=== PATIENT | male | born 1965 | race Caucasian/White ===

== ENCOUNTER 2023-10-18 03:21 | Emergency (ER) | payer MEDICARE, SELFPAY ==
[2023-10-18 03:29] VITALS: BP 117/80; PULSE 77; RESP 18; TEMP 36.8; O2SAT 99; BMI 30.2
[2023-10-18 03:36] VITALS: PULSE 79
[2023-10-18 03:41] LABS: Glucometer 513 mg/dL (74-106)
--- NOTE | 2023-10-18 03:42 | ECG_ITS ---
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
--- NOTE | 2023-10-18 03:50 | ED.GENADUL1 ---
HPI - General Adult General Chief complaint: Dizziness Stated complaint: hyperglycemia Time Seen by Provider: 10/18/23 03:25 Source: patient Mode of arrival: walk-in Limitations: no limitations History of Present Illness HPI narrative: 58 -year-old male presents for elevated blood sugar. It's been this way for the past day or two since he ate some cake and ice cream at a birthday constitution party. He doesn't have chest pain or dizziness. No fever cough or shortness of breath. No back pain or vomiting. He's been taking all his medications. Related Data Allergies Allergy/AdvReac Type Severity Reaction Status Date / Time povidone-iodine AdvReac Unknown Verified 10/18/23 03:37 [From Betadine] Review of Systems ROS Narrative A ten point review of systems is negative except as noted above. he has had polyuria PFSH PFSH Social History Smoking status: Never smoker Exam Narrative Exam Narrative: Nurses note and vital signs reviewed and patient is not hypoxic. General: The patient appears well and in no apparent distress. Patient is resting comfortably on cart. Skin: Warm, dry, no pallor noted. There is no rash noted. Head: Normocephalic, atraumatic Eye: Normal conjunctiva, no drainage Ears, Nose, Mouth, and Throat: oral mucosa is moist. Nares patent. Cardiovascular: Regular Rate and Rhythm Respiratory: Patient is in no distress, no accessory muscle use, lungs are clear to auscultation, no wheezing, rales or rhonchi Back: non-tender GI: no tenderness to palpation, no masses appreciated. No rebound, guarding, or rigidity noted. Musculoskeletal: The patient has no evidence of calf tenderness, no pitting edema, symmetrical pulses noted bilaterally Neurological: A&O, normal speech Psychiatric: Cooperative Constitutional Vital Signs, click to edit/add: Last Vital Signs Temp 98.2 F 10/18/23 03:29 Pulse 77 10/18/23 03:29 Resp 18 10/18/23 03:29 BP 117/80 10/18/23 03:29 Pulse Ox 99 10/18/23 03:29 O2 Del Method Room Air 10/18/23 03:29 Course Vital Signs Vital signs: Vital Signs Temperature 98.2 F 10/18/23 03:29 Pulse Rate 77 10/18/23 03:29 Respiratory Rate 18 10/18/23 03:29 Blood Pressure 117/80 10/18/23 03:29 Pulse Oximetry 99 10/18/23 03:29 Oxygen Delivery Method Room Air 10/18/23 03:29 Temperature 98.2 F 10/18/23 03:29 Pulse Rate 77 10/18/23 03:29 Respiratory Rate 18 10/18/23 03:29 Blood Pressure 117/80 10/18/23 03:29 Pulse Oximetry 99 10/18/23 03:29 Oxygen Delivery Method Room Air 10/18/23 03:29 Medical Decision Making MDM Narrative Medical decision making narrative: the patient presented with hypoglycemia. No evidence of DKA. He was given IV fluids and IV insulin and his blood sugar has come down appropriately and he'll be discharged home. My impression is that his hyperglycemia was caused by his diet and I discussed this matter with the patient. Differential Diagnosis Differential Diagnosis: hyperglycemia, DKA Lab Data Lab results reviewed: Yes I reviewed the patient's lab results Labs: Lab Results 10/18/23 10/18/23 10/18/23 Range/Units 03:31 03:55 05:13 WBC 8.7 (4.0-11.0) 10^3/uL RBC 3.99 L (4.70-6.10) 10^6/uL Hgb 12.6 L (14.0-18.0) g/dL Hct 36.1 L (42.0-54.0) % MCV 90.5 (80.0-94.0) fL MCH 31.6 (25.9-34.0) pg MCHC 34.9 (29.9-35.2) g/dL RDW 12.6 (11.0-15.0) % Plt Count 199 (150-450) 10^3/uL MPV 11.1 (9.5-13.5) fL Neut % (Auto) 48.5 (43.0-75.0) % Lymph % (Auto) 39.1 (20.5-60.0) % [place] % (Auto) 7.9 (1.7-12.0) % Eos % (Auto) 3.7 (0.9-7.0) % Baso % (Auto) 0.6 (0.2-2.0) % Neut # (Auto) 4.2 (1.4-6.5) 10^3/uL Lymph # (Auto) 3.4 (1.2-3.8) 10^3/uL [place] # (Auto) 0.7 (0.3-0.8) 10^3/uL Eos # (Auto) 0.3 (0.0-0.7) 10^3/uL Baso # (Auto) 0.1 (0.0-0.1) 10^3/uL Abs Immat Gran (auto) 0.02 (0.00-0.03) 10^3/uL Imm/Tot Granulo (auto) 0.2 (0.0-0.5) % Sodium 127 L (136-145) mmol/L Potassium 4.5 (3.5-5.1) mmol/L Chloride 91 L (98-107) mmol/L Carbon Dioxide 26.9 (21.0-32.0) mmol/L Anion Gap 13.6 BUN 44.0 H (7.0-18.0) mg/dL Creatinine 1.69 H (0.70-1.30) mg/dL Est GFR ( Amer) 51 L (>=60) Est GFR (Non-Af Amer) 42 L (>=60) BUN/Creatinine Ratio 26.0 Glucose 481 H (74-106) mg/dL Calcium 9.4 (8.5-10.1) mg/dL Acetone, Qual Negative (NEGATIVE) POC Glucose 513 H* 353 H (74-106) mg/dL ECG Data Attestation: I personally reviewed and interpreted this ECG as follows: (EKG on my interpretation shows sinus rhythm without acute change and a rate of 79.) Discharge Plan Discharge Chief Complaint: Dizziness Clinical Impression: Hyperglycemia Patient Disposition: Home, Self-Care Time of Disposition Decision: 05:18 Condition: Good Mode of Transportation: Private Vehicle Instructions: Diabetic Hyperglycemia (ED) Stand Alone Forms: Portal Instructions Referrals: Cheri Em [facility] [employer] [Primary Care Provider] - 1 week
[2023-10-18 03:58] LABS: Basophils Absolute Auto 0.1 10^3/uL (0.0-0.1); Basophils Percent Auto 0.6 % (0.2-2.0); Eosinophils Absolute Auto 0.3 10^3/uL (0.0-0.7); Eosinophils Percent Auto 3.7 % (0.9-7.0); Hematocrit 36.1 % (42.0-54.0); Hemoglobin 12.6 g/dL (14.0-18.0); Immature Granulocytes Abs Auto 0.02 10^3/uL (0.00-0.03); Immature Granulocytes Pct Auto 0.2 % (0.0-0.5); Lymphocytes Absolute Auto 3.4 10^3/uL (1.2-3.8); Lymphocytes Percent Auto 39.1 % (20.5-60.0); Mean Corpuscular HGB Conc 34.9 g/dL (29.9-35.2); Mean Corpuscular Hemoglobin 31.6 pg (25.9-34.0); Mean Corpuscular Volume 90.5 fL (80.0-94.0); Mean Platelet Volume 11.1 fL (9.5-13.5); Monocytes Absolute Auto 0.7 10^3/uL (0.3-0.8); Monocytes Percent Auto 7.9 % (1.7-12.0); Neutrophils Absolute Auto 4.2 10^3/uL (1.4-6.5); Neutrophils Percent Auto 48.5 % (43.0-75.0); Platelet Count 199 10^3/uL (150-450); Red Blood Count 3.99 10^6/uL (4.70-6.10); Red Cell Distribution Width 12.6 % (11.0-15.0); White Blood Count 8.7 10^3/uL (4.0-11.0)
--- NOTE | 2023-10-18 04:01 | PC.NURSE ---
Does have aa fracture shoe on left foot. that makes him a little off balance
[2023-10-18] MEDS: 0.9 % SODIUM CHLORIDE 1,000 ML 1000 ML IV (04:07)
[2023-10-18 04:08] LABS: Anion Gap 13.6; Calcium 9.4 mg/dL (8.5-10.1); Carbon Dioxide 26.9 mmol/L (21.0-32.0); Chloride 91 mmol/L (98-107); Estimated GFR (African America 51 (>=60); Estimated GFR (Non-African Ame 42 (>=60); Glucose 481 mg/dL (74-106); Potassium 4.5 mmol/L (3.5-5.1); Sodium 127 mmol/L (136-145)
[2023-10-18 04:09] LABS: Acetone NEGATIVE (NEGATIVE)
[2023-10-18] MEDS: INSULIN REGULAR 300 UNITS/3 ML 10 UNIT IV (04:36)
[2023-10-18 05:14] LABS: Glucometer 353 mg/dL (74-106)
== END 2023-10-18 05:39 | disposition home or self-care (01) ==
PROVIDERS: Emergency Provider Emergency Medicine; PCP Nurse Practitioner
DX: E11.65 Type 2 diabetes mellitus with hyperglycemia (principal)
CPT/HCPCS: 36415; 80048; 81001; 82009; 85025; 93005; 99284

== ENCOUNTER 2025-09-01 02:25 | Inpatient (IN) | payer MEDICARE, SELFPAY ==
[2025-09-01] VITALS (12 sets, daily range): BP systolic 120–165; BP diastolic 64–100; PULSE 83–102; TEMP 36.7–37.7; O2SAT 92–97; BMI 25.7; BMI 30.7
--- OUTSIDE RECORDS SUMMARY | 2025-09-01 02:33 | XMS_ITS | Patient Health Record ---
Author Organization [facility]) Address [address] [place] [address] Support Name Relationship Address Phone DARSHAN BREWSTER Guarantor Unknown [phone] Allergies Allergen (clinical drug ingredient) Drug/Non Drug Allergy documented on EMR Reaction Allergy Type Onset Date Status Iodine rash Drug Allergy Active Reason For Referral No Information Medications Medication SIG (Take, Route, Frequency, Duration) Notes Start Date End Date Status Jardiance 25 MG 1 tablet Orally Once a day Active Ozempic (1 MG/DOSE) 4 MG/3ML as directed Subcutaneous once weekly Active Sulfamethoxazole-Trimethopri m 800-160 MG 1 tablet Orally Once a day Active Omeprazole 40 MG 1 tablet 30 minutes before morning meal Orally Once a day Active UltiGuard SafePack Pen Needl e 32G X 4 MM as directed Active Tresiba FlexTouch 200 UNIT/ML as directe d Subcutaneous once a day Active Gabapentin 600 MG 1 tablet Orally twic e a day Active Doxepin HCl 50 MG 1 tab Orally twice a day Active Lisinopril 40 MG 1 tablet Orally Once a day Active hydroCHLOROthiazide 12.5 MG 1 tablet in the morning Orally Once a day Active Aspirin Low Dose 81 MG 1 tablet Orally O nce a day Active HYDROcodone-Acetaminophen 7.5-325 MG 1 tablet as needed Orally every 6 hrs Active busPIRone HCl 10 MG 1 tablet Orally once a day Active Atorvastatin Calcium 20 MG 1 tablet Oral ly Once a day Active Social History Tobacco Use: Social History Observation Description Date Details (start date - stop date) Never Smoker NA - NA Sex Assigned At : Social History Observation Description Sex Assigned At Male Tobacco Use/Smoking Question Answer Notes Are you a nonsmoker SBIRT 2018 Question Answer Notes Patient refused/declined SBIRT screening at this time? No 1. How often do you have a drink containing alco hol? Never SCORE 0 Interpretation Negative How many times in the past y ear have you used an illegal drug or used a prescription medication for non-medical reasons? 0 Total Count 0 Interpretation Negative Problems Problem Type SNOMED Code ICD Code Onset Dates Problem Status W/U Status Risk Notes Problem Type II diabetes mellitus without complication (045596672) Type 2 diabetes mellitus without complication, unspecified whether terminal carman insulin use (E11.9) Active confirmed Plan Of Treatment No Information Insurance Providers Payer Name Payer Address Payer Phone Subscriber Number Group Number Insured Name Patient Relationship to Insured Coverage Start Date Coverage End Date Medicare Part A [address] [place] [address] [id number] DARSHAN BREWSTER Self - patient is the insured [place] [employer] WRAP [address] [facility] [address] [place] [id number] DARSHAN BREWSTER Self - patient is the insured Medical (General) History Medical History History ICD Code Type 2 diabetes mellitus without complic ations E11.9 Hypertension I10 Hypercholesteremia E78.00 GERD without esophagitis K21.9 Depression with anxiety F41.8 Neuropathy G62.9 Surgical History Surgery Date(Month/Year) AMPUTATION OF LEFT FOOT PARTIAL 2020
--- OUTSIDE RECORDS SUMMARY | 2025-09-01 02:33 | XMS_ITS | Encounter Summary ---
Author Organization [employer] work Address [address] [place] [address] Care Team Providers Care Mortgage Lender Name Role Phone Gilmar Rodriguez Primary Care Provider + Encounter Details Date Type Department Care Team (Late st Contact Info) Description 11/14/2020 HME - Medical Equipment [employer] [phone] Amarjit Ibarra, DPM [address] [place] [address] Social History Tobacco Use Types Packs/Day Years Used Date Smoking Tobacco: Never Cigarettes Cigars Smokeless Tobacco: Never Alcohol Use Standard Drinks/Week Comments No 0 (1 standard drink = 0.6 oz pur e alcohol) Sex and Gender Information Value Date Recorded Sex Assigned at Not on file Legal Sex Male 6:23 PM EDT Gender Identity Male 11/07/2020 3:37 PM EST Sexual Orientation Not on file COVID-19 Exposure Response Date Recorded In the last month, have you been in contact with someone who was confirmed or suspected to have Coronavirus / COVID-19? No / Unsure 11/14/2020 10:15 AM EST documented as of this encounter Plan of Treatment Not on file documented as of this encounter Goals Goal Patient Goal Type Associated Problems Recent Progress Patient-Stated? Author Cut out extra servings Diet No Bernie Doran LPN Note: Avoid carbohydrates in the diet. More protein, meat, eggs, fish, chicken, cheese, salads, broccoli, cauliflower. No fruit, juices, milk, sweets or starchy vegetables. Increase physical activity Lifestyle No Bernie Doran LPN Plan meals Lifestyle No Bernie Doran LPN Note: Planning your meals in advance helps give you control of what you eat. Helps you avoid junk food. Weight (lb) < 200 lb (90.7 kg) Weight 112.9 kg (249 lb)(03/27/20 21 1:18 PM EDT) No Bernie Doran LPN Note: Weight loss will help with glucose control. Recommend 30 minutes or more of brisk walking daily other than what is required with your job. documented as of this encounter Visit Diagnoses Not on filedocumented in this encounter Additional Health Concerns Infection Onset Date Last Indicated Resolved Time Coronavirus Disease (COVID-1 9) - Rule out 12/23/2020 12/23/2020 01/03/2021 2:42 AM E documented as of this encounter Care Teams Mortgage Lender Relationship Specialty Start Date End Date Gilmar Rodriguez DO [address] [place] [address] PCP - General Family Medicine 03/07/18 documented as of this encounter
--- OUTSIDE RECORDS SUMMARY | 2025-09-01 02:33 | XMS_ITS | CCD ---
Author Organization [facility] CliniSywy Care Team Providers Care Pipeman Name Role Phone ERIN CRUZ Admitting Unavailable ERIN CRUZ Attending Unavailable MISC, DR MORRELL Primary Care Unavailable GARCIA, DR KAMRYN Hogue Consulting Unavailable ERIN CRUZ Consulting Unavailable Kate Mayers Primary Care Provider UnavailKATE Ramirez Primary Care Unavailable KRISTEN HERNANDEZ Attending Unavailable QING HASTINGS Referring Unavailable CONSULT, PODIATRY Consulting Unavailable KATE MAYERS Primary Care Unavailable RONALD CONNELL Attending Unavailable RONALD OCNNELL Admitting Unavailable Kathleen Diaz Unavailable SOUZA MECHANICAL ENGINEERING SPECIALIST~[id number], SOUZA VY N Admitting Unavailable SOUZA MECHANICAL ENGINEERING SPECIALIST~[id number], SOUZA VY N Attending Unavailable SOUZA MECHANICAL ENGINEERING SPECIALIST, VY N Consulting Unavailable SOUZA MECHANICAL ENGINEERING SPECIALIST~[id number], SOUZA VY N Primary Ca re Unavailable SOUZA MECHANICAL ENGINEERING SPECIALIST, VY N Consulting Unavailable SOUZA MECHANICAL ENGINEERING SPECIALIST~[id number], SOUZA VY N Attending Unavailable SOUZA MECHANICAL ENGINEERING SPECIALIST, VY N Consulting Unavailable SOUZA MECHANICAL ENGINEERING SPECIALIST~[id number], SOUZA VY N Primary Ca re Unavailable SOUZA MECHANICAL ENGINEERING SPECIALIST~[id number], SOUZA VY N Admitting Unavailable SOUZA MECHANICAL ENGINEERING SPECIALIST, VY N Consulting Unavailable SOUZA MECHANICAL ENGINEERING SPECIALIST~[id number], SOUZA VY N Attending Unavailable SOUZA MECHANICAL ENGINEERING SPECIALIST, VY N Consulting Unavailable SOUZA MECHANICAL ENGINEERING SPECIALIST~[id number], SOUZA VY N Admitting Unavailable SOUZA MECHANICAL ENGINEERING SPECIALIST~[id number], SOUZA VY N Primary Ca re Unavailable SOUZA MECHANICAL ENGINEERING SPECIALIST, VY N Consulting Unavailable SOUZA MECHANICAL ENGINEERING SPECIALIST~[id number], SOUZA VY N Attending Unavailable SOUZA MECHANICAL ENGINEERING SPECIALIST, VY N Consulting Unavailable SOUZA MECHANICAL ENGINEERING SPECIALIST~[id number], SOUZA VY N Primary Ca re Unavailable SOUZA MECHANICAL ENGINEERING SPECIALIST~[id number], SOUZA VY N Admitting Unavailable SOUZA MECHANICAL ENGINEERING SPECIALIST, VY N Consulting Unavailable MOOMAW MECHANICAL ENGINEERING SPECIALIST, JULIO CÉSAR I Consulting Unavailable DAYNA ORTEGA~[id number], DAYNA Ken Attending Unavailable DAYNA ORTEGA~[id number], DAYNA Ken Admitting Unavailable SOUZA MECHANICAL ENGINEERING SPECIALIST~[id number], SOUZA VY N Primary Ca re Unavailable MOOMAW MECHANICAL ENGINEERING SPECIALIST, JULIO CÉSAR I Consulting Unavailable TIFFANIE MCINTOSH MD Consulting Unavailable TIFFANIE MCINTOSH MD Consulting Unavailable SOUZA MECHANICAL ENGINEERING SPECIALIST, VY N Consulting Unavailable SOUZA MECHANICAL ENGINEERING SPECIALIST, VY N Consulting Unavailable SOUZA MECHANICAL ENGINEERING SPECIALIST, VY N Consulting Unavailable DAYNA ORTEGA~[id number], DAYNA Ken Attending Unavailable DAYNA ORTEGA~[id number], DAYNA Ken Admitting Unavailable SOUZA MECHANICAL ENGINEERING SPECIALIST~[id number], SOUZA VY N Primary Ca re Unavailable SOUZA MECHANICAL ENGINEERING SPECIALIST, VY N Consulting Unavailable KIRKHOPE MECHANICAL ENGINEERING SPECIALIST~[id number], KIRKHOPE IGGY L Admitt ing Unavailable KIRKHOPE MECHANICAL ENGINEERING SPECIALIST, IGGY L Consulting Unavailabl e KIRKHOPE MECHANICAL ENGINEERING SPECIALIST~[id number], KIRKHOPE IGGY L Attend ing Unavailable SOUZA MECHANICAL ENGINEERING SPECIALIST~[id number], SOUZA VY N Primary Ca re Unavailable KIRKHOPE MECHANICAL ENGINEERING SPECIALIST, IGGY L Consulting Unavailabl e SOUZA MECHANICAL ENGINEERING SPECIALIST, VY N Consulting Unavailable SOUZA MECHANICAL ENGINEERING SPECIALIST, VY N Consulting Unavailable SOUZA MECHANICAL ENGINEERING SPECIALIST~[id number], SOUZA VY N Attending Unavailable SOUZA MECHANICAL ENGINEERING SPECIALIST, VY N Consulting Unavailable SOUZA MECHANICAL ENGINEERING SPECIALIST~[id number], SOUZA VY N Primary Ca re Unavailable SOUZA MECHANICAL ENGINEERING SPECIALIST~[id number], SOUZA VY N Admitting Unavailable SOUZA MECHANICAL ENGINEERING SPECIALIST, VY N Consulting Unavailable CAROLINA ORTEGA DR~[id number] ARIANE Ken Attending Unavailable CAROLINA ORTEGA DR~[id number] ARIANE Ken Admitting Unavailable SOUZA MECHANICAL ENGINEERING SPECIALIST, VY N Consulting Unavailable SOUZA MECHANICAL ENGINEERING SPECIALIST~[id number], SOUZA VY N Primary Ca re Unavailable SOUZA MECHANICAL ENGINEERING SPECIALIST, VY N Consulting Unavailable WILSON DO~[id number], WILSON AKIKO K Attending Unavailable WILSON DO~[id number], WILSON AKIKO K Admitting Unavailable JERNIGAN PAC, ROZINA Consulting Unavailable SOUZA MECHANICAL ENGINEERING SPECIALIST~[id number], SOUZA VY N Primary Ca re Unavailable JERNIGAN PAC, ROZINA Consulting Unavailable SOUZA MECHANICAL ENGINEERING SPECIALIST, VY N Consulting Unavailable SOUZA MECHANICAL ENGINEERING SPECIALIST, VY N Consulting Unavailable WOOD DO~[id number], WOOD CHARLEE A Attending Unavailable WOOD DO~[id number], WOOD CHARLEE A Admitting Unavailable SOUZA MECHANICAL ENGINEERING SPECIALIST, VY N Consulting Unavailable SOUZA MECHANICAL ENGINEERING SPECIALIST~[id number], SOUZA VY N Primary Ca re Unavailable SOUZA MECHANICAL ENGINEERING SPECIALIST, VY N Consulting Unavailable WOOD DO, CHARLEE A Consulting Unavailable WOOD DO, CHARLEE A Consulting Unavailable GARCIA ORTEGA, KAMRYN Hogue Consulting Unavailable GARCIA ORTEGA, KAMRYN Hogue Consulting Unavailable SOUZA MECHANICAL ENGINEERING SPECIALIST~[id number], SOUZA VY N Attending Unavailable SOUZA MECHANICAL ENGINEERING SPECIALIST, VY N Consulting Unavailable SOUZA MECHANICAL ENGINEERING SPECIALIST~[id number], SOUZA VY N Admitting Unavailable SOUZA MECHANICAL ENGINEERING SPECIALIST~[id number], SOUZA VY N Primary Ca re Unavailable SOUZA MECHANICAL ENGINEERING SPECIALIST, VY N Consulting Unavailable SOUZA MECHANICAL ENGINEERING SPECIALIST~[id number], SOUZA VY N Admitting Unavailable SOUZA MECHANICAL ENGINEERING SPECIALIST~[id number], SOUZA VY N Attending Unavailable SOUZA MECHANICAL ENGINEERING SPECIALIST, VY N Consulting Unavailable SOUZA MECHANICAL ENGINEERING SPECIALIST~[id number], SOUZA VY N Primary Ca re Unavailable SOUZA MECHANICAL ENGINEERING SPECIALIST, VY N Consulting Unavailable Scally, MECHANICAL ENGINEERING SPECIALIST Kathleen Christina Attending Provider MD Timo Moser Primary Care Provider Timo Moser Primary Care Unavailable Kathleen Diaz Attending Unavailable Kathleen Diaz Admitting Unavailable Scally, MECHANICAL ENGINEERING SPECIALIST Kathleen Christina Attending Provider MD Timo Moser Primary Care Provider MIKE BARTON Attending Unavailable BANG, RUBÉN Referring Unavailable BANG, RUBÉN Primary Care Unavailable AUDREY, DEBRA P Attending Unavailable BANG, RUBÉN Referring Unavailable BANG, RUBÉN Primary Care Unavailable GERMAINE, MOHAMMED Attending Unavailable BANG, RUBÉN Primary Care Unavailable AUDREY, DEBRA P Attending Unavailable AUDREY, DEBRA P Referring Unavailable AUDREY, DEBRA P Attending Unavailable BANG, RUBÉN Referring Unavailable BANG, RUBÉN Primary Care Unavailable AUDREY, DEBRA P Attending Unavailable BANG, RUBÉN Referring Unavailable BANG, RUBÉN Primary Care Unavailable AUDREY, DEBRA P Attending Unavailable AUDREY, DEBRA P Referring Unavailable BANG, RUBÉN Primary Care Unavailable BANG, RUBÉN Referring Unavailable BANG, RUBÉN Primary Care Unavailable GERMAINE, MOHAMMED Referring Unavailable BANG, RUBÉN Primary Care Unavailable GERMAINE, MOHAMMED Referring Unavailable BANG, RUBÉN Primary Care Unavailable AUDREY, DEBRA P Attending Unavailable BANG, RUBÉN Referring Unavailable BANG, RUBÉN Primary Care Unavailable GERMAINE, MOHAMMED Referring Unavailable BANG, RUBÉN Primary Care Unavailable GERMAINE, MOHAMMED Referring Unavailable BANG, RUBÉN Primary Care Unavailable GERMAINE, MOHAMMED Referring Unavailable BANG, RUBÉN Primary Care Unavailable AUDREY, DEBRA P Attending Unavailable BANG, RUBÉN Referring Unavailable BANG, RUBÉN Primary Care Unavailable AUDREY, DEBRA P Attending Unavailable BANG, RUBÉN Referring Unavailable BANG, RUBÉN Primary Care Unavailable AUDREY, DEBAR P Attending Unavailable BANG, RUBÉN Referring Unavailable BANG, RUBÉN Primary Care Unavailable BANG, RUBÉN Primary Care Unavailable LEARY, IVA Attending Unavailable LEARY, IVA Referring Unavailable BANG, RUBÉN Primary Care Unavailable Unavailable Primary Care Provider Unavailabl e Bang MECHANICAL ENGINEERING SPECIALIST-ONCOLOGY SOCIAL WORKER, [place] Primary Care Provider Bang MECHANICAL ENGINEERING SPECIALIST-ONCOLOGY SOCIAL WORKER, [place] Primary Care Provider Allergies Allergy Classification Reported Allergen(s) Allergy Type Date of Onset Reaction(s) Facility (2 sources) Iodine (And Iodine Containting Drugs) Drug allergy (disorder) 2 [facility] (4 sources) Gadolinium-Cont aining Contrast Medi Allergy to substance 4 Unknown Reaction, Swollen and red hands/feet [facility] (14 sources) Iodinated Contrast Media; Translations: [IODINATED CONTRAST MEDIA] Allergy to substance 3 Unknown Reaction, Swollen and red hands/feet [facility] Medications Current Medications Medication Drug Class(es) Dates Sig (Normalized) Sig (Original) acetaminophen 325 mg / HYDROcodone bitartrate 5 mg oral tablet (4 sources) Opioid Agonist Start: 09-20-2023 End: 09-25-2023 take 1 tablet by mouth every eight hours as needed for pain hydroCODone-aceta minophen 5-325 MG tablet Indications: Diabetic foot infection Take 1 tablet by mouth every 8 hours as needed for Severe Pain or Moderate Pain for up to 5 days. 15 tablet 0 09/20/2023 Active Start: 09-19-2023 End: 09-20-2023 take 1 tablet by mouth every four hours as needed hydroCODone-acetaminophen (NORCO) 5-325 MG per tablet 1 tablet aspirin 81 mg delayed release oral tablet (20 sources) Platelet Aggregation Inhibitor, Nonsteroidal Anti-inflammatory Drug Start: 02-17-2024 take 1 tablet by mouth once daily Aspirin (Adult Aspirin Regimen) 81 mg tablet,delayed release (DR/EC) Active 81 MG PO Daily February 17, 2024 12:00am Start: 09-19-2023 End: 09-20-2023 take 81 mg by mouth once daily 81 mg, Oral, DAILY, [facility] dose on Tue09/19/23 at 1000, Until Discontinued take 1 tablet by evonne th every twenty-four hours Aspirin Adult Low Dose 81 MG 1 tablet Orally Once a day Active atorvastatin 20 mg oral tablet (18 sources) HMG-CoA Reductase Inhibitor Start: 08-18-2023 take 20 mg by mouth once daily Atorvastatin Active 20 MG PO Daily January 23, 2024 1:00am bifidobacterium animalis [id number] unt / lactobacillus acidophilus [id number] unt oral capsule (4 sources) Start: 09-20-2023 End: 10-04-2023 take 1 capsule by mouth twice daily probiotic blend capsule Take 1 capsule by mouth 2 times daily for 14 days. 28 capsule 0 09/20/2023 10/04/2023 Active Start: 09-19-2023 End: 09-20-2023 probiotic blend (RISAQUAD) c apsule 1 capsule Blood-Glucose Sensor (Freestyle Sallie 3 Sensor) device (1 source) Start: 02-28-2024 Blood-Glucose Sensor (Freestyle Sallie 3 Sensor) device Active 0 .Route 2 February 28, 2024 12:00am Use to monitor BG change every 14 days busPIRone hydrochloride 10 mg oral tablet (20 sources) Start: 01-23-2024 take 10 mg by mouth twice daily Buspirone Active 10 MG PO Twice daily January 23, 2024 1:00am Start: 09-19-2023 End: 09-20-2023 busPIRone (BUSPAR) tablet 10 mg take 1 tablet by evonne th three times daily in the morning busPIRone 10 MG tablet Take 1 tablet by mouth 3 times daily. Last dose AM 0 Active Cholecalciferol (20 sources) Vitamin D Start: 04-05-2024 take 1 capsule by mouth once daily cholecalciferol (vitamin D3) Active 1 CAP PO Daily April 05, 2024 10:32am Start: 01-23-2024 End: 04-05-2024 cholecalciferol (vitamin D3) Discontinued PO Daily January 23, 2024 1:00am April 05, 2024 10:37am Start: 01-23-2024 cholecalcifero l (vitamin D3) Active PO Daily January 23, 2024 1:00am Start: 08-18-2023 take 1 capsule by mo uth once daily cholecalciferol, vitamin D3, (VITAMIN D3) 5,000 units capsule TAKE ONE CAPSULE BY MOUTH DAILY 08/18/2023 Active take 1 tablet by evonne th every twenty-four hours Vitamin D3 25 MCG (1000 UT) 1 tablet Orally Once a day Active take 1 tablet by evonne th every twenty-four hours Vitamin D3 125 MCG (5000 UT) 1 tablet Orally Once a day Active doxepin hydrochloride 25 mg oral capsule (9 sources) Tricyclic Antidepressant Start: 09-13-2023 take 1 capsule by mouth at bedtime doxepin (SINEquan) 25 mg capsule TAKE ONE CAPSULE BY MOUTH AT BEDTIME 09/13/2023 Active doxycycline hyclate 100 mg oral capsule (10 sources) Tetracycline-class Drug Start: 02-17-2024 take 100 mg by mouth once daily Doxycycline Hyclate Active 100 MG PO Daily February 17, 2024 12:00am Start: 09-27-2023 End: 10-11-2023 take 1 capsule by mouth twice daily doxycycline hyclate 100 MG capsule Indications: Diabetic ulcer of left great toe Take 1 capsule by mouth 2 times daily for 14 days. 28 capsule 0 09/27/2023 10/11/2023 Active take 1 capsule by [facility] every twenty-four hours Doxycycline Hyclate 100 MG 1 capsule Orally Once a day Not-Taking/PRN empagliflozin 25 mg oral tablet (18 sources) Sodium-Glucose Cotransporter 2 Inhibitor Start: 09-13-2023 take 1 tablet by mouth once daily Empagliflozin (Jardiance) 25 mg tablet Active 25 MG PO Daily January 23, 2024 1:00am gabapentin 600 mg oral tablet (20 sources) Anti-epileptic Agent Start: 04-05-2024 take 600 mg by mouth twice daily Gabapentin Active 600 MG PO Twice daily April 05, 2024 10:32am Start: 01-23-2024 End: 04-05-2024 take 1200 mg by mouth twice daily Gabapentin Discontinued 1200 MG PO Twice daily January 23, 2024 1:00am April 05, 2024 10:37am Start: 09-19-2023 End: 09-20-2023 Gabapentin (NEURONTIN) capsu le 600 mg gabapentin (NEUR ONTIN) 600 mg tablet Take 1 tablet (600 mg total) by mouth. 0 Active take 1 tablet by [facility] in the morning, then take 2 tablets by mouth twice daily at bedtime Gabapentin 600 MG 1 tablet am, 2 tabs HS Orally bid Active hydroCHLOROthiazide 12.5 mg oral tablet (13 sources) Thiazide Diuretic Start: 09-13-2023 take 12.5 mg by mouth once daily Hydrochlorothiazide Active 12.5 MG PO Daily January 23, 2024 1:00am Hydrochlorothiazide-12. 5 mg 12.5 mg (5 sources) take 1 tablet by mouth once daily Hydrochlorothiazide-12 .5 mg 12.5 mg 1 tablet Orally Once a day Active hydrOXYzine hydrochloride 25 mg oral tablet (18 sources) Antihistamine Start: 08-18-2023 take 25 mg by mouth once daily Hydroxyzine Hcl Active 25 MG PO Daily January 23, 2024 1:00am 3 ml insulin degludec 100 unt/ml pen injector (12 sources) Insulin Analog Start: 11-23-2023 Insulin Degludec (Tresiba Flextouch U-100) 100 unit/mL (3 mL) insulin pen Active 0 .ROUTE .COMPLEX April 02, 2024 1:00pm inject 22 units subcutaneously once daily 3 ml insulin lispro 100 unt/ml pen injector (8 sources) Insulin Analog Start: 11-23-2023 HumaLOG KwikPen 100 UNIT/ML Use with written ICR 1:10, and Corrective scale 1:30 Subcutaneous ACHS for 90 days Use up to 30 units daily Oct, Active Start: 09-20-2023 End: 11-19-2023 Insulin Lispro 100 UNIT/ML v ial Inject 1-10 Units under the skin before meals & at bedtime. 151 - 200 = 4 units; 201 - 250 = 6 units; 251 - 300 = 10 units; 301 - 350 = 14 units; 351 - 400 = 18 units; 12 mL 1 09/20/2023 11/19/2023 Active Insulin Lispro (Humalog Kwikpen Insulin) 100 unit/mL insulin pen (4 sources) Start: 01-23-2024 inject 1 dose by subcutaneous injection once before mealtime Insulin Lispro (Humalog Kwikpen Insulin) 100 unit/mL insulin pen Active 1 sliding scale dose SUBCUT 3x/Day before meals & bedtime January 23, 2024 1:00am Insulin Lispro 100 UNIT/ML (5 sources) Insulin Lispro 100 UNIT/ML sliding scale Subcutaneous with meals and hs Active isopropyl alcohol 0.7 ml/ml medicated pad (9 sources) Start: 10-10-2023 alcohol swabs pads, medicated 10/10/2023 Active linezolid 600 mg oral tablet (3 sources) Oxazolidinone Antibacterial Start: 09-20-2023 End: 09-27-2023 take 1 tablet by mouth twice daily Linezolid (Zyvox) 600 MG tablet Take 1 tablet by mouth 2 times daily for 7 days. 14 tablet 0 09/20/2023 09/27/2023 Active lisinopril 40 mg oral tablet (18 sources) Angiotensin Converting Enzyme Inhibitor Start: 08-18-2023 take 40 mg by mouth once daily Lisinopril Active 40 MG PO Daily January 23, 2024 1:00am mupirocin 0.02 mg/mg topical ointment (10 sources) RNA Synthetase Inhibitor Antibacterial Start: 09-27-2023 mupirocin (BACTROBAN) 2 % ointment 09/27/2023 Active Start: 09-27-2023 mupirocin (PHUONG TROBAN) 2 % ointment APPLY TO THE AFFECTED AREA(S) at every bandage change DAILY 0 09/27/2023 Active Start: 09-27-2023 Mupirocin 2 % ointment Indications: Diabetic ulcer of left great toe Apply small amount to affected area at every bandage change. Change bandage 1x a day This will be used for about 2 weeks 30 g 3 09/27/2023 Active nitroglycerin 0.4 mg sublingual tablet (8 sources) Nitrate Vasodilator Start: 11-25-2023 nitroglycerin (NITROSTAT) 0.4 MG SL tablet 1 under the tongue as needed for angina, may repeat q5mins for up three doses 100 tablet 11 11/25/2023 Active omeprazole 20 mg delayed release oral capsule (18 sources) Proton Pump Inhibitor Start: 08-18-2023 take 20 mg by mouth once daily Omeprazole Active 20 MG PO Daily January 23, 2024 1:00am Semaglutide (1 source) Start: 03-02-2024 Semaglutide (Ozempic) 0.25 mg or 0.5 mg (2 mg/3 mL) pen injector Active 0.25 MG SUBCUT every week 4.784 90 March 02, 2024 12:00am for 4 weeks Completed/Discontinued Medications Medication Drug Class(es) Dates Sig (Normalized) Sig (Original) acetaminophen 325 mg oral tablet (1 source) Start: 09-18-2023 End: 09-20-2023 take 1 tablet by mouth every six hours as needed Acetaminophen (TYLENOL) tablet 650 mg albuterol 0.833 mg/ml / ipratropium bromide 0.167 mg/ml inhalation solution (1 source) Anticholinergic, beta2-Adrenergic Agonist Start: 09-19-2023 End: 09-20-2023 take 3 mL by inhalation every four hours as needed Ipratropium-albuter ol (DUONEB) 0.5-2.5 (3) MG/3ML nebulizer solution 3 mL ceFEPIme (MAXIPIME) 2 g in sodium chloride 0.9% (MB PLUS) 100 mL (total volume) IVPB (2 sources) Start: 09-19-2023 End: 09-20-2023 take 2 g intravenously every eight hours ceFEPIme (MAXIPIME) 2 g in sodium chloride 0.9% (MB PLUS) 100 mL (total volume) IVPB Start: 09-18-2023 End: 09-18-2023 ceFEPIme (MAXIPIME) 2 g in s odium chloride 0.9% (MB PLUS) 100 mL (total volume) IVPB clindamycin 300 mg oral capsule (1 source) Lincosamide Antibacterial End: 09-20-2023 take 1 capsule by mouth four times daily clindamycin 300 MG capsule Take 1 capsule by mouth 4 times daily. For diabetic ulceration, started 09/17/2023 0 09/20/2023 Discontinued (Stop Taking at Discharge) 1 ml diphenhydrAMINE hydrochloride 50 mg/ml cartridge (1 source) Histamine-1 Receptor Antagonist Start: 09-19-2023 End: 09-20-2023 take 25 mg intravenously every six hours as needed diphenhydrAMINE (BENADRYL) injection 25 mg docusate sodium 100 mg oral capsule (1 source) Start: 09-19-2023 End: 09-20-2023 Docusate (COLACE) capsule 100 mg 0.4 ml enoxaparin sodium 100 mg/ml prefilled syringe (1 source) Low Molecular Weight Heparin Start: 09-19-2023 End: 09-20-2023 Enoxaparin Sodium (LOVENOX) injection 40 mg Insulin Degludec (Tresiba Flextouch U-100) 100 unit/mL (3 mL) insulin pen (4 sources) Start: 01-23-2024 End: 04-02-2024 Insulin Degludec (Tresiba Flextouch U-100) 100 unit/mL (3 mL) insulin pen Discontinued 22 UNIT SUBCUT Daily January 23, 2024 1:00am April 02, 2024 1:00pm Start: 01-23-2024 Insulin Deglud ec (Tresiba Flextouch U-100) 100 unit/mL (3 mL) insulin pen Active 22 UNIT SUBCUT Daily January 23, 2024 1:00am insulin detemir (20 sources) Insulin Analog Start: 01-23-2024 End: 02-17-2024 inject 15 [IU] by subcutaneous injection once daily Insulin Detemir U-100 Discontinued 15 UNIT SUBCUT Daily January 23, 2024 1:00am February 17, 2024 10:20am Start: 09-20-2023 End: 11-19-2023 inject 15 [IU] by subcutaneous injection every twenty-four hours Insulin detemir 100 UNIT/ML vial Inject 15 Units under the skin every 24 hours. 4.5 mL 1 09/20/2023 11/19/2023 Active Start: 09-19-2023 End: 09-20-2023 inject 15 [IU] by subcutaneous injection every twenty-four hours Insulin detemir (LEVEMIR) injection 15 Units inject 0.22 mL by nguyen bcutaneous injection once daily insulin detemir U-100 (LEVEMIR) 100 unit/mL injection Inject 0.22 mL (22 Units total) under the skin nightly. Active Levemir FlexPen 100 UNIT/ML 15 units Subcutaneous daily Active Insulin regular (HUMULIN R;NOVOLIN R) injection (1 source) Start: 09-19-2023 End: 09-20-2023 Insulin regular (HUMULIN R;NOVOLIN R) injection insulin, regular, human 100 unt/ml injectable solution (1 source) Insulin Start: 09-18-2023 End: 09-18-2023 Insulin regular (HUMULIN R;NOVOLIN R) injection 6 Units labetalol hydrochloride 5 mg/ml injectable solution (1 source) beta-Adrenergic Terrance Start: 09-19-2023 End: 09-20-2023 take 20 mg intravenously every four hours as needed Labetalol (NORMODYNE) injection 20 mg lactulose 667 mg/ml oral solution (1 source) Osmotic Laxative Start: 09-19-2023 End: 09-20-2023 take 20 g by mouth every four hours as needed lactulose (CHRONULAC) oral solution 20 g lidocaine 25 mg/ml / prilocaine 25 mg/ml topical cream (3 sources) Antiarrhythmic, Amide Local Anesthetic Start: 01-13-2024 End: 01-13-2024 lidocaine-priloc mary (EMLA) cream 1 Application Start: 12-23-2023 End: 12-23-2023 lidocaine-prilocaine (EMLA) cream 1 Application Start: 12-02-2023 End: 12-02-2023 lidocaine-prilocaine (EMLA) cream 1 Application 1 ml LORazepam 2 mg/ml injection (1 source) Benzodiazepine Start: 09-19-2023 End: 09-19-2023 LORazepam (ATIVAN) injection 1 mg 50 ml magnesium sulfate 40 mg/ml injection (1 source) Start: 09-20-2023 End: 09-20-2023 Magnesium sulfate 2 g/50 ml in sterile water premix IVPB 2 g 50 mL (total volume) melatonin 3 mg oral tablet (1 source) Start: 09-19-2023 End: 09-20-2023 Melatonin tablet 6 mg 2 ml ondansetron 2 mg/ml injection (1 source) Serotonin-3 Receptor Antagonist Start: 09-19-2023 End: 09-20-2023 take 4 mg intravenously every four hours as needed Ondansetron 4mg/2ml (ZOFRAN) injection 4 mg pantoprazole 40 mg delayed release oral tablet (1 source) Proton Pump Inhibitor Start: 09-19-2023 End: 09-20-2023 Pantoprazole (PROTONIX) tablet DR 40 mg polyethylene glycol 3350 12082 mg powder for oral solution (1 source) Osmotic Laxative Start: 09-19-2023 End: 09-20-2023 Polyethylene glycol (MIRALAX) packet 17 g Potassium Chloride (1 source) Start: 09-20-2023 End: 09-20-2023 Potassium chloride (K-DUR) tablet ER 40 mEq Potassium phosphates 30 mmol in Sodium chloride 0.9%, with overfill 535 mL (total volume) IVPB (1 source) Start: 09-19-2023 End: 09-20-2023 Potassium phosphates 30 mmol in Sodium chloride 0.9%, with overfill 535 mL (total volume) IVPB 1000 ml sodium chloride 9 mg/ml injection (1 source) Start: 09-19-2023 End: 09-20-2023 Sodium chloride 0.9% IV solution traMADol hydrochloride 50 mg oral tablet (1 source) Opioid Agonist Start: 09-19-2023 End: 09-20-2023 take 1 tablet by mouth every six hours as needed traMADol (ULTRAM) tablet 50 mg 200 ml vancomycin 5 mg/ml injection (1 source) Glycopeptide Antibacterial Start: 09-19-2023 End: 09-20-2023 take 1000 mg intravenously every eight hours vancomycin (VANCOCIN) 1,000 mg in dextrose 200 ml premix IVPB Vancomycin (VANCOCIN) 1,500 mg in Sodium chloride 0.9%, with overfill 565 mL (total volume) IVPB (1 source) Start: 09-20-2023 End: 09-20-2023 take 1500 mg intravenously every eight hours Vancomycin (VANCOCIN) 1,500 mg in Sodium chloride 0.9%, with overfill 565 mL (total volume) IVPB Problems Active Problems Problem Classification Problem Date Documented Da te Episodic/Chronic Acute myocardial infarction (9 sources) Myocardial infarction; Translations: [Acute myocardial infarction, unspecified] Onset: 10-19-2023 10-19-2023 Chronic Administrative/social admission (8 sources) Dietary counseling and surveillance; Translations: [Problem related to housing and economic circumstances, unspecified] Onset: 02-22-2023 Episodic Anxiety disorders (6 sources) Anxiety; Translations: [Anxiety disorder, unspecified] 01-23-2024 Chronic Chronic ulcer of skin (7 sources) Non-pressure chronic ulcer of other part of right foot with unspecified severity; Translations: [Non-pressure chronic ulcer of other part of left foot with other specified severity] Onset: 03-14-2023 Chronic Deficiency and other anemia (3 sources) Personal history of diabetic foot ulcer; Translations: [Personal history of other endocrine, metabolic, and immunity disorders] Onset: 02-22-2023 02-17-2024 Episodic Deficiency and other anemia (1 source) History of diabetic foot ulcer; Translations: [Personal history of diabetic foot ulcer] 03-02-2024 Episodic Developmental disorders (1 source) Specific reading disorder; Translations: [SPECIFIC READING DISORDER] Onset: 02-22-2023 Chronic Diabetes mellitus with complications (20 sources) Infection of foot due to diabetes mellitus; Translations: [Type 2 diabetes mellitus with other skin complications] Onset: 03-09-2023 09-18-2023 Chronic Diabetes mellitus without complication (1 source) Type 1 diabetes mellitus without complications; Translations: [TYPE 1 DM WITHOUT COMPLICATIONS] Onset: 04-29-2023 Chronic Disorders of lipid metabolism (15 sources) Hyperlipidemia; Translations: [Hyperlipidemia, unspecified] Onset: 02-22-2023 Chronic Esophageal disorders (7 sources) Gastro-esophageal reflux disease without esophagitis; Translations: [Gastroesophageal reflux disease] Onset: 02-22-2023 01-23-2024 Chronic Essential hypertension (20 sources) Hypertensive disorder; Translations: [Essential (primary) hypertension] Onset: 02-22-2023 Chronic Mood disorders (1 source) Major depressive disorder, recurrent, mild; Translations: [EULOGIO DEPRESS D/O RECURRENT MILD] Onset: 02-22-2023 Chronic Nutritional deficiencies (11 sources) Vitamin D deficiency; Translations: [Vitamin D deficiency, unspecified] Onset: 04-22-2023 Chronic Other aftercare (9 sources) Long-term current use of insulin; Translations: [[facility] (current) use of insulin] 02-17-2024 Episodic Other aftercare (4 sources) 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; Translations: [Long-term (current) use of insulin] Onset: 05-26-2023 Episodic Other nervous system disorders (3 sources) Other specified polyneuropathies; Translations: [OTHER SPECIFIED POLYNEUROPATHIES] Onset: 02-11-2023 Chronic Other nervous system disorders (4 sources) Neuropathy; Translations: [Polyneuropathy, unspecified] 01-23-2024 Chronic Other nervous system disorders (2 sources) Polyneuropathy, unspecified; Translations: [Mononeuritis of unspecified site] 02-17-2024 Chronic Other nutritional; endocrine; and metabolic disorders (4 sources) Obesity caused by energy imbalance; Translations: [Other obesity due to excess calories] Onset: 09-19-2023 09-19-2023 Chronic Other nutritional; endocrine; and metabolic disorders (5 sources) Obese class I; Translations: [Body mass index (BMI) 31.0-31.9, adult] Chronic Other nutritional; endocrine; and metabolic disorders (1 source) Body mass index (BMI) 31.0-31.9, adult Chronic Other nutritional; endocrine; and metabolic disorders (4 sources) Body mass index 30+ - obesity; Translations: [Body mass index (BMI) 31.0-31.9, adult] 02-17-2024 Chronic Other skin disorders (1 source) Corns and callosities; Translations: [Corns and callosities] Onset: 02-17-2024 Episodic Residual codes; unclassified (3 sources) Obstructive sleep apnea (adult) (pediatric); Translations: [OBSTRUCTIVE SLEEP APNEA] Onset: 03-16-2023 Chronic Residual codes; unclassified (1 source) Primary central sleep apnea; Translations: [PRIMARY CENTRAL SLEEP APNEA] Onset: 03-18-2023 Chronic Residual codes; unclassified (1 source) Hypersomnia, unspecified; Translations: [HYPERSOMNIA UNSPECIFIED] Onset: 03-18-2023 Chronic Unclassified (1 source) Wound Check Onset: 02-03-2024 Unclassified (1 source) New Patient Onset: 11-25-2023 Past or Other Problems Problem Classification Problem Date Documented Date Episodic/Chronic Abdominal pain (4 sources) Unspecified abdominal pain; Translations: [UNSPECIFIED ABDOMINAL PAIN] Onset: 06-19-2022 Episodic Deficiency and other anemia (13 sources) Normocytic anemia; Translations: [Anemia, unspecified] Onset: 09-19-2023 09-19-2023 Episodic Nausea and vomiting (1 source) Nausea with vomiting, unspecified; Translations: [NAUSEA WITH VOMITING UNSPECIFIED] Onset: 06-22-2022 Episodic Nonspecific chest pain (3 sources) Chest pain, unspecified; Translations: [Chest pain] Onset: 02-22-2023 11-24-2023 Episodic Other bone disease and musculoskeletal deformities (1 source) Acquired absence of other left toe(s); Translations: [ACQUIRED ABSENCE OF OTHER LEFT TOES] Onset: 05-26-2023 Episodic Other connective tissue disease (1 source) Personal history of other diseases of the musculoskeletal system and connective tissue; Translations: [PERS HX OTH DZ MSK SYSANDCNCTV TISSUE] Onset: 05-26-2023 Episodic Other connective tissue disease (1 source) Pain in right foot; Translations: [Pain in right foot] Onset: 01-19-2024 Episodic Other connective tissue disease (2 sources) Foot pain Onset: 01-19-2024 Episodic Other liver diseases (4 sources) Abnormal levels of other serum enzymes; Translations: [ABNORMAL LEVELS OTHER SERUM ENZYMES] Onset: 03-10-2023 Episodic Other lower respiratory disease (1 source) Snoring; Translations: [SNORING] Onset: 03-18-2023 Episodic Other non-traumatic joint disorders (1 source) Pain in right shoulder; Translations: [PAIN IN RIGHT SHOULDER] Onset: 02-22-2023 Episodic Other skin disorders (3 sources) Other specified disorders of the skin and subcutaneous tissue; Translations: [OTH SPEC D/O SKIN AND SUBQ TISSUE] Onset: 04-26-2023 Episodic Other skin disorders (2 sources) Callosity; Translations: [Corns and callosities] 04-04-2024 Episodic Skin and subcutaneous tissue infections (16 sources) Cellulitis of toe of left foot; Translations: [Cellulitis of left toe] Onset: 09-18-2023 09-19-2023 Episodic Spondylosis; intervertebral disc disorders; other back problems (3 sources) Radiculopathy, lumbar region; Translations: [RADICULOPATHY LUMBAR REGION] Onset: 04-13-2023 Episodic Unclassified (3 sources) Onset: 09-20-2023 Resolved: 09-26-2023 09-20-2023 Results Test Name Value Interpretation Reference Range Facility No Panel Informationon 04-04 Applied in clinic today MANUALLY TRANSCRIBED RESULTS [facility] HbA1c HPLC (Bld) [Mass fract ion]on 02-17-2024 HbA1c (Bld) [Mass fraction] 11.3 % [facility] No Panel Informationon 02-16 APPLIED IN CLINIC TODAY. MANUALLY TRANSCRIBED RESULTS [facility] Bedside Glucose 321 [facility] No Panel Informationon 02-02 Applied in clinic today MANUALLY TRANSCRIBED RESULTS [facility] XR FOOT RT MIN 3 VWSon 01-19 XR FOOT RT MIN 3 VWS XR FOOT RT MIN 3 VW S History: Diabetic foot ulcer fifth digit right foot. Exam/Technique: AP, lateral and oblique views of the right foot Comparison: None available. Findings: There is no evidence of fracture, malalignment or acute bony abnormality. Localized soft tissue prominence adjacent to the fifth MTP articulation. No evidence of bony infiltration or articular abnormality. Mild degenerative disease of the first digit. Faint calcifications noted of plantar fascia as well. IMPRESSION: * Localized soft tissue prominence adjacent to the metatarsal phalangeal articulation without radiographic evidence of bony infiltration. Consider MRI if there is further concern. Finalized by Jeff Willson DO on 01/19/2024 10:34 AM Normal [facility] No Panel Informationon 01-13 Applied in clinic today MANUALLY TRANSCRIBED RESULTS No Panel InformationOrdered By: Carisa Sneed on 01-13-2024 [facility] Medi-honeyon 12-23-2023 APPLIED IN CLINIC TODAY. MANUALLY TRANSCRIBED RESULTS [facility] No Panel Informationon 12-23 APPLIED IN CLINIC TODAY. MANUALLY TRANSCRIBED RESULTS [facility] US ABDOMEN LMTDon 12-07-2023 US ABDOMEN LMTD US ABDOMEN LMTD ABDOMEN LIMITED ULTRASOUND HISTORY: Elevated alkaline phosphatase COMPARISON: None FINDINGS: Pancreas: Visualized portions of the pancreatic head and body are unremarkable. Diffusely increased hepatic echogenicity compatible with hepatocellular disease, probably secondary to steatosis. Within these limits, no focal hepatic lesion. No intrahepatic biliary dilatation. Main portal vein is patent with appropriate direction of flow. Gallbladder surgically absent. Common duct measures 7 mm, likely from postcholecystectomy reservoir effect. No visualized ascites. Right kidney 12 cm. No visible abnormality. IMPRESSION: 1. Hepatic steatosis. 2. No acute process Finalized by Tremayne Jacobs MD on 12/07/2023 4:38 PM Normal [facility] No Panel Informationon 12-02 Applied in clinic today MANUALLY TRANSCRIBED RESULTS [facility] POCT EKGon 11-25-2023 [facility] Multiple labsOrdered By: Adrian Parra on 11-14-2023 [facility] Glucose - FINGER STICKon Glucose [Mass/Vol] 313 mg/dL [facility] Other C REACTIVE PROTEINon 023 CRP [Mass/Vol] 27.8 mg/L High 0-10 [facility] Comment on above: Performed By: #### T ROHS #### Testing performed at [address] [address] CRP [Mass/Vol] 27.8 mg/L High 0 - 10 MG/L [facility] CBCon 09-20-2023 ABSOLUTE BAS 0.0 10*3/uL Normal 0.0-0.2 [facility] Comment on above: Performed By: #### T ROHS #### Testing performed at [address] [address] ABSOLUTE EOS 0.3 10*3/uL Normal 0.0-0.7 [facility] Comment on above: Performed By: #### T ROHS #### Testing performed at [address] [address] ABSOLUTE NEUTROPHIL COUNT 3.8 10*3/uL Normal 1.4-6.5 [facility] Comment on above: Performed By: #### T ROHS #### Testing performed at [address] [address] Basophils/100 WBC (Bld) 0.4 % Normal 0.0-2.0 [facility] Comment on above: Performed By: #### T ROHS #### Testing performed at [address] [place] [address] DTYPE AUTO DIFF Normal [facility] Comment on above: Performed By: #### T ROHS #### Testing performed at [address] [address] Eosinophils/100 WBC (Bld) 3.9 % Normal 0.0-11.0 [facility] Comment on above: Performed By: #### T ROHS #### Testing performed at [address] [address] Lymphocytes (Bld) [#/Vol] 2.1 10*3/uL Normal 1.2-3.4 [facility] Comment on above: Performed By: #### T ROHS #### Testing performed at [address] [place] [address] Lymphocytes/100 WBC (Bld) 31.4 % Normal 20.0-55.0 [facility] Comment on above: Performed By: #### T ROHS #### Testing performed at [address] [place] [address] Monocytes (Bld) [#/Vol] 0.6 10*3/uL Normal 0.0-0.7 [facility] Comment on above: Performed By: #### T ROHS #### Testing performed at [address] [address] Monocytes/100 WBC (Bld) 8.4 % Normal 0.0-10.0 [facility] Comment on above: Performed By: #### T ROHS #### Testing performed at [address] [address] Neutrophils/100 WBC (Bld) 55.9 % Normal 37.0-75.0 [facility] Comment on above: Performed By: #### T ROHS #### Testing performed at [address] [address] Erythrocyte distribution width (RBC) [Ratio] 13.5 % Normal 11.5-14.5 [facility] Comment on above: Performed By: #### T ROHS #### Testing performed at [address] [address] Hematocrit (Bld) [Volume fraction] 34.7 % Low 42.0-52.0 [facility] Comment on above: Performed By: #### T ROHS #### Testing performed at [address] [address] Hemoglobin (Bld) [Mass/Vol] 12.1 g/dL Low 14.0-18.0 [facility] Comment on above: Performed By: #### T ROHS #### Testing performed at [address] [address] MCH (RBC) [Entitic mass] 31.7 pg Normal 26.0-35.0 [facility] Comment on above: Performed By: #### T ROHS #### Testing performed at [address] [address] MCHC (RBC) [Mass/Vol] 34.9 g/dL Normal 27.0-37.0 [facility] Comment on above: Performed By: #### T ROHS #### Testing performed at [address] [address] MCV (RBC) [Entitic vol] 91.0 fL Normal 80.0-100.0 [facility] Comment on above: Performed By: #### T ROHS #### Testing performed at [address] [address] Platelet mean volume (Bld) [Entitic vol] 9.7 fL Normal 7.4-11.0 [facility] Comment on above: Performed By: #### T ROHS #### Testing performed at [address] [address] Platelets (Bld) [#/Vol] 200 10*3/uL Normal 130-400 [facility] Comment on above: Performed By: #### T ROHS #### Testing performed at [address] [address] RBC (Bld) [#/Vol] 3.82 10*6/uL Low 4.0-6.1 [facility] Comment on above: Performed By: #### T ROHS #### Testing performed at [address] [address] WBC (Bld) [#/Vol] 6.8 10*3/uL Normal 3.6-11.0 [facility] Comment on above: Performed By: #### T ROHS #### Testing performed at [address] [address] CBC, EDIF, PLATELETon 2022 ABSOLUTE BASOPHIL COUNT 0.0 10*3/uL 0.0 - 0.2 10*3/uL [facility] Basophils/100 WBC (Bld) 0.4 % 0.0 - 2.0 % [facility] Differential cell count method Nom (Bld) AUTO DIFF % [facility] Eosinophils (Bld) [#/Vol] 0.3 10*3/uL 0.0 - 0.7 10*3/uL [facility] Eosinophils/100 WBC (Bld) 3.9 % 0.0 - 11.0 % [facility] Erythrocyte distribution width (RBC) [Ratio] 13.5 % 11.5 - 14.5 % [facility] Hematocrit (Bld) [Volume fraction] 34.7 % Low 42.0 - 52.0 % [facility] Hemoglobin (Bld) [Mass/Vol] 12.1 g/dL Low [facility] Interpretation and review of laboratory results Abnormal [facility] Lymphocytes (Bld) [#/Vol] 2.1 10*3/uL 1.2 - 3.4 10*3/uL [facility] Lymphocytes/100 WBC (Bld) 31.4 % 20.0 - 55.0 % [facility] MCH (RBC) [Entitic mass] 31.7 pg 26.0 - 35.0 PG [facility] MCHC (RBC) [Mass/Vol] 34.9 g/dL [facility] MCV (RBC) [Entitic vol] 91.0 fL [facility] Monocytes (Bld) [#/Vol] 0.6 10*3/uL 0.0 - 0.7 10*3/uL [facility] Monocytes/100 WBC (Bld) 8.4 % 0.0 - 10.0 % [facility] Neutrophils (Bld) [#/Vol] 3.8 10*3/uL 1.4 - 6.5 10*3/uL [facility] Neutrophils/100 WBC (Bld) 55.9 % 37.0 - 75.0 % [facility] Platelet mean volume (Bld) [Entitic vol] 9.7 fL [facility] Platelets (Bld) [#/Vol] 200 10*3/uL 130 - 400 10*3/uL [facility] RBC (Bld) [#/Vol] 3.82 10*6/uL Low 4.0 - 6.1 10*6/uL [facility] WBC (Bld) [#/Vol] 6.8 10*3/uL 3.6 - 11.0 10*3/uL [facility] CMP FASTINGon 09-20-2023 A:G RATIO 1.1 RATIO Normal [facility] Comment on above: Performed By: #### T ROHS #### Testing performed at [address] [address] ALBUMIN 3.4 G/dl Low 3.5-5.0 [facility] Comment on above: Performed By: #### T ROHS #### Testing performed at [address] [address] ALP [Catalytic activity/Vol] 140 U/L High 38-126 [facility] Comment on above: Performed By: #### T ROHS #### Testing performed at [address] [address] ALT [Catalytic activity/Vol] 15 U/L Normal <50 [facility] Comment on above: Performed By: #### T ROHS #### Testing performed at [address] [address] AST [Catalytic activity/Vol] 19 U/L Normal 17-59 [facility] Comment on above: Performed By: #### T ROHS #### Testing performed at [address] [address] Bilirubin [Mass/Vol] 0.4 mg/dL Normal 0.2-1.3 [facility] Comment on above: Performed By: #### T ROHS #### Testing performed at [address] [address] Calcium [Mass/Vol] 8.9 mg/dL Normal 8.4-10.2 [facility] Comment on above: Performed By: #### T ROHS #### Testing performed at [address] [address] Chloride [Moles/Vol] 102 mmol/L Normal 98-107 [facility] Comment on above: Result Comment: Trudy garcia note: Triglyceride levels of 600mg/dL or higher may positively bias chloride results by approximately 2.1 mmol Performed By: #### T ROHS #### Testing performed at [address] [address] CO2 [Moles/Vol] 28 mmol/L Normal 22-30 [facility] Comment on above: Performed By: #### T ROHS #### Testing performed at [address] [address] Creatinine [Mass/Vol] 0.73 mg/dL Normal 0.70-1.20 [facility] Comment on above: Performed By: #### T ROHS #### Testing performed at [address] [address] EST. GFR, 143 ml/min/1.73sq.m [facility] Comment on above: Performed By: #### T ROHS #### Testing performed at [address] [place] [address] EST. GFR,Non 118 ml/min/1.73sq.m [facility] Comment on above: Performed By: #### T ROHS #### Testing performed at [address] [place] [address] GFR Information Average GFR for 50-5 9 years old = 93. Normal [facility] Comment on above: Result Comment: Parking Ramp Attendant morteza Kidney disease, GFR = <60. Kidney failure, GFR = <15. The GFR estimate is not adjusted for extreme body surface area or acute process, nor has it been validated for women or ethnic groups other than and . Performed By: #### T ROHS #### Testing performed at [address] [address] Glucose [Mass/Vol] 243 mg/dL High 70-100 [facility] Comment on above: Result Comment: NORMAL <100 mg/dL PREDIABETES 101-126 mg/dL DIABETES 126 mg/dL or higher Performed By: #### T ROHS #### Testing performed at [address] [address] Potassium [Moles/Vol] 3.8 mmol/L Normal 3.5-5.1 [facility] Comment on above: Performed By: #### T ROHS #### Testing performed at [address] [address] Protein [Mass/Vol] 6.6 g/dL Normal 6.3-8.2 [facility] Comment on above: Performed By: #### T ROHS #### Testing performed at [address] [address] Sodium [Moles/Vol] 136 mmol/L Low 137-145 [facility] Comment on above: Performed By: #### T ROHS #### Testing performed at [address] [address] Urea nitrogen [Mass/Vol] 15 mg/dL Normal 7-20 [facility] Comment on above: Performed By: #### T ROHS #### Testing performed at [address] [address] COMPREHENSIVE METABOLIC PANE [place] 09-20-2023 Albumin [Mass/Vol] 3.4 G/dl Low 3.5 - 5.0 G/dl [facility] Albumin/Globulin [Mass ratio] 1.1 {ratio} RATIO [facility] ALP [Catalytic activity/Vol] 140 U/L High [facility] ALT [Catalytic activity/Vol] 15 U/L NINF [facility] AST [Catalytic activity/Vol] 19 U/L [facility] Bilirubin [Mass/Vol] 0.4 mg/dL [facility] Calcium [Mass/Vol] 8.9 mg/dL [facility] Chloride [Moles/Vol] 102 mmol/L [facility] Comment on above: Please note: Triglyc eride levels of 600mg/dL or higher may positively bias chloride results by approximately 2.1 mmol CO2 [Moles/Vol] 28 mmol/L [facility] Creatinine [Mass/Vol] 0.73 mg/dL [facility] GFR COMMENT Average GFR for 50-5 9 years old = 93. [facility] Comment on above: Chronic Kidney disea se, GFR = <60. Kidney failure, GFR = <15. The GFR estimate is not adjusted for extreme body surface area or acute process, nor has it been validated for women or ethnic groups other than and . GFR/1.73 sq M.predicted among blacks MDRD (S/P/Bld) [Vol rate/Area] 143 mL/min/{1.73_m2} ml/min/1.73s q.m [facility] GFR/1.73 sq M.predicted among non-blacks MDRD (S/P/Bld) [Vol rate/Area] 118 mL/min/{1.73_m2} ml/min/1.73s q.m [facility] Glucose post fast [Mass/Vol] 243 mg/dL High [facility] Comment on above: NORMAL <100 mg/dL PREDIABETES 101-126 mg/dL DIABETES 126 mg/dL or higher Potassium [Moles/Vol] 3.8 mmol/L [facility] Protein [Mass/Vol] 6.6 g/dL [facility] Sodium [Moles/Vol] 136 mmol/L Low [facility] Urea nitrogen [Mass/Vol] 15 mg/dL [facility] GLUCOSE (POC DEVICE)on 09-20 GLUCOSE, POINT OF CARE [facility] Interpretation and review of laboratory results Abnormal [facility] Operator [id number] [facility] GLUCOSE, POINT OF CARE [facility] Interpretation and review of laboratory results Abnormal [facility] Operator [id number] [facility] GLUCOSE, POINT OF CARE [facility] Interpretation and review of laboratory results Abnormal [facility] Operator [id number] [facility] HEMOGLOBIN A1Con 09-20-2023 Glucose [Mass/Vol] 266 mg/dL Normal [facility] Comment on above: Performed By: #### H A1CT ####Testing performed at [address] [address] HbA1c (Bld) [Mass fraction] 10.9 % High 0-6 [facility] Comment on above: Result Comment: NORMAL <5.7% PREDIABETES 5.7-6.4% DIABETES 6.5% OR HIGHER Performed By: #### H A1CT ####Testing performed at [address] [address] Glucose [Mass/Vol] 266 mg/dL [facility] HbA1c (Bld) [Mass fraction] 10.9 % High 0 - 6 % [facility] Comment on above: NORMAL <5.7% PREDIABETES 5.7-6.4% DIABETES 6.5% OR HIGHER Interpretation and review of laboratory results Abnormal [facility] LIPID PANEL W CALCULATED LDL on 09-20-2023 Cholesterol [Mass/Vol] 148 mg/dL [facility] Cholesterol in HDL [Mass/Vol] 26 mg/dL [facility] Cholesterol in LDL [Mass/Vol] 89 mg/dL NINF [facility] Cholesterol in VLDL [Mass/Vol] 33 mg/dL High [facility] Cholesterol.total/Cho lesterol in HDL [Mass ratio] 5.69 {ratio} RATIO [facility] Comment on above: RISK TOTAL/HDL RATIO MEN WOMEN 1/2 AVERAGE 3.43 3.27 AVERAGE 4.97 4.44 2X AVERAGE 9.55 7.05 3X AVERAGE 23.99 11.04 Interpretation and review of laboratory results Abnormal [facility] Triglyceride [Mass/Vol] 166 mg/dL High [facility] LIPID PROFILEon 09-20-2023 Cholesterol [Mass/Vol] 148 mg/dL Normal 120-200 [facility] Comment on above: Performed By: #### L IP2 ####Testing performed at [address] [address] Cholesterol in HDL [Mass/Vol] 26 mg/dL Normal 26-63 [facility] Comment on above: Performed By: #### L IP2 ####Testing performed at [address] [address] Cholesterol in LDL [Mass/Vol] 89 mg/dL Normal <100 [facility] Comment on above: Performed By: #### L IP2 ####Testing performed at [address] [address] Cholesterol in VLDL [Mass/Vol] 33 mg/dL High 5-25 [facility] Comment on above: Performed By: #### L IP2 ####Testing performed at [address] [address] Cholesterol.total/Cho lesterol in HDL [Mass ratio] 5.69 {ratio} Normal [facility] Comment on above: Result Comment: RISK TOTAL/HDL RATIO MEN WOMEN 1/2 AVERAGE 3.43 3.27 AVERAGE 4.97 4.44 2X AVERAGE 9.55 7.05 3X AVERAGE 23.99 11.04 Performed By: #### L IP2 ####Testing performed at [address] [address] Triglyceride [Mass/Vol] 166 mg/dL High 0-150 [facility] Comment on above: Performed By: #### L IP2 ####Testing performed at [address] [address] MAGNESIUMon 09-20-2023 Magnesium [Mass/Vol] 1.7 mg/dL Normal 1.6-2.3 [facility] Comment on above: Performed By: #### T ROHS #### Testing performed at [address] [address] Magnesium [Mass/Vol] 1.7 mg/dL [facility] No Panel Informationon 09-20 Interpretation and review of laboratory results Abnormal [facility] PHOSPHATE, INORGANICon 09-20 Phosphate [Mass/Vol] 4.3 mg/dL [facility] [facility] PHOSPHOROUSon 09-20-2023 PHOSPHOROUS 4.3 MG/DL Normal 2.5-4.5 [facility] Comment on above: Performed By: #### T ROHS #### Testing performed at [address] [address] POCT GLUCOSEon 09-20-2023 Glucose [Mass/Vol] 296 mg/dL High 70-100 [facility] [employer]ER [id number] Normal [facility] Glucose [Mass/Vol] 256 mg/dL High 70-100 [facility] [employer] [id number] Normal [facility] Glucose [Mass/Vol] 234 mg/dL High 70-100 [facility] [employer]ER [id number] Normal [facility] Glucose [Mass/Vol] 386 mg/dL High 70-100 [facility] [employer]ER [id number] Normal [facility] PROTIMEon 09-20-2023 INR Coag (PPP) [Relative time] 1.13 {INR} High 0.85-1.10 [facility] Comment on above: Result Comment: 2.0-3.0 THERAPEUTIC RANGE 2.5-3.5 MECHANICAL VALVE RANGE Performed By: #### T ROHS #### Testing performed at [address] [address] PT Coag (PPP) [Time] 14.6 s High 11.8-14.4 [facility] Comment on above: Performed By: #### T ROHS #### Testing performed at [address] [address] PROTIME-INRon 09-20-2023 INR Coag (PPP) [Relative time] 1.13 {INR} High 0.85 - 1.10 [facility] Comment on above: 2.0-3.0 THERAPEUTIC RANGE 2.5-3.5 MECHANICAL VALVE RANGE Interpretation and review of laboratory results Abnormal [facility] PT Coag (PPP) [Time] 14.6 s High [facility] TSH W/FT4 REFLEXon 3 TSH Qn 0.710 m[IU]/L [facility] TSH,REFLEX FREE T4on 023 TSH,REFLEX FREE T4 0.710 uIU/ML Normal 0.465-4.680 [facility] Comment on above: Performed By: #### R TSH ####Testing performed at [address] [address] VANCOMYCIN LEVEL, TROUGH (AK E DRUG LEVEL)on 09-20-2023 Interpretation and review of laboratory results Abnormal [facility] Vancomycin trough [Mass/Vol] 9.9 ug/mL Low [facility] VANCOMYCIN TROUGHon 09-20-20 VANCOMYCIN TROUGH 9.9 UG/ML Low 15.0-20.0 [facility] Comment on above: Performed By: #### V ANT #### Testing performed at [address] [address] BLOOD CULTUREon 09-19-2023 Bacteria identified Cx Nom (Bld) SPECIMEN DESCRIPTION PERIPHERAL BLOOD DRAW CULTURE NO GROWTH 5 DAYS * Result Note: Testing performed at [place] [address] * REPORT STATUS 09/23/2023 * Result Note: FINAL * Normal [facility] Comment on above: Performed By: #### B LC #### Testing performed at [address] [address] Testing performed at [address] [address] Bacteria identified Cx Nom (Bld) SPECIMEN DESCRIPTION PERIPHERAL BLOOD DRAW CULTURE NO GROWTH 5 DAYS * Result Note: Testing performed at [place] [address] * REPORT STATUS 09/23/2023 * Result Note: FINAL * Normal [facility] Comment on above: Performed By: #### T ROHS #### Testing performed at [address] [address] C REACTIVE PROTEINon 023 CRP [Mass/Vol] 29.4 mg/L High 0-10 [facility] Comment on above: Performed By: #### C REACT ####Testing performed at [address] [address] CRP [Mass/Vol] 29.4 mg/L High 0 - 10 MG/L [facility] Interpretation and review of laboratory results Abnormal [facility] CRP [Mass/Vol] 34.1 mg/L High 0-10 [facility] Comment on above: Performed By: #### T ROHS #### Testing performed at [address] [address] CMP FASTINGon 09-19-2023 A:G RATIO 1.1 RATIO Normal [facility] Comment on above: Performed By: #### M RSAST #### Testing performed at [address] [address] ALBUMIN 3.5 G/dl Normal 3.5-5.0 [facility] Comment on above: Performed By: #### M RSAST #### Testing performed at [address] [address] ALP [Catalytic activity/Vol] 149 U/L High 38-126 [facility] Comment on above: Performed By: #### M RSAST #### Testing performed at [address] [address] ALT [Catalytic activity/Vol] 17 U/L Normal <50 [facility] Comment on above: Performed By: #### M RSAST #### Testing performed at [address] [address] AST [Catalytic activity/Vol] 17 U/L Normal 17-59 [facility] Comment on above: Performed By: #### M RSAST #### Testing performed at [address] [address] Bilirubin [Mass/Vol] 0.5 mg/dL Normal 0.2-1.3 [facility] Comment on above: Performed By: #### M RSAST #### Testing performed at [address] [address] Calcium [Mass/Vol] 8.6 mg/dL Normal 8.4-10.2 [facility] Comment on above: Performed By: #### M RSAST #### Testing performed at [address] [address] Chloride [Moles/Vol] 99 mmol/L Normal 98-107 [facility] Comment on above: Result Comment: Trudy garcia note: Triglyceride levels of 600mg/dL or higher may positively bias chloride results by approximately 2.1 mmol Performed By: #### M RSAST #### Testing performed at [address] [address] CO2 [Moles/Vol] 26 mmol/L Normal 22-30 [facility] Comment on above: Performed By: #### M RSAST #### Testing performed at [address] [address] Creatinine [Mass/Vol] 0.70 mg/dL Normal 0.70-1.20 [facility] Comment on above: Performed By: #### M RSAST #### Testing performed at [address] [address] EST. GFR, 150 ml/min/1.73sq.m [facility] Comment on above: Performed By: #### M RSAST #### Testing performed at [address] [address] EST. GFR,Non 124 ml/min/1.73sq.m [facility] Comment on above: Performed By: #### M RSAST #### Testing performed at [address] [address] GFR Information Average GFR for 50-5 9 years old = 93. Normal [facility] Comment on above: Result Comment: Parking Ramp Attendant morteza Kidney disease, GFR = <60. Kidney failure, GFR = <15. The GFR estimate is not adjusted for extreme body surface area or acute process, nor has it been validated for women or ethnic groups other than and . Performed By: #### M RSAST #### Testing performed at [address] [address] Glucose [Mass/Vol] 405 mg/dL Critically high 70-100 [facility] Comment on above: Result Comment: NORMAL <100 mg/dL PREDIABETES 101-126 mg/dL DIABETES 126 mg/dL or higher Result called to read back by: JIMENEZ 09/19/2023 @ 18:53 by MMB Performed By: #### M RSAST #### Testing performed at [address] [address] Potassium [Moles/Vol] 4.2 mmol/L Normal 3.5-5.1 [facility] Comment on above: Performed By: #### M RSAST #### Testing performed at [address] [address] Protein [Mass/Vol] 6.6 g/dL Normal 6.3-8.2 [facility] Comment on above: Performed By: #### M RSAST #### Testing performed at [address] [address] Sodium [Moles/Vol] 133 mmol/L Low 137-145 [facility] Comment on above: Performed By: #### M RSAST #### Testing performed at [address] [address] Urea nitrogen [Mass/Vol] 14 mg/dL Normal 7-20 [facility] Comment on above: Performed By: #### M RSAST #### Testing performed at [address] [address] COMPREHENSIVE METABOLIC PANE [place] 09-19-2023 Albumin [Mass/Vol] 3.5 G/dl 3.5 - 5.0 G/dl [facility] Albumin/Globulin [Mass ratio] 1.1 {ratio} RATIO [facility] ALP [Catalytic activity/Vol] 149 U/L High [facility] ALT [Catalytic activity/Vol] 17 U/L NINF [facility] AST [Catalytic activity/Vol] 17 U/L [facility] Bilirubin [Mass/Vol] 0.5 mg/dL [facility] Calcium [Mass/Vol] 8.6 mg/dL [facility] Chloride [Moles/Vol] 99 mmol/L [facility] Comment on above: Please note: Triglyc eride levels of 600mg/dL or higher may positively bias chloride results by approximately 2.1 mmol CO2 [Moles/Vol] 26 mmol/L [facility] Creatinine [Mass/Vol] 0.70 mg/dL [facility] GFR COMMENT Average GFR for 50-5 9 years old = 93. [facility] Comment on above: Chronic Kidney disea se, GFR = <60. Kidney failure, GFR = <15. The GFR estimate is not adjusted for extreme body surface area or acute process, nor has it been validated for women or ethnic groups other than and . GFR/1.73 sq M.predicted among blacks MDRD (S/P/Bld) [Vol rate/Area] 150 mL/min/{1.73_m2} ml/min/1.73s q.m [facility] GFR/1.73 sq M.predicted among non-blacks MDRD (S/P/Bld) [Vol rate/Area] 124 mL/min/{1.73_m2} ml/min/1.73s q.m [facility] Glucose post fast [Mass/Vol] 405 mg/dL Critically high [facility] Comment on above: NORMAL <100 mg/dL PREDIABETES 101-126 mg/dL DIABETES 126 mg/dL or higher Result called to read back by: JIMENEZ 09/19/2023 @ 18:53 by MMB Interpretation and review of laboratory results Abnormal [facility] Potassium [Moles/Vol] 4.2 mmol/L [facility] Protein [Mass/Vol] 6.6 g/dL [facility] Sodium [Moles/Vol] 133 mmol/L Low [facility] Urea nitrogen [Mass/Vol] 14 mg/dL [facility] ESRon 09-19-2023 ESR (Bld) [Velocity] 26 mm/h High 0-20 [facility] Comment on above: Performed By: #### T [facility] #### Testing performed at [address] [address] GLUCOSE (POC DEVICE)on 09-19 GLUCOSE, POINT OF CARE 386 [facility] Interpretation and review of laboratory results Abnormal [facility] Operator [id number] [facility] GLUCOSE, POINT OF CARE 358 High [facility] GLUCOSE, POINT OF CARE 228 High [facility] GLUCOSE, POINT OF CARE 349 High [facility] GLUCOSE, POINT OF CARE 306 [facility] Interpretation and review of laboratory results Abnormal [facility] Operator [id number] [facility] LACTATE,BLOODon 09-19-2023 Lactate [Moles/Vol] 1.3 mmol/L Normal 0.7-2.0 [facility] Comment on above: Performed By: #### L [facility] [address] [address] #### Testing performed at [address] [address] MR Foot - left WO contraston 09-19-2023 IMPRESSION: 1. There appears to be a superficial soft tissue ulcer along the plantar and medial aspect of the first toe, but there is no MRI evidence of a soft tissue abscess or osteomyelitis. 2. There are degenerative changes of the foot as described above. 3. There is moderate to severe atrophy and diffuse edema-like signal of the musculature of the foot which is most compatible with the sequela of a long-standing peripheral neuropathy. 4. 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 RADIOLOGY HISTORY: The patient reportedly has a history of diabetes and has an ulcer of the left great toe. Evaluate for possible osteomyelitis. MRI FOOT LEFT WITHOUT CONTRAST: 09/19/2023 11:42 AM EDT COMPARISON: Radiographs left foot 09/18/2023. TECHNIQUE: Multiplanar, multisequence MRI images of the left midfoot/forefoot were obtained without contrast. FINDINGS: The Lisfranc ligament complex appears intact. The bone marrow signal intensity appears age appropriate. There is moderate to severe atrophy and diffuse edema-like signal of the musculature of the foot which is most compatible with the sequela of a long-standing peripheral neuropathy. There are postsurgical changes again seen from prior partial amputation of the fifth ray at the level of the base of the fifth metatarsal. A hallux valgus deformity is again seen with a bunion complex along the medial aspect of the first metatarsal head. There again appear to be mild degenerative changes of the first MTP joint and moderate to severe degenerative changes of the first metatarsal-sesamoid joints. There are moderate to severe degenerative changes of the first and third tarsometatarsal joints and severe degenerative changes of the second tarsometatarsal joint. There is subchondral cystic change and bone marrow edema adjacent to the second tarsometatarsal joint. There are severe degenerative changes involving the dorsal aspect of the articulation of the navicular with the cuneiform bones at the edge of the [id number]. There appears to be a superficial soft tissue ulcer along the plantar and medial aspect of the first toe extending from the level of the interphalangeal joint to the level of the MTP joint. There is a small amount of edema-like stranding of the underlying subcutaneous fat. No focal fluid signal intensity collection is seen. There is a moderate amount of subcutaneous edema along the dorsum of the foot. No significant tendinopathy or tenosynovitis is seen. RADIOLOGY [place], Steph Almeida - 09/19/2023 HISTORY: The patient reportedly has a history of diabetes and has an ulcer of the left great toe. Evaluate for possible osteomyelitis. MRI FOOT LEFT WITHOUT CONTRAST: 09/19/2023 11:42 AM EDT COMPARISON: Radiographs left foot 09/18/2023. TECHNIQUE: Multiplanar, multisequence MRI images of the left midfoot/forefoot were obtained without contrast. FINDINGS: The Lisfranc ligament complex appears intact. The bone marrow signal intensity appears age appropriate. There is moderate to severe atrophy and diffuse edema-like signal of the musculature of the foot which is most compatible with the sequela of a long-standing peripheral neuropathy. There are postsurgical changes again seen from prior partial amputation of the fifth ray at the level of the base of the fifth metatarsal. A hallux valgus deformity is again seen with a bunion complex along the medial aspect of the first metatarsal head. There again appear to be mild degenerative changes of the first MTP joint and moderate to severe degenerative changes of the first metatarsal-sesamoid joints. There are moderate to severe degenerative changes of the first and third tarsometatarsal joints and severe degenerative changes of the second tarsometatarsal joint. There is subchondral cystic change and bone marrow edema adjacent to the second tarsometatarsal joint. There are severe degenerative changes involving the dorsal aspect of the articulation of the navicular with the cuneiform bones at the edge of the [id number]. There appears to be a superficial soft tissue ulcer along the plantar and medial aspect of the first toe extending from the level of the interphalangeal joint to the level of the MTP joint. There is a small amount of edema-like stranding of the underlying subcutaneous fat. No focal fluid signal intensity collection is seen. There is a moderate amount of subcutaneous edema along the dorsum of the foot. No significant tendinopathy or tenosynovitis is seen. IMPRESSION IMPRESSION: 1. There appears to be a superficial soft tissue ulcer along the plantar and medial aspect of the first toe, but there is no MRI evidence of a soft tissue abscess or osteomyelitis. 2. There are degenerative changes of the foot as described above. 3. There is moderate to severe atrophy and diffuse edema-like signal of the musculature of the foot which is most compatible with the sequela of a long-standing peripheral neuropathy. 4. 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 [facility] Radiology Study observation (narrative) [facility] MR Foot - left WO contrastOr dered By: Charlee Easley on 09-19-2023 [facility] Work Phone: MRI FOOT LEFT WITHOUT CONTRA STon 09-19-2023 MRI FOOT LEFT WITHOUT CONTRAST HISTORY: The patient reportedly has a history of diabetes and has an ulcer of the left great toe. Evaluate for possible osteomyelitis. MRI FOOT LEFT WITHOUT CONTRAST: 09/19/2023 11:42 AM EDT COMPARISON: Radiographs left foot 09/18/2023. TECHNIQUE: Multiplanar, multisequence MRI images of the left midfoot/forefoot were obtained without contrast. FINDINGS: The Lisfranc ligament complex appears intact. The bone marrow signal intensity appears age appropriate. There is moderate to severe atrophy and diffuse edema-like signal of the musculature of the foot which is most compatible with the sequela of a long-standing peripheral neuropathy. There are postsurgical changes again seen from prior partial amputation of the fifth ray at the level of the base of the fifth metatarsal. A hallux valgus deformity is again seen with a bunion complex along the medial aspect of the first metatarsal head. There again appear to be mild degenerative changes of the first MTP joint and moderate to severe degenerative changes of the first metatarsal-sesamoid joints. There are moderate to severe degenerative changes of the first and third tarsometatarsal joints and severe degenerative changes of the second tarsometatarsal joint. There is subchondral cystic change and bone marrow edema adjacent to the second tarsometatarsal joint. There are severe degenerative changes involving the dorsal aspect of the articulation of the navicular with the cuneiform bones at the edge of the [id number]. There appears to be a superficial soft tissue ulcer along the plantar and medial aspect of the first toe extending from the level of the interphalangeal joint to the level of the MTP joint. There is a small amount of edema-like stranding of the underlying subcutaneous fat. No focal fluid signal intensity collection is seen. There is a moderate amount of subcutaneous edema along the dorsum of the foot. No significant tendinopathy or tenosynovitis is seen. IMPRESSION: 1. There appears to be a superficial soft tissue ulcer along the plantar and medial aspect of the first toe, but there is no MRI evidence of a soft tissue abscess or osteomyelitis. 2. There are degenerative changes of the foot as described above. 3. There is moderate to severe atrophy and diffuse edema-like signal of the musculature of the foot which is most compatible with the sequela of a long-standing peripheral neuropathy. 4. 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 Normal [facility] [place] [facility] MRSA SCREENon 09-19-2023 MRSA DNA WILLIAM+probe Ql (Unsp spec) Negative Normal NEGATIVE [facility] Comment on above: Performed By: #### M RSAST #### Testing performed at [address] [address] STAPH AUREUS SCREEN Negative Normal NEGATIVE [facility] Comment on above: Result Comment: TEST ING PERFORMED BY PCR Performed By: #### M RSAST #### Testing performed at [address] [address] No Panel Informationon 09-19 Interpretation and review of laboratory results Abnormal [facility] Operator [id number] [facility] POCT GLUCOSEon 09-19-2023 Glucose [Mass/Vol] 358 mg/dL High 70-100 [facility] Glucose [Mass/Vol] 349 mg/dL High 70-100 [facility] Glucose [Mass/Vol] 228 mg/dL High 70-100 [facility] [employer] FILER [id number] Normal [facility] Glucose [Mass/Vol] 306 mg/dL High 70-100 [facility] [employer]ER [id number] Normal [facility] SCREEN: MRSA ONLY, NARES (IS OLATION SCREEN)on 09-19-2023 MRSA isol Org specific cx Ql (Nose) Negative NEGATIVE [facility] STAPHYOCOCCUS AUREUS BY PCR Negative NEGATIVE [facility] Comment on above: TESTING PERFORMED BY PCR [facility] C REACTIVE PROTEINon 023 CRP [Mass/Vol] 34.1 mg/L High 0 - 10 MG/L [facility] Interpretation and review of laboratory results Abnormal [facility] CBCon 09-18-2023 ABSOLUTE BAS 0.0 10*3/uL Normal 0.0-0.2 [facility] Comment on above: Performed By: #### A CBC, CHEM7F #### Testing performed at [address] [address] ABSOLUTE EOS 0.1 10*3/uL Normal 0.0-0.7 [facility] Comment on above: Performed By: #### A CBC, CHEM7F #### Testing performed at [facility] [place] [facility] [address] [place] [address] ABSOLUTE NEUTROPHIL COUNT 5.6 10*3/uL Normal 1.4-6.5 [facility] Comment on above: Performed By: #### A CBC, CHEM7F #### Testing performed at [address] [address] Basophils/100 WBC (Bld) 0.3 % Normal 0.0-2.0 [facility] Comment on above: Performed By: #### A CBC, CHEM7F #### Testing performed at [address] [address] DTYPE AUTO DIFF Normal [facility] Comment on above: Performed By: #### A CBC, CHEM7F #### Testing performed at [address] [address] Eosinophils/100 WBC (Bld) 1.6 % Normal 0.0-11.0 [facility] Comment on above: Performed By: #### A CBC, CHEM7F #### Testing performed at [address] [address] Lymphocytes (Bld) [#/Vol] 1.8 10*3/uL Normal 1.2-3.4 [facility] Comment on above: Performed By: #### A CBC, CHEM7F #### Testing performed at [address] [address] Lymphocytes/100 WBC (Bld) 21.5 % Normal 20.0-55.0 [facility] Comment on above: Performed By: #### A CBC, CHEM7F #### Testing performed at [address] [address] Monocytes (Bld) [#/Vol] 0.7 10*3/uL Normal 0.0-0.7 [facility] Comment on above: Performed By: #### A CBC, CHEM7F #### Testing performed at [address] [address] Monocytes/100 WBC (Bld) 8.3 % Normal 0.0-10.0 [facility] Comment on above: Performed By: #### A CBC, CHEM7F #### Testing performed at [address] [address] Neutrophils/100 WBC (Bld) 68.3 % Normal 37.0-75.0 [facility] Comment on above: Performed By: #### A CBC, CHEM7F #### Testing performed at [address] [address] Erythrocyte distribution width (RBC) [Ratio] 13.6 % Normal 11.5-14.5 [facility] Comment on above: Performed By: #### A CBC, CHEM7F #### Testing performed at [address] [address] Hematocrit (Bld) [Volume fraction] 38.8 % Low 42.0-52.0 [facility] Comment on above: Performed By: #### A CBC, CHEM7F #### Testing performed at [address] [address] Hemoglobin (Bld) [Mass/Vol] 13.0 g/dL Low 14.0-18.0 [facility] Comment on above: Performed By: #### A CBC, CHEM7F #### Testing performed at [address] [address] MCH (RBC) [Entitic mass] 31.0 pg Normal 26.0-35.0 [facility] Comment on above: Performed By: #### A CBC, CHEM7F #### Testing performed at [address] [address] MCHC (RBC) [Mass/Vol] 33.6 g/dL Normal 27.0-37.0 [facility] Comment on above: Performed By: #### A CBC, CHEM7F #### Testing performed at [address] [address] MCV (RBC) [Entitic vol] 92.1 fL Normal 80.0-100.0 [facility] Comment on above: Performed By: #### A CBC, CHEM7F #### Testing performed at [address] [address] Platelet mean volume (Bld) [Entitic vol] 9.3 fL Normal 7.4-11.0 [facility] Comment on above: Performed By: #### A CBC, CHEM7F #### Testing performed at [address] [address] Platelets (Bld) [#/Vol] 231 10*3/uL Normal 130-400 [facility] Comment on above: Performed By: #### A CBC, CHEM7F #### Testing performed at [address] [address] RBC (Bld) [#/Vol] 4.21 10*6/uL Normal 4.0-6.1 [facility] Comment on above: Performed By: #### A CBC, CHEM7F #### Testing performed at [address] [address] WBC (Bld) [#/Vol] 8.3 10*3/uL Normal 3.6-11.0 [facility] Comment on above: Performed By: #### A CBC, CHEM7F #### Testing performed at [address] [address] CBC, EDIF, PLATELETon 2022 ABSOLUTE BASOPHIL COUNT 0.0 10*3/uL 0.0 - 0.2 10*3/uL [facility] Basophils/100 WBC (Bld) 0.3 % 0.0 - 2.0 % [facility] Differential cell count method Nom (Bld) AUTO DIFF % [facility] Eosinophils (Bld) [#/Vol] 0.1 10*3/uL 0.0 - 0.7 10*3/uL [facility] Eosinophils/100 WBC (Bld) 1.6 % 0.0 - 11.0 % [facility] Erythrocyte distribution width (RBC) [Ratio] 13.6 % 11.5 - 14.5 % [facility] Hematocrit (Bld) [Volume fraction] 38.8 % Low 42.0 - 52.0 % [facility] Hemoglobin (Bld) [Mass/Vol] 13.0 g/dL Low [facility] Interpretation and review of laboratory results Abnormal [facility] Lymphocytes (Bld) [#/Vol] 1.8 10*3/uL 1.2 - 3.4 10*3/uL [facility] Lymphocytes/100 WBC (Bld) 21.5 % 20.0 - 55.0 % [facility] MCH (RBC) [Entitic mass] 31.0 pg 26.0 - 35.0 PG [facility] MCHC (RBC) [Mass/Vol] 33.6 g/dL [facility] MCV (RBC) [Entitic vol] 92.1 fL [facility] Monocytes (Bld) [#/Vol] 0.7 10*3/uL 0.0 - 0.7 10*3/uL [facility] Monocytes/100 WBC (Bld) 8.3 % 0.0 - 10.0 % [facility] Neutrophils (Bld) [#/Vol] 5.6 10*3/uL 1.4 - 6.5 10*3/uL [facility] Neutrophils/100 WBC (Bld) 68.3 % 37.0 - 75.0 % [facility] Platelet mean volume (Bld) [Entitic vol] 9.3 fL [facility] Platelets (Bld) [#/Vol] 231 10*3/uL 130 - 400 10*3/uL [facility] RBC (Bld) [#/Vol] 4.21 10*6/uL 4.0 - 6.1 10*6/uL [facility] WBC (Bld) [#/Vol] 8.3 10*3/uL 3.6 - 11.0 10*3/uL [facility] CHEM 7 FASTINGon 09-18-2023 Chloride [Moles/Vol] 97 mmol/L Low 98-107 [facility] Comment on above: Result Comment: Trudy garcia note: Triglyceride levels of 600mg/dL or higher may positively bias chloride results by approximately 2.1 mmol Performed By: #### A CBC, CHEM7F #### Testing performed at [address] [address] CO2 [Moles/Vol] 28 mmol/L Normal 22-30 [facility] Comment on above: Performed By: #### A CBC, CHEM7F #### Testing performed at [address] [address] Creatinine [Mass/Vol] 0.86 mg/dL Normal 0.70-1.20 [facility] Comment on above: Performed By: #### A CBC, CHEM7F #### Testing performed at [place] [id number] EST. GFR, 118 ml/min/1.73sq.m [facility] Comment on above: Performed By: #### A CBC, CHEM7F #### Testing performed at [address] [address] EST. GFR,Non 98 ml/min/1.73sq.m [facility] Comment on above: Performed By: #### A CBC, CHEM7F #### Testing performed at [address] [address] GFR Information Average GFR for 50-5 9 years old = 93. Normal [facility] Comment on above: Result Comment: Parking Ramp Attendant morteza Kidney disease, GFR = <60. Kidney failure, GFR = <15. The GFR estimate is not adjusted for extreme body surface area or acute process, nor has it been validated for women or ethnic groups other than and . Performed By: #### A CBC, CHEM7F #### Testing performed at [place] [id number] Glucose [Mass/Vol] 353 mg/dL High 70-100 [facility] Comment on above: Result Comment: NORMAL <100 mg/dL PREDIABETES 101-126 mg/dL DIABETES 126 mg/dL or higher Performed By: #### A CBC, CHEM7F #### Testing performed at [address] [address] Potassium [Moles/Vol] 4.1 mmol/L Normal 3.5-5.1 [facility] Comment on above: Performed By: #### A CBC, CHEM7F #### Testing performed at [address] [address] Sodium [Moles/Vol] 134 mmol/L Low 137-145 [facility] Comment on above: Performed By: #### A CBC, CHEM7F #### Testing performed at [place] [id number] Urea nitrogen [Mass/Vol] 17 mg/dL Normal 7-20 [facility] Comment on above: Performed By: #### A CBC, CHEM7F #### Testing performed at [place] [id number] CHEM 7 (LYTES,BUN,CREA,GLUC) on 09-18-2023 Chloride [Moles/Vol] 97 mmol/L Low [facility] Comment on above: Please note: Triglyc eride levels of 600mg/dL or higher may positively bias chloride results by approximately 2.1 mmol CO2 [Moles/Vol] 28 mmol/L [facility] Creatinine [Mass/Vol] 0.86 mg/dL [facility] GFR COMMENT Average GFR for 50-5 9 years old = 93. [facility] Comment on above: Chronic Kidney disea se, GFR = <60. Kidney failure, GFR = <15. The GFR estimate is not adjusted for extreme body surface area or acute process, nor has it been validated for women or ethnic groups other than and . GFR/1.73 sq M.predicted among blacks MDRD (S/P/Bld) [Vol rate/Area] 118 mL/min/{1.73_m2} ml/min/1.73s q.m [facility] GFR/1.73 sq M.predicted among non-blacks MDRD (S/P/Bld) [Vol rate/Area] 98 mL/min/{1.73_m2} ml/min/1.73s q.m [facility] Glucose post fast [Mass/Vol] 353 mg/dL High [facility] Comment on above: NORMAL <100 mg/dL PREDIABETES 101-126 mg/dL DIABETES 126 mg/dL or higher Interpretation and review of laboratory results Abnormal [facility] Potassium [Moles/Vol] 4.1 mmol/L [facility] Sodium [Moles/Vol] 134 mmol/L Low [facility] Urea nitrogen [Mass/Vol] 17 mg/dL [facility] LACTATE, BLOODon 09-18-2023 Lactate [Moles/Vol] 1.3 mmol/L 0.7 - 2. 0 mmol/L [facility] SEDIMENTATION RATE, AUTOMATE Don 09-18-2023 ESR (Bld) [Velocity] 26 mm/h High [facility] Interpretation and review of laboratory results Abnormal [facility] TROPONIN I, HIGH SENSITIVITY on 09-18-2023 TROPONIN I, HIGH SENSITIVITY 3 pg/mL Normal 0-20 [facility] Comment on above: Result Comment: Indeterminant: >12 to 100 pg/mL female >20 to 100 pg/mL male Indicative of myocardial injury. Serial sampling is recommended, a change of greater than or equal to 20 pg/mL is indicative of acute coronary syndrome. Performed By: #### T YAZMIN #### Testing performed at [facility] [address] [place] [address] TROPONIN I, HIGH SENSITIVITY 3 pg/mL 0 - 20 pg/mL [facility] Comment on above: Indeterminant: >12 to 100 pg/mL female >20 to 100 pg/mL male Indicative of myocardial injury. Serial sampling is recommended, a change of greater than or equal to 20 pg/mL is indicative of acute coronary syndrome. [facility] XR FOOT LEFT 3 VIEWSon 09-18 XR FOOT LEFT 3 VIEWS EXAM: XR FOOT LEFT 3 VIEWS HISTORY: Diabetic foot ulcers. COMPARISON: None. 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 On this study there is no acute fracture, dislocation, subluxation or osseous lesion. Mild to moderate degenerative changes of the midfoot articulations. The remainder of the joint spaces are unremarkable. Mild dorsal soft tissue edema. No periosteal reaction. Normal [facility] XR Foot - left 3 Viewson EXAM: XR FOOT LEFT 3 VIEWS HISTORY: Diabetic foot ulcers. COMPARISON: None. 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 On this study there is no acute fracture, dislocation, subluxation or osseous lesion. Mild to moderate degenerative changes of the midfoot articulations. The remainder of the joint spaces are unremarkable. Mild dorsal soft tissue edema. No periosteal reaction. RADIOLOGY Simon Romano, DO - 09/18/2023 EXAM: XR FOOT LEFT 3 VIEWS HISTORY: Diabetic foot ulcers. COMPARISON: None. 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 On this study there is no acute fracture, dislocation, subluxation or osseous lesion. Mild to moderate degenerative changes of the midfoot articulations. The remainder of the joint spaces are unremarkable. Mild dorsal soft tissue edema. No periosteal reaction. [facility] Radiology Study observation (narrative) [facility] XR Foot - left 3 ViewsOrdere d By: Simon Romano on 09-18-2023 [facility] Work Phone: Comprehensive metabolic 2000 panelon 09-13-2023 Albumin [Mass/Vol] 3.8 g/dL Normal 3.4-5.0 [facility] Comment on above: Performed By: #### 2 4323-8 #### [facility] [address] [place] [address] [employer] [facility] Almanza CLIA [id number] ALP [Catalytic activity/Vol] 177 U/L High 50-136 [facility] Comment on above: Performed By: #### 2 4323-8 #### [facility] [address] [place] [address] [employer] [place] AM[place] [id number] ALT [Catalytic activity/Vol] 20 U/L Normal 16-63 [facility] Comment on above: Performed By: #### 2 4323-8 #### [facility] [address] [place] [address] [employer] - [facility] Almanza CLIA [id number] Anion gap [Moles/Vol] 5.0 mmol/L Normal <=15.[address] [facility] Comment on above: Performed By: #### 2 4323-8 #### [facility] [address] [place] [address] [employer] - [facility] Almanza CLIA [id number] AST [Catalytic activity/Vol] 15 U/L Normal 15-37 [facility] Comment on above: Performed By: #### 2 4323-8 #### [facility] [address] [place] [address] [employer] [place] [place] [id number] Bilirubin [Mass/Vol] 0.7 mg/dL Normal 0.2-1.0 [facility] Comment on above: Performed By: #### 2 4323-8 #### [facility] [address] [place] [address] [employer] [place] [place] [id number] Calcium [Mass/Vol] 9.6 mg/dL Normal 8.5-10.1 [facility] Comment on above: Performed By: #### 2 4323-8 #### [facility] [address] [place] [address] [employer] Almanza CLIA [id number] Chloride [Moles/Vol] 101 mmol/L Normal 98-107 [facility] Comment on above: Performed By: #### 2 4323-8 #### [facility] [address] [place] [address] [employer] Almanza CLIA [id number] CO2 [Moles/Vol] 29 mmol/L Normal 21-[address] [facility] Comment on above: Performed By: #### 2 4323-8 #### [facility] [address] [place] [address] [employer] [place] [id number] Creatinine [Mass/Vol] 0.90 mg/dL Normal 0.67-1.[address] [facility] Comment on above: Performed By: #### 2 4323-8 #### [facility] [address] [place] [address] [employer] [place] [id number] GFR/1.73 sq M.predicted MDRD (S/P/Bld) [Vol rate/Area] mL/min/{1.73_m2} Normal >=59 [facility] Comment on above: Performed By: #### 2 4323-8 #### [facility] [address] [place] [address] [employer] - [facility] Almanza CLIA [id number] Glucose [Mass/Vol] 273 mg/dL High 74-106 [facility] Comment on above: Performed By: #### 2 4323-8 #### [facility] [address] [place] [address] [employer] [facility] Almanza CLIA [id number] HGFR GLOMERULAR FILTRATIO N RATE INTERPRETATION~The eGFR is calculated using the MDRD equation.~This equation has been validated in patients with chronic kidney disease;~however, it underestimates the GFR in healthy patients with GFR's over 60 mL/min.~The equation is not valid in children under the age of 18.~NOTE: Criteria for Chronic Kidney Disease:~ ~1. Kidney damage for at least three months, as defined~by structural or functional abnormalities of the kidney,~with or without decreased glomerular filtration rate, manifested by either:~* Pathological abnormalities or~* Markers of Kidney damage, including abnormalities in~the composition of the blood or urine or abnormalities in imaging tests.~ ~2. GFR <60 mL/min/1.73 m squared for at least three months, with or without kidney damage.~ Normal [facility] Comment on above: Performed By: #### 2 4323-8 #### [facility] [address] [place] [address] [employer] [facility] [id number] Potassium [Moles/Vol] 4.2 mmol/L Normal 3.5-5.[address] [facility] Comment on above: Performed By: #### 2 432-8 #### [facility] [address] [place] [address] [employer] - [facility] PERRYIA [id number] Protein [Mass/Vol] 8.3 g/dL High 6.4-8.2 [facility] Comment on above: Performed By: #### 2 4323-8 #### [facility] [address] [place] [address] [employer] - [facility] CLIA [id number] Sodium [Moles/Vol] 135 mmol/L Low 136-145 [facility] Comment on above: Performed By: #### 2 4323-8 #### [facility] [address] [facility] [place] [address] [employer] [facility] [id number] Urea nitrogen [Mass/Vol] 16 mg/dL Normal 9-20 [facility] Comment on above: Performed By: #### 2 4323-8 #### [facility] [address] [facility] [place] [address] [employer] - [place] JAIMES [id number] HbA1c Calc (Bld) [Mass fract ion]on 09-13-2023 Average glucose Estimated from glycated hemoglobin (Bld) [Mass/Vol] 272 mg/dL High 68-125 [facility] Comment on above: Performed By: #### 2 4323-8 #### [address] [place] [address] [employer] [facility] JAIMES [id number] HA1C A1C INTERPRETATION %A1c (NGSP) Interpretation 3.8 - 6.4 Non-Diabetic Range 5.7 - 6.4 Prediabetic >6.5 Action Suggested The eAG (estimated average glucose) is an estimation of one?s average blood glucose level, calculated based on A1C test results, reported using the same units (mg/dL) seen on blood glucose meters. Normal [facility] Comment on above: Performed By: #### 2 4323-8 #### [address] [place] [address] [employer] - [place] JAIMES [id number] HbA1c (Bld) [Mass fraction] 11.1 %A1C High 4.2-6.3 [facility] Comment on above: Performed By: #### 2 4323-8 #### [address] [place] [address] [employer] [place] JAIMES [id number] 25-hydroxyvitamin D [Mass/Vo l]on 04-20-2023 25-hydroxyvitamin D3 [Mass/Vol] 25.1 ng/mL Low 30.0-100.0 [facility] Comment on above: Performed By: #### 2 4323-8 #### [address] [place] [address] [employer] [place] JAIMES [id number] HVITD VITAMIN D INTERPRETATION VITAMIN D STATUS RANGE ----- DEFICIENCY <20 ng/mL INSUFFICIENCY 20-30 ng/mL SUFFICIENCY 30-100 ng/mL TOXICITY >100 ng/mL Normal [facility] Comment on above: Performed By: #### 2 4323-8 #### [facility] [address] [place] [address] [employer] [place] JAIMES [id number] Comprehensive metabolic 2000 panelon 04-20-2023 Albumin [Mass/Vol] 3.7 g/dL Normal 3.4-5.0 [facility] Comment on above: Performed By: #### 2 4323-8 #### [facility] [address] [place] [address] [employer] [place] [id number] ALP [Catalytic activity/Vol] 164 U/L High 50-136 [facility] Comment on above: Performed By: #### 2 4323-8 #### [facility] [address] [place] [address] [employer] [place] [id number] ALT [Catalytic activity/Vol] 20 U/L Normal 16-63 [facility] Comment on above: Performed By: #### 2 4323-8 #### [facility] [address] [place] [address] [employer] [place] [id number] Anion gap [Moles/Vol] 5.0 mmol/L Normal <=15.[address] [facility] Comment on above: Performed By: #### 2 4323-8 #### [facility] [address] [place] [address] [employer] [place] [id number] AST [Catalytic activity/Vol] 11 U/L Low 15-37 [facility] Comment on above: Performed By: #### 2 4323-8 #### [facility] [address] [place] [address] [employer] [place] [id number] Bilirubin [Mass/Vol] 0.6 mg/dL Normal 0.2-1.0 [facility] Comment on above: Performed By: #### 2 4323-8 #### [facility] [address] [place] [address] [employer] [place] [id number] Calcium [Mass/Vol] 9.5 mg/dL Normal 8.5-10.1 [facility] Comment on above: Performed By: #### 2 4323-8 #### [facility] [address] [place] [address] [employer] [facility] Almanza CLIA [id number] Chloride [Moles/Vol] 101 mmol/L Normal 98-107 [facility] Comment on above: Performed By: #### 2 4323-8 #### [facility] [address] [place] [address] [employer] [facility] Almanza CLIA [id number] CO2 [Moles/Vol] 28 mmol/L Normal 21-[address] [facility] Comment on above: Performed By: #### 2 4323-8 #### [facility] [address] [place] [address] [employer] [place] [id number] Creatinine [Mass/Vol] 0.90 mg/dL Normal 0.67-1.[address] [facility] Comment on above: Performed By: #### 2 4323-8 #### [facility] [address] [place] [address] [employer] - [facility] Almanza CLIA [id number] GFR/1.73 sq M.predicted MDRD (S/P/Bld) [Vol rate/Area] mL/min/{1.73_m2} Normal >=59 [facility] Comment on above: Performed By: #### 2 4323-8 #### [facility] [address] [place] [address] [employer] [place] [id number] Glucose [Mass/Vol] 289 mg/dL High 74-106 [facility] Comment on above: Performed By: #### 2 4323-8 #### [facility] [address] [place] [address] [employer] - [place] JAIMES [id number] HGFR GLOMERULAR FILTRATIO N RATE INTERPRETATION~The eGFR is calculated using the MDRD equation.~This equation has been validated in patients with chronic kidney disease;~however, it underestimates the GFR in healthy patients with GFR's over 60 mL/min.~The equation is not valid in children under the age of 18.~NOTE: Criteria for Chronic Kidney Disease:~ ~1. Kidney damage for at least three months, as defined~by structural or functional abnormalities of the kidney,~with or without decreased glomerular filtration rate, manifested by either:~* Pathological abnormalities or~* Markers of Kidney damage, including abnormalities in~the composition of the blood or urine or abnormalities in imaging tests.~ ~2. GFR <60 mL/min/1.73 m squared for at least three months, with or without kidney damage.~ Normal [facility] Comment on above: Performed By: #### 2 4323-8 #### [facility] [address] [place] [address] [employer] [place] JAIMES [id number] Potassium [Moles/Vol] 4.3 mmol/L Normal 3.5-5.[address] [facility] Comment on above: Performed By: #### 2 4323-8 #### [facility] [address] [place] [address] [employer] - [place] JAIMES [id number] Protein [Mass/Vol] 8.1 g/dL Normal 6.4-8.2 [facility] Comment on above: Performed By: #### 2 4323-8 #### [facility] [address] [place] [address] [employer] - [place] JAIMES [id number] Sodium [Moles/Vol] 134 mmol/L Low 136-145 [facility] Comment on above: Performed By: #### 2 4323-8 #### [facility] [address] [place] [address] [employer] [place] JAIM[employer] [id number] Urea nitrogen [Mass/Vol] 12 mg/dL Normal 9-20 [facility] Comment on above: Performed By: #### 2 4323-8 #### [facility] [address] [place] [address] [employer] [place] JAIMES [id number] HbA1c Calc (Bld) [Mass fract ion]on 04-20-2023 Average glucose Estimated from glycated hemoglobin (Bld) [Mass/Vol] 252 mg/dL High 68-125 [facility] Comment on above: Performed By: #### 2 4323-8 #### [address] [place] [address] [employer] [place] JAIMES [id number] HA1C A1C INTERPRETATION %A1c (NGSP) Interpretation 3.8 - 6.4 Non-Diabetic Range 5.7 - 6.4 Prediabetic >6.5 Action Suggested The eAG (estimated average glucose) is an estimation of one?s average blood glucose level, calculated based on A1C test results, reported using the same units (mg/dL) seen on blood glucose meters. Normal [facility] Comment on above: Performed By: #### 2 4323-8 #### [place] [address] [address] [place] [address] [employer] [place] JAIMES [id number] HbA1c (Bld) [Mass fraction] 10.4 %A1C High 4.2-6.3 [facility] Comment on above: Performed By: #### 2 4323-8 #### [place] [address] [place] [address] [employer] [place] JAIMES [id number] ALKALINE PHOS ISOENZYMESon 0 03-14-2023 82274-4 22 % Normal 12-68 [facility] Comment on above: Performed By: #### A LPISO #### Performed for [place] [address] [place] [address]-5 1 % Normal 0-18 [facility] Comment on above: Performed By: #### A LPISO #### Performed for [address] [place], [place] [address]85-2 77 % Normal 13-88 [facility] Comment on above: Performed By: #### A LPISO #### Performed for [facility] [address] [place], [place] [address] ALP [Catalytic activity/Vol] 159 U/L High 44-121 [facility] Comment on above: Performed By: #### A LPISO #### Performed for [facility] [address] [place], [place] [address] 25-hydroxyvitamin D [Mass/Vo l]on 03-10-2023 25-hydroxyvitamin D3 [Mass/Vol] 19.3 ng/mL Low 30.0-100.0 [facility] Comment on above: Performed By: #### 2 4323-8 #### [facility] [address] [place], [place] [address] [employer] [place] JAIMES [id number] HVITD VITAMIN D INTERPRETATION VITAMIN D STATUS RANGE ----- DEFICIENCY <20 ng/mL INSUFFICIENCY 20-30 ng/mL SUFFICIENCY 30-100 ng/mL TOXICITY >100 ng/mL Normal [facility] Comment on above: Performed By: #### 2 4323-8 #### [facility] [address] [place] [id number] [employer] [place] JAIMES [id number] GGTon 03-10-2023 Gamma glutamyl transferase [Catalytic activity/Vol] 11 U/L Low 15-85 [facility] Comment on above: Performed By: #### 2 324-2, 2777-1, 60438-9 #### [facility] [address] [place], [place] [address] [employer] [place] JAIMES [id number] PHOSPHORUSon 03-10-2023 Phosphate [Mass/Vol] 2.7 mg/dL Normal 2.5-4.9 [facility] Comment on above: Performed By: #### 2 324-2, 2777-1, 97402-9 #### [facility] [address] [place] [address] [employer] [place] McPhy [id number] PTH INTACTon 03-10-2023 Parathyrin.intact [Mass/Vol] 54.3 pg/mL Normal 18.4-80.1 [facility] Comment on above: Performed By: #### 2 731-8 #### [facility] [address] [place] [address] [employer] [place] [id number] Parathyrin.intact [Mass/Vol] on 03-10-2023 Calcium [Mass/Vol] 9.5 mg/dL Normal 8.5-10.1 [facility] Comment on above: Performed By: #### 2 731-8 #### [facility] [address] [place] [address] [employer] - PollitoInglesIA [id number] HIP INTACT PTH INTERPRETATION Interpretation Intact PTH Calcium (pg/mL) (mg/dL) Normal 10.0 - 65.0 8.4 - 10.2 Primary Hyperparathyroidism >65.0 >10.2 Secondary Hyperparathyroidism >65.0 <10.2 Non-Parathyroid Hypercalcemia <65.0 >10.2 Hypoparathyroidism <10.2 <8.4 Non-Parathyroid Hypocalcemia 10.0 - 65.0 <8.4 Careful interpretation of the PTH result may be necessary to evaluate the falsely depressed PTH values in patients taking high doses of biotin. Normal [facility] Comment on above: Performed By: #### 2 731-8 #### [facility] [address] [place] [address] [employer] - [employer] ElliIA [id number] TSH DL <= 0.05 mIU/L Qnon TSH Qn 0.945 uIU/mL Normal 0.358-3.740 [facility] Comment on above: Performed By: #### 2 324-2, 2777-1, 22856-3 #### [facility] [address] [place], [place] [address] [employer] - Harmony JAIMES [id number] URINE DRUG SCREEN 14 W/CONFI RMon 02-15-2023 72967-3 Negative Normal Xrrwvl=197 [facility] Comment on above: Performed By: #### U DRUG14 #### Performed for [facility] [address] [place], [place] [address] 34992-6 Negative Normal Tpwxzy=6881 [facility] Comment on above: Performed By: #### U DRUG14 #### Performed for [facility] [address] [place], [place] [address] 00500-3 Negative Normal Jrdtip=085 [facility] Comment on above: Result Comment: Opia te test includes Codeine, Morphine, Hydromorphone, Hydrocodone. Performed By: #### U DRUG14 #### Performed for [facility] [address] [place], [place] [address] 71341-8 Negative Normal Uxsimy=459 [facility] Comment on above: Performed By: #### U DRUG14 #### Performed for [facility] [address] [place], [place] [address] 41049-2 Negative Normal Gkhmnt=535 [facility] Comment on above: Performed By: #### U DRUG14 #### Performed for [facility] [address] [place], [place] [address] 3414-0 Negative Normal Cutoff=10 [facility] Comment on above: Performed By: #### U DRUG14 #### Performed for [facility] [address] [place], [place] [address] 3637-6 Negative Normal Ugzxvs=5735 [facility] Comment on above: Result Comment: Test includes Fentanyl and Norfentanyl . This test was developed and its performance characteristics determined by [facility]. It has not been cleared or approved by the Food and Drug Administration. Performed By: #### U DRUG14 #### Performed for [facility] [address] [place], [place] [address] 3746-5 Negative Normal Oanaec=036 [facility] Comment on above: Result Comment: This test was developed and its performance characteristics determined by [facility]. It has not been cleared or approved by the Food and Drug Administration. Performed By: #### U DRUG14 #### Performed for [address] [address] 29309-9 Negative Normal Pziiia=707 [facility] Comment on above: Result Comment: Test includes Oxycodone and Oxymorphone Performed By: #### U DRUG14 #### Performed for [place] [address] 25417-8 Comment Normal [facility] Comment on above: Result Comment: Drug -test results should be interpreted in the context of clinical information. Patient metabolic variables, specific drug chemistry, and specimen characteristics can affect test outcome. Technical consultation is available if a test result is inconsistent with an expected outcome. ([email or web address] or call toll-free [phone]) . Drug brands, if listed herein, are trademarks of their respective owners. Performed By: #### U DRUG14 #### Performed for [address] [address] Barbiturates Screen Ql (U) Negative Normal Htgfft=785 [facility] Comment on above: Performed By: #### U DRUG14 #### Performed for [address] [address] Benzodiazepines Ql (U) Negative Normal Ukncwx=325 [facility] Comment on above: Performed By: #### U DRUG14 #### Performed for [address] [address] Cannabinoids Screen Ql (U) Negative Normal Cutoff=20 [facility] Comment on above: Performed By: #### U DRUG14 #### Performed for [address] [address] Creatinine (U) [Mass/Vol] 14.7 mg/dL Low 20.0-300.0 [facility] Comment on above: Performed By: #### U DRUG14 #### Performed for [address] [address] pH (U) 5.7 [pH] Normal 4.5-8.9 [facility] Comment on above: Performed By: #### U DRUG14 #### Performed for [facility] [address] [place], [place] [address] Phencyclidine Ql (U) Negative Normal Cutoff=25 [facility] Comment on above: Performed By: #### U DRUG14 #### Performed for [facility] [address] [place], [place] [address] Propoxyphene Screen Ql (U) Negative Normal Curjde=043 [facility] Comment on above: Performed By: #### U DRUG14 #### Performed for [facility] [address], [place] [address] Specific gravity (U) [Rel density] 1.0029 Normal [facility] Comment on above: Performed By: #### U DRUG14 #### Performed for [facility] [address] [place] [address] Comprehensive metabolic 2000 panelon 02-11-2023 Albumin [Mass/Vol] 4.0 g/dL Normal 3.4-5.0 [facility] Comment on above: Performed By: #### 2 4323-8 #### [facility] [address] [place] [address] [employer] [facility] [id number] ALP [Catalytic activity/Vol] 165 U/L High 50-136 [facility] Comment on above: Performed By: #### 2 4323-8 #### [facility] [address] [place] [address] [employer] - [facility] [id number] ALT [Catalytic activity/Vol] 21 U/L Normal 16-63 [facility] Comment on above: Performed By: #### 2 4323-8 #### [facility] [address] [place] [address] [employer] [facility] [id number] Anion gap [Moles/Vol] 6.6 mmol/L Normal <=15.[address] [facility] Comment on above: Performed By: #### 2 4323-8 #### [facility] [address] [place] [address] [employer] - Harmony Almanza CLIA [id number] AST [Catalytic activity/Vol] 13 U/L Low 15-37 [facility] Comment on above: Performed By: #### 2 4323-8 #### [facility] [address] [place] [address] [employer] - Harmony Almanza CLIA [id number] Bilirubin [Mass/Vol] 0.5 mg/dL Normal 0.2-1.0 [facility] Comment on above: Performed By: #### 2 4323-8 #### [facility] [address] [place] [address] [employer] - Harmony Almanza CLIA [id number] Calcium [Mass/Vol] 9.3 mg/dL Normal 8.5-10.1 [facility] Comment on above: Performed By: #### 2 4323-8 #### [facility] [address] [place] [address] [employer] - Harmony Almanza CLIA [id number] Chloride [Moles/Vol] 102 mmol/L Normal 98-107 [facility] Comment on above: Performed By: #### 2 4323-8 #### [facility] [address] [place] [address] [employer] - Harmony Almanza CLIA [id number] CO2 [Moles/Vol] 26 mmol/L Normal 21-[address] [facility] Comment on above: Performed By: #### 2 4323-8 #### [facility] [address] [place] [address] [employer] - Harmony Almanza CLIA [id number] Creatinine [Mass/Vol] 0.77 mg/dL Normal 0.67-1.[address] [facility] Comment on above: Performed By: #### 2 4323-8 #### [facility] [address] [place] [address] [employer] - Harmony Almanza CLIA [id number] GFR/1.73 sq M.predicted MDRD (S/P/Bld) [Vol rate/Area] mL/min/{1.73_m2} Normal >=59 [facility] Comment on above: Performed By: #### 2 4323-8 #### [facility] [address] [place] [address] [employer] - Harmony JAIMES [id number] Glucose [Mass/Vol] 231 mg/dL High 74-106 [facility] Comment on above: Performed By: #### 2 4323-8 #### [facility] [address] [place] [address] [employer] - Harmony JAIMES [id number] HGFR GLOMERULAR FILTRATIO N RATE INTERPRETATION~The eGFR is calculated using the MDRD equation.~This equation has been validated in patients with chronic kidney disease;~however, it underestimates the GFR in healthy patients with GFR's over 60 mL/min.~The equation is not valid in children under the age of 18.~NOTE: Criteria for Chronic Kidney Disease:~ ~1. Kidney damage for at least three months, as defined~by structural or functional abnormalities of the kidney,~with or without decreased glomerular filtration rate, manifested by either:~* Pathological abnormalities or~* Markers of Kidney damage, including abnormalities in~the composition of the blood or urine or abnormalities in imaging tests.~ ~2. GFR <60 mL/min/1.73 m squared for at least three months, with or without kidney damage.~ Normal [facility] Comment on above: Performed By: #### 2 4323-8 #### [facility] [address] [facility] [place] [address] [employer] - Harmony JAIMES [id number] Potassium [Moles/Vol] 3.8 mmol/L Normal 3.5-5.[address] [facility] Comment on above: Performed By: #### 2 4323-8 #### [facility] [address] [facility] [place] [address] [employer] - Harmony JAIMES [id number] Protein [Mass/Vol] 8.3 g/dL High 6.4-8.2 [facility] Comment on above: Performed By: #### 2 4323-8 #### [facility] [address] [place] [address] [employer] - Harmony JAIMES [id number] Sodium [Moles/Vol] 136 mmol/L Normal 136-145 [facility] Comment on above: Performed By: #### 2 4323-8 #### [facility] [address] [place] [address] [employer] - Harmony JAIMES [id number] Urea nitrogen [Mass/Vol] 10 mg/dL Normal 9-20 [facility] Comment on above: Performed By: #### 2 4323-8 #### [facility] [address] [place] [address] [employer] - Harmony JAIMES [id number] HbA1c Calc (Bld) [Mass fract ion]on 02-11-2023 Average glucose Estimated from glycated hemoglobin (Bld) [Mass/Vol] 203 mg/dL High 68-125 [facility] Comment on above: Performed By: #### 1 7855-8 #### [facility] [address] [place] [address] [employer] - Harmony JAIMES [id number] HA1C A1C INTERPRETATION %A1c (NGSP) Interpretation 3.8 - 6.4 Non-Diabetic Range 5.7 - 6.4 Prediabetic >6.5 Action Suggested The eAG (estimated average glucose) is an estimation of one?s average blood glucose level, calculated based on A1C test results, reported using the same units (mg/dL) seen on blood glucose meters. Normal [facility] Comment on above: Performed By: #### 1 7855-8 #### [facility] [address] [place] [address] [employer] - Harmony JAIMES [id number] HbA1c (Bld) [Mass fraction] 8.7 %A1C High 4.2-6.3 [facility] Comment on above: Performed By: #### 1 7855-8 #### [facility] [address] [place] [address] [employer] - Harmony JAIMES [id number] Lipid panel with direct LDLo n 02-11-2023 Cholesterol [Mass/Vol] 147 mg/dL Normal <=200 [facility] Comment on above: Performed By: #### 5 7698-3 #### [facility] [address] [place] [address] [employer] - Harmony AMADORIA [id number] Cholesterol in HDL [Mass/Vol] 53 mg/dL Normal 40-59 [facility] Comment on above: Performed By: #### 5 7698-3 #### [facility] [address] [place] [address] [employer] - Harmony JAIMES [id number] Cholesterol in LDL [Mass/Vol] 56 mg/dL Normal 5-100 [facility] Comment on above: Performed By: #### 5 7698-3 #### [facility] [address] [place] [address] [employer] - Harmony JAIMES [id number] CHOLESTEROL/HDL 2.[address] [facility] Comment on above: Performed By: #### 5 7698-3 #### [facility] [address] [place] [address] [employer] - Harmony JAIMES [id number] HCHOL CHOLESTEROL INTERPRETATION Desirable <200 Borderline High 200-239 High >240 Normal [facility] Comment on above: Performed By: #### 5 7698-3 #### [facility] [address] [place] [address] [employer] - Harmony JAIMES [id number] HLDL LDL INTERPRETATION Desirable <100 Near Optimal 100-129 Borderline High 130-159 High 160-190 Very High >190 Normal [facility] Comment on above: Performed By: #### 5 7698-3 #### [facility] [address] [place] [address] [employer] - Harmony JAIMES [id number] HLIPID ATEROSCLEROSIS RISK FACTORS FOR LDL, HDL, AND CHOLESTEROL RISK FACTOR SEX LDL/HDL CHOL/HDL 1/2 Average M 1.00 3.43 F 1.47 3.27 Average M 3.55 4.97 F 3.22 4.44 2X Average M 6.25 9.55 F 5.03 7.05 3X Average M 7.99 23.39 F 6.14 11.04 Normal [facility] Comment on above: Performed By: #### 5 7698-3 #### [place] [address] [employer] [facility] [id number] HTRIG TRIGLYCERIDES INTERPRETATION Normal <150 Borderline High 150-199 High 200-499 Very High >500 Normal [facility] Comment on above: Performed By: #### 5 7698-3 #### [place] [address] [employer] - [facility] [id number] LDL/HDL 1.1 Normal [facility] Comment on above: Performed By: #### 5 7698-3 #### [place] [address] [employer] - [facility] [id number] Triglyceride [Mass/Vol] 189 mg/dL High <=150 [facility] Comment on above: Performed By: #### 5 7698-3 #### [place] [address] [employer] - [facility] [id number] CBC AUTO DIFFon 06-19-2022 BASO # 0.0 103/ul Normal 0.0-0.1 [facility] Comment on above: Performed By: #### C BC #### [facility] [address] [place] [address] [address] Heron Mandel Basophils/100 WBC (Bld) 0.2 % Normal 0.2-2.0 [facility] Comment on above: Performed By: #### C BC #### [facility] [address] [place] [address] Dr. Heron Mandel EO # 0.1 103/ul Normal 0.0-0.7 [facility] Comment on above: Performed By: #### C BC #### [facility] [address] [place] [address] Dr. Heron Mandel Eosinophils/100 WBC (Bld) 0.9 % Normal 0.9-7.0 [facility] Comment on above: Performed By: #### C BC #### [facility] [address] [place] [address] Dr. Heron Mandel Erythrocyte distribution width (RBC) [Ratio] 12.7 % Normal 11.0-15.0 [facility] Comment on above: Performed By: #### C BC #### [facility] [address] [place] [address] Dr. Heron Mandel Hematocrit (Bld) [Volume fraction] 37.6 % Critically low 42.0-54.0 [facility] Comment on above: Performed By: #### C BC #### [facility] [address] [place] [address] Dr. Heron Mandel Hemoglobin (Bld) [Mass/Vol] 13.0 g/dL Critically low 14.0-18.0 [facility] Comment on above: Performed By: #### C BC #### [facility] [address] [place] [address] Dr. Heron Mandel IG # 0.04 10e3/ul Critically high 0.00-0.03 [facility] Comment on above: Performed By: #### C BC #### [facility] [address] [place] [address] Dr. Heron Mandel IG % 0.4 % Normal 0.0-0.5 [facility] Comment on above: Performed By: #### C BC #### [facility] [address] [place] [address] Dr. Heron Mandel LYMPH # 1.6 103/ul Normal 1.2-3.8 [facility] Comment on above: Performed By: #### C BC #### [facility] [address] [place] [address] Dr. Heron Mandel Lymphocytes/100 WBC (Bld) 17.3 % Critically low 20.5-60.0 [facility] Comment on above: Performed By: #### C BC #### [facility] [address] [place] [address] Dr. Heron Mandel MANUAL DIFF REQ NO Normal [facility] Comment on above: Performed By: #### C BC #### [facility] [address] [place] [address] Dr. Heron Mandel MCH (RBC) [Entitic mass] 31.0 pg Normal 25.9-34.0 [facility] Comment on above: Performed By: #### C BC #### [facility] [address] [place] [address] Dr. Heron Mandel MCHC (RBC) [Mass/Vol] 34.6 g/dL Normal 29.9-35.2 [facility] Comment on above: Performed By: #### C BC #### [facility] [address] [place] [address] Dr. Heron Mandel MCV (RBC) [Entitic vol] 89.5 fL Normal 80.0-94.0 [facility] Comment on above: Performed By: #### C BC #### [facility] [address] [place] [address] Dr. Heron Mandel MONO # 0.6 103/ul Normal 0.3-0.8 [facility] Comment on above: Performed By: #### C BC #### [facility] [address] [place] [address] Dr. Heron Mandel Monocytes/100 WBC (Bld) 6.8 % Normal 1.7-12.0 [facility] Comment on above: Performed By: #### C BC #### [facility] [address] [place] [address] Dr. Heron Mandel NEUT # 6.8 103/ul Critically high 1.4-6.5 [facility] Comment on above: Performed By: #### C BC #### [facility] [address] [place] [address] [address] Heron Mandel Neutrophils/100 WBC (Bld) 74.4 % Normal 43.0-75.0 [facility] Comment on above: Performed By: #### C BC #### [facility] [address] [place] [address] [address] Heron Mandel Platelet mean volume (Bld) [Entitic vol] 11.4 fL Normal 9.5-13.5 [facility] Comment on above: Performed By: #### C BC #### [facility] [address] [place] [address] [address] Heron Mandel PLT 256 103/ul Normal 150-450 [facility] Comment on above: Performed By: #### C BC #### [facility] [address] [place] [address] Dr. Heron Mandel RBC 4.20 106/ul Critically low 4.70-6.10 [facility] Comment on above: Performed By: #### C BC #### [facility] [address] [place] [address] [address] Heron Mandel WBC 9.1 103/ul Normal 4.0-11.0 [facility] Comment on above: Performed By: #### C BC #### [facility] [address] [place] [address] ABD/PELVIS WO CONon 06-19 CT ABD/PELVIS WO CON EXAMINATION: CT ABD/PELVIS WO CON HISTORY: UNSPECIFIED ABDOMINAL PAIN COMPARISON: No relevant comparison available. TECHNIQUE: Axial, Coronal, and Sagittal images were created without IV contrast. Dose reduction techniques were achieved by using automated exposure control and/or adjustment of mA and/or kV according to patient size and/or use of iterative reconstruction technique. FINDINGS: LUNG BASES: No visible pulmonary or pleural disease. LIVER: No enlargement, atrophy, suspicious density, or significant focal lesion. BILIARY: Cholecystectomy. PANCREAS: No lesion, fluid collection, or abnormal duct dilatation. SPLEEN: No enlargement or focal lesion. ADRENALS: No mass or enlargement. KIDNEYS: Nonobstructing 1 mm stone within left kidney. BOWEL/MESENTERY: No visible mass, obstruction, or bowel wall thickening. Normal appendix. AORTA/VASCULAR: No aneurysm or dissection. RETROPERITONEUM: No mass or adenopathy. LYMPH NODES: No adenopathy. URINARY BLADDER: No visible focal wall thickening, lesion, or calculus. PELVIC ORGANS: No visible mass. Pelvic organs appropriate for patient age. ABDOMINAL WALL: No mass or hernia. BONES: No bony lesion or fracture. OTHER: Negative. IMPRESSION: 1. Nonobstructing left nephrolithiasis. 2. Unremarkable bowel. 3. No suspicious findings to account for patient's symptoms. Electronically authenticated by: KAMRYN ZELAYA Date: 2022-06-19 16:55 Normal [facility] LIPASEon 06-19-2022 Lipase [Catalytic activity/Vol] 137.0 U/L Normal 73.0-393.0 [facility] Comment on above: Performed By: #### C MP, LIPA #### [facility] [address] [place] [address] Dr. Heron Mandel PROF 14(COMP METB)on 022 Albumin [Mass/Vol] 3.8 g/dL Normal 3.4-5.0 [facility] Comment on above: Performed By: #### C MP, LIPA #### [facility] [address] [place] [address] [address] Heron Mandel Albumin/Globulin [Mass ratio] 1.0 {ratio} Normal [facility] Comment on above: Performed By: #### C MP, LIPA #### [facility] [address] [place] [address] [address] Heron Mandel ALP [Catalytic activity/Vol] 134 U/L Critically high 46-116 [facility] Comment on above: Performed By: #### C MP, LIPA #### [facility] [address] [place] [address] [address] Heron Mandel ALT [Catalytic activity/Vol] 12 U/L Critically low 16-63 [facility] Comment on above: Performed By: #### C MP, LIPA #### [facility] [address] [place] [address] [address] Heron Mandel Anion gap [Moles/Vol] 12.4 mmol/L Normal [facility] Comment on above: Performed By: #### C MP, LIPA #### [facility] [address] [place] [address] [address] Heron Mandel AST [Catalytic activity/Vol] 11 U/L Critically low 15-37 [facility] Comment on above: Performed By: #### C MP, LIPA #### [facility] [address] [place] [address] [address] Heron Mandel Bilirubin [Mass/Vol] 0.4 mg/dL Normal 0.2-1.0 [facility] Comment on above: Performed By: #### C MP, LIPA #### [facility] [address] [address] [address] Heron Mandel Calcium [Mass/Vol] 9.6 mg/dL Normal 8.5-10.1 [facility] Comment on above: Performed By: #### C MP, LIPA #### [facility] [address] [place] [address] Dr. Heron Mandel Chloride [Moles/Vol] 99 mmol/L Normal 98-107 [facility] Comment on above: Performed By: #### C MP, LIPA #### [facility] [address] [address] [address] Heron Mandel CO2 [Moles/Vol] 28.3 mmol/L Normal 21.0-32.0 [facility] Comment on above: Performed By: #### C MP, LIPA #### [facility] [address] [address] [address] Heron Mandel Creatinine [Mass/Vol] 1.14 mg/dL Normal 0.70-1.30 [facility] Comment on above: Performed By: #### C MP, LIPA #### [facility] [address] [place] [address] Dr. Heron Mandel EGFR-AF SOMALI >60 Normal >=60 [facility] Comment on above: Performed By: #### C MP, LIPA #### [facility] [address] [place] [address] Dr. Heron Mandel EGFR-NON AF SOMALI >60 Normal >=60 [facility] Comment on above: Performed By: #### C MP, LIPA #### [facility] [address] [address] [address] Heron Mandel Globulin (S) [Mass/Vol] 3.8 g/dL Normal [facility] Comment on above: Performed By: #### C MP, LIPA #### [facility] [address] [place] [address] Dr. Heron Mandel Glucose [Mass/Vol] 256 mg/dL Critically high 74-106 T [facility] Comment on above: Performed By: #### C MP, LIPA #### [facility] [address] [place] [address] Dr. Heron Mandel Potassium [Moles/Vol] 4.7 mmol/L Normal 3.5-5.1 [facility] Comment on above: Performed By: #### C MP, LIPA #### [facility] [address] [place] [address] Dr. Heron Mandel Protein [Mass/Vol] 7.6 g/dL Normal 6.4-8.2 [facility] Comment on above: Performed By: #### C MP, LIPA #### [facility] [address] [place] [address] Dr. Heron Mandel Sodium [Moles/Vol] 135 mmol/L Critically low 136-145 Th [facility] Comment on above: Performed By: #### C MP, LIPA #### [facility] [address] [place] [address] Dr. Heron Mandel Urea nitrogen [Mass/Vol] 21.0 mg/dL Critically high 7.0-18.0 [facility] Comment on above: Performed By: #### C MP, LIPA #### [facility] [address] [place] [address] Dr. Heron Mandel Urea nitrogen/Creatinine [Mass ratio] 18.4 mg/mg Normal [facility] Comment on above: Performed By: #### C MP, LIPA #### [facility] [address] [place] [address] Dr. Heron Mandel Vital Signs Date Time Vital Sign Value Performing Clinician Facility 04-05-2024 10:0400 Body height 184.15 cm [facility] 04-05-2024 [id number]:[id number] Body mass index (BMI) [Ratio] 32.6 kg/m2 [facility] 04-05-2024 10:040 Body weight 110.7 kg [facility] 04-05-2024 10:26-0400 Diastolic blood pressure 85 mm[Hg] [facility] 04-05-2024 10:0400 Heart rate 89 /min [facility] 04-05-2024 10:0400 Respiratory rate 18 /min [facility] 04-05-2024 10:0400 SaO2% (BldA) [Mass fraction] 95 % [facility] 04-05-2024 10:[id number] Systolic blood pressure 130 mm[Hg] [facility] 04-04-2024 10:40-0400 Body temperature 98.4 [degF] Debra Uadrey BRIDGET-SILK SNAPPER Work Phone: [facility] 04-04-2024 10:40-0400 Diastolic blood pressure 66 mm[Hg] Debra Ventura BRIDGET-SILK SNAPPER Work Phone: [facility] 04-04-2024 10:40-0400 Heart rate 93 /min Debra Coleraine BRIDGET-SILK SNAPPER Work Phone: [facility] 04-04-2024 10:40-0400 Respiratory rate 16 /min Debra Ventura BRIDGET-SILK SNAPPER Work Phone: [facility] 04-04-2024 10:40-0400 Systolic blood pressure 146 mm[Hg] Debra Audrey BRIDGET-SILK SNAPPER Work Phone: [facility] 02-17-2024 13:00-0400 Body temperature 96.91 [degF] Debra Ventura BRIDGET-SILK SNAPPER Work Phone: [facility] 02-17-2024 13:00-0400 Diastolic blood pressure 76 mm[Hg] Debra Audrey BRIDGET-SILK SNAPPER Work Phone: [facility] 02-17-2024 13:00-0400 Heart rate 81 /min Debra Ventura APRN-SILK SNAPPER Work Phone: [facility] 02-17-2024 13:00-0400 Respiratory rate 16 /min Debra Ventura APRN-SILK SNAPPER Work Phone: [facility] 02-17-2024 13:00-0400 Systolic blood pressure 118 mm[Hg] Debra COOPERSILK SNAPPER Work Phone: [facility] 02-17-2024 10:26-0400 Body height 184.15 cm MD Timo Moser Work Phone: [facility] 02-17-2024 10:26-0400 Body mass index (BMI) [Ratio] 32.9 kg/m2 MD Tmio Moser Work Phone: [facility] 02-17-2024 10:26-0400 Body weight 111.64 kg MD Timo Moser Work Phone: [facility] 02-17-2024 10:26-0400 Diastolic blood pressure 80 mm[Hg] MD Timo Moser Work Phone: [facility] 02-17-2024 10:26-0400 Heart rate 80 /min MD Timo Moser Work Phone: [facility] 02-17-2024 10:26-0400 Respiratory rate 18 /min MD Timo Moser Work Phone: [facility] 02-17-2024 10:26-0400 SaO2% (BldA) [Mass fraction] 95 % MD Timo Moser Work Phone: [facility] 02-17-2024 10:26-0400 Systolic blood pressure 145 mm[Hg] MD Timo Moser Work Phone: [facility] 02-03-2024 09:31-0500 Body temperature 98.4 [degF] Mike Parish MECHANICAL ENGINEERING SPECIALIST-SILK SNAPPER Work Phone: [facility] 02-03-2024 09:31-0500 Diastolic blood pressure 71 mm[Hg] Mike Barton MECHANICAL ENGINEERING SPECIALIST-SILK SNAPPER Work Phone: [facility] 02-03-2024 09:31-0500 Heart rate 93 /min Mike Barton MECHANICAL ENGINEERING SPECIALIST-SILK SNAPPER Work Phone: [facility] 02-03-2024 09:31-0500 Respiratory rate 18 /min Mike Barton MECHANICAL ENGINEERING SPECIALIST-SILK SNAPPER Work Phone: [facility] 02-03-2024 09:31-0500 Systolic blood pressure 132 mm[Hg] Mike Barton MECHANICAL ENGINEERING SPECIALIST-SILK SNAPPER Work Phone: [facility] 01-13-2024 09:46-0500 Body temperature 97 [degF] Debra Ventura MECHANICAL ENGINEERING SPECIALIST-SILK SNAPPER Work Phone: [facility] 01-13-2024 09:46-0500 Diastolic blood pressure 90 mm[Hg] Debra Ventura MECHANICAL ENGINEERING SPECIALIST-SILK SNAPPER Work Phone: [facility] 01-13-2024 09:46-0500 Heart rate 80 /min Debra Ventura MECHANICAL ENGINEERING SPECIALIST-SILK SNAPPER Work Phone: [facility] 01-13-2024 09:46-0500 Respiratory rate 16 /min Debra Ventura MECHANICAL ENGINEERING SPECIALIST-SILK SNAPPER Work Phone: [facility] 01-13-2024 09:46-0500 Systolic blood pressure 129 mm[Hg] Debra Ventura MECHANICAL ENGINEERING SPECIALIST-SILK SNAPPER Work Phone: [facility] 12-23-2023 09:00-0500 Body temperature 98.2 [degF] Debra Ventura MECHANICAL ENGINEERING SPECIALIST-SILK SNAPPER Work Phone: [facility] 12-23-2023 09:00-0500 Diastolic blood pressure 91 mm[Hg] Debra Ventura MECHANICAL ENGINEERING SPECIALIST-SILK SNAPPER Work Phone: [facility] 12-23-2023 09:00-0500 Heart rate 94 /min Debra Ventura MECHANICAL ENGINEERING SPECIALIST-SILK SNAPPER Work Phone: [facility] 12-23-2023 09:00-0500 Respiratory rate 16 /min Debra Ventura MECHANICAL ENGINEERING SPECIALIST-SILK SNAPPER Work Phone: [facility] 12-23-2023 09:00-0500 Systolic blood pressure 154 mm[Hg] Debra Ventura MECHANICAL ENGINEERING SPECIALIST-SILK SNAPPER Work Phone: [facility] 12-02-2023 09:59-0500 Body temperature 97 [degF] Debra Ventura MECHANICAL ENGINEERING SPECIALIST-SILK SNAPPER Work Phone: [facility] 12-02-2023 09:59-0500 Diastolic blood pressure 68 mm[Hg] Debra Ventura MECHANICAL ENGINEERING SPECIALIST-SILK SNAPPER Work Phone: [facility] 12-02-2023 09:59-0500 Heart rate 83 /min Debra Ventura MECHANICAL ENGINEERING SPECIALIST-SILK SNAPPER Work Phone: [facility] 12-02-2023 09:59-0500 Respiratory rate 18 /min Debra Ventura MECHANICAL ENGINEERING SPECIALIST-SILK SNAPPER Work Phone: [facility] 12-02-2023 09:59-0500 Systolic blood pressure 118 mm[Hg] Debra Ventura MECHANICAL ENGINEERING SPECIALIST-SILK SNAPPER Work Phone: [facility] 11-25-2023 09:27-0500 Body height 188 cm Rashid Fairchild MD Work Phone: [facility] 11-25-2023 09:27-0500 Body mass index (BMI) [Ratio] 30.87 kg/m2 Rashid Fairchild MD Work Phone: [facility] 11-25-2023 09:27-0500 Body weight 109.05 kg Rashid Fairchild MD Work Phone: [facility] 11-25-2023 09:27-0500 Diastolic blood pressure 74 mm[Hg] Rashid Fairchild MD Work Phone: [facility] 11-25-2023 09:27-0500 Heart rate 76 /min Rashid Fairchild MD Work Phone: [facility] 11-25-2023 09:27-0500 SaO2% (BldA) [Mass fraction] 97 % Rashid Fairchild MD Work Phone: [facility] 11-25-2023 09:27-0500 Systolic blood pressure 118 mm[Hg] Rashid Fairchild MD Work Phone: [facility] 11-08-2023 10:45-0500 Body height 184.15 cm Kathleen Scally Other [facility] 11-08-2023 10:45-0500 Body mass index (BMI) [Ratio] 31.7 kg/m2 Kathleen Scally Other [facility] Other 11-08-2023 10:45-0500 Body weight 107.5 kg Kathleen Scally Other [facility] 11-08-2023 10:45-0500 Diastolic blood pressure 63 mm[Hg] Kathleen Scally Other [facility] 11-08-2023 10:45-0500 Respiratory rate 18 /min Kathleen Scally Other [facility] [employer] Other 11-08-2023 10:45-0500 SaO2% (BldA) [Mass fraction] 96 % Kathleen Scally Other [facility] [employer] Other 11-08-2023 10:45-0500 Systolic blood pressure 93 mm[Hg] Kathleen Scally Other [facility] 09-27-2023 10:20-0400 Body height 188 cm Bobby Joel DPM Work Phone: [facility] 09-27-2023 10:20-0400 Body mass index (BMI) [Ratio] 30.17 kg/m2 Bobby Joel DPM Work Phone: [facility] 09-27-2023 10:20-0400 Body weight 106.59 kg Bobby Joel DPM Work Phone: [facility] 09-27-2023 10:20-0400 Diastolic blood pressure 90 mm[Hg] Bobby Joel DPM Work Phone: [facility] 09-27-2023 10:20-0400 Systolic blood pressure 160 mm[Hg] Bobby Joel DPM Work Phone: [facility] 09-26-2023 15:39-0400 Body temperature 97.2 [degF] Kristen Auck MECHANICAL ENGINEERING SPECIALIST-SILK SNAPPER Work Phone: [facility] 09-26-2023 15:39-0400 Diastolic blood pressure 73 mm[Hg] Kristen Auck MECHANICAL ENGINEERING SPECIALIST-SILK SNAPPER Work Phone: [facility] 09-26-2023 15:39-0400 Heart rate 96 /min Kristen Auck MECHANICAL ENGINEERING SPECIALIST-SILK SNAPPER Work Phone: [facility] 09-26-2023 15:39-0400 Respiratory rate 18 /min Kristen Auck MECHANICAL ENGINEERING SPECIALIST-SILK SNAPPER Work Phone: [facility] 09-26-2023 15:39-0400 Systolic blood pressure 131 mm[Hg] Kristen Auck MECHANICAL ENGINEERING SPECIALIST-SILK SNAPPER Work Phone: [facility] 09-20-2023 15:33-0400 Body temperature 97.7 [degF] Mark Cesar MD Work Phone: [facility] 09-20-2023 15:33-0400 Diastolic blood pressure 77 mm[Hg] Mark Cesar MD Work Phone: [facility] Comment on above: Rn notified 09-20-2023 15:33-0400 Heart rate 75 /min Mark Cesar MD Work Phone: [facility] 09-20-2023 15:33-0400 Respiratory rate 22 /min Mark Cesar MD Work Phone: [employer] 09-20-2023 15:33-0400 SaO2% (BldA) [Mass fraction] 96 % Mark Cesar MD Work Phone: [employer] 09-20-2023 15:33-0400 Systolic blood pressure 165 mm[Hg] Mark Cesar MD Work Phone: [facility] Comment on above: Rn notified 09-20-2023 04:58-0400 Body mass index (BMI) [Ratio] 30.19 kg/m2 Mark Cesar MD Work Phone: [facility] 09-20-2023 04:58-0400 Body weight 106.64 kg Mark Cesar MD Work Phone: [employer] [facility] 09-19-2023 00:30-0400 Body height 188 cm Mark Cesar MD Work Phone: [facility] Encounters Encounter Date Encounter Type Care Provider Facility Start: 04-05-2024 End: 04-28-2024 ambulatory DEBRA VENTURA [facility] Work Phone: Start: 04-05-2024 End: 04-05-2024 Patient encounter procedure [facility] Work Phone: Start: 04-04-2024 End: 04-04-2024 ambulatory DEBRA VENTURA [facility] Start: 04-04-2024 End: 04-04-2024 Patient encounter procedure Debra Ventura MECHANICAL ENGINEERING SPECIALIST-SILK SNAPPER Work Phone: [facility] Comment on above: 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, with fat layer exposed ([facility]) (Primary Dx); Diabetic ulcer of right midfoot associated with type 2 diabetes mellitus, limited to breakdown of skin ([facility]); Pre-ulcerative calluses; Diabetic polyneuropathy associated with type 2 diabetes mellitus ([facility]) Start: 02-28-2024 End: 03-28-2024 ambulatory DEBRA VENTURA [facility] Work Phone: Start: 02-28-2024 End: 02-28-2024 Patient encounter procedure [facility] Work Phone: Start: 02-22-2024 End: 02-22-2024 ambulatory [facility] Work Phone: Start: 02-22-2024 End: 02-22-2024 Patient encounter procedure [facility] Work Phone: Start: 02-17-2024 End: 02-17-2024 ambulatory DEBRA VENTURA [facility] Start: 02-17-2024 End: 02-17-2024 Patient encounter procedure Debra Ventura MECHANICAL ENGINEERING SPECIALIST-SILK SNAPPER Work Phone: [facility] Comment on above: 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, with fat layer exposed (CMS-HCC) (Primary Dx); Pre-ulcerative calluses; Diabetic ulcer of right midfoot associated with type 2 diabetes mellitus, limited to breakdown of skin (CMS-HCC) Start: 02-17-2024 End: 02-17-2024 ambulatory MD Timo Moser Work Phone: [facility] Work Phone: Start: 02-17-2024 End: 02-17-2024 Patient encounter procedure MD Timo Moser Work Phone: [facility] Work Phone: Start: 02-03-2024 End: 02-03-2024 Patient encounter procedure Debra Ventura MECHANICAL ENGINEERING SPECIALIST-SILK SNAPPER Work Phone: [facility] Comment on above: 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, with fat layer exposed (CMS-HCC) (Primary Dx); Diabetic ulcer of right midfoot associated with type 2 diabetes mellitus, limited to breakdown of skin (CMS-HCC); Type 2 diabetes mellitus with pressure callus (CMS-HCC) Start: 02-03-2024 End: 02-03-2024 ambulatory MIKE BARTON [facility] Start: 01-19-2024 End: 01-20-2024 Emergency department patient visit IVA LEARY [facility] Start: 01-13-2024 End: 01-13-2024 Patient encounter procedure Debra Ventura MECHANICAL ENGINEERING SPECIALIST-SILK SNAPPER Work Phone: [facility] Comment on above: 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, with fat layer exposed ([facility]) (Primary Dx); Type 2 diabetes mellitus with pressure callus (CMS-HCC) ; Diabetic polyneuropathy associated with type 2 diabetes mellitus ([facility]) Start: 01-13-2024 End: 01-13-2024 ambulatory DEBRA VENTURA [facility] Start: 12-23-2023 End: 12-23-2023 ambulatory DEBRA VENTURA [facility] Start: 12-23-2023 End: 12-23-2023 Patient encounter procedure Debra Ventura MECHANICAL ENGINEERING SPECIALIST-SILK SNAPPER Work Phone: [facility] Comment on above: 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, with fat layer exposed ([facility]) (Primary Dx); Type 2 diabetes mellitus with pressure callus ([facility]) ; Diabetic polyneuropathy associated with type 2 diabetes mellitus ([facility]) Start: 12-22-2023 End: 12-22-2023 ambulatory [facility] Start: 12-22-2023 End: 12-22-2023 ambulatory [facility] Start: 12-20-2023 End: 12-20-2023 ambulatory Kathleen Diaz Other [facility] Other Start: 12-20-2023 Telephone encounter Kathleen Diaz [facility] Start: 12-16-2023 End: 12-29-2023 ambulatory [facility] Teofilo AUDREY [facility] Start: 12-14-2023 End: 12-14-2023 ambulatory [facility] Start: 12-14-2023 End: 12-15-2023 ambulatory [facility] Start: 12-07-2023 End: 12-07-2023 ambulatory RUBÉN CUENCA [facility] Start: 12-05-2023 End: 12-05-2023 ambulatory Kathleen Diaz Other [facility] Other Start: 12-05-2023 Telephone encounter [facility] Start: 12-02-2023 Telephone encounter Kathleen [facility] Start: 12-02-2023 End: 12-02-2023 Patient encounter procedure Debra Ventura MECHANICAL ENGINEERING SPECIALIST-SILK SNAPPER Work Phone: [facility] Comment on above: 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, with fat layer exposed ([facility]) (Primary Dx); Diabetic polyneuropathy associated with type 2 diabetes mellitus ([facility]) Start: 12-02-2023 End: 12-02-2023 ambulatory DEBRA VENTURA [facility] Other Start: 11-29-2023 ambulatory HARLEY PIMENTELLIDIA Roe HARLEY MECHANICAL ENGINEERING SPECIALIST~[id number] Facility:[facility] Start: 11-25-2023 End: 11-25-2023 Office outpatient new 45 minutes Rashid Fairchild MD Work Phone: [facility] Comment on above: Chest pain, unspecif ied type (Primary Dx); Primary hypertension; Dyslipidemia Start: 11-25-2023 End: 11-25-2023 ambulatory [facility] Start: 11-24-2023 Telephone encounter [facility] Start: 11-23-2023 End: 11-23-2023 Discharged Recurring MD Timo Moser Work Phone: [facility] Work Phone: Start: 11-23-2023 End: 11-24-2023 ambulatory MD Timo Moser Work Phone: [facility] Other Start: 11-23-2023 Nursing evaluation o f patient and report Kathleen Diaz [facility] Start: 11-08-2023 End: 11-08-2023 ambulatory Kathleen Diaz Other [facility] Other Start: 11-08-2023 [facility] visit new patient Kathleen abdul [facility] Start: 11-08-2023 Patient encounter procedure MD Timo Moser Work Phone: [facility] Start: 11-01-2023 End: 11-28-2023 ambulatory VY SOUZA APRN Facility:[facility] Start: 09-27-2023 End: 09-27-2023 Office outpatient visit 25 minutes Bobby Joel DPM Work Phone: [facility] Comment on above: Diabetic ulcer of le ft great toe (Primary Dx) Start: 09-26-2023 End: 09-26-2023 Office outpatient new 30 minutes Kristen Hernandez MECHANICAL ENGINEERING SPECIALIST-SILK SNAPPER Work Phone: [facility] Comment on above: Diabetic foot infect ion (Primary Dx); Cellulitis of toe of left foot Start: 09-26-2023 ambulatory KATE Caruso [facility] Start: 09-18-2023 End: 09-20-2023 ambulatory POD[facility]ATRY [facility] Start: 09-18-2023 End: 09-20-2023 Emergency department patient visit Mark Cesar MD Work Phone: [facility] Comment on above: Diabetic foot infect ion Start: 09-16-2023 End: 09-16-2023 ambulatory KATIE WILSON DO~[id number] Facility:[facility] Start: 09-13-2023 End: 09-14-2023 ambulatory HARLEY MICHAELSE Jyothi SOUZA MECHANICAL ENGINEERING SPECIALIST~[id number] Facility:[facility] Start: 04-26-2023 End: 04-26-[address]~[id number] ARIANE FIGUEROA MD Facility:[facility] Start: 04-20-2023 End: 04-21-2023 ambulatory HARLEY MICHAELSE Jyothi SOUZA MECHANICAL ENGINEERING SPECIALIST~[id number] Facility:[facility] Start: 04-13-2023 End: 04-14-2023 ambulatory HARLEY MICHAELSE N SOUZA MECHANICAL ENGINEERING SPECIALIST~[id number] Facility:[facility] Start: 03-16-2023 End: 07-19-2023 ambulatory JULIO CÉSAR FRANCOIS MECHANICAL ENGINEERING SPECIALIST Facility:[facility] Start: 03-14-2023 End: 05-16-2023 ambulatory KIRKHOPE IGGY Mora KIRELSIOPE MECHANICAL ENGINEERING SPECIALIST~[id number] Facility:[facility] Start: 03-10-2023 End: 03-11-2023 ambulatory HARLEY MICHAELSE Jyothi SOUZA MECHANICAL ENGINEERING SPECIALIST~[id number] Facility:[facility] Start: 03-09-2023 End: 03-09-2023 ambulatory WOOD CHARLEE A WOOD DO~[id number] Facility:[facility] Start: 02-11-2023 End: 02-12-2023 ambulatory SOUZA VY N SOUZA MECHANICAL ENGINEERING SPECIALIST~[id number] Facility:[facility] Start: 02-11-2023 End: 02-11-2023 ambulatory SOUZA VY N SOUZA MECHANICAL ENGINEERING SPECIALIST~[id number] Facility:[facility] Start: 06-19-2022 End: 06-19-2022 ambulatory ERIN CRUZ Facility:[facility] Procedures Date Procedure Procedure Detail Performing Clinician Start: 04-04-2024 NURSING COMMUNICATION Debra Ventura MECHANICAL ENGINEERING SPECIALIST -SILK SNAPPER Work Phone: Start: 02-17-2024 NURSING COMMUNICATION Debra Ventura MECHANICAL ENGINEERING SPECIALIST -SILK SNAPPER Work Phone: Start: 02-03-2024 NURSING COMMUNICATION Debra Ventura MECHANICAL ENGINEERING SPECIALIST -SILK SNAPPER Work Phone: Start: 01-13-2024 NURSING COMMUNICATION Debra Ventura MECHANICAL ENGINEERING SPECIALIST -SILK SNAPPER Work Phone: Start: 12-23-2023 End: 12-23-2023 NURSING COMMUNICATION Debra Ventura MECHANICAL ENGINEERING SPECIALIST -SILK SNAPPER Work Phone: Start: 12-02-2023 NURSING COMMUNICATION Debra Ventura MECHANICAL ENGINEERING SPECIALIST -SILK SNAPPER Work Phone: Start: 11-25-2023 Ecg routine ecg w/least 12 lds w/i&r Rashid Fairchild MD Work Phone: Start: 11-14-2023 MULTIPLE LABS Scanning Provider External Start: 10-19-2023 History of amputation of lesser toe 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 Elizabeth Parra A Start: 09-20-2023 Gluc bld gluc mntr dev cleared fda spec home use Ronald Connell MD Work Phone: Start: 09-20-2023 Gluc bld gluc mntr dev cleared fda spec home use Ronald Connell MD Work Phone: Start: 09-20-2023 Gluc bld gluc mntr dev cleared fda spec home use Ronald Connell MD Work Phone: Start: 09-20-2023 Complete blood count with white cell differential, automated Tuan Baker MECHANICAL ENGINEERING SPECIALIST-SILK SNAPPER Work Phone: Start: 09-20-2023 Comprehensive metabolic panel Ronald Connell MD Work Phone: Start: 09-20-2023 Lipid panel Tuan Baker MECHANICAL ENGINEERING SPECIALIST-SILK SNAPPER Work Phone: Start: 09-20-2023 Lipid 1996 panel - Serum or Plasma Mark Cesar MD Work Phone: Start: 09-19-2023 Gluc bld gluc mntr dev cleared fda spec home use Ronald Connell MD Work Phone: Start: 09-19-2023 End: 09-19-2023 Comprehensive metabolic panel Ronald Connell MD Work Phone: Start: 09-19-2023 Gluc bld gluc mntr dev cleared fda spec home use Ronald Connell MD Work Phone: Start: 09-19-2023 Mri lower extrem oth/thn jt w/o contr matrl Tuan Monteiro [place] MECHANICAL ENGINEERING SPECIALIST-SILK SNAPPER Work Phone: Start: 09-19-2023 C-reactive protein Tuan Monteiro Olivia MECHANICAL ENGINEERING SPECIALIST-SILK SNAPPER Work Phone: Start: 09-19-2023 Gluc bld gluc mntr dev cleared fda spec home use Ronald Connell MD Work Phone: Start: 09-19-2023 Gluc bld gluc mntr dev cleared fda spec home use Ronald Connell MD Work Phone: Start: 09-18-2023 End: 09-18-2023 Culture bacterial blood aerobic w/id isolates Makr Cesar MD Work Phone: Start: 09-18-2023 Assay of lactate Mark Cesar MD Work Phone: Start: 09-18-2023 Radex foot complete minimum 3 views Mark Cesar MD Work Phone: Start: 09-18-2023 Blood count complete auto&auto difrntl wbc Mark Cesar MD Work Phone: Start: 09-18-2023 C-reactive protein Mark Cesar MD Work Phone: Start: 09-18-2023 Cultyp nuc acid amp prb cult/isolate ea orgnism Ronald Connell MD Work Phone: Plan of Treatment Date Care Activity Detail Author Start: 09-20-2028 Lipid panel LIPID SCREENING [facility] Start: 04-04-2025 Tobacco Screening Tobacco Screening [facility] Start: 01-19-2025 Adult BMI Screening Adult BMI Screening [facility] Start: 01-19-2025 Tobacco Screening Tobacco Screening [facility] Start: 12-23-2024 Tobacco Screening Tobacco Screening [facility] Start: 12-22-2024 Adult BMI Screening Adult BMI Screening [facility] Start: 12-22-2024 Tobacco Screening Tobacco Screening [facility] Start: 11-25-2024 Adult BMI Screening Adult BMI Screening [facility] Start: 11-25-2024 Tobacco Screening Tobacco Screening [facility] Start: 11-11-2024 Tobacco Screening Tobacco Screening [facility] Start: 09-26-2024 Diabetic foot examination DIABETIC FOOT EXAM [facility] Start: 09-20-2024 Lipid panel LIPIDS [facility] Start: 07-29-2024 Influenza vaccination Influenza Vaccine [facility] Start: 04-19-2024 End: 04-19-2024 Patient encounter procedure 04/19/2024 2:15 PM EDT Office Visit [facility] [address] [place] [phone] Cherrie Alvarez MD [address] [place] [address] [facility] Start: 04-06-2024 End: 04-06-2024 Patient encounter procedure 04/06/2024 11:00 AM EDT Office Visit [facility] [address] [place] [phone] Debra Ventura, MECHANICAL ENGINEERING SPECIALIST-[facility] [address] [place] [address] [facility] Start: 03-27-2024 End: 03-27-2024 Patient encounter procedure 03/27/2024 11:45 AM EDT Office Visit [facility] [address] [place] [phone] Rashid Fairchild MD [address] [place] [address] [facility] Start: 03-21-2024 Hemoglobin A1c measurement HBA1C TEST [facility] Start: 02-29-2024 End: 02-29-2024 Patient encounter procedure 02/29/2024 10:20 AM EDT Office Visit [facility] [address] [place] [address] Debra Ventura, MECHANICAL ENGINEERING SPECIALIST-SILK SNAPPER [address] [place] [address] [facility] Start: 02-03-2024 End: 02-03-2024 Patient encounter procedure 02/03/2024 10:20 AM EST Office Visit [facility] [address] [place] [address] Debra Ventura, MECHANICAL ENGINEERING SPECIALIST-SILK SNAPPER [address] [place] [address] [facility] Start: 01-13-2024 End: 01-13-2024 Patient encounter procedure 01/13/2024 10:20 AM EST Office Visit [facility] [address] [place] [address] Debra Ventura, MECHANICAL ENGINEERING SPECIALIST-SILK SNAPPER [address] [place] [address] [facility] Start: 12-16-2023 End: 12-16-2023 Patient encounter procedure 12/16/2023 10:20 AM EST Office Visit [facility] [address] [place] [address] Debra Ventura, MECHANICAL ENGINEERING SPECIALIST-SILK SNAPPER [address] [place] [address] [facility] Start: 12-14-2023 End: 12-14-2023 Patient encounter procedure 12/14/2023 11:45 AM EST Appointment [facility] [address] [place] [address] [facility] Start: 12-14-2023 End: 12-14-2023 Patient encounter procedure [facility] Start: 12-14-2023 Subsequent hospital visit by physician 12/14/2023 10:00 AM EST Hospital Encounter [facility] [address] [place] [address] [facility] Start: 12-14-2023 End: 12-14-2023 Patient encounter procedure [facility] Start: 12-07-2023 End: 12-07-2023 Patient encounter procedure 12/07/2023 8:30 AM EST Appointment [facility] [address] [place] [address] [facility] Start: 12-02-2023 End: 12-02-2023 Patient encounter procedure 12/02/2023 10:00 AM EST Office Visit [facility] [address] [place] [address] Debra Ventura, MECHANICAL ENGINEERING SPECIALIST-[facility] [address] [place] [id number] [facility] Start: 11-25-2023 End: 11-25-2024 Echo complete W/O contrast Echo complete W/O contrast Echocardiography Routine Chest pain, unspecified type Expected: 11/25/2023, Expires: 11/25/2024 [facility] Comment on above: Expected: 11/25/2023, Expires: Start: 11-25-2023 End: 11-25-2024 NM Heart Perfusion W stress and W radionuclide IV Nuc stress [facility] Routine Chest pain, unspecified type Expected: 11/25/2023, Expires: 11/25/2024 [facility] Work Phone: Comment on above: Expected: 11/25/2023, Expires: Start: 11-25-2023 End: 11-25-2023 Patient encounter procedure 11/25/2023 9:30 AM EST Office Visit [facility] [address] [place] [address] Rashid Fairchild MD [address] [place] [address] [facility] Start: 10-13-2023 End: 10-13-2023 Patient encounter procedure 10/13/2023 11:00 AM EST Office Visit [facility] [address] [place] [address] Bobby Joel, DPM [address] [place] [address] [facility] Start: 09-27-2023 End: 10-25-2023 Bacterial culture and sensitivity [facility] Comment on above: Expected: 09/27/2023, Expires: Start: 09-27-2023 End: 09-27-2023 Patient encounter procedure 09/27/2023 9:50 AM EDT Office Visit [facility] [address] [place] [address] Bobby Joel, DPM [address] [place] [address] [facility] Start: 09-26-2023 End: 09-26-2023 Patient encounter procedure 09/26/2023 3:00 PM EDT Office Visit [facility] [address] [place] [phone] Kristen Hernandez, MECHANICAL ENGINEERING SPECIALIST-SILK SNAPPER [address] [place] [phone] [facility] Start: 07-29-2023 Influenza vaccination [facility] Start: 2017 Administration of varicella zoster vaccine Zoster (Shingles) Vaccine (1 of 2) [facility] Start: 2017 Prostate specific antigen measurement PROSTATE CANCER SCREENING DISCUSSION [facility] Start: 2017 Zoster vaccine hzv live for subcutaneous use ZOSTER (SHINGLES) VACCINE (1 of 2) [facility] Start: 01-31-2012 Screening for malignant neoplasm of colon COLORECTAL CANCER SCREENING DISCUSSION [facility] Start: 1986 DTaP,Tdap and Td Vaccines (1 - Tdap) DTaP,Tdap and Td Vaccines (1 - Tdap) [facility] Start: 1986 Third diphtheria, tetanus and acellular pertussis (DTaP) vaccination TDAP (ADULT) [facility] Start: 1985 Adult BMI Follow Up Plan Adult BMI Follow Up Plan [facility] Start: 1985 Adult BMI Screening Adult BMI Screening [facility] Start: 1985 Diabetic foot examination Diabetic Foot Exam [facility] Start: 1982 HIV screening HIV SCREENING DISCUSSION [facility] Start: 1979 Depression Screening Depression Screening [facility] Start: 1967 COVID-19 VACCINE (#1) COVID-19 VACCINE (#1) [facility] Start: 1967 Diabetic foot examination DIABETIC FOOT EXAM [facility] Start: 1967 Glaucoma screening [facility] Start: 1967 Hepatitis C screening HEPATITIS C VIRUS SCREENING [facility] Start: 1967 Tetanus vaccination TETANUS [facility] Start: 1967 Urine screening for protein URINE MICROALBUMIN TEST [facility] Bacteria identified in Blood by Culture [facility] Change of dressing AK DRESSING C HANGE AK - OFFICE PERFORMED Routine Diabetic foot infection Cellulitis of toe of left foot Ordered: 09/26/2023 [facility] Comment on above: Ordered: 09/26/2023 End: 11-25-2024 Lipid 1996 panel - Serum or Plasma Lipid profile Lab Routine Primary hypertension 1 Occurrences starting 11/25/2023 until 11/25/2024 [facility] Comment on above: 1 Occurrences starting 11/25/2023 until 11/25/2024 Payers Date Payer Category [place] [id number] 2023-Present [phone] [address] [place] [address] [id number] 2023 Medicaid [id number] 2022 Medicare [id number] [id number] 1967 Unknown [id number] 2.16.840.1.571984.3.579.2.593 1967 Unknown [id number] 2.16.840.1.550289.3.579.2.983 1967 Unknown [id number] 2.16.840.1.577030.3.579.2.983 1967 Unknown [id number] 2.16.840.1.750684.3.579.2.419 1967 Unknown [id number] 2.16.840.1.792299.3.579.2.419 1967 Unknown [id number] 2.16.840.1.507040.3.579.2.419 1967 Unknown [id number] 2.16.840.1.603858.3.579.2.419 1967 Unknown [id number] 2.16.840.1.877960.3.579.2.419 1967 Unknown [id number] 2.16.840.1.481538.3.579.2.419 1967 Unknown [id number] 2.16.840.1.862274.3.579.2.419 1967 Unknown [id number] 2.16.840.1.623966.3.579.2.419 1967 Unknown [id number] 2.16.840.1.290179.3.579.2.419 1967 Unknown [id number] 2.16.840.1.825860.3.579.2.419 1967 Unknown [id number] 2.16.840.1.398493.3.579.2.419 1967 Unknown [id number] 2.16.840.1.211857.3.579.2.419 1967 Unknown [id number] 2.16.840.1.394849.3.579.2.419 1967 Unknown [id number] 2.16.840.1.696749.3.579.2.1285 1967 Unknown [id number] 2.16.840.1.545080.3.579.2.1285 1967 Unknown [id number] 2.16.840.1.620587.3.579.2.1285 1967 Unknown [id number] 2.16.840.1.363416.3.579.2.1285 1967 Unknown [id number] 2.16.840.1.783856.3.579.2.1285 1967 Unknown [id number] 2.16.840.1.642181.3.579.2.1285 1967 Unknown [id number] 2.16.840.1.002411.3.579.2.1285 1967 Unknown [id number] 2.16.840.1.414022.3.579.2.1285 1967 Unknown [id number] 2.16.840.1.722440.3.579.2.1285 1967 Unknown [id number] 2.16.840.1.711776.3.579.2.1285 1967 Unknown [id number] 2.16.840.1.769205.3.579.2.1285 1967 Unknown [id number] 2.16.840.1.209123.3.579.2.1285 1967 Unknown [id number] 2.16840.1.470338.3.579.2.1285 1967 Unknown [id number] 2.16.840.1.766619.3.579.2.1285 1967 Unknown [id number] 2.840.1.164005.3.579.2.1285 1967 Unknown [id number] 2.840.1.982116.3.579.2.1285 1967 Unknown [id number] 2.840.1.621515.3.579.2.1285 1967 Unknown [id number] 2.840.1.390567.3.579.2.1285 1967 Unknown [id number] 2.840.1.841775.3.579.2.1285 1967 Unknown [id number] 2.840.1.643009.3.579.2.1285 1967 Unknown [id number] 2.840.1.457874.3.579.2.1285 1967 Unknown [id number] 2.840.1.261901.3.579.2.1285 1967 Unknown [id number] 2.840.1.543504.3.579.2.1286 1957 Medicare [id number] 1959 Self-pay Unknown [id number] 2.16840.1.052993.3.579.2.531 Social History Date Type Detail Facility Start: 09-18-2023 End: 10-19-2023 Tobacco smoking status NHIS Never smoked tobacco [facility] Start: 09-18-2023 End: 10-19-2023 Tobacco use and exposure Smokeless tobacco non-user [facility] Start: 09-18-2023 End: 02-03-2024 History of Social function [facility] Start: 09-18-2023 End: 02-03-2024 Tobacco use panel [facility] Start: 1965 Sex Assigned At Not on file A [facility] Start: 1965 Sex Assigned At Male F [facility] Housing Instability Unknown [facility] Start: 11-25-2023 End: 02-17-2024 Alcohol intake Ex-drinker (finding) [facility] Medical Equipment Procedure Code Equipment Code Equipment Origin al Text Equipment Identifier Dates [id number], [id number], [id number], [id number] Start: 08-18-2023 Pen Needle, Diab etic (1st Tier Unifine Pentips Plus) 32 gauge x 5/32 needle Start: 01-17-2024 Pen Needle, Diab etic (1st Tier Unifine Pentips Plus) 32 gauge x 5/32 needle Start: 01-25-2024 Pen Needle, Diab etic (1st Tier Unifine Pentips Plus) 32 gauge x 5/32 needle Start: 01-17-2024 End: 01-20-2024 Pen Needle, Diab etic (1st Tier Unifine Pentips Plus) 32 gauge x 5/32 needle Start: 01-20-2024 End: 01-25-2024 Pen Needle, Diab etic (1st Tier Unifine Pentips Plus) 32 gauge x 5/32 needle Start: 01-25-2024 Pen Needle, Diab etic (1st Tier Unifine Pentips Plus) 32 gauge x 5/32 needle Start: 01-17-2024 End: 01-20-2024 Pen Needle, Diab etic (1st Tier Unifine Pentips Plus) 32 gauge x 5/32 needle Start: 01-20-2024 End: 01-25-2024 Pen Needle, Diab etic (1st Tier Unifine Pentips Plus) 32 gauge x 5/32 needle Start: 01-25-2024 Pen Needle, Diab etic (1st Tier Unifine Pentips Plus) 32 gauge x 5/32 needle Start: 01-17-2024 End: 01-20-2024 Pen Needle, Diab etic (1st Tier Unifine Pentips Plus) 32 gauge x 5/32 needle Start: 01-20-2024 End: 01-25-2024 Blood Sugar Diagnostic (Onetouch Ultra Test) strip Start: 04-05-2024 Pen Needle, Diab etic (1st Tier Unifine Pentips Plus) 32 gauge x 5/32 needle Start: 01-25-2024 Pen Needle, Diab etic (1st Tier Unifine Pentips Plus) 32 gauge x 5/32 needle Start: 01-17-2024 End: 01-20-2024 Pen Needle, Diab etic (1st Tier Unifine Pentips Plus) 32 gauge x 5/32 needle Start: 01-20-2024 End: 01-25-2024 Clinical Notes 03-09-2023 to 04-04-2024 Debra Ventura, MECHANICAL ENGINEERING SPECIALIST-SILK SNAPPER - 04/04/2024 10:00 AM EDTPatient Instructions Note Date & Type Note Facility 04-04-2024 History of Present illness Narrative Images from the original note were not included. Wound Care Progress Note Patient: Darshan Dunaway Date of : 1965 Chief Complaint: Left great toe and right mid foot ulcers, follow up Subjective/HPI: Darshan is a 59 y.o. male who present to [facility] for evaluation of 2 ulcer(s) on the left medial great toe and right midfoot. Both wounds are callused. The wound was first assessed in wound clinic 10/19/2023. Current daily wound care includes: medi honey, adaptic and roll gauze changed daily by patient's sister. Patient is wearing bilateral [employer] surgical shoes. Patient reports he will be out of town for at least the next 4 weeks. States he will be able to followup with a wound care clinic in [place] where he will be traveling. Diabetic shoes with inserts have been received. Patient is wearing the new shoes only in the house for now to break them in. Reports recent appointment with endocrinology, started on a CGM device. Patient reports he was admitted to the emergency department 10/18/2023 complaining of dizziness and found to have a blood sugar over 500. Patient reports wound has been present for over 6 months. He was in a hospital for cellulitis of the left foot treated with IV antibiotics. 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 Measurable wound changes: decrease in wound measurement with callus formation Patient accompanied by: self, patient is ambulatory Nutritional screen shows patient does take in three servings of protein per day. Patient does deny fever, chills, sweats or other symptoms of infection. Prescribed antibiotics: none Today's reported Blood sugar: 135 Tobacco:denied - never a smoker Contributing comorbid conditions: Type 2 diabetes, insulin dependent, poorly controlled, history of left 5th ray partial amputation. 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 ([facility]) Diabetic ulcer of toe of left foot associated with type 2 diabetes mellitus, with fat layer exposed ([facility]) Diabetic ulcer of right midfoot associated with type 2 diabetes mellitus, limited to breakdown of skin ([facility]) Type 2 diabetes mellitus with pressure callus ([facility]) Past Medical History: Diagnosis Date Anxiety Arthritis Depression Diabetes mellitus ([facility]) GERD (gastroesophageal reflux disease) Hyperlipidemia Hypertension Lazy eye, left Myocardial infarction ([facility]) fall of 2021 Sleep apnea Past Surgical History: Procedure Laterality Date CHOLECYSTECTOMY MULTIPLE TOOTH EXTRACTIONS TOE AMPUTATION left 5th toe Current Outpatient Medications Medication Sig Dispense Refill alcohol swabs pads, medicated aspirin 81 mg chewable tablet Chew 1 tablet (81 mg total) and swallow in the morning. atorvastatin (LIPITOR) 20 mg tablet TAKE ONE TABLET BY MOUTH DAILY busPIRone (BUSPAR) 10 mg tablet Take 1 tablet (10 mg total) by mouth. cholecalciferol, vitamin D3, (VITAMIN D3) 5,000 units capsule TAKE ONE CAPSULE BY MOUTH DAILY COMFORT EZ PEN NEEDLES 31 gauge x 5/16 needle USE DIRECTED DAILY doxepin (SINEquan) 25 mg capsule TAKE ONE CAPSULE BY MOUTH AT BEDTIME gabapentin (NEURONTIN) 600 mg tablet Take 1 tablet (600 mg total) by mouth. hydroCHLOROthiazide (HYDRODIURIL) 12.5 mg tablet TAKE ONE TABLET BY MOUTH DAILY hydrOXYzine (ATARAX) 25 mg tablet TAKE ONE TABLET BY MOUTH DAILY FOR ANXIETY / FOR SLEEP MAY CAUSE DROWSINESS DO NOT TAKE WITH ALCOHOL, DRIVE, OR OPERATE MACHINERY. insulin degludec (TRESIBA FLEXTOUCH U-100) 100 unit/mL (3 mL) insulin pen Inject 22 Units under the skin nightly. insulin detemir U-100 (LEVEMIR) 100 unit/mL injection Inject 0.22 mL (22 Units total) under the skin nightly. JARDIANCE 25 mg tablet tablet TAKE ONE TABLET BY MOUTH IN THE MORNING lisinopriL (PRINIVIL,ZESTRIL) 40 mg tablet 1 tablet (40 mg total). mupirocin (BACTROBAN) 2 % ointment nitroglycerin (NITROSTAT) 0.4 MG SL tablet 1 under the tongue as needed for angina, may repeat q5mins for up three doses 100 tablet 11 omeprazole (PriLOSEC) 20 mg capsule TAKE ONE CAPSULE BY MOUTH DAILY ONETOUCH DELICA PLUS LANCET 30 gauge misc ONETOUCH ULTRA TEST strip SURE COMFORT INSULIN SYRINGE 0.3 mL 29 gauge x 1/2 syringe use with insulin vials FOUR TIMES DAILY No current facility-administered medications for this visit. Allergies Allergen Reactions Iodinated Contrast Media The following portions of the patient's history were reviewed and updated as appropriate: allergies, current medications, past family history, past medical history, past social history, past surgical history, problem list, and medication reconciliation was completed including current medication and post discharge medication. PAIN: Pain Scale 0/10: 0 Review of Systems Constitutional: Negative for activity change, appetite change, diaphoresis, fatigue and fever. Respiratory: Negative for apnea. Cardiovascular: Positive for leg swelling. Negative for chest pain. Gastrointestinal: Negative for abdominal distention, abdominal pain, anal bleeding and blood in stool. Endocrine: Negative for polydipsia, polyphagia and polyuria. Genitourinary: Negative for difficulty urinating, dysuria and flank pain. Musculoskeletal: Negative for arthralgias and myalgias. Skin: Positive for color change and wound. Allergic/Immunologic: Negative for environmental allergies, food allergies and immunocompromised state. Neurological: Positive for dizziness. Negative for facial asymmetry, light-headedness and numbness. Psychiatric/Behavioral: Negative for agitation, behavioral problems, decreased concentration and hallucinations. Objective: Vitals: 04/04/24 1040 BP: 146/66 Pulse: 93 Resp: 16 Temp: 36.9 C (98.4 F) Physical Exam Vitals and nursing note reviewed. Constitutional: Appearance: He is well-developed. HENT: Head: Normocephalic and atraumatic. Cardiovascular: Rate and Rhythm: Normal rate and regular rhythm. Pulses: Dorsalis pedis pulses are 2+ on the right side and 2+ on the left side. Posterior tibial pulses are 2+ on the right side and 2+ on the left side. Heart sounds: Normal heart sounds. No murmur heard. No gallop. Pulmonary: Effort: Pulmonary effort is normal. Breath sounds: Normal breath sounds. No wheezing or rales. Abdominal: General: Bowel sounds are normal. Palpations: Abdomen is soft. Musculoskeletal: General: Normal range of motion. Cervical back: Normal range of motion. Left foot: Bunion present. Feet: Right foot: Protective Sensation: 10 sites tested. 3 sites sensed. Left foot: Protective Sensation: 10 sites tested. 3 sites sensed. Skin integrity: Ulcer, callus and dry skin present. Comments: Bunion left lateral midfoot Skin: General: Skin is warm and dry. Neurological: Mental Status: He is alert and oriented to person, place, and time. Wound Assessment: Wound 10/19/23 1 Toe D1, great Left Medial (Active) Wound Image Pre callus excision Post callus excision 04/04/24 1045 Site Assessment Dry;Brown;Yellow 04/04/24 1045 Padma-wound Assessment Callous 04/04/24 1045 Wound Length (cm) 0.5 cm 04/04/24 1055 Wound Width (cm) 0.2 cm 04/04/24 1055 Wound Surface Area (cm^2) 0.1 cm^2 04/04/24 1055 Change in Wound Size % 99.51 04/04/24 1055 Drainage Amount None 04/04/24 1045 Treatments Soak with;Vashe/Hypochlorous Acid 04/04/24 1045 Debridement Performed? Y 04/04/24 1055 Type of Debridement Other (Comment) 04/04/24 1055 Dressing Type Foam;Honey Dressing 04/04/24 1055 Dressing Changed New 04/04/24 1055 Dressing Status Clean;Dry;Intact 04/04/24 1055 Wound 02/03/24 2 Foot Right Lateral;Plantar (Active) Wound Image Pre debridement Post debridement 04/04/24 105 Site Assessment Dry;Brown;Yellow 04/04/24 104 Padma-wound Assessment Callous;[place] 04/04/24 104 Wound Length (cm) 0.4 cm 04/04/24 1100 Wound Width (cm) 0.4 cm 04/04/24 1100 Wound Surface Area (cm^2) 0.16 cm^2 04/04/24 1100 Wound Depth (cm) 0.2 cm 04/04/24 1100 Wound Volume (cm^3) 0.032 cm^3 04/04/24 1100 Change in Wound Size % -77.78 04/04/241099 Drainage Amount None 04/04/241044 Treatments Soak with;Vashe/Hypochlorous Acid 04/04/24 104 Debridement Performed? Y 04/04/24 1100 Type of Debridement Sharp to Subcutaneous 04/04/24 1100 Debridement Area (cm^2) 0.16 cm^2 04/04/24 1100 Dressing Type Foam;Honey Dressing 04/04/24 105 Dressing Changed New 04/04/24 105 Dressing Status Clean;Dry;Intact 04/04/24 105 Undermining 1 (cm) 0.2 cm 04/04/24 105 Start: Undermining 1 Clock Position 12 o'clock 04/04/24 105 End: Undermining 1 Clock Position 12 o'clock 04/04/24 105 Discussion:Risks, benefits and alternatives were discussed with the patient. We discussed possible complications, including infection and bleeding. Written consent was obtained prior to the procedure. Timeout procedure completed. Procedure: Debridement/Procedure Level: Removal of devitalized tissue, nonviable tissue, and/or infection: Excision callus to left foot Instrument Used: Curette Anesthesia dermoplast Bleeding: Small Bleeding Control: Pressure Added Pain Control: None Specimen Taken: None Discussion: Debridement is the removal of foreign material and/or devitalized tissue until healthy tissue is exposed. Risks, benefits and alternatives were discussed with the patient. We discussed possible complications, including infection and bleeding. Written consent was obtained prior to the procedure. Timeout procedure completed. Goal of debridement includes: removal of devitalized tissue, decrease risk of infection, promote wound healing and prevent further complications. Procedure: Debridement/Procedure Level: Removal of devitalized tissue, nonviable tissue and/or infection. Sub-q/Tissue right midfoot Instrument Used: Curette Anesthesia dermoplast Bleeding: Small Bleeding Control: Pressure Added Pain Control: None Specimen Taken: None Total Surface Area of Debridement: 0.16 cm2 Patient tolerates procedure well Dressing: The wound was cleansed with Vashe wash and a medi honey, adaptic and foam dressing was placed in wound clinic. Patient Status: Well tolerated by patient. Assessment/Plan/Education: 1. Diabetic ulcer of toe of left foot associated with type 2 diabetes mellitus, with fat layer exposed ([facility]) 2. Pre-ulcerative callus 3. Diabetic ulcer of right midfoot associated with type 2 diabetes mellitus, limited to breakdown of the skin Wash daily mild soap and water Cover wound with medi honey Cover with adaptic Secure with foam dressing or Band-Aid Change daily Avoid direct pressure to wound bed Continue to wear surgical shoes, convert to diabetic shoes with inserts as soon as able. Diabetic Foot Care 1) Do not submerge foot underwater 2) Check the temperature of water 3) Sponge bathe all unopened areas until wounds heal. 4) Apply moisturizing lotion to all unopened areas, avoid between the toes. 5) Dry thoroughly between the toes 4. Diabetic polyneuropathy associated with type 2 diabetes mellitus ([facility]) Instructed to protect feet at all times Continue to follow with podiatry as scheduled Patient instructed in diabetic foot ulcer care to right and foot. Patient verbalize understanding of treatment regimen and the importance of adherence. Patient verbalized understanding. We will continue to follow closely to avoid any complications or infection. Our short term goal is wound compliance. Our halfway goal is wound closure. The patient was taught to watch for S/S of infection (redness, pus, pain, increased swelling, chills or fever) and to call the PCP or wound care clinic if such occurs. The patient was educated on offloading the area by avoiding direct pressure to the wound bed. Education as well as the pathophysiology of the disease process was provided on infection, edema, necrotic tissue and its relationship to nonhealing wounds. Education was also provided on treatment plan. Patient verbalized understanding. Follow up wound clinic in 4 weeks after returning from [facility] Instructed to contact wound clinic/PCP or ER should symptoms worsen. Total time spent was 20 minutes: Preparing to see the patient (e.g., review of tests) Obtaining and/or reviewing separately obtained history Performing a medically appropriate examination and/or evaluation Counseling and educating the patient/family/caregiver Ordering medications, tests, or procedures Referring and communicating with other health care manager (not separately reported) Documenting clinical information in the electronic or other health record - NU TIWARI 04/04/24 11:36 AM Debra Ventura APRN, SERGEI, CWS, ERIC [facility]:[phone] NU Tiwari 12/23/23 111 NU Tiwari 01/13/24 1035 NU Tiwari 02/17/24 1456 NU Tiwari 04/04/24 1142 documented in this encounter [facility] 04-04-2024 Instructions Carisa Sneed RN - 04/04/2024 10:00 AM EDT Wound Management Treatment Plan Wound Location(s): left medial great toe, right lateral plantar foot HOW TO CARE FOR YOUR WOUND The following should be performed Daily and as needed. STEP 1: Cleanse wounds with Soap and water, rinse well, and pat dry. STEP 2: Apply Medihoney to wound beds. STEP 3: Cover wounds with Vaseline gauze and a piece of foam. STEP 4: Secure dressings with bandaid and/or roll gauze and tape. Do not apply tape to the skin. Continue to wear your surgical shoe to to left foot and right foot. Surgical shoes with peg assist inserts provided to patient at clinic today, 02/03/24 ACTIVITY: Avoid direct pressure to wound(s) at all times NUTRITION: High protein diet SKIN CARE: apply vaseline daily to feet. Do not apply between toes. SWELLING CONTROL: Avoid standing for prolonged periods of time. Elevate legs whenever sitting to level of heart/hips or higher. ITEMS TO FOLLOW UP ON: Pt saw Dr Matthews, podiatry 10/2023. Patient states he is no longer seeing Dr Matthews Pt states diabetic shoes will be ordered from a Diabetic foot Dr in February. Patient states he has an appointment with this Dr on March 02, 2024. Patient states this Dr is in [place], [place]. Length Width Depth Wound 02/03/24 2 Foot Right Lateral;Plantar-Wound Length (cm): 1 cm Wound 10/19/23 1 Toe D1, great Left Medial-Wound Length (cm): 1.4 cm Wound 02/03/24 2 Foot Right Lateral;Plantar-Wound Width (cm): 1.3 cm Wound 10/19/23 1 Toe D1, great Left Medial-Wound Width (cm): 0.8 cm Wound 02/03/24 2 Foot Right Lateral;Plantar-Wound Depth (cm): (utd) Wound 10/19/23 1 Toe D1, great Left Medial-Wound Depth (cm): (utd) Wound drainage Type Description none none none documented in this encounter [facility] 02-17-2024 Evaluation note Authored February 17, 2024 11:39am Patient here today for an appointment, Ozempic training completed. Patient cleaned their skin with alcohol pad to administer their first injection for Ozempic 0.125mg (18 clicks) SQ in their left upper quadrant of the abdomen without difficulty. Patient states they are very anxious. Patient was able to use correct technique. Instructed patient to dose 0.25 mg once a week starting next dose if tolerating well, then may continue thereafter. Discussed possible side effects and encouraged to maintain a healthy well-balanced diet. Encouraged to decrease carbonated beverages, avoid caffeine drinks like regular soda, tea, coffee, fatty dairy foods, spices, fried or high fat/carb foods, and alcohol. Consume lean protein, non-starchy vegetables for improved glycemia. Patient states understanding and is in agreement with plan. Reviewed insulin training also, reminded pt to inject injections at 90 degree angle. Pt was able to provide return demonstration well. Sallie 3 training also discussed, instructed on use and application on personal phone. Patient cleansed posterior side of left upper arm with alcohol then Skin Tac, applied sample Sallie 3 sensor. Reviewed with patient testing glucose with Sallie ac, hs explained how to enter insulin dosing/carbs/notes into Sallie application. Reviewed with patient no more than 500mg of Vitamin C per day, which can falsely elevate CGM glucose results. Need for confirmatory glucose fingerstick if not feeling well. Encouraged patient to check glucose 4xday, before meals/bedtime and to fingerstick when not wearing CGM. Discussed S/S of hypoglycemia/hyperglycemia and treatment options. All questions and concerns addressed. Instructed patient to return for scheduled follow up appointment with provider. 45 minutes was spent on education by Ivon EWING, RN [facility] Work Phone: [phone] 113-292603-22-2024 History of Present illness Narrative* Debra Ventura, MECHANICAL ENGINEERING SPECIALIST-SILK SNAPPER - 02/17/2024 1:20 PM EDT Images from the original note were not included. Wound Care Progress Note Patient: Darshan Dunaway Date of : 1965 Chief Complaint: Left great toe and right mid foot ulcers, follow up Subjective/HPI: Darshan is a 59 y.o. male who present to [facility] for evaluation of 2 ulcer(s) on the left medial great toe and right midfoot. Both wounds are callused. The wound was first assessed in wound clinic 10/19/2023. Current daily wound care includes: medi honey, adaptic and roll gauze changed daily by patient's sister. Patient is wearing bilateral [place]co surgical shoes. Diabetic shoes with inserts have been ordered by Podiatry. Patient reports shoes will be available in 4-6 weeks.. Reports recent appointment with endocrinology, started on a CGM device. Patient reports he was admitted to the emergency department 10/18/2023 complaining of dizziness andfound to have a blood sugar over 500. Patient reports wound has been present for over 6 months. He was in a hospital for cellulitis of the left foot treated with IV antibiotics. 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 Measurable wound changes: decrease in wound measurement with callus formation RLE 1.0 cm increase in calf circumference LLE 0.5 cm increase in calf circumference Patient accompanied by: self, patient is ambulatory Nutritional screen shows patient does take in three servings of protein per day. Patient does deny fever, chills, sweats or other symptoms of infection. Prescribed antibiotics: none Today's reported Blood sugar: 299 Tobacco:denied - never a smoker Contributing comorbid conditions: Type 2 diabetes, insulin dependent, poorly controlled, history ofleft 5th ray partial amputation. 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 ([facility]) Diabetic ulcer of toe of left foot associated with type 2 diabetes mellitus, with fat layer exposed([facility]) Diabetic ulcer of right midfoot associated with type 2 diabetes mellitus, limited to breakdown of skin ([facility]) Type 2 diabetes mellitus with pressure callus ([facility]) Past Medical History: Diagnosis Date Anxiety Arthritis Depression Diabetes mellitus ([facility]) GERD (gastroesophageal reflux disease) Hyperlipidemia Hypertension Lazy eye, left Myocardial infarction ([facility]) fall 2021 Sleep apnea Past Surgical History: Procedure Laterality Date CHOLECYSTECTOMY MULTIPLE TOOTH EXTRACTIONS TOE AMPUTATION left 5th toe Current Outpatient Medications Medication Sig Dispense Refill alcohol swabs pads, medicated aspirin 81 mg chewable tablet Chew 1 tablet (81 mg total) and swallow in the morning. atorvastatin (LIPITOR) 20 mg tablet TAKE ONE TABLET BY MOUTH DAILY busPIRone (BUSPAR) 10 mg tablet Take 1 tablet (10 mg total) by mouth. cholecalciferol, vitamin D3, (VITAMIN D3) 5,000 units capsule TAKE ONE CAPSULE BY MOUTH DAILY COMFORT EZ PEN NEEDLES 31 gauge x 5/16 needle USE DIRECTED DAILY doxepin (SINEquan) 25 mg capsule TAKE ONE CAPSULE BY MOUTH AT BEDTIME gabapentin (NEURONTIN) 600 mg tablet Take 1 tablet (600 mg total) by mouth. hydroCHLOROthiazide (HYDRODIURIL) 12.5 mg tablet TAKE ONE TABLET BY MOUTH DAILY hydrOXYzine (ATARAX) 25 mg tablet TAKE ONE TABLET BY MOUTH DAILY FOR ANXIETY / FOR SLEEP MAY CAUSE DROWSINESS DO NOT TAKE WITH ALCOHOL, DRIVE, OR OPERATE MACHINERY. insulin degludec (TRESIBA FLEXTOUCH U-100) 100 unit/mL (3 mL) insulin pen Inject 22 Units under theskin nightly. insulin detemir U-100 (LEVEMIR) 100 unit/mL injection Inject 0.22 mL (22 Units total) under the skin nightly. JARDIANCE 25 mg tablet tablet TAKE ONE TABLET BY MOUTH IN THE MORNING lisinopriL (PRINIVIL,ZESTRIL) 40 mg tablet 1 tablet (40 mg total). mupirocin (BACTROBAN) 2 % ointment nitroglycerin (NITROSTAT) 0.4 MG SL tablet 1 under the tongue as needed for angina, may repeat q5mins for up three doses 100 tablet 11 omeprazole (PriLOSEC) 20 mg capsule TAKE ONE CAPSULE BY MOUTH DAILY ONETOUCH DELICA PLUS LANCET 30 gauge misc ONETOUCH ULTRA TEST strip SURE COMFORT INSULIN SYRINGE 0.3 mL 29 gauge x 1/2 syringe use with insulin vials FOUR TIMES DAILY No current facility-administered medications for this visit. Allergies Allergen Reactions Iodinated Contrast Media The following portions of the patient's history were reviewed and updated as appropriate: allergies, current medications, past family history, past medical history, past social history, past surgicalhistory, problem list, and medication reconciliation was completed including current medication andpost discharge medication. PAIN: Pain Scale 0/10: 0 Review of Systems Constitutional: Negative for activity change, appetite change, diaphoresis, fatigue and fever. Respiratory: Negative for apnea. Cardiovascular: Positive for leg swelling. Negative for chest pain. Gastrointestinal: Negative for abdominal distention, abdominal pain, anal bleeding and blood in stool. Endocrine: Negative for polydipsia, polyphagia and polyuria. Genitourinary: Negative for difficulty urinating, dysuria and flank pain. Musculoskeletal: Negative for arthralgias and myalgias. Skin: Positive for color change and wound. Allergic/Immunologic: Negative for environmental allergies, food allergies and immunocompromised state. Neurological: Positive for dizziness. Negative for facial asymmetry, light- headedness and numbness. Psychiatric/Behavioral: Negative for agitation, behavioral problems, decreased concentration and hallucinations. Objective: Vitals: 02/17/24 1300 BP: 118/76 Pulse: 81 Resp: 16 Temp: 36.1 C (96.9 F) Physical Exam Vitals and nursing note reviewed. Constitutional: Appearance: He is well-developed. HENT: Head: Normocephalic and atraumatic. Cardiovascular: Rate and Rhythm: Normal rate and regular rhythm. Pulses: Dorsalis pedis pulses are 2+ on the right side and 2+ on the left side. Posterior tibial pulses are 2+ on the right side and 2+ on the left side. Heart sounds: Normal heart sounds. No murmur heard. No gallop. Pulmonary: Effort: Pulmonary effort is normal. Breath sounds: Normal breath sounds. No wheezing or rales. Abdominal: General: Bowel sounds are normal. Palpations: Abdomen is soft. Musculoskeletal: General: Normal range of motion. Cervical back: Normal range of motion. Left foot: Bunion present. Feet: Right foot: Protective Sensation: 10 sites tested. 3 sites sensed. Left foot: Protective Sensation: 10 sites tested. 3 sites sensed. Skin integrity: Ulcer, callus and dry skin present. Comments: Bunion left lateral midfoot Skin: General: Skin is warm and dry. Neurological: Mental Status: He is alert and oriented to person, place, and time. Wound Assessment: Wound 10/19/23 1 Toe D1, great Left Medial (Active) Wound Image Pre callus removal Post callus removal 02/17/24 1300 Site Assessment [place];Brown 02/17/24 1359 Padma-wound Assessment Callous 02/17/24 1359 Wound Length (cm) 0.5 cm 02/17/24 1400 Wound Width (cm) 0.5 cm 02/17/24 1400 Wound Surface Area (cm^2) 0.25 cm^2 02/17/24 1400 Wound Depth (cm) 0.1 cm 02/17/24 1400 Wound Volume (cm^3) 0.025 cm^3 02/17/24 1400 Change in Wound Size % 98.77 02/17/24 1400 Drainage Amount None 02/17/24 1359 Debridement Performed? Y 02/17/24 1400 Type of Debridement Other (Comment) 02/17/24 1400 Wound Bed Epithelium (%) 100% 02/17/24 1300 Wound 02/03/24 2 Foot Right Lateral;Plantar (Active) Wound Image Pre callus removal Post callus removal 02/17/24 1300 Site Assessment [place] 02/17/24 1359 Padma-wound Assessment [place];Callous 02/17/24 1359 Wound Length (cm) 0.1 cm 02/17/24 1400 Wound Width (cm) 0.7 cm 02/17/24 1400 Wound Surface Area (cm^2) 0.07 cm^2 02/17/24 1400 Wound Depth (cm) 0.1 cm 02/17/24 1400 Wound Volume (cm^3) 0.007 cm^3 02/17/24 1400 Change in Wound Size % 22.22 02/17/24 1400 Drainage Amount None 02/17/24 1359 Debridement Performed? Y 02/17/24 1400 Type of Debridement Other (Comment) 02/17/24 1400 Wound Bed Epithelium (%) 100% 02/17/24 1300 Discussion:Risks, benefits and alternatives were discussed with the patient. We discussed possible complications, including infection and bleeding. Written consent was obtained prior to the procedure. Timeout procedure completed. Procedure: Debridement/Procedure Level: Removal of devitalized tissue, nonviable tissue, and/or infection: Excision callus X 2 Instrument Used: Adson, Curette, and Scissors Anesthesia dermoplast Bleeding: Small Bleeding Control: Pressure Added Pain Control: None Specimen Taken: None Dressing: The wound was cleansed with Vashe wash and a medi honey, adaptic and foam dressing was placed in wound clinic. Patient Status: Well tolerated by patient. Assessment/Plan/Education: 1. Diabetic ulcer of toe of left foot associated with type 2 diabetes mellitus, with fat layer exposed ([facility]) 2. Pre-ulcerative callus 3. Diabetic ulcer of right midfoot associated with type 2 diabetes mellitus, limited to breakdown of the skin Wash daily mild soap and water Cover wound with medi honey Cover with adaptic Secure with foam dressing or Band-Aid Change daily Avoid direct pressure to wound bed Continue to wear surgical shoe to left foot Diabetic Foot Care 1) Do not submerge foot underwater 2) Check the temperature of water 3) Sponge bathe all unopened areas until wounds heal. 4) Apply moisturizing lotion to all unopened areas, avoid between the toes. 5) Dry thoroughly between the toes 2. Diabetic polyneuropathy associated with type 2 diabetes mellitus ([facility]) Instructed to protect feet at all times Continue to follow with podiatry as scheduled Patient instructed in diabetic foot ulcer care to right and foot. Patient verbalize understanding of treatment regimen and the importance of adherence. Patient verbalized understanding. We will continue to follow closely to avoid any complications or infection. Our short term goal is wound compliance. Our rat exterminator goal is wound closure. The patient was taught to watch for S/S of infection (redness, pus, pain, increased swelling, chills or fever) and to call the PCP or wound care clinic if such occurs. The patient was educated on offloading the area by avoiding direct pressure to the wound bed. Education as well as the pathophysiology of the disease process was provided on infection, edema, necrotic tissue and its relationship tononhealing wounds. Education was also provided on treatment plan. Patient verbalized understanding. Follow up wound clinic in 2 weeks for provider evaluation Instructed to contact wound clinic/PCP or ER should symptoms worsen. Total time spent was 20 minutes: Preparing to see the patient (e.g., review of tests) Obtaining and/or reviewing separately obtained history Performing a medically appropriate examination and/or evaluation Counseling and educating the patient/family/caregiver Ordering medications, tests, or procedures Referring and communicating with other health care manager (not separately reported) Documenting clinical information in the electronic or other health record - NU TIWARI 02/17/24 2:12 PM Debra Ventura APRN, SERGEI, RADHA, ERIC [facility]:[phone] NU Tiwari 12/23/23 1117 NU Tiwari 01/13/24 1034 NU Tiwari 02/17/24 8217 documented in [facility] encounter[facility] [id number] Instructions* Patient Instructions* Bela Rodriguez RN - 02/17/2024 1:20 PM EDT Wound Management Treatment Plan Wound Location(s): left medial great toe, right lateral plantar foot HOW TO CARE FOR YOUR WOUND The following should be performed Daily and as needed. STEP 1: Cleanse wounds with Soap and water, rinse well, and pat dry. STEP 2: Apply Medihoney to wound beds. STEP 3: Cover wounds with Vaseline gauze and a piece of foam. STEP 4: Secure dressings with bandaid and/or roll gauze and tape. Do not apply tape to the skin. Continue to wear your surgical shoe to to left foot and right foot. Surgical shoes with peg assist inserts provided to patient at clinic today, 02/03/24 ACTIVITY: Avoid direct pressure to wound(s) at all times NUTRITION: High protein diet SKIN CARE: apply vaseline daily to feet. Do not apply between toes. SWELLING CONTROL: Avoid standing for prolonged periods of time. Elevate legs whenever sitting to level of heart/hips or higher. ITEMS TO FOLLOW UP ON: Pt saw Dr Matthews, podiatry 10/2023. Patient states he is no longer seeing Dr Matthews Pt states diabetic shoes will be ordered from a Diabetic foot Dr in February. Patient states he has anappointment with this Dr on March 02, 2024. Patient states this Dr is in [place], [place]. Length Width Depth Wound 02/03/24 2 Foot Right Lateral;Plantar-Wound Length (cm): 0 cm Wound 10/19/23 1 Toe D1, great Left Medial-Wound Length (cm): 0 cm Wound 02/03/24 2 Foot Right Lateral;Plantar-Wound Width (cm): 0 cm Wound 10/19/23 1 Toe D1, great Left Medial-Wound Width (cm): 0 cm Wound 02/03/24 2 Foot Right Lateral;Plantar-Wound Depth (cm): 0 cm Wound 10/19/23 1 Toe D1, great Left Medial-Wound Depth (cm): 0 cm Wound drainage Type Description none none none documented in [facility] encounterC[facility] History of Present illness Narrative* Mike Barton, MECHANICAL ENGINEERING SPECIALIST-SILK SNAPPER - 02/03/2024 10:20 AM EST Images from the original note were not included. Wound Care Progress Note Patient: Darshan Dunaway Date of : 1965 Chief Complaint: Left great toe ulcer, follow up Subjective/HPI: Darshan is a 59 y.o. male who present to [facility] for evaluation of 1 ulcer(s) on the left medial great toe. The wound was first assessed in wound clinic 10/19/2023. Patient reports he was admitted to the emergency department 10/18/2023 complaining of dizziness and found to have a blood sugar over 500. At that time he reports wound has been present over 6 months. Hospitalized for cellulitis of the left foot treated with IV antibiotics. 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 Recently patient went to ER on 2/22 for of right foot pain at callus area that has been ongoing for about 6 months. Xray was completed. Patient states he also had a blister that popped 1week ago on the bottom of the right foot due to wearing Crocs. Current daily wound care includes: medi honey, adaptic and roll gauze changed daily by patient's sister. Patient is wearing a Darco surgical shoe to left foot. Diabetic shoes with inserts have been ordered by Podiatry but he is awaiting appointment with PCP Rubén Cuenca for diabetes/ foot exam and complete the paperwork. He is wearing a DM shoe/insert on the right but states it is two years old. Patient saw Dr. Matthews in Nov. Patient accompanied by: self, patient is ambulatory Nutritional screen shows patient does take in three servings of protein per day. Patient does deny fever, chills, sweats or other symptoms of infection. Prescribed antibiotics: none currently Today's reported Blood sugar: 397 Tobacco:denied - never a smoker Contributing comorbid conditions: Type 2 diabetes, insulin dependent, poorly controlled, history ofleft 5th ray partial amputation. Patient Active Problem List Diagnosis Cellulitis of toe of left foot Diabetic foot infection Diabetic neuropathy associated with type 2 diabetes mellitus ([facility]) Normocytic anemia Type 2 diabetes mellitus with hyperglycemia, with long-term current use of insulin ([facility]) NC (myocardial infarction) ([facility]) Primary hypertension 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 ([facility]) Diabetic ulcer of toe of left foot associated with type 2 diabetes mellitus, with fat layer exposed([facility]) Past Medical History: Diagnosis Date Anxiety Arthritis Depression Diabetes mellitus ([facility]) GERD (gastroesophageal reflux disease) Hyperlipidemia Hypertension Lazy eye, left Myocardial infarction ([facility]) fall of 2021 Sleep apnea Past Surgical History: Procedure Laterality Date CHOLECYSTECTOMY MULTIPLE TOOTH EXTRACTIONS TOE AMPUTATION left 5th toe Current Outpatient Medications Medication Sig Dispense Refill alcohol swabs pads, medicated aspirin 81 mg chewable tablet Chew 1 tablet (81 mg total) and swallow in the morning. atorvastatin (LIPITOR) 20 mg tablet TAKE ONE TABLET BY MOUTH DAILY busPIRone (BUSPAR) 10 mg tablet Take 1 tablet (10 mg total) by mouth. cholecalciferol, vitamin D3, (VITAMIN D3) 5,000 units capsule TAKE ONE CAPSULE BY MOUTH DAILY COMFORT EZ PEN NEEDLES 31 gauge x 5/16 needle USE DIRECTED DAILY doxepin (SINEquan) 25 mg capsule TAKE ONE CAPSULE BY MOUTH AT BEDTIME gabapentin (NEURONTIN) 600 mg tablet Take 1 tablet (600 mg total) by mouth. hydroCHLOROthiazide (HYDRODIURIL) 12.5 mg tablet TAKE ONE TABLET BY MOUTH DAILY hydrOXYzine (ATARAX) 25 mg tablet TAKE ONE TABLET BY MOUTH DAILY FOR ANXIETY / FOR SLEEP MAY CAUSE DROWSINESS DO NOT TAKE WITH ALCOHOL, DRIVE, OR OPERATE MACHINERY. insulin degludec (TRESIBA FLEXTOUCH U-100) 100 unit/mL (3 mL) insulin pen Inject 22 Units under theskin nightly. insulin detemir U-100 (LEVEMIR) 100 unit/mL injection Inject 0.22 mL (22 Units total) under the skin nightly. JARDIANCE 25 mg tablet tablet TAKE ONE TABLET BY MOUTH IN THE MORNING lisinopriL (PRINIVIL,ZESTRIL) 40 mg tablet 1 tablet (40 mg total). mupirocin (BACTROBAN) 2 % ointment nitroglycerin (NITROSTAT) 0.4 MG SL tablet 1 under the tongue as needed for angina, may repeat q5mins for up three doses 100 tablet 11 omeprazole (PriLOSEC) 20 mg capsule TAKE ONE CAPSULE BY MOUTH DAILY ONETOUCH DELICA PLUS LANCET 30 gauge misc ONETOUCH ULTRA TEST strip SURE COMFORT INSULIN SYRINGE 0.3 mL 29 gauge x 1/2 syringe use with insulin vials FOUR TIMES DAILY No current facility-administered medications for this visit. Allergies Allergen Reactions Iodinated Contrast Media The following portions of the patient's history were reviewed and updated as appropriate: allergies, current medications, past family history, past medical history, past social history, past surgicalhistory, problem list, and medication reconciliation was completed including current medication andpost discharge medication. PAIN: Pain Description: Aching Pain Scale 0/10: Unable to rate Relieved by: Rest Review of Systems Constitutional: Negative for activity change, appetite change, chills, diaphoresis, fatigue, fever and unexpected weight change. Respiratory: Negative for cough and shortness of breath. Cardiovascular: Positive for leg swelling. Negative for chest pain. Gastrointestinal: Negative for abdominal distention, abdominal pain, blood in stool, nausea and vomiting. Genitourinary: Negative for difficulty urinating, dysuria and flank pain. Musculoskeletal: Negative for arthralgias and myalgias. Skin: Positive for wound. Negative for color change and rash. Allergic/Immunologic: Negative for environmental allergies, food allergies and immunocompromised state. Neurological: Positive for dizziness and numbness (Left foot > Right foot). Negative for syncope, facial asymmetry, weakness and light-headedness. Objective: Vitals: 02/03/24 0931 BP: 132/71 Pulse: 93 Resp: 18 Temp: 36.9 C (98.4 F) Physical Exam Vitals and nursing note reviewed. Constitutional: Appearance: He is well-developed. HENT: Head: Normocephalic and atraumatic. Cardiovascular: Rate and Rhythm: Normal rate and regular rhythm. Pulses: Dorsalis pedis pulses are 2+ on the right side and 2+ on the left side. Posterior tibial pulses are 2+ on the right side and 2+ on the left side. Heart sounds: Normal heart sounds. No murmur heard. No gallop. Pulmonary: Effort: Pulmonary effort is normal. Breath sounds: Normal breath sounds. No wheezing or rales. Abdominal: General: Bowel sounds are normal. Palpations: Abdomen is soft. Musculoskeletal: General: Normal range of motion. Cervical back: Normal range of motion. Left foot: Bunion present. Feet: Right foot: Skin integrity: Ulcer, callus and dry skin present. No erythema or warmth. Left foot: Skin integrity: Ulcer, callus and dry skin present. No erythema or warmth. Skin: General: Skin is warm and dry. Neurological: Mental Status: He is alert and oriented to person, place, and time. Wound Assessment: Wound 10/19/23 1 Toe D1, great Left Medial (Active) Wound Image 02/03/24 0954 Site Assessment Pale;[place] 02/03/24 0945 Padma-wound Assessment Callous 02/03/24 0945 Wound Length (cm) 0.2 cm 02/03/24 0945 Wound Width (cm) 0.2 cm 02/03/24 0945 Wound Surface Area (cm^2) 0.04 cm^2 02/03/24 0945 Wound Depth (cm) 0.3 cm 02/03/24 0945 Wound Volume (cm^3) 0.012 cm^3 02/03/24 0945 Change in Wound Size % 99.8 02/03/24944 Drainage Amount None 02/03/24944 Treatments Cleansed with;Vashe/Hypochlorous Acid;Soak with 02/03/24944 Debridement Performed? Y 02/03/24953 Type of Debridement Sharp to Subcutaneous 02/03/24953 Dressing Type Honey Dressing;Vaseline gauze;Silicone dressing;Foam 02/03/24953 Dressing Changed Changed 02/03/24953 Dressing Status Clean;Dry;Intact 02/03/24953 Wound Bed Granulation (%) 75% to 100% 02/03/24944 Wound Bed Slough (%) < 25% 02/03/24944 Undermining 1 (cm) 0 cm 02/03/24953 Start: Undermining 1 Clock Position 12 o'clock 02/03/24953 End: Undermining 1 Clock Position 12 o'clock 02/03/24953 Wound 02/03/24 2 Foot Right Lateral;Plantar (Active) Wound Image 02/03/24953 Site Assessment [place];Red 02/03/24953 Padma-wound Assessment White;[place];Callous 02/03/24953 Wound Length (cm) 0.3 cm 02/03/24953 Wound Width (cm) 0.3 cm 02/03/24953 Wound Surface Area (cm^2) 0.09 cm^2 02/03/24953 Wound Depth (cm) 0.2 cm 02/03/24953 Wound Volume (cm^3) 0.018 cm^3 02/03/24953 Drainage Amount None 02/03/24953 Treatments Soak with;Vashe/Hypochlorous Acid 02/03/24953 Debridement Performed? Y 02/03/24953 Type of Debridement Sharp to Subcutaneous 02/03/24953 Dressing Type Honey Dressing;Vaseline gauze;Silicone dressing;Foam 02/03/24953 Dressing Changed New 02/03/24953 Dressing Status Clean;Dry;Intact 02/03/24953 Discussion:Risks, benefits and alternatives were discussed with the patient. We discussed possible complications, including infection and bleeding. Written consent was obtained prior to the procedure. Timeout procedure completed. Procedure: Debridement/Procedure Level: Removal of devitalized tissue, nonviable tissue, and/or infection: Sub-q/Tissue wound #1 and #2 Instrument Used: Curette Anesthesia Emla Bleeding: Small Bleeding Control: Pressure Added Pain Control: None Specimen Taken: None Total surface area of debridment: 0.13cm sq Dressing: The wound was cleansed with Vashe wash and a medi honey, adaptic and foam dressing was placed in wound clinic. Patient Status: Well tolerated by patient. Assessment/Plan/Education: 1. Diabetic ulcer of toe of left foot associated with type 2 diabetes mellitus, with fat layer exposed ([facility]), Diabetic ulcer of right midfoot associated with type 2 diabetes mellitus, limited to breakdown of skin ([facility]) Wash daily mild soap and water. Cover wound with medi honey. Cover with adaptic. Secure with foam dressing or Band-Aid. Change daily Avoid direct pressure to wound bed Continue to wear surgical shoe to left foot. PEG assist and shoe now given for right foot. He is awaiting diabetic shoes. Diabetic Foot Care 1) Do not submerge foot underwater 2) Check the temperature of water 3) Sponge bathe all unopened areas until wounds heal. 4) Apply moisturizing lotion to all unopened areas, avoid between the toes. 5) Dry thoroughly between the toes 2. Diabetic polyneuropathy associated with type 2 diabetes mellitus ([facility]), Type 2 diabetes mellitus with pressure callus Instructed to protect feet at all times. Foot inspection daily Continue to follow with podiatry as scheduled Discussed with patient tighter glucose control. States he ate chocolate this morning prior to checking sugar. Patient instructed in diabetic foot ulcer care to right and foot. Patient verbalize understanding of treatment regimen and the importance of adherence. Patient verbalized understanding. We will continue to follow closely to avoid any complications or infection. Our short term goal is wound compliance. Our halfway goal is wound closure. The patient was taught to watch for S/S of infection (redness, pus, pain, increased swelling, chills or fever) and to call the PCP or wound care clinic if such occurs. The patient was educated on offloading the area by avoiding direct pressure to the wound bed. Education as well as the pathophysiology of the disease process was provided on infection, edema, DM, pressure and its relationship to nonhealing wounds. Education was also provided on treatment plan. Patient verbalized understanding. Follow up wound clinic in 2 weeks, per patient's request. Instructed to contact wound clinic/PCP or ER should symptoms worsen. Total time spent was 20 minutes: Preparing to see the patient (e.g., review of tests) Obtaining and/or reviewing separately obtained history Performing a medically appropriate examination and/or evaluation Counseling and educating the patient/family/caregiver Ordering medications, tests, or procedures Referring and communicating with other health care manager (not separately reported) Documenting clinical information in the electronic or other health record Mckenna JUDGE, [facility] Office: [phone] Email: [email or web address] [facility] 02/03/24 1208 documented in this encounterNationwide Children's HospitalPaperwoven Spar[facility] [phone] Instructions* Patient Instructions* Klarissa Sanchez RN - 02/03/2024 10:20 AM EST Wound Management Treatment Plan Wound Location(s): left medial great toe, right lateral plantar foot HOW TO CARE FOR YOUR WOUND The following should be performed Daily and as needed. STEP 1: Cleanse wounds with Soap and water, rinse well, and pat dry. STEP 2: Apply Medihoney to wound beds. STEP 3: Cover wounds with Vaseline gauze and a piece of foam. STEP 4: Secure dressings with bandaid and/or roll gauze and tape. Do not apply tape to the skin. Continue to wear your surgical shoe to to left foot and right foot. Surgical shoes with peg assist inserts provided to patient at clinic today, 02/03/24 ACTIVITY: Avoid direct pressure to wound(s) at all times NUTRITION: High protein diet SKIN CARE: apply vaseline daily to feet. Do not apply between toes. SWELLING CONTROL: Avoid standing for prolonged periods of time. Elevate legs whenever sitting to level of heart/hips or higher. ITEMS TO FOLLOW UP ON: Pt saw Dr Matthews, podiatry 10/2023. Patient states he is no longer seeing Dr Matthews Pt states diabetic shoes will be ordered from a Diabetic foot Dr in February. Patient states he has anappointment with this Dr on March 02, 2024. Patient states this Dr is in [place], [place]. Length Width Depth Wound drainage Type Description none none none documented in this encounterC[facility]02-16-2024 History of Present illness Narrative* Debra Ventura, MECHANICAL ENGINEERING SPECIALIST-SILK SNAPPER - 01/13/2024 10:20 AM EST Images from the original note were not included. Wound Care Progress Note Patient: Darshan Dunaway Date of : 1965 Chief Complaint: Left great toe ulcer, follow up Subjective/HPI: Darshan is a 58 y.o. male who present to [facility] for evaluation of 1 ulcer(s) on the left medial great toe. The wound was first assessed in wound clinic 10/19/2023. Current daily wound care includes: medi honey, adaptic and roll gauze changed daily by patient's sister. Patient is wearing a Darco surgical shoe to left foot. Diabetic shoes with inserts have been ordered by Podiatry. Patient reports shoes will be available in 4-6 weeks.. Patient reports he was admitted to the emergency department 10/18/2023 complaining of dizziness andfound to have a blood sugar over 500. Patient reports wound has been present for over 6 months. He was in a hospital for cellulitis of the left foot treated with IV antibiotics. 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 Measurable wound changes: decrease in wound measurement, 1 cm decrease in right calf circumference Patient accompanied by: sister, patient is ambulatory Nutritional screen shows patient does take in three servings of protein per day. Patient does deny fever, chills, sweats or other symptoms of infection. Prescribed antibiotics: none Today's reported Blood sugar: not check today Tobacco:denied - never a smoker Contributing comorbid conditions: Type 2 diabetes, insulin dependent, poorly controlled, history ofleft 5th ray partial amputation. Patient Active Problem List Diagnosis Cellulitis of toe of left foot Diabetic foot infection Diabetic neuropathy associated with type 2 diabetes mellitus ([facility]) Normocytic anemia Type 2 diabetes mellitus with hyperglycemia, with long-term current use of insulin ([facility]) NC (myocardial infarction) ([facility]) Primary hypertension 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 ([facility]) Diabetic ulcer of toe of left foot associated with type 2 diabetes mellitus, with fat layer exposed([facility]) Past Medical History: Diagnosis Date Anxiety Arthritis Depression Diabetes mellitus ([facility]) GERD (gastroesophageal reflux disease) Hyperlipidemia Hypertension Lazy eye, left Myocardial infarction ([facility]) fall of 2021 Sleep apnea Past Surgical History: Procedure Laterality Date CHOLECYSTECTOMY MULTIPLE TOOTH EXTRACTIONS TOE AMPUTATION left 5th toe Current Outpatient Medications Medication Sig Dispense Refill alcohol swabs pads, medicated aspirin 81 mg chewable tablet Chew 1 tablet (81 mg total) and swallow in the morning. atorvastatin (LIPITOR) 20 mg tablet TAKE ONE TABLET BY MOUTH DAILY busPIRone (BUSPAR) 10 mg tablet Take 1 tablet (10 mg total) by mouth. cholecalciferol, vitamin D3, (VITAMIN D3) 5,000 units capsule TAKE ONE CAPSULE BY MOUTH DAILY COMFORT EZ PEN NEEDLES 31 gauge x 5/16 needle USE DIRECTED DAILY doxepin (SINEquan) 25 mg capsule TAKE ONE CAPSULE BY MOUTH AT BEDTIME gabapentin (NEURONTIN) 600 mg tablet Take 1 tablet (600 mg total) by mouth. hydroCHLOROthiazide (HYDRODIURIL) 12.5 mg tablet TAKE ONE TABLET BY MOUTH DAILY hydrOXYzine (ATARAX) 25 mg tablet TAKE ONE TABLET BY MOUTH DAILY FOR ANXIETY / FOR SLEEP MAY CAUSE DROWSINESS DO NOT TAKE WITH ALCOHOL, DRIVE, OR OPERATE MACHINERY. insulin degludec (TRESIBA FLEXTOUCH U-100) 100 unit/mL (3 mL) insulin pen Inject 22 Units under theskin nightly. insulin detemir U-100 (LEVEMIR) 100 unit/mL injection Inject 0.22 mL (22 Units total) under the skin nightly. JARDIANCE 25 mg tablet tablet TAKE ONE TABLET BY MOUTH IN THE MORNING lisinopriL (PRINIVIL,ZESTRIL) 40 mg tablet 1 tablet (40 mg total). mupirocin (BACTROBAN) 2 % ointment nitroglycerin (NITROSTAT) 0.4 MG SL tablet 1 under the tongue as needed for angina, may repeat q5mins for up three doses 100 tablet 11 omeprazole (PriLOSEC) 20 mg capsule TAKE ONE CAPSULE BY MOUTH DAILY ONETOUCH DELICA PLUS LANCET 30 gauge [facility] ONETOUCH ULTRA TEST strip SURE COMFORT INSULIN SYRINGE 0.3 mL 29 gauge x 1/2 syringe use with insulin vials FOUR TIMES DAILY No current facility-administered medications for this visit. Allergies Allergen Reactions Iodinated Contrast Media The following portions of the patient's history were reviewed and updated as appropriate: allergies, current medications, past family history, past medical history, past social history, past surgicalhistory, problem list, and medication reconciliation was completed including current medication andpost discharge medication. PAIN: Pain Scale 0/10: 0 Review of Systems Constitutional: Negative for activity change, appetite change, diaphoresis, fatigue and fever. Respiratory: Negative for apnea. Cardiovascular: Positive for leg swelling. Negative for chest pain. Gastrointestinal: Negative for abdominal distention, abdominal pain, anal bleeding and blood in stool. Endocrine: Negative for polydipsia, polyphagia and polyuria. Genitourinary: Negative for difficulty urinating, dysuria and flank pain. Musculoskeletal: Negative for arthralgias and myalgias. Skin: Positive for color change and wound. Allergic/Immunologic: Negative for environmental allergies, food allergies and immunocompromised state. Neurological: Positive for dizziness. Negative for facial asymmetry, light- headedness and numbness. Psychiatric/Behavioral: Negative for agitation, behavioral problems, decreased concentration and hallucinations. Objective: Vitals: 01/13/24 0946 BP: 129/90 Pulse: 80 Resp: 16 Temp: 36.1 C (97 F) Physical Exam Vitals and nursing note reviewed. Constitutional: Appearance: He is well-developed. HENT: Head: Normocephalic and atraumatic. Cardiovascular: Rate and Rhythm: Normal rate and regular rhythm. Pulses: Dorsalis pedis pulses are 2+ on the right side and 2+ on the left side. Posterior tibial pulses are 2+ on the right side and 2+ on the left side. Heart sounds: Normal heart sounds. No murmur heard. No gallop. Pulmonary: Effort: Pulmonary effort is normal. Breath sounds: Normal breath sounds. No wheezing or rales. Abdominal: General: Bowel sounds are normal. Palpations: Abdomen is soft. Musculoskeletal: General: Normal range of motion. Cervical back: Normal range of motion. Left foot: Bunion present. Feet: Right foot: Protective Sensation: 10 sites tested. 3 sites sensed. Left foot: Protective Sensation: 10 sites tested. 3 sites sensed. Skin integrity: Ulcer, callus and dry skin present. Comments: Bunion left lateral midfoot Skin: General: Skin is warm and dry. Neurological: Mental Status: He is alert and oriented to person, place, and time. Wound Assessment: Wound 10/19/23 1 Toe D1, great Left Medial (Active) Wound Image Pre callus excision Post callus excision 01/13/24 100 Site Assessment Dry;[place] 01/13/24 0952 Padma-wound Assessment Callous;Dry;[place] 01/13/24 09 Wound Length (cm) 0.6 cm 01/13/24 100 Wound Width (cm) 0.2 cm 01/13/24 100 Wound Surface Area (cm^2) 0.12 cm^2 01/13/24 1004 Wound Depth (cm) 0.2 cm 01/13/24 100 Wound Volume (cm^3) 0.024 cm^3 01/13/24 100 Change in Wound Size % 99.41 01/13/24 100 Drainage Amount None 01/13/24 09 Debridement Performed? Y 01/13/24 100 Type of Debridement Other (Comment) 01/13/24 100 Dressing Type Honey Dressing;Foam;Other (Comment) 01/13/24 100 Dressing Changed New 01/13/241003 Dressing Status Clean;Dry;Intact 01/13/24 100 Discussion:Risks, benefits and alternatives were discussed with the patient. We discussed possible complications, including infection and bleeding. Written consent was obtained prior to the procedure. Timeout procedure completed. Procedure: Debridement/Procedure Level: Removal of devitalized tissue, nonviable tissue, and/or infection: Excision callus Instrument Used: Adson, Curette, and Scissors Anesthesia dermoplast Bleeding: Small Bleeding Control: Pressure Added Pain Control: None Specimen Taken: None Dressing: The wound was cleansed with Vashe wash and a medi honey, adaptic and foam dressing was placed in wound clinic. Patient Status: Well tolerated by patient. Assessment/Plan/Education: 1. Diabetic ulcer of toe of left foot associated with type 2 diabetes mellitus, with fat layer exposed ([facility]) 2. Type 2 diabetes mellitus with pressure callus. Wash daily mild soap and water Cover wound with medi honey Cover with adaptic Secure with foam dressing or Band-Aid Change daily Avoid direct pressure to wound bed Continue to wear surgical shoe to left foot Diabetic Foot Care 1) Do not submerge foot underwater 2) Check the temperature of water 3) Sponge bathe all unopened areas until wounds heal. 4) Apply moisturizing lotion to all unopened areas, avoid between the toes. 5) Dry thoroughly between the toes 2. Diabetic polyneuropathy associated with type 2 diabetes mellitus ([facility]) Instructed to protect feet at all times Continue to follow with podiatry as scheduled Patient instructed in diabetic foot ulcer care to right and foot. Patient verbalize understanding of treatment regimen and the importance of adherence. Patient verbalized understanding. We will continue to follow closely to avoid any complications or infection. Our short term goal is wound compliance. Our halfway goal is wound closure. The patient was taught to watch for S/S of infection (redness, pus, pain, increased swelling, chills or fever) and to call the PCP or wound care clinic if such occurs. The patient was educated on offloading the area by avoiding direct pressure to the wound bed. Education as well as the pathophysiology of the disease process was provided on infection, edema, necrotic tissue and its relationship tononhealing wounds. Education was also provided on treatment plan. Patient verbalized understanding. Follow up wound clinic in 2-3 weeks, per patient's request. Instructed to contact wound clinic/PCP or ER should symptoms worsen. Total time spent was 20 minutes: Preparing to see the patient (e.g., review of tests) Obtaining and/or reviewing separately obtained history Performing a medically appropriate examination and/or evaluation Counseling and educating the patient/family/caregiver Ordering medications, tests, or procedures Referring and communicating with other health care manager (not separately reported) Documenting clinical information in the electronic or other health record - NU TIWARI 01/13/24 10:29 AM Debra Ventura APRN, SERGEI, CWS, ERIC [facility]:[phone] NU Tiwari 12/23/23 1117 NU Tiwari 01/13/24 1034 documented in this encounterC[facility] Instructions* Patient Instructions* Carisa nSeed RN - 01/13/2024 10:20 AM EST Wound Management Treatment Plan Wound Location(s): left medial great toe HOW TO CARE FOR YOUR WOUND The following should be performed Daily and as needed. STEP 1: Cleanse wound with Soap and water, rinse well, and pat dry. STEP 2: Apply Medihoney to wound bed. STEP 3: Cover wound with Vaseline gauze and a piece of foam. STEP 4: Secure dressings with bandaid and/or roll gauze and tape. Do not apply tape to the skin. Continue to wear your surgical shoe to to left foot. ACTIVITY: Avoid direct pressure to wound(s) at all times NUTRITION: High protein diet SKIN CARE: apply vaseline daily to feet. Do not apply between toes. SWELLING CONTROL: Avoid standing for prolonged periods of time. Elevate legs whenever sitting to level of heart/hips or higher. ITEMS TO FOLLOW UP ON: Pt saw Dr Matthews, podiatry 10/2023. Pt states diabetic shoes were ordered at that time Length Width Depth Wound 10/19/23 1 Toe D1, great Left Medial-Wound Length (cm): 1.3 cm Wound 10/19/23 1 Toe D1, greatLeft Medial-Wound Width (cm): 1 cm Wound drainage Type Description none none none documented in this encounterC[facility]-26-[facility] History of Present illness Narrative* Debra Red Audrey, MECHANICAL ENGINEERING SPECIALIST-SILK SNAPPER - 12/23/2023 10:00 AM EST Images from the original note were not included. Wound Care Progress Note Patient: Darshan Dunaway Date of : 1965 Chief Complaint: Left great toe ulcer, follow up Subjective/HPI: Darshan is a 58 y.o. male who present to [facility] for evaluation of 1 ulcer(s) on the left medial great toe. The wound was first assessed in wound clinic 10/19/2023. Current daily wound care includes: medi honey, adaptic and roll gauze changed daily by patient's sister. Patient is wearing a Darco surgical shoe to left foot. Diabetic shoes with inserts have been ordered by Podiatry. Patient is requesting less bulky dressing for comfort. Patient reports he was admitted to the emergency department 10/18/2023 complaining of dizziness andfound to have a blood sugar over 500. Patient reports wound has been present for over 6 months. He was in a hospital for cellulitis of the left foot treated with IV antibiotics. 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 Measurable wound changes: decrease in wound measurement, 2 cm decrease in right calf circumference Patient accompanied by: self, patient is ambulatory Nutritional screen shows patient does take in three servings of protein per day. Patient does deny fever, chills, sweats or other symptoms of infection. Prescribed antibiotics: none Today's reported Blood sugar: 249 Tobacco:denied - never a smoker Contributing comorbid conditions: Type 2 diabetes, insulin dependent, poorly controlled, history ofleft 5th ray partial amputation. Past Medical History: Diagnosis Date Anxiety Arthritis Depression Diabetes mellitus ([facility]) GERD (gastroesophageal reflux disease) Hyperlipidemia Hypertension Lazy eye, left Myocardial infarction ([facility]) fall of 2021 Sleep apnea Past Surgical History: Procedure Laterality Date CHOLECYSTECTOMY MULTIPLE TOOTH EXTRACTIONS TOE AMPUTATION left 5th toe Current Outpatient Medications Medication Sig Dispense Refill alcohol swabs pads, medicated aspirin 81 mg chewable tablet Chew 1 tablet (81 mg total) and swallow in the morning. atorvastatin (LIPITOR) 20 mg tablet TAKE ONE TABLET BY MOUTH DAILY busPIRone (BUSPAR) 10 mg tablet Take 1 tablet (10 mg total) by mouth. cholecalciferol, vitamin D3, (VITAMIN D3) 5,000 units capsule TAKE ONE CAPSULE BY MOUTH DAILY COMFORT EZ PEN NEEDLES 31 gauge x 5/16 needle USE DIRECTED DAILY doxepin (SINEquan) 25 mg capsule TAKE ONE CAPSULE BY MOUTH AT BEDTIME gabapentin (NEURONTIN) 600 mg tablet Take 1 tablet (600 mg total) by mouth. hydroCHLOROthiazide (HYDRODIURIL) 12.5 mg tablet TAKE ONE TABLET BY MOUTH DAILY hydrOXYzine (ATARAX) 25 mg tablet TAKE ONE TABLET BY MOUTH DAILY FOR ANXIETY / FOR SLEEP MAY CAUSE DROWSINESS DO NOT TAKE WITH ALCOHOL, DRIVE, OR OPERATE MACHINERY. insulin degludec (TRESIBA FLEXTOUCH U-100) 100 unit/mL (3 mL) insulin pen Inject 22 Units under theskin nightly. insulin detemir U-100 (LEVEMIR) 100 unit/mL injection Inject 0.22 mL (22 Units total) under the skin nightly. JARDIANCE 25 mg tablet tablet TAKE ONE TABLET BY MOUTH IN THE MORNING lisinopriL (PRINIVIL,ZESTRIL) 40 mg tablet 1 tablet (40 mg total). mupirocin (BACTROBAN) 2 % ointment nitroglycerin (NITROSTAT) 0.4 MG SL tablet 1 under the tongue as needed for angina, may repeat q5mins for up three doses 100 tablet 11 omeprazole (PriLOSEC) 20 mg capsule TAKE ONE CAPSULE BY MOUTH DAILY ONETOUCH DELICA PLUS LANCET 30 gauge [facility] ONETOUCH ULTRA TEST strip SURE COMFORT INSULIN SYRINGE 0.3 mL 29 gauge x 1/2 syringe use with insulin vials FOUR TIMES DAILY No current facility-administered medications for this visit. Allergies Allergen Reactions Iodinated Contrast Media The following portions of the patient's history were reviewed and updated as appropriate: allergies, current medications, past family history, past medical history, past social history, past surgicalhistory, problem list, and medication reconciliation was completed including current medication andpost discharge medication. PAIN: Pain Scale 0/10: 0 Review of Systems Constitutional: Negative for activity change, appetite change, diaphoresis, fatigue and fever. Respiratory: Negative for apnea. Cardiovascular: Positive for leg swelling. Negative for chest pain. Gastrointestinal: Negative for abdominal distention, abdominal pain, anal bleeding and blood in stool. Endocrine: Negative for polydipsia, polyphagia and polyuria. Genitourinary: Negative for difficulty urinating, dysuria and flank pain. Musculoskeletal: Negative for arthralgias and myalgias. Skin: Positive for color change and wound. Allergic/Immunologic: Negative for environmental allergies, food allergies and immunocompromised state. Neurological: Positive for dizziness. Negative for facial asymmetry, light- headedness and numbness. Psychiatric/Behavioral: Negative for agitation, behavioral problems, decreased concentration and hallucinations. Objective: Vitals: 12/23/23 0900 BP: (!) 154/91 Pulse: 94 Resp: 16 Temp: 36.8 C (98.2 F) Physical Exam Vitals and nursing note reviewed. Constitutional: Appearance: He is well-developed. HENT: Head: Normocephalic and atraumatic. Cardiovascular: Rate and Rhythm: Normal rate and regular rhythm. Pulses: Dorsalis pedis pulses are 2+ on the right side and 2+ on the left side. Posterior tibial pulses are 2+ on the right side and 2+ on the left side. Heart sounds: Normal heart sounds. No murmur heard. No gallop. Pulmonary: Effort: Pulmonary effort is normal. Breath sounds: Normal breath sounds. No wheezing or rales. Abdominal: General: Bowel sounds are normal. Palpations: Abdomen is soft. Musculoskeletal: General: Normal range of motion. Cervical back: Normal range of motion. Left foot: Bunion present. Feet: Right foot: Protective Sensation: 10 sites tested. 3 sites sensed. Left foot: Protective Sensation: 10 sites tested. 3 sites sensed. Skin integrity: Ulcer, callus and dry skin present. Comments: Bunion left lateral midfoot Skin: General: Skin is warm and dry. Neurological: Mental Status: He is alert and oriented to person, place, and time. Wound Assessment: Wound 10/19/23 1 Toe D1, great Left Medial (Active) Wound Image Pre callus excision Post callus excision 12/23/23 1031 Site Assessment Dry;Brown 12/23/23 1031 Padma-wound Assessment Dry;Callous;Brown 12/23/23 1031 Wound Length (cm) 0.5 cm 12/23/23 1000 Wound Width (cm) 0.1 cm 12/23/23 1000 Wound Surface Area (cm^2) 0.05 cm^2 12/23/23 1000 Wound Depth (cm) 0.3 cm 12/23/23 1031 Change in Wound Size % 99.75 12/23/23 1000 Drainage Description Storm;Yellow 12/23/23 1031 Drainage Amount Scant 12/23/23 1031 Debridement Performed? Y 12/23/23 1031 Type of Debridement Other (Comment) 12/23/23 1031 Discussion:Risks, benefits and alternatives were discussed with the patient. We discussed possible complications, including infection and bleeding. Written consent was obtained prior to the procedure. Timeout procedure completed. Procedure: Debridement/Procedure Level: Removal of devitalized tissue, nonviable tissue, and/or infection: Excision callus Instrument Used: Adson, Curette, and Scissors Anesthesia dermoplast Bleeding: Small Bleeding Control: Pressure Added Pain Control: None Specimen Taken: None Dressing: The wound was cleansed with Vashe wash and a medi honey, adaptic and foam dressing was placed in wound clinic. Patient Status: Well tolerated by patient. Assessment/Plan/Education: 1. Diabetic ulcer of toe of left foot associated with type 2 diabetes mellitus, with fat layer exposed ([facility]) 2. Type 2 diabetes mellitus with pressure callus. Wash daily mild soap and water Cover wound with medi honey Cover with adaptic Secure with foam dressing or Band-Aid Change daily Avoid direct pressure to wound bed Continue to wear surgical shoe to left foot Diabetic Foot Care 1) Do not submerge foot underwater 2) Check the temperature of water 3) Sponge bathe all unopened areas until wounds heal. 4) Apply moisturizing lotion to all unopened areas, avoid between the toes. 5) Dry thoroughly between the toes 2. Diabetic polyneuropathy associated with type 2 diabetes mellitus ([facility]) Instructed to protect feet at all times Patient instructed in diabetic foot ulcer care to right and foot. Patient verbalize understanding of treatment regimen and the importance of adherence. Patient verbalized understanding. We will continue to follow closely to avoid any complications or infection. Our short term goal is wound compliance. Our rat exterminator goal is wound closure. The patient was taught to watch for S/S of infection (redness, pus, pain, increased swelling, chills or fever) and to call the PCP or wound care clinic if such occurs. The patient was educated on offloading the area by avoiding direct pressure to the wound bed. Education as well as the pathophysiology of the disease process was provided on infection, edema, necrotic tissue and its relationship tononhealing wounds. Education was also provided on treatment plan. Patient verbalized understanding. Follow up wound clinic in 3 weeks, per patient's request. Instructed to contact wound clinic/PCP or ER should symptoms worsen. Total time spent was 20 minutes: Preparing to see the patient (e.g., review of tests) Obtaining and/or reviewing separately obtained history Performing a medically appropriate examination and/or evaluation Counseling and educating the patient/family/caregiver Ordering medications, tests, or procedures Referring and communicating with other health care manager (not separately reported) Documenting clinical information in the electronic or other health record - NU TIWARI 12/23/23 11:10 AM Debra Ventura APRN, SERGEI, CWS, ERIC [facility]:[phone] NU Tiwari 12/23/23 1117 documented in this encounterC[facility]01-26-2024 Instructions* Patient Instructions* Bela Rodriguez RN - 12/23/2023 10:00 AM EST Wound Management Treatment Plan Wound Location(s): left medial great toe HOW TO CARE FOR YOUR WOUND The following should be performed Daily and as needed. STEP 1: Cleanse wound with Soap and water, rinse well, and pat dry. STEP 2: Apply Medihoney to wound bed. STEP 3: Cover wound with Vaseline gauze and a piece of foam. STEP 4: Secure dressings with bandaid and/or roll gauze and tape. Do not apply tape to the skin. Continue to wear your surgical shoe to to left foot. ACTIVITY: Avoid direct pressure to wound(s) at all times NUTRITION: High protein diet SKIN CARE: apply vaseline daily to feet. Do not apply between toes. SWELLING CONTROL: Avoid standing for prolonged periods of time. Elevate legs whenever sitting to level of heart/hips or higher. ITEMS TO FOLLOW UP ON: Pt saw Dr Matthews, podiatry 10/2023. Pt states diabetic shoes were ordered at that time Length Width Depth Wound 10/19/23 1 Toe D1, great Left Medial-Wound Length (cm): 0.5 cm Wound 10/19/23 1 Toe D1, greatLeft Medial-Wound Width (cm): 0.1 cm Wound 10/19/23 1 Toe D1, great Left Medial-Wound Depth (cm): (unable to determine) Wound drainage Type Description none none none documented in this [facility]01-08-2024 Evaluation note* Encounter Date Diagnosis Assessment Notes Treatment Notes Treatment Clinical Notes Nov, Type 2 diabetes mellitus with hyperglycemia (ICD-10 - E11.65) [facility] Other [id number] History of Present illness Narrative* NU Tiwari - 12/02/2023 10:00 AM EST Images from the original note were not included. Wound Care Progress Note Patient: Darshan Dunaway Date of : 1965 Chief Complaint: Left great toe ulcer, follow up Subjective/HPI: Darshan is a 58 y.o. male who present to [facility] for evaluation of 1 ulcer(s) on the left medial great toe. The wound was first assessed in wound clinic 10/19/2023. Current daily wound care includes: medi honey, adaptic and roll gauze changed daily by patient's sister. Patient is wearing a Darco surgical shoe to left foot. Diabetic shoes with inserts have been ordered by Podiatry. Patient reports he was admitted to the emergency department 10/18/2023 complaining of dizziness andfound to have a blood sugar over 500. Patient reports wound has been present for over 6 months. He was in a hospital for cellulitis of the left foot treated with IV antibiotics. 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 MRI completed 09/19/2023 MRI FOOT LEFT WITHOUT CONTRAST Result Date: 09/19/2023 HISTORY: The patient reportedly has a history of diabetes and has an ulcer of the left great toe. Evaluate for possible osteomyelitis. MRI FOOT LEFT WITHOUT CONTRAST: 09/19/2023 11:42 AM EDT COMPARISON: Radiographs left foot 09/18/2023. TECHNIQUE: Multiplanar, multisequence MRI images of the left midfoot/forefoot were obtained without contrast. FINDINGS: The Lisfranc ligament complex appears intact. The bone marrow signal intensity appears age appropriate. There is moderate to severe atrophy and diffuse edema-like signal of the musculature of the foot which is most compatible with the sequelaof a long-standing peripheral neuropathy. There are postsurgical changes again seen from prior partial amputation of the fifth ray at the level of the base of the fifth metatarsal. A hallux valgus deformity is again seen with a bunion complex along the medial aspect of the first metatarsal head. There again appear to be mild degenerative changes of the first MTP joint and moderate to severe degenerative changes of the first metatarsal-sesamoid joints. There are moderate to severe degenerative changes of the first and third tarsometatarsal joints and severe degenerative changes of the second tarsometatarsal joint. There is subchondral cystic change and bone marrow edema adjacent to the second tarsometatarsal joint. There are severe degenerative changes involving the dorsal aspect of the articulation of the navicular with the cuneiform bones at the edge of the [id number]. There appearsto be a superficial soft tissue ulcer along the plantar and medial aspect of the first toe extending from the level of the interphalangeal joint to the level of the MTP joint. There is a small amountof edema-like stranding of the underlying subcutaneous fat. No focal fluid signal intensity collection is seen. There is a moderate amount of subcutaneous edema along the dorsum of the foot. No significant tendinopathy or tenosynovitis is seen. IMPRESSION: 1. There appears to be a superficial soft tissue ulcer along the plantar and medial aspect of the first toe, but there is no MRI evidence of a soft tissue abscess or osteomyelitis. 2. There are degenerative changes of the foot as described above. 3. There is moderate to severe atrophy and diffuse edema-like signal of the musculature of the footwhich is most compatible with the sequela of a long- standing peripheral neuropathy. 4. 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 Measurable wound changes: decrease in wound measurement Patient accompanied by: self, patient is ambulatory Nutritional screen shows patient does take in three servings of protein per day. Patient does deny fever, chills, sweats or other symptoms of infection. Prescribed antibiotics: none Today's reported Blood sugar: 150,reports it runs 120-150 with a recent 300 spike. Tobacco:denied - never a smoker Contributing comorbid conditions: Type 2 diabetes, insulin dependent, poorly controlled, history ofleft 5th ray partial amputation. Current Outpatient Medications Medication Sig Dispense Refill alcohol swabs pads, medicated aspirin 81 mg chewable tablet Chew 1 tablet (81 mg total) and swallow in the morning. atorvastatin (LIPITOR) 20 mg tablet TAKE ONE TABLET BY MOUTH DAILY busPIRone (BUSPAR) 10 mg tablet Take 1 tablet (10 mg total) by mouth. cholecalciferol, vitamin D3, (VITAMIN D3) 5,000 units capsule TAKE ONE CAPSULE BY MOUTH DAILY COMFORT EZ PEN NEEDLES 31 gauge x 516 needle USE DIRECTED DAILY doxepin (SINEquan) 25 mg capsule TAKE ONE CAPSULE BY MOUTH AT BEDTIME gabapentin (NEURONTIN) 600 mg tablet Take 1 tablet (600 mg total) by mouth. hydroCHLOROthiazide (HYDRODIURIL) 12.5 mg tablet TAKE ONE TABLET BY MOUTH DAILY hydrOXYzine (ATARAX) 25 mg tablet TAKE ONE TABLET BY MOUTH DAILY FOR ANXIETY / FOR SLEEP MAY CAUSE DROWSINESS DO NOT TAKE WITH ALCOHOL, DRIVE, OR OPERATE MACHINERY. insulin degludec (TRESIBA FLEXTOUCH U-100) 100 unit/mL (3 mL) insulin pen Inject 22 Units under theskin nightly. insulin detemir U-100 (LEVEMIR) 100 unit/mL injection Inject 0.22 mL (22 Units total) under the skin nightly. JARDIANCE 25 mg tablet tablet TAKE ONE TABLET BY MOUTH IN THE MORNING lisinopriL (PRINIVIL,ZESTRIL) 40 mg tablet TAKE ONE TABLET BY MOUTH DAILY mupirocin (BACTROBAN) 2 % ointment APPLY TO THE AFFECTED AREA(S) at every bandage change DAILY nitroglycerin (NITROSTAT) 0.4 MG SL tablet 1 under the tongue as needed for angina, may repeat q5mins for up three doses 100 tablet 11 omeprazole (PriLOSEC) 20 mg capsule TAKE ONE CAPSULE BY MOUTH DAILY ONETOUCH DELICA PLUS LANCET 30 gauge misc ONETOUCH ULTRA TEST strip SURE COMFORT INSULIN SYRINGE 0.3 mL 29 gauge x 1/2 syringe use with insulin vials FOUR TIMES DAILY No current facility-administered medications for this visit. Allergies Allergen Reactions Iodinated Contrast Media The following portions of the patient's history were reviewed and updated as appropriate: allergies, current medications, past family history, past medical history, past social history, past surgicalhistory, problem list, and medication reconciliation was completed including current medication andpost discharge medication. PAIN: Pain Scale 0/10: 0 Review of Systems Constitutional: Negative for activity change, appetite change, diaphoresis, fatigue and fever. Respiratory: Negative for apnea. Cardiovascular: Positive for leg swelling. Negative for chest pain. Gastrointestinal: Negative for abdominal distention, abdominal pain, anal bleeding and blood in stool. Endocrine: Negative for polydipsia, polyphagia and polyuria. Genitourinary: Negative for difficulty urinating, dysuria and flank pain. Musculoskeletal: Negative for arthralgias and myalgias. Skin: Positive for color change and wound. Allergic/Immunologic: Negative for environmental allergies, food allergies and immunocompromised state. Neurological: Positive for dizziness. Negative for facial asymmetry, light- headedness and numbness. Psychiatric/Behavioral: Negative for agitation, behavioral problems, decreased concentration and hallucinations. Objective: Vitals: 12/02/23 0959 BP: 118/68 Pulse: 83 Resp: 18 Temp: 36.1 C (97 F) Physical Exam Vitals and nursing note reviewed. Constitutional: Appearance: He is well-developed. HENT: Head: Normocephalic and atraumatic. Cardiovascular: Rate and Rhythm: Normal rate and regular rhythm. Pulses: Dorsalis pedis pulses are 2+ on the right side and 2+ on the left side. Posterior tibial pulses are 2+ on the right side and 2+ on the left side. Heart sounds: Normal heart sounds. No murmur heard. No gallop. Pulmonary: Effort: Pulmonary effort is normal. Breath sounds: Normal breath sounds. No wheezing or rales. Abdominal: General: Bowel sounds are normal. Palpations: Abdomen is soft. Musculoskeletal: General: Normal range of motion. Cervical back: Normal range of motion. Left foot: Bunion present. Feet: Right foot: Protective Sensation: 10 sites tested. 3 sites sensed. Left foot: Protective Sensation: 10 sites tested. 3 sites sensed. Skin integrity: Ulcer, callus and dry skin present. Comments: Bunion left lateral midfoot Skin: General: Skin is warm and dry. Neurological: Mental Status: He is alert and oriented to person, place, and time. Wound Assessment: Wound 10/19/23 1 Toe D1, great Left Medial (Active) Wound Image Pre debridement Post debridement 12/02/23 1008 Site Assessment Dry;[place] 12/02/23 1000 Padma-wound Assessment Dry;Callous 12/02/23 1000 Wound Length (cm) 1.3 cm 12/02/23 1008 Wound Width (cm) 0.3 cm 12/02/23 1008 Wound Surface Area (cm^2) 0.39 cm^2 12/02/23 1008 Wound Depth (cm) 0.4 cm 12/02/23 1008 Wound Volume (cm^3) 0.156 cm^3 12/02/23 1008 Change in Wound Size % 98.07 12/02/23 1008 Drainage Description Serous;Yellow 12/02/23 1000 Drainage Amount Scant 12/02/23 1000 Treatments Cleansed with;Soak with;Vashe/Hypochlorous Acid 12/02/23 1000 Debridement Performed? Y 12/02/23 1008 Type of Debridement Sharp to Subcutaneous 12/02/23 1008 Debridement Area (cm^2) 0.9 cm^2 12/02/23 1000 Dressing Type Honey Dressing;Gauze Rolled/Kerlix;Vaseline gauze 12/02/23 1008 Dressing Changed Changed 12/02/23 1008 Dressing Status Clean;Dry;Intact 12/02/23 1008 Discussion:Risks, benefits and alternatives were discussed with the patient. We discussed possible complications, including infection and bleeding. Written consent was obtained prior to the procedure. Timeout procedure completed. Procedure: Debridement/Procedure Level: Removal of devitalized tissue, nonviable tissue, and/or infection: Sub-q/Tissue Instrument Used: Adson, Curette, and Scissors Anesthesia dermoplast Bleeding: Small Bleeding Control: Pressure Added Pain Control: None Specimen Taken: None Total Surface Area of Debridement: 0.90 cm2 Dressing: The wound was cleansed with Vashe wash and a medi honey and adaptic dressing was placed in wound clinic. Patient Status: Well tolerated by patient. Assessment/Plan/Education: 1. Diabetic ulcer of toe of left foot associated with type 2 diabetes mellitus, with fat layer exposed ([facility]) Wash daily mild soap and water Cover wound with medi honey Cover with adaptic Secure with roll gauze Change daily Avoid direct pressure to wound bed Continue to wear surgical shoe to left foot Diabetic Foot Care 1) Do not submerge foot underwater 2) Check the temperature of water 3) Sponge bathe all unopened areas until wounds heal. 4) Apply moisturizing lotion to all unopened areas, avoid between the toes. 5) Dry thoroughly between the toes 2. Diabetic polyneuropathy associated with type 2 diabetes mellitus ([facility]) Instructed to protect feet at all times Patient instructed in diabetic foot ulcer care to right and foot. Patient verbalize understanding of treatment regimen and the importance of adherence. Patient verbalized understanding. We will continue to follow closely to avoid any complications or infection. Our short term goal is wound compliance. Our halfway goal is wound closure. The patient was taught to watch for S/S of infection (redness, pus, pain, increased swelling, chills or fever) and to call the PCP or wound care clinic if such occurs. The patient was educated on offloading the area by avoiding direct pressure to the wound bed. Education as well as the pathophysiology of the disease process was provided on infection, edema, necrotic tissue and its relationship tononhealing wounds. Education was also provided on treatment plan. Patient verbalized understanding. Follow up wound clinic in 2 weeks. Instructed to contact wound clinic/PCP or ER should symptoms worsen. Total time spent was 20 minutes: Preparing to see the patient (e.g., review of tests) Obtaining and/or reviewing separately obtained history Performing a medically appropriate examination and/or evaluation Counseling and educating the patient/family/caregiver Ordering medications, tests, or procedures Referring and communicating with other health care manager (not separately reported) Documenting clinical information in the electronic or other health record - NU TIWARI 12/02/23 10:32 AM Debra Ventura APRN, SERGEI, RADHA, ERIC [facility]:[phone] NU Tiwari 12/02/23 1042 documented in this encounterNationwide Children's HospitalPaperwoven [facility] [id number] Instructions* Patient Instructions* Klarissa Sanchez RN - 12/02/2023 10:00 AM EST Wound Management Treatment Plan Wound Location(s): left medial great toe HOW TO CARE FOR YOUR WOUND The following should be performed Daily and as needed. STEP 1: Cleanse wound with Soap and water, rinse well, and pat dry. STEP 2: Apply Medihoney to wound bed. STEP 3: Cover wound with Vaseline gauze and a piece of dry 4X4 gauze. STEP 4: Secure dressings with Roll gauze/Kerlix and tape. Do not apply tape to the skin. Continue to wear your surgical shoe to to left foot. ACTIVITY: Avoid direct pressure to wound(s) at all times NUTRITION: High protein diet SKIN CARE: apply vaseline daily to feet. Do not apply between toes. SWELLING CONTROL: Avoid standing for prolonged periods of time. Elevate legs whenever sitting to level of heart/hips or higher. ITEMS TO FOLLOW UP ON: Pt saw Dr Matthews, podiatry 10/2023. Pt states diabetic shoes were ordered at that time Length Width Depth Wound 10/19/23 1 Toe D1, great Left Medial-Wound Length (cm): 1.8 cm Wound 10/19/23 1 Toe D1, greatLeft Medial-Wound Width (cm): 0.5 cm Wound 10/19/23 1 Toe D1, great Left Medial-Wound Depth (cm): 0.1 cm Wound drainage Type Description none none none documented in this encounterCleveland [facility]12-29-[facility] History of Present illness Narrative* Rashid Fairchild MD - 11/25/2023 9:30 AM EST Darshan Travis Gume Date of visit: 11/25/2023 Date of : 1965 Age: 58 y.o. 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 atorvastatin (LIPITOR) 20 mg tablet TAKE ONE TABLET BY MOUTH DAILY busPIRone (BUSPAR) 10 mg tablet Take 1 tablet (10 mg total) by mouth. cholecalciferol, vitamin D3, (VITAMIN D3) 5,000 units capsule TAKE ONE CAPSULE BY MOUTH DAILY COMFORT EZ PEN NEEDLES 31 gauge x 5/16 needle USE DIRECTED DAILY doxepin (SINEquan) 25 mg capsule TAKE ONE CAPSULE BY MOUTH AT BEDTIME gabapentin (NEURONTIN) 600 mg tablet Take 1 tablet (600 mg total) by mouth. hydroCHLOROthiazide (HYDRODIURIL) 12.5 mg tablet TAKE ONE TABLET BY MOUTH DAILY hydrOXYzine (ATARAX) 25 mg tablet TAKE ONE TABLET BY MOUTH DAILY FOR ANXIETY / FOR SLEEP MAY CAUSE DROWSINESS DO NOT TAKE WITH ALCOHOL, DRIVE, OR OPERATE MACHINERY. insulin detemir U-100 (LEVEMIR) 100 unit/mL injection Inject 0.22 mL (22 Units total) under the skin nightly. JARDIANCE 25 mg tablet tablet TAKE ONE TABLET BY MOUTH IN THE MORNING lisinopriL (PRINIVIL,ZESTRIL) 40 mg tablet TAKE ONE TABLET BY MOUTH DAILY mupirocin (BACTROBAN) 2 % ointment APPLY TO THE AFFECTED AREA(S) at every bandage change DAILY omeprazole (PriLOSEC) 20 mg capsule TAKE ONE CAPSULE BY MOUTH DAILY ONETOUCH DELICA PLUS LANCET 30 gauge misc ONETOUCH ULTRA TEST strip SURE COMFORT INSULIN SYRINGE 0.3 mL 29 gauge x 1/2 syringe use with insulin vials FOUR TIMES DAILY nitroglycerin (NITROSTAT) 0.4 MG SL tablet 1 under the tongue as needed for angina, may repeat q5mins for up three doses 100 tablet 11 No current facility-administered medications for this visit. 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 New to our practice. Referred for evaluation of intermittent chest pain. Accompanied by sister today. Recently moved to [place] [facility]. Stated that for about a year has been having on and off left-sided chest discomfort. Described as an ache, can occur at rest or with exertion. Usually last for seconds up to a minute. Not associated with nausea sweats. Denies shortness of breath or dyspnea with exertion. Denied palpitations or dizzy spells or orthopnea or edema. Denied fatigue. Tobacco: Never Alcohol: None Recreational drugs: None Family history: Mom diagnosed with CAD in her 60s, Dad of NC at age 51. Sister diagnosed wit CAD in early 40s. EKG in the office today showing NSR with possible old anterior infarct. Past Medical History: Diagnosis Date Anxiety Arthritis Depression Diabetes mellitus ([facility]) GERD (gastroesophageal reflux disease) Hyperlipidemia Hypertension Lazy eye, left Myocardial infarction ([facility]) fall of 2021 Sleep apnea No data recorded No data recorded No data recorded Past Surgical History: Procedure Laterality Date CHOLECYSTECTOMY MULTIPLE TOOTH EXTRACTIONS TOE AMPUTATION left 5th toe Family History Problem Relation Age of Onset Diabetes Mother Heart disease Mother Heart disease Father Diabetes Father Hypertension Father Social History Socioeconomic History Marital status: Spouse name: Not on file Number of children: Not on file Years of education: Not on file Highest education level: Not on file Occupational History Not on file Tobacco Use Smoking status: Never Smokeless tobacco: Never Vaping Use Vaping Use: Never used Substance and Sexual Activity Alcohol use: Not Currently Drug use: Never Sexual activity: Defer Other Topics Concern Caffeine Use Yes Social History Narrative Not on file Social Determinants of Health Financial Resource Strain: Not on file Food Insecurity: No Food Insecurity (11/25/2023) Hunger Screening Food Insecurity - Worry: Never True Food Insecurity - Inability: Never True Transportation Needs: Not on file Physical Activity: Not on file Stress: Not on file Social Connections: Not on file Interpersonal Safety: Not on file Review of Systems Review of Systems Constitutional: Negative for chills, fever and malaise/fatigue. HENT: Negative for hearing loss and nosebleeds. Eyes: Negative for blurred vision. Respiratory: Negative for cough, shortness of breath, sputum production and wheezing. Hematologic/Lymphatic: Negative for bleeding problem. Skin: Negative for rash and suspicious lesions. Musculoskeletal: Negative for joint pain and myalgias. Gastrointestinal: Negative for abdominal pain, change in bowel habit, hematochezia, melena, nausea and vomiting. Genitourinary: Negative for dysuria and hematuria. Neurological: Negative for dizziness, focal weakness, headaches and paresthesias. CARDIOVASCULAR: Please review HPI. Physical Examination General appearance: Alert, oriented and cooperative. In no acute distress. Skin: Warm and dry to touch. Head: Normocephalic, without obvious abnormality, atraumatic. Ears, Nose, Mouth, Throat: Throat clear without erythema or exudate. Dentition intact. Eyes: Conjunctivae unremarkable, EOM intact. Neck: No JVD, No carotid bruit. Neck supple, trachea midline. Respiratory: Clear to auscultation bilaterally, no use of accessory muscles. Cardiovascular: RRR with normal S1 and S2 with no murmurs. Gastrointestinal: Soft, non-tender. Bowel sounds normal. Musculoskeletal: No peripheral edema. Neurologic: Oriented to time, person and place, affect appropriate. No focal/major motor defects noted. Psychiatric: Appropriate mood, memory and judgement. VITAL SIGNS: BP 118/74 (BP Site: Left Arm, BP Postition: Sitting) Pulse 76 Ht 188 cm (6' 2 ) Wt 109 kg (240 lb 6.4 oz) SpO2 97% BMI 30.87 kg/m Orders Placed or Reconciled This Encounter Medications insulin detemir U-100 (LEVEMIR) 100 unit/mL injection Sig: Inject 0.22 mL (22 Units total) under the skin nightly. nitroglycerin (NITROSTAT) 0.4 MG SL tablet Si under the tongue as needed for angina, may repeat q5mins for up three doses Dispense: 100 tablet Refill: 11 There are no discontinued medications. IMPRESSIONS/PLAN 1. Chest pain, unspecified type - POCT EKG - Nuc stress Lexiscan; Future - Echo complete W/O contrast; Future 2. Primary hypertension - POCT EKG - Lipid profile; Future 3. Dyslipidemia - POCT EKG Previous cardiac related labs and test results were reviewed and discussed with the patient. Atypical type chest pain Questionable hx of NC Hypertension Hyperlipidemia - 08/2023: Total cholesterol 148, HDL 26, LDL 89, triglycerides 166 Diabetes mellitus (A1c 10.9 08/2023) GERD Anxiety disorder Obesity, BMI 30 Strong family history of coronary disease Chronic diabetic foot ulcer Patient new to our practice. Here to establish care complaining of atypical type chest pain. Has a strong family history of coronary disease. EKG in the office today suggesting possible old anterior and inferior infarct. I ordered Mckenna nuclear stress test to assess for any underlying ischemia. Echocardiogram for baseline cardiac function. Prescribe p.r.n. sublingual nitro and educated patient how to use it. No changein the rest of his cardiac meds. If stress test abnormal, plan for diagnostic cardiac catheterization at [facility]. Lipid function check. Patient follow-up with PCP closely for management of diabetes. Follow-up in 3 months or sooner if needed. Patient to call us with any cardiac questions or concerns. TODAYS ORDERS Orders Placed This Encounter Procedures Lipid profile Nuc stress Lexiscan POCT EKG Echo complete W/O contrast FOLLOW UP Return in about 3 months (around 02/24/2024). PCP: DAFNE WHITE Referring Physician: No referring provider defined for this encounter. documented in this encounterCleveland [facility]12-28-2023 Miscellaneous Notes* Telephone Encounter - MAYA Diaz - 11/24/2023 11:04 AM EST Called patient to remind them to bring their most current copy of their medication list with them to their appt. Patient verbalizes understanding. documented in this encounterCleveland Clinic [facility]12-28-2023 Telephone encounter Note* Telephone Encounter - MAYA Diaz - 11/24/2023 11:04 AM EST Called patient to remind them to bring their most current copy of their medication list with them to their appt. Patient verbalizes understanding. [facility]12-27-2023 Evaluation note* Encounter Date Diagnosis Assessment Notes Treatment Notes Treatment Clinical Notes Oct, Type 2 diabetes mellitus with hyperglycemia (ICD-10 - E11.65) Travis and his Sister came in today for download and evaluation of a sample Sallie 3 report. He wore the Sallie 3 for 14 days and liked it and wants to continue it. His average BG was 237, 18% in range, 46% high , 36% very high. He is currently taking Jardiance 25mg daily, Levemir 15 units daily, and Lispro. He stated that he takes 15 units of Lispro with each meal, which is not how it was ordered by Ivy Diaz APRN at his last visit. We discussed how he is supposed to take his mealtime insulin, which is a 1:10 carb ratio and a 1:30 corrective scale. He was given the scales again and we went over examples. Rxs for pens were sent to [employer]. 45 minutes were spent evaluating the patient's report and discussing its findings with him by Benita Zamora RN, Kathleen Fuentes 11/24/2023 01:11:30 PM >discussed, reviewed and endorsed date of visit [facility] Other 12-12-2023 Evaluation note* Encounter Date Diagnosis Assessment Notes Treatment Notes Treatment Clinical Notes Oct, Type 2 diabetes mellitus with hyperglycemia (ICD-10 - E11.65) ASSESSMENT: 1. Uncontrolled, a Type 2 diabetes with A1c of 11.7% (10-14-2023 per PCP) 2. No glucose characterization. He will continue Levemir 22 units once daily, lispro 1 unit for every 10 carbohydrates and 1 unit for every 30 mg/dL above goal. Written information provided. Will continue Jardiance 25 mg once daily. Will have him return to clinic in 2 weeks for download of CGM in 8 weeks with provider 3. Patient is alert, oriented and receptive to making changes or counseling. Notes: Seen for an assessment of current glucose pattern, changes in treatment plan, counseling and coordination of care related to diabetes, risks, and benefits of treatment, medications, side effects. Given handouts to reinforce concepts reviewed during counseling, see scanned notes. TOPICS REVIEWED: 1. Time was spent reviewing: a. Basic concepts of diabetes, progressive beta cell , concepts of basal/bolus/correc tive insulin requirements. Basal: The goal is fasting blood glucose of 90-130mg. IF fasting blood glucose starts to run under 100mg 3x's/ week, decrease dose by 10%. Bolus: The goal is to hold the blood glucose level steady meal to meal. If pt. is going to have increased physical activity after a meal, decrease the schedule meal dose prior to the activity by 30-50%. If pt. skips a meal do not take this dose. Correction: The goal is to correct an elevated glucose back into the 100-150mg range b. Nutrition: Concepts of healthy diet, encouraged to decrease saturated fat in diet and increase non-starchy vegetables and fruits in diet. BMI: Pt. needs to select one small change to decrease caloric intake or increase physical activity to help decrease weight. c. Correct treatment of hypoglycemia, carry a glucose source at all times on your person, in vehicles, and at bedside. Can use glucose tablets/4, four ounces of pop or juice equal to 15 G of carbohydrate. Blood glucose should be 100 mg/dl or higher when driving. d. ADA glucose goals for age and medical complexity reviewed e. Patient questions addressed 2. Activity/exercise: Encouraged to start any form of physical activity. Start low level and increase slowly to a minimal goal of 150 minutes/week. Limit activity to what is allowed by other issues such as cardiac, pulmonary or orthopedic restrictions. 3. Standards of care: Reminded to have an annual dilated eye exam, A1C every 3 months, urine testing for microalbumin once/year, check feet daily and report any cuts or sores that do not appear to be healing. 4. Meter: Plan to check blood glucose: Please check blood glucose levels 4 times/day. Back to back meals reveal effectiveness of bolus dosing. The blood glucose data is used to determine insulin doses and confirm symptoms for hypoglycemia and hyperglcyemia. 5. [facility]. Contact office if any issues or concerns with patterns of hypoglycemia, hyperglycemia, or diabetes medication issues. 6. Prescriptions: New patient 11-08-2023 uses [facility]. Oct, Vitamin D deficiency (ICD-10 - E55.9) Learning About Vitamin D material was published to portal Oct, Dietary counseling and surveillance (ICD-10 - Z71.3) Learning About Healthy Weight material was published to portal Oct, Hyperlipidemia (ICD-10 - E78.5) Learning About High Cholesterol material was published to portal Oct, HTN (hypertension) (ICD-10 - I10) High Blood Pressure: Care Instructions material was published to portal Oct, [facility] current use of insulin (ICD-10 - Z79.4) Oct, BMI 31.0-31.9,adult (ICD-10 - Z68.31) [facility] Other 10-31-2023 History of Present illness Narrative* Ronel Marin MA - 09/27/2023 9:50 AM EDT Nurse Note: Review of Systems Constitutional: Negative for fatigue, fever and unexpected weight change. HENT: No difficulty swallowing No change in voice Respiratory: Negative for cough, shortness of breath and wheezing. Cardiovascular: Negative for chest pain, palpitations and leg swelling. Gastrointestinal: Negative for constipation, diarrhea, nausea and vomiting. Neurological: Positive for numbness. Negative for tremors and weakness. Psychiatric/Behavioral: Negative for sleep disturbance. The patient is not nervous/anxious. Nursing Assessment: Physical Exam * Bobby Joel DPM - 09/27/2023 9:50 AM EDT PROGRESS NOTE Patient Name: Darshan Dunaway Admit Date: [id number] MR #: [id number] : 1965 PRIMARY CARE PHYSICIAN: Kate Mayers REFERRING PHYSICIAN: Hospitalist Chief Complaint/Reason for Visit: Cellulitis and ulcer left foot History of Present Illness: Darshan Dunaway is a 58 y.o. y/o male who is here for a follow up from the hospital for a left great toe ulcer. He notes that he is almost out of antibiotics. He is retired. HISTORY was admitted for IV antibiotics for a left foot ulcer and cellulitis. He notes that this just started a few days ago. He has a history of left foot ulcer with previous partial left foot amputation. He is an uncontrolled diabetic. History: Past Medical History: Diagnosis Date Diabetes mellitus Essential hypertension, benign NC (myocardial infarction) Past Surgical History: Procedure Laterality Date APPENDECTOMY FOOT SURGERY Left No family history on file. Social History Socioeconomic History Marital status: Spouse name: Not on file Number of children: Not on file Years of education: Not on file Highest education level: Not on file Occupational History Not on file Tobacco Use Smoking status: Never Smokeless tobacco: Never Substance and Sexual Activity Alcohol use: Not on file Drug use: Not on file Sexual activity: Not on file Other Topics Concern Not on file Social History Narrative Not on file Social Determinants of Health Financial Resource Strain: Not on file Food Insecurity: Not on file Transportation Needs: Not on file Physical Activity: Not on file Stress: Not on file Social Connections: Not on file Intimate Partner Violence: Not on file Housing Stability: Not on file Allergy Information: No Known Allergies Home Medications: Current Outpatient Medications Medication Sig Last Dose Start Date End Date Authorizing Provider aspirin 81 MG Chew Tab chewable tablet 81 mg, Oral, DAILY, This AM Taking Historical Provider busPIRone 10 MG tablet 10 mg, Oral, 3 TIMES DAILY, Last dose AM Taking Historical Provider gabapentin 600 MG tablet 600 mg, Oral, 3 TIMES DAILY Taking Historical Provider Insulin detemir 100 UNIT/ML vial 15 Units, Subcutaneous, EVERY 24 HOURS Taking 09/20/23 11/19/23 NU Evans Insulin Lispro 100 UNIT/ML vial 1-10 Units, Subcutaneous, BEFORE MEALS & AT BEDTIME, 151 - 200 = 4 units; 201 - 250 = 6 units; 251 - 300 = 10 units; 301 - 350 = 14 units; 351 - 400 = 18 units; Taking 09/20/23 11/19/23 NU Evans Linezolid (Zyvox) 600 MG tablet 600 mg, Oral, 2 TIMES DAILY Taking 09/20/23 09/27/23 NU Evans probiotic blend capsule 1 capsule, Oral, 2 TIMES DAILY Taking 09/20/23 10/04/23 NU Evans hydroCODone-acetaminophen 5-325 MG tablet 1 tablet, Oral, EVERY 8 HOURS NEEDED 09/20/23 09/25/23Chaclaus Hastings APRN-SILK SNAPPER Tests: XRAYS No orders to display MRI FOOT LEFT WITHOUT CONTRAST Result Date: 09/19/2023 HISTORY: The patient reportedly has a history of diabetes and has an ulcer of the left great toe. Evaluate for possible osteomyelitis. MRI FOOT LEFT WITHOUT CONTRAST: 09/19/2023 11:42 AM EDT COMPARISON: Radiographs left foot 09/18/2023. TECHNIQUE: Multiplanar, multisequence MRI images of the left midfoot/forefoot were obtained without contrast. FINDINGS: The Lisfranc ligament complex appears intact. The bone marrow signal intensity appears age appropriate. There is moderate to severe atrophy and diffuse edema-like signal of the musculature of the foot which is most compatible with the sequelaof a long-standing peripheral neuropathy. There are postsurgical changes again seen from prior partial amputation of the fifth ray at the level of the base of the fifth metatarsal. A hallux valgus deformity is again seen with a bunion complex along the medial aspect of the first metatarsal head. There again appear to be mild degenerative changes of the first MTP joint and moderate to severe degenerative changes of the first metatarsal-sesamoid joints. There are moderate to severe degenerative changes of the first and third tarsometatarsal joints and severe degenerative changes of the second tarsometatarsal joint. There is subchondral cystic change and bone marrow edema adjacent to the second tarsometatarsal joint. There are severe degenerative changes involving the dorsal aspect of the articulation of the navicular with the cuneiform bones at the edge of the [id number]. There appearsto be a superficial soft tissue ulcer along the plantar and medial aspect of the first toe extending from the level of the interphalangeal joint to the level of the MTP joint. There is a small amountof edema-like stranding of the underlying subcutaneous fat. No focal fluid signal intensity collection is seen. There is a moderate amount of subcutaneous edema along the dorsum of the foot. No significant tendinopathy or tenosynovitis is seen. IMPRESSION: 1. There appears to be a superficial soft tissue ulcer along the plantar and medial aspect of the first toe, but there is no MRI evidence of a soft tissue abscess or osteomyelitis. 2. There are degenerative changes of the foot as described above. 3. There is moderate to severe atrophy and diffuse edema-like signal of the musculature of the foot which is most compatible with the sequela of a long-standing peripheral neuropathy. 4. 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 XR FOOT LEFT 3 VIEWS Result Date: 09/18/2023 EXAM: XR FOOT LEFT 3 VIEWS HISTORY: Diabetic foot ulcers. COMPARISON: None. 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 On this study there is no acute fracture, dislocation, subluxation or osseous lesion.Mild to moderate degenerative changes of the midfoot articulations. The remainder of the joint spaces are unremarkable. Mild dorsal soft tissue edema. No periosteal reaction. LABS Lab Results Component Value Date WBC 6.8 09/20/2023 HGB 12.1 (L) 09/20/2023 HCT 34.7 (L) 09/20/2023 PLATELET 200 09/20/2023 MCV 91.0 09/20/2023 Lab Results Component Value Date INR 1.13 (H) 09/20/2023 Lab Results Component Value Date MAGNESIUM 1.7 09/20/2023 Lab Results Component Value Date CREATSERUM 0.73 09/20/2023 BUN 15 09/20/2023 SODIUM 136 (L) 09/20/2023 POTASSIUM 3.8 09/20/2023 CHLORIDE 102 09/20/2023 CO2 28 09/20/2023 No results found for: SPGRVTYUR , SPECGRAVUR , GLUCOSEURINE , BILIRUBINURI , KETONESURINE , BLOODURINE , PHURINE , NITRITEURINE , NITRITESURIN , LEUKOCESTUR , WBCURINE , RBCURINE , BACTERIAURIN MICRO Lab Results Component Value Date RESULTCULT NO GROWTH 5 DAYS 09/18/2023 Physical Examination: Vital Signs: BP 160/90 (BP Location: Left arm, BP Position: Sitting) Ht 1.88 m (6' 2 ) Wt 106.6 kg (235 lb) BMI 30.17 kg/m Smoking Status Never Physical Exam: Alert and oriented X 3 Vascular: Dorsalis pedis and posterior tibial pulses are palpable bilateral. Dermatological: Resolving erythema left 1st MPJ area Ulceration #1: Ulceration location Left great toe 1st mpj area . Type: neuropathic-Diabetic Wound dimensions: 09/19/23 4 cm long by 2.5 cm wide by 0.1 cm deep 09/27/23 2x2x0.2 and bridged to 2x0.7x0.2cm Wound dimensions after debridement: 09/19/23 No debridement today 09/27/23 no debridement Base: Ulceration extends Partially through skin. Granular tissue 60%. Fibrous/scar tissue 40%. Necrotic tissue 0%. Drainage:No . drainage observed. Surrounding Area: negative odor, Positive swelling and localized erythema Sauer Staging: Grade 1 - superficial ulcer of skin without subcutaneous tissue involvement, not infected Neurological: sharp dull sensations absent Musculoskeletal: no gross deformities. 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 Diabetic ulcer of left great toe E11.621 doxycycline hyclate 100 MG capsule L97.529 Mupirocin 2 % ointment CULTURE WOUND Plan of Care: Patient was seen and evaluated today with a complete history and lower extremity physical exam. I discussed the possible causes of ulceration with patient. I discussed the importance of sharp debridment and home wound care and how this will help to heal the wound We also talked about infection and the possibility of amputation if this does not heal. If there is delayed healing I will consider surgical debridement in the operating room and application of skin grafts as appropriate. I explained proper hygiene for the wound at home and that the wound should be covered at all times and not be left open to air as this can lead to infection in the wound The wound will not be soaked or get wet in the shower, again, this can lead to infection in the wound Excisional debridement was not performed today. see procedure note for details. A culture was taken today- location left great toe After debridement, betadine and dry sterile dressing was applied. The dressing needs to be changed daily Dressing will consist of: mupirocin ointment and DSD Rx mupirocin ointment and doxycyline Dispensed surgical shoe Patient was given an opportunity to ask all questions to their satisfaction. Goal: Complete healing of wound in 3 months or less, we will plan on regular appointments Keep wound free of infection. We will achieve this through debridement, appropriate wound dressings, antibiotics as need, proper hygiene, and a team approach with wound care, vascular surgery, infectious disease and imaging as needed. Patient is to return to office in 2 weeks If the patient notices: increase in drainage, redness, foul odor or feel like they are getting flu-like symptoms they should contact the office during working hours or go to the emergency room after hours. Patient will contact the office sooner is any problems arise. Bobby Joel DPM documented in this [facility]10-30-2023 History of Present illness Narrative* Rebecca Mcintosh LPN - 09/26/2023 3:00 PM EDT Images from the original note were not included. * Bee Wang RN - 09/26/2023 3:00 PM EDT To wound on left great toe/foot: xeroform, gauze, gauze wrap applied. Patient tolerated well with brisk capillary refill following. * Kristen Hernandez, MECHANICAL ENGINEERING SPECIALIST-SILK SNAPPER - 09/26/2023 3:00 PM EDT Subjective History of Present Illness Darshan is a very pleasant 58-year-old male who presents to the wound center on referral from the hospitalist after discharge with a diabetic foot wound with infection of his left foot. [facility] a 2 day history of increased redness and swelling of the left great toe area. He was admitted to the hospital and discharged on 09/20. In the emergency department his white count was 8.5, glucose was 353, renal function was normal, CRP was 34 and sed rate 26. His MRI was negative for osteomyelitis. His hemoglobin A1c is 10.9. 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 He states that since then he has a bony prominence on the left lateral foot and it typically has a scab on it. He was discharged on a new insulin regimen and oral antibiotics. He has been taking the meds as requested and tolerating them well. He has an appointment to follow up with his primary care provider for ongoing diabetic management He states that 2 days ago his foot was so swollen you could not see any of the bones and his toes were swollen, it is much better. Yesterday his great toe was still very red, today it is better. Theynote improvement in the amount of drainage, no odor. He does not have any pain due to neuropathy. No odor. Objective Review of Systems Constitutional: Negative for activity change, appetite change, chills, diaphoresis, fatigue and fever. Respiratory: Negative for cough and shortness of breath. Cardiovascular: Negative for chest pain and leg swelling. Gastrointestinal: Negative for abdominal pain and nausea. Musculoskeletal: Positive for gait problem. Skin: Positive for color change and wound. Hematological: Does not bruise/bleed easily. Vitals: Blood pressure 131/73, pulse 96, temperature 97.2 F (36.2 C), temperature source Temporal, resp. rate 18. Physical Exam Vitals and nursing note reviewed. Constitutional: General: He is not in acute distress. Appearance: Normal appearance. He is well-developed and normal weight. He is not ill-appearing, toxic-appearing or diaphoretic. HENT: Head: Normocephalic and atraumatic. Cardiovascular: Pulses: Normal pulses. Comments: Pedal pulses are strongly palpable, his feet are pink and warm with brisk capillary refill Pulmonary: Effort: Pulmonary effort is normal. Musculoskeletal: General: Swelling present. Comments: Mild swelling of the left foot, more swelling of the great toe Skin: General: Skin is warm and dry. Findings: Erythema present. Comments: He has an open wound on the left medial forefoot and great toe. It looks as though it wasa blister, most of the old pedicle is gone. There is some redness with localized swelling and warmth. The wound bed had some yellow slough which I was able to easily removed with gauze, it is predominantly pink underneath. No odor. Small amount of serous drainage Neurological: Mental Status: He is alert and oriented to person, place, and time. Psychiatric: Behavior: Behavior normal. Neurological Exam Mental Status Alert. Oriented to person, place, and time. Assessment and Plan ICD-10-CM 1. Diabetic foot infection E11.628 AK DRESSING CHANGE L08.9 2. Cellulitis of toe of left foot L03.032 AK DRESSING CHANGE He will continue Xeroform and a dry dressing. The infection seems to be improving, vascular check is normal. He will see Dr. Joel tomorrow as planned, follow-up here if needed Please note: Portions of this note utilized Voice recognition software, please excuse any typographical or grammatical errors documented in this [facility]10-30-2023 Instructions* Patient Instructions* Bee Wang RN - 09/26/2023 3:00 PM EDT Keep your upcoming podiatry appointment. They will give you further instructions on what kind of bandage to apply, if they want to make any changes. Try to keep your blood sugars more within normal range, see your diabetic doctor for help with this. documented in this [facility]10-24-2023 Nurse Note* Nursing Notes - Christina Marroquin RN - 09/20/2023 4:39 PM EDT Patient resting in bed, no changes to physical assessment. [facility]10-24-2023 Miscellaneous Notes* Nursing Notes - Christina Marroquin RN - 09/20/2023 4:39 PM EDT Patient resting in bed, no changes to physical assessment. * Plan of Care - Christina Marroquin RN - 09/20/2023 8:06 AM EDT POC reviewed and continued Problem: Patient Care Overview Goal: Plan of Care Review Outcome: Ongoing Goal: Individualization & Mutuality Outcome: Ongoing Goal: Discharge Needs Assessment Outcome: Ongoing Goal: Interdisciplinary Rounds/Family Conf Outcome: Ongoing Problem: Skin Integrity Impairment, Risk/Actual (Adult) Goal: Identify Related Risk Factors and Signs and Symptoms Description: Related risk factors and signs and symptoms are identified upon initiation of Human Response Clinical Practice Guideline (CPG) Outcome: Ongoing Goal: Skin Integrity/Wound Healing Description: Patient will demonstrate the desired outcomes by discharge/transition of care. Outcome: Ongoing Problem: Infection, Risk/Actual (Adult) Goal: Identify Related Risk Factors and Signs and Symptoms Description: Related risk factors and signs and symptoms are identified upon initiation of Human Response Clinical Practice Guideline (CPG) Outcome: Ongoing Goal: Infection Prevention/Resolution Description: Patient will demonstrate the desired outcomes by discharge/transition of care. Outcome: Ongoing Problem: Diabetes, Type 2 (Adult) Goal: Signs and Symptoms of Listed Potential Problems Will be Absent, Minimized or Managed (Diabetes, Type 2) Description: Signs and symptoms of listed potential problems will be absent, minimized or managed by discharge/transition of care (reference Diabetes, Type 2 (Adult) CPG). Outcome: Ongoing * Nursing Notes - MALENA Mcmahon - 09/19/2023 11:11 AM EDT Called consult to * Nursing Notes - Venecia Kam RN - 09/19/2023 4:13 AM EDT Assessment remains unchanged from previous. Call light within reach. * Nursing Notes - Venecia Kam RN - 09/19/2023 12:30 AM EDT Patient to room, report received from MARLENY Bobby. Assessment completed at this time. Blood sugar rechecked, result of 305. Dr. Connell made aware of blood sugar, new insulin orders added. Patient reports having a fall two days ago due to neuropathy in bilateral feet, educated on use of call light system, voices understanding. Denies further needs. Bed alarm set, call light within reach. documented in this [facility]10-24-2023 Hospital course Narrative* Qing Hastings APRN-SERGEI - 09/20/2023 12:19 PM EDT Discharge Summary Name: Darshan Dunaway Age: 58 y.o. Birthday: 1965 Admit Date: 09/18/2023 8:49 PM Discharge Date: 09/20/2023 Discharge Diagnoses: Principal problem: Diabetic foot infection Active problems: Cellulitis of toe of left foot Type 2 diabetes Diabetic neuropathy Anemia Obesity Brief Summary of Hospital Course: Mr. Darshan Dunaway is a 58 year old male with a past medical history of hypertension, type 2 diabetes, diabetic neuropathy, CAD with NC, partial left foot amputation and obesity who presented to ER forevaluation of diabetic foot ulcer. While hospitalized patients labs and VS were monitored and additional testing was ordered and reviewed. He was seen by rubber compounder mixer who did review all charting and okay patient for discharge with PO antibiotics and follow up in his office in 1 week. A referral has been sent to that office to call patient and schedule a follow up appointment. Patient met with foster care social worker and did deny all needs post discharge. His blood cultures have remained negative to date and his MRSA screening was determined negative as well. This morning patient is afebrile on room airand without a white count. He will be discharged today in stable condition with instructions to resume medications as listed below and follow up with his PCP in 1 week and podiatry office in 1 week as well. Prescriptions have been sent to patients pharmacy of record. Consultants: [facility], Dr. Bobby Joel Discharge Vital Signs: Blood pressure (!) 190/94, pulse 78, temperature 96.9 F (36.1 C), temperature source Temporal, resp. rate 22, height 1.88 m (6' 2 ), weight 106.6 kg (235 lb 1.6 oz), SpO2 99 %.O2 Sat (%): 99 % (09/20 1110) O2 Device: room air (09/20 1110) Discharge Diagnostics: MRI Left Foot 09/19/2023 IMPRESSION: 1. There appears to be a superficial soft tissue ulcer along the plantar and medial aspect of the first toe, but there is no MRI evidence of a soft tissue abscess or osteomyelitis. 2. There are degenerative changes of the foot as described above. 3. There is moderate to severe atrophy and diffuse edema-like signal of the musculature of the foot which is most compatible with the sequela of a long-standing peripheral neuropathy. 4. 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 XR Left Foot 09/18/2023 IMPRESSION: There has been prior amputation of the fifth phalanges and the majority of the fifth metatarsal. On this study there is no acute fracture, dislocation, subluxation or osseous lesion. Mild to moderate degenerative changes of the midfoot articulations. The remainder of the joint spaces are unremarkable. Mild dorsal soft tissue edema. No periosteal reaction. PHYSICAL EXAM HEENT: Normalcephalic, atraumatic. Pupils equal, round, reactive, to light and accomodation B/L. Bilateral nares patent without obvious drainage. Oral mucosa moist, pink, intact without ulcers or lesions. Neck: No JVD, no thyromegaly, no anterior or posterior lymphadenopathy. Cardiovascular: Regular rate and rhythm, without murmurs, rubs, or gallops. Respiratory: Bilateral Upper and Lower Lobes anterior and posteriorly without wheezes, rales, or rhonchi. Abdomen: Soft, rounded, non-tender. Bowel sounds present x4 quadrants. No rebound. No organomegaly or masses noted upon deep palpation. Extremities: Dressing to left foot clean dry and intact Discharge Labs: Lab Results Component Value Date WBC 6.8 09/20/2023 HGB 12.1 (L) 09/20/2023 HCT 34.7 (L) 09/20/2023 PLATELET 200 09/20/2023 MCV 91.0 09/20/2023 Lab Results Component Value Date SODIUM 136 (L) 09/20/2023 POTASSIUM 3.8 09/20/2023 CHLORIDE 102 09/20/2023 CO2 28 09/20/2023 BUN 15 09/20/2023 CREATSERUM 0.73 09/20/2023 GLUCOSE 243 (H) 09/20/2023 Lab Results Component Value Date ALT 15 09/20/2023 AST 19 09/20/2023 ALKPHOS 140 (H) 09/20/2023 BILITOTAL 0.4 09/20/2023 Discharge Medications: Medication List for when you go home START taking these medications hydroCODone-acetaminophen 5-325 MG TABS Take 1 tablet by mouth every 8 hours as needed for Severe Pain or Moderate Pain for up to 5 days. Commonly known as: VIPUL For diagnoses: Diabetic foot infection Insulin detemir 100 UNIT/ML vial Inject 15 Units under the skin every 24 hours. Commonly known as: LEVEMIR Insulin Lispro 100 UNIT/ML vial Inject 1-10 Units under the skin before meals & at bedtime. 151 - 200 = 4 units; 201 - 250 = 6 units; 251 - 300 = 10 units; 301 - 350 = 14 units; 351 - 400 = 18 units; Commonly known as: HumaLOG Linezolid 600 MG TABS Take 1 tablet by mouth 2 times daily for 7 days. Commonly known as: Zyvox probiotic blend CAPS Take 1 capsule by mouth 2 times daily for 14 days. CONTINUE taking these medications aspirin 81 MG CHEW chewable tablet Chew 1 tablet daily. This AM busPIRone 10 MG TABS Take 1 tablet by mouth 3 times daily. Last dose AM Commonly known as: BUSPAR gabapentin 600 MG TABS Take 1 tablet by mouth 3 times daily. Commonly known as: NEURONTIN STOP taking these medications clindamycin 300 MG CAPS Commonly known as: CLEOCIN Discharge Activity: Resume pre-hospital activities as tolerated. Discharge Diet: Carb controlled diabetic diet Discharge Follow-up: Kate Mayers Schedule an appointment as soon as possible for a visit in 1 week(s) Follow up hospital visit, diabetic foot ulcer Bobby Joel, PEDRO [address] [id number] Schedule an appointment as soon as possible for a visit in 1 week(s) Follow up hospital visit, diabetic foot ulcer Discharge Disposition: Patient will be discharged in stable condition. Discharge Time: Including assessment, planning, and medication reconciliation was greater than 15 min. Qing Hastings CNP completing Discharge Summary for Dr. Ronald Connell Please note Portions of this note utilized [employer] dictation software, please excuse any typographical or grammatical errors Associated attestation - Ronald Connell MD - 09/20/2023 8:09 PM EDT Patient seen and examined. All testing reviewed. Discussed with SILK SNAPPER and agree with A/P. No fever or chills. Podiatry note reviewed. AF. WBC normal. MRI no osteo. CRP down. Cultures pending. Oral ATB and close follow up with podiatry. 35 minutes over half be me. Objective: Blood pressure 165/77, pulse 75, temperature 97.7 F (36.5 C), temperature source Temporal, resp. rate 22, height 1.88 m (6' 2 ), weight 106.6 kg (235 lb 1.6 oz), SpO2 96 %. Results for orders placed or performed during the hospital encounter of 09/18/23 BLOOD CULTURE Specimen: BLOOD, PERIPH Result Value Ref Range SPECIMEN DESCRIPTION PERIPHERAL BLOOD DRAW RESULT-CULT NO GROWTH 2 DAYS Report Status PENDING BLOOD CULTURE Specimen: BLOOD, PERIPH Result Value Ref Range SPECIMEN DESCRIPTION PERIPHERAL BLOOD DRAW RESULT-CULT NO GROWTH 2 DAYS Report Status PENDING SCREEN: MRSA ONLY, NARES (ISOLATION SCREEN) Specimen: NARES; E-Swab Result Value Ref Range SCREEN: MRSA NEGATIVE NEGATIVE STAPHYOCOCCUS AUREUS BY PCR NEGATIVE NEGATIVE CBC, EDIF, PLATELET Result Value Ref Range WBC (WHITE BLOOD COUNT) 8.3 3.6 - 11.0 10*3/uL RBC 4.21 4.0 - 6.1 10*6/uL HEMOGLOBIN (HGB) 13.0 (L) 14.0 - 18.0 G/DL HEMATOCRIT (HCT) 38.8 (L) 42.0 - 52.0 % MEAN CELL VOLUME 92.1 80.0 - 100.0 FL Mean Cell HGB 31.0 26.0 - 35.0 PG MEAN CELL HGB CONCENTRATION 33.6 27.0 - 37.0 G/DL RBC DISTRIBUTION 13.6 11.5 - 14.5 % PLATELET COUNT 231 130 - 400 10*3/uL MEAN PLATELET VOLUME 9.3 7.4 - 11.0 FL DIFFERENTIAL TYPE AUTO DIFF % NEUTROPHILS 68.3 37.0 - 75.0 % LYMPHOCYTE 21.5 20.0 - 55.0 % MONOCYTE % 8.3 0.0 - 10.0 % EOSINOPHIL % 1.6 0.0 - 11.0 % BASOPHIL % 0.3 0.0 - 2.0 % Absolute Neutrophil Count 5.6 1.4 - 6.5 10*3/uL LYMPHOCYTES, ABSOLUTE 1.8 1.2 - 3.4 10*3/uL MONOCYTES, ABSOLUTE 0.7 0.0 - 0.7 10*3/uL ABSOLUTE EOSINOPHIL COUNT 0.1 0.0 - 0.7 10*3/uL ABSOLUTE BASOPHIL COUNT 0.0 0.0 - 0.2 10*3/uL CHEM 7 (LYTES,BUN,CREA,GLUC) Result Value Ref Range Glucose 353 (H) 70 - 100 MG/DL BUN 17 7 - 20 MG/DL CREATININE SERUM 0.86 0.70 - 1.20 MG/DL SODIUM 134 (L) 137 - 145 MMOL/L POTASSIUM 4.1 3.5 - 5.1 MMOL/L CHLORIDE 97 (L) 98 - 107 MMOL/L CARBON DIOXIDE (CO2) 28 22 - 30 MMOL/L ESTIMATED GFR, NON AMER 98 ml/min/1.73sq.m ESTIMATED GFR, 118 ml/min/1.73sq.m GFR COMMENT Average GFR for 50-59 years old = 93. TROPONIN I, HIGH SENSITIVITY Result Value Ref Range TROPONIN I, HIGH SENSITIVITY 3 0 - 20 pg/mL LACTATE, BLOOD Result Value Ref Range LACTATE 1.3 0.7 - 2.0 mmol/L C REACTIVE PROTEIN Result Value Ref Range C-Reactive Protein 34.1 (H) 0 - 10 MG/L SEDIMENTATION RATE, AUTOMATED Result Value Ref Range SEDIMENTATION RATE AUTOMATED 26 (H) 0 - 20 MM/HR C REACTIVE PROTEIN Result Value Ref Range C-Reactive Protein 29.4 (H) 0 - 10 MG/L COMPREHENSIVE METABOLIC PANEL Result Value Ref Range Glucose 405 (HH) 70 - 100 MG/DL BUN 14 7 - 20 MG/DL CREATININE SERUM 0.70 0.70 - 1.20 MG/DL SODIUM 133 (L) 137 - 145 MMOL/L POTASSIUM 4.2 3.5 - 5.1 MMOL/L CHLORIDE 99 98 - 107 MMOL/L CALCIUM 8.6 8.4 - 10.2 MG/DL PROTEIN, TOTAL 6.6 6.3 - 8.2 GM/DL Albumin 3.5 3.5 - 5.0 G/dl BILIRUBIN, TOTAL 0.5 0.2 - 1.3 MG/DL AST 17 17 - 59 IU/L ALKALINE PHOSPHATASE 149 (H) 38 - 126 IU/L CARBON DIOXIDE (CO2) 26 22 - 30 MMOL/L A/G Ratio 1.1 RATIO ALT 17 <50 IU/L ESTIMATED GFR, NON AMER 124 ml/min/1.73sq.m ESTIMATED GFR, 150 ml/min/1.73sq.m GFR COMMENT Average GFR for 50-59 years old = 93. HEMOGLOBIN A1C Result Value Ref Range HEMOGLOBIN A1C 10.9 (H) 0 - 6 % Estimated Average Glucose 266 mg/dL TSH W/FT4 REFLEX Result Value Ref Range TSH, Reflex FT4 0.710 0.465 - 4.680 uIU/ML C REACTIVE PROTEIN Result Value Ref Range C-Reactive Protein 27.8 (H) 0 - 10 MG/L CBC, EDIF, PLATELET Result Value Ref Range WBC (WHITE BLOOD COUNT) 6.8 3.6 - 11.0 10*3/uL RBC 3.82 (L) 4.0 - 6.1 10*6/uL HEMOGLOBIN (HGB) 12.1 (L) 14.0 - 18.0 G/DL HEMATOCRIT (HCT) 34.7 (L) 42.0 - 52.0 % MEAN CELL VOLUME 91.0 80.0 - 100.0 FL Mean Cell HGB 31.7 26.0 - 35.0 PG MEAN CELL HGB CONCENTRATION 34.9 27.0 - 37.0 G/DL RBC DISTRIBUTION 13.5 11.5 - 14.5 % PLATELET COUNT 200 130 - 400 10*3/uL MEAN PLATELET VOLUME 9.7 7.4 - 11.0 FL DIFFERENTIAL TYPE AUTO DIFF % NEUTROPHILS 55.9 37.0 - 75.0 % LYMPHOCYTE 31.4 20.0 - 55.0 % MONOCYTE % 8.4 0.0 - 10.0 % EOSINOPHIL % 3.9 0.0 - 11.0 % BASOPHIL % 0.4 0.0 - 2.0 % Absolute Neutrophil Count 3.8 1.4 - 6.5 10*3/uL LYMPHOCYTES, ABSOLUTE 2.1 1.2 - 3.4 10*3/uL MONOCYTES, ABSOLUTE 0.6 0.0 - 0.7 10*3/uL ABSOLUTE EOSINOPHIL COUNT 0.3 0.0 - 0.7 10*3/uL ABSOLUTE BASOPHIL COUNT 0.0 0.0 - 0.2 10*3/uL MAGNESIUM Result Value Ref Range MAGNESIUM 1.7 1.6 - 2.3 MG/DL PHOSPHATE, INORGANIC Result Value Ref Range PHOSPHORUS 4.3 2.5 - 4.5 MG/DL PROTIME-INR Result Value Ref Range PT 14.6 (H) 11.8 - 14.4 SEC INR 1.13 (H) 0.85 - 1.10 COMPREHENSIVE METABOLIC PANEL Result Value Ref Range Glucose 243 (H) 70 - 100 MG/DL BUN 15 7 - 20 MG/DL CREATININE SERUM 0.73 0.70 - 1.20 MG/DL SODIUM 136 (L) 137 - 145 MMOL/L POTASSIUM 3.8 3.5 - 5.1 MMOL/L CHLORIDE 102 98 - 107 MMOL/L CALCIUM 8.9 8.4 - 10.2 MG/DL PROTEIN, TOTAL 6.6 6.3 - 8.2 GM/DL Albumin 3.4 (L) 3.5 - 5.0 G/dl BILIRUBIN, TOTAL 0.4 0.2 - 1.3 MG/DL AST 19 17 - 59 IU/L ALKALINE PHOSPHATASE 140 (H) 38 - 126 IU/L CARBON DIOXIDE (CO2) 28 22 - 30 MMOL/L A/G Ratio 1.1 RATIO ALT 15 <50 IU/L ESTIMATED GFR, NON AMER 118 ml/min/1.73sq.m ESTIMATED GFR, 143 ml/min/1.73sq.m GFR COMMENT Average GFR for 50-59 years old = 93. VANCOMYCIN LEVEL, TROUGH (PRE DRUG LEVEL) Result Value Ref Range VANCOMYCIN, TROUGH 9.9 (L) 15.0 - 20.0 UG/ML LIPID PANEL W CALCULATED LDL Result Value Ref Range CHOLESTEROL 148 120 - 200 MG/DL TRIGLYCERIDE 166 (H) 0 - 150 MG/DL HDL CHOLESTEROL 26 26 - 63 MG/DL LDL CHOLESTEROL, CALCULATED 89 <100 MG/DL VLDL Cholesterol, Calculated 33 (H) 5 - 25 MG/DL TCHOL/HDL RATIO, MANUAL ENTER 5.69 RATIO GLUCOSE (POC DEVICE) Result Value Ref Range GLUCOSE, POINT OF CARE 306 (H) 70 - 100 MG/DL Mass Spectrometry Specialist 207,[phone] GLUCOSE (POC DEVICE) Result Value Ref Range GLUCOSE, POINT OF CARE 358 (H) 70 - 100 MG/DL Mass Spectrometry Specialist 208,[phone] GLUCOSE (POC DEVICE) Result Value Ref Range GLUCOSE, POINT OF CARE 228 (H) 70 - 100 MG/DL Mass Spectrometry Specialist 208,[phone] GLUCOSE (POC DEVICE) Result Value Ref Range GLUCOSE, POINT OF CARE 349 (H) 70 - 100 MG/DL Mass Spectrometry Specialist 208,[phone] GLUCOSE (POC DEVICE) Result Value Ref Range GLUCOSE, POINT OF CARE 386 (H) 70 - 100 MG/DL Mass Spectrometry Specialist 207,[phone] GLUCOSE (POC DEVICE) Result Value Ref Range GLUCOSE, POINT OF CARE 234 (H) 70 - 100 MG/DL Mass Spectrometry Specialist 208,[phone] GLUCOSE (POC DEVICE) Result Value Ref Range GLUCOSE, POINT OF CARE 256 (H) 70 - 100 MG/DL Mass Spectrometry Specialist 208,[phone] GLUCOSE (POC DEVICE) Result Value Ref Range GLUCOSE, POINT OF CARE 296 (H) 70 - 100 MG/DL Mass Spectrometry Specialist [phone] HEENT: NC/AT, PERRLA, EOMI, fundi benign, external ears normal, OP normal. Neck: No LAD/thyromegaly. No JVD/bruit. Lungs: Clear to auscultation bilaterally. No wheezes, rales, ronchi. Heart: RRR. No S3/S4. Abdomen: Soft, NT/ND, normal bowel sounds, no HSM, no bruits. Extremities: No clubbing, cyanosis, edema. Normal pulses. Neurologic: CN II-XII intact. Strength/DTR's/sensation symmetric. Cerebellar function normal. Skin: Redness resolved. Ulcer persistent. Musculoskeletal: No edema, redness, warmth, deformities. Psychiatric: Alert and oriented. Affect and mood normal. Ronald Connell MD 09/20/2023 documented in this [facility]10-24-2023 History of Present illness Narrative* eBlinda Sherman RD - 09/20/2023 11:10 AM EDT NUTRITION ASSESSMENT - DIABETIC NUTRITION EDUCATION Mr. Darshan Dunaway is a 58 y.o. male admitted to [facility] for: 1. Diabetic foot infection Nutrition Assessment Subjective Assessment/comments: Patient seen to offer diabetic nutrition education. Patient stated was educated a while ago. Does monitor blood sugar daily and is >200 mg/dl. Was recently placed on Jardiance and takes Tresiba. A1C 10/3%. Recall: Breakfast 9-10am: 1 egg, 1 toast, milk, hash brown Lunch: 12-1can Ravioli or sandwich, water Dinner: nothing or sandwich/TV dinner RD reviewed the followin. Foods that are carbohydrates 2. Carbohydrate counting: a. 15 grams CHO = 1 carbohydrate choice b. Food lists - portion sizes for what constitutes as 15 grams CHO 3. Label reading tips 4. Meal planning tips 5. Importance of including breakfast and HS snack 6. Consuming carbohydrates consistently throughout the day 7. Not avoiding food groups or foods (such as fruits or potatoes) and how to include these into diet Provided patient with the following handouts: 1. Carbohydrate Counting for Diabetes (NCM) Anthropometrics: Ht Readings from Last 1 Encounters: 09/19/23 1.88 m (6' 2 ) Wt Readings from Last 10 Encounters: 09/20/23 106.6 kg (235 lb 1.6 oz) [place] body weight: 82.2 kg (181 lb 3.5 oz) Adjusted ideal body weight: 92 kg (202 lb 12.3 oz) Body mass index is 30.19 kg/m . Nutrition Intake Evaluation Current Diet Orders Procedures DIET HEART [employer] - 4 GM SODIUM Carb Controlled Standing Status: Standing Number of Occurrences: 1 Order Specific Question: Additional Modifier: Answer: Carb Controlled No Known Allergies Labs: Lab Results Component Value Date GLUCOSE 243 (H) 09/20/2023 GLUCOSE 386 (H) 09/19/2023 GLUCOSE 405 (HH) 09/19/2023 HGBA1C 10.9 (H) 09/20/2023 SODIUM 136 (L) 09/20/2023 POTASSIUM 3.8 09/20/2023 MAGNESIUM 1.7 09/20/2023 PHOSPHORUS 4.3 09/20/2023 CALCIUM 8.9 09/20/2023 ALBUMIN 3.4 (L) 09/20/2023 TP 6.6 09/20/2023 BUN 15 09/20/2023 CREATSERUM 0.73 09/20/2023 AST 19 09/20/2023 ALT 15 09/20/2023 CRP 27.8 (H) 09/20/2023 HGB 12.1 (L) 09/20/2023 HCT 34.7 (L) 09/20/2023 WBC 6.8 09/20/2023 RBC 3.82 (L) 09/20/2023 PMH & PSH: Past Medical History: Diagnosis Date Diabetes mellitus Essential hypertension, benign NC (myocardial infarction) Past Surgical History: Procedure Laterality Date APPENDECTOMY FOOT SURGERY Left Nutrition Diagnosis NC-2.2 Altered nutrition related lab values related to diabetes as evidenced by A1C 10.3% NC-3.3 Overweight/obesity related to excess calorie intake as evidenced by Body mass index is 30.19kg/m . NB-1.1 Food and nutrition related knowledge deficit related to diabetic diet as evidenced by not carb counting, skipping meals Interventions Order Heart Healthy CC Encourage PO intake as tolerated & medically able Daily weights @ 4 AM by nursing I/O documentation of all PO intake: all fluids, meals/snacks, and ONS if ordered Education provided as explained above Provided patient with handouts as described above RD contact information provided and outpatient appointment encouraged Monitoring and Evaluation 1. Monitor patient weight, labs, and PO intake 2. Patient to call nutrition clinic and schedule outpatient appointment if desired. Pt verbalized understanding. Contact information provided BRIDGETT Peter Registered Dietitian, Licensed Dietitian 09/20/23 * Alix Blanco RPh,PharmD - 09/20/2023 7:03 AM EDT Pharmacy to Dose - Vancomycin Progress Note PATIENT: Darshan Dunaway Room/Bed: [facility] Indication: Diabetic Foot Infection Trough Goal: 15-20 g/mL Current Dose: 1000 mg IV every 8 hours Most Recent Labs: VANCOMYCIN, TROUGH Date Value Ref Range Status 09/20/2023 9.9 (L) 15.0 - 20.0 UG/ML Final CREATININE SERUM Date Value Ref Range Status 09/20/2023 0.73 0.70 - 1.20 MG/DL Final 09/19/2023 0.70 0.70 - 1.20 MG/DL Final 09/18/2023 0.86 0.70 - 1.20 MG/DL Final BUN Date Value Ref Range Status 09/20/2023 15 7 - 20 MG/DL Final 09/19/2023 14 7 - 20 MG/DL Final 09/18/2023 17 7 - 20 MG/DL Final Patient's CrCl is estimated to be over 120 mL/min Assessment and Plan: Based upon review of laboratory results and available patient information, I will take the following action(s): I have changed the Vancomycin dose and/or dosing interval to 1500 mg IV every 8 hr to start at 0800on 09/20/23. A Pharmacist will continue to follow and order drug levels and adjust dosing as clinically appropriate. If necessary, I have modified the orders in IS to reflect the above plan. Please feel free to contact me with any further questions. Alix Blanco RPh,PharmC[place], [facility] Phone: [phone] Date/Time: 09/20/2023 7:03 AM * Neha Presley RN - 09/19/2023 4:50 PM EDT Physical assessment unchanged since previous assessment from this RN with exceptions noted in flowsheets. Patient denies discomfort/pain. Patient is in bed with call light in reach and wheels locked.Safety is maintained. * Neha Presley RN - 09/19/2023 11:28 AM EDT Physical assessment unchanged since previous assessment from this RN with exceptions noted in flowsheets. Patient denies discomfort/pain. Patient is in bed with call light in reach and wheels locked.Safety is maintained. * GOMEZ Jay - 09/19/2023 10:54 AM EDT Chart reviewed. GOMEZ met with Darshan. He stated he lives with his girlfriend in a single story home.He denies HME other than a cane. He has one toe amputation and denies home care or PT in the home in the past. Denies financial issues with prescriptions, medical care, or home utilities. Upon admission he was ambulating in the home on his own, assistance with meals and transportation from his girlfriend. Feels safe at home and prefers to return home. Gretel DYER 09/19/23 1052 Referral Information Arrived From home or self-care Readmission Information Was patient readmitted within 30 Days? 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 Independent Are There Status Changes This Admission? No Changes Observed Since Admission? No Changes Observed Concerns With Patient Being Able To Care For Themselves At Discharge? No Can Support Person Meet The Care Needs Of The Patient? Yes Employment/Financial Employed? Disabled Employment/Financial Concerns no Source Of Income disability Financial Concerns none Insurance Medical Insurance Verified Yes Prescription Coverage Yes Pharmacy updated in IHIS Yes Initial Discharge Planning Home Care Services (WASHHOUSE HAND) No Home Therapies (WASHHOUSE HAND) None DME (WASHHOUSE HAND) Straight cane Medical Supplies (WASHHOUSE HAND) None Patient Goal for Discharge Return home with assistance from family and friends Anticipated discharge disposition Home Anticipated Services at Discharge Physical Therapy Anticipated Changes Related to Illness none Home Care Services ([employer]ASHHOUSE HAND) Additional Home Care Services (WASHHOUSE HAND) no Assessment/Concerns to be Addressed Concerns To Be Addressed denies needs/concerns at this time * Wilton Hurt - 09/19/2023 12:34 AM EDT Pharmacy to Dose - Vancomycin Progress Note PATIENT: Darshan Dunaway Room/Bed: [facility] Indication: Diabetic Foot ulcer Trough Goal: 15-20 g/mL Initial Dose: 1000 mg IV every 8 hours Next Level: 09/20/23 @ 0000 Most Recent Labs: CREATININE SERUM Date Value Ref Range Status 09/18/2023 0.86 0.70 - 1.20 MG/DL Final BUN Date Value Ref Range Status 09/18/2023 17 7 - 20 MG/DL Final Estimated Creatinine Clearance: 124 mL/min (by C-G formula based on SCr of 0.86 mg/dL). Assessment and Plan: Based upon review of laboratory results and available patient information, I will initiate vancomycin at the above dose and frequency. A Pharmacist will continue to follow and order drug levels and adjust dosing as clinically appropriate. If necessary, I have modified the orders in IHIS to reflect the above plan. Please feel free to contact me with any further questions. Wilton Hurt RPh Phone: [phone] Date/Time: 09/19/2023 12:34 AM documented in this [facility]10-24-2023 Plan of care note* Plan of Care - Christina Marroquin RN - 09/20/2023 8:06 AM EDT POC reviewed and continued Problem: Patient Care Overview Goal: Plan of Care Review Outcome: Ongoing Goal: Individualization & Mutuality Outcome: Ongoing Goal: Discharge Needs Assessment Outcome: Ongoing Goal: Interdisciplinary Rounds/Family Conf Outcome: Ongoing Problem: Skin Integrity Impairment, Risk/Actual (Adult) Goal: Identify Related Risk Factors and Signs and Symptoms Description: Related risk factors and signs and symptoms are identified upon initiation of Human Response Clinical Practice Guideline (CPG) Outcome: Ongoing Goal: Skin Integrity/Wound Healing Description: Patient will demonstrate the desired outcomes by discharge/transition of care. Outcome: Ongoing Problem: Infection, Risk/Actual (Adult) Goal: Identify Related Risk Factors and Signs and Symptoms Description: Related risk factors and signs and symptoms are identified upon initiation of Human Response Clinical Practice Guideline (CPG) Outcome: Ongoing Goal: Infection Prevention/Resolution Description: Patient will demonstrate the desired outcomes by discharge/transition of care. Outcome: Ongoing Problem: Diabetes, Type 2 (Adult) Goal: Signs and Symptoms of Listed Potential Problems Will be Absent, Minimized or Managed (Diabetes, Type 2) Description: Signs and symptoms of listed potential problems will be absent, minimized or managed by discharge/transition of care (reference Diabetes, Type 2 (Adult) CPG). Outcome: Ongoing [facility]10-23-2023 Consult note* Bobby Joel DPM - 09/19/2023 7:33 PM EDT CONSULT NOTE Patient Name: Darshan Dunaway Admit Date: [id number] MR #: [id number] : 1965 PRIMARY CARE PHYSICIAN: Kate Mayers REFERRING PHYSICIAN: Hospitalist Chief Complaint/Reason for Visit: Cellulitis and ulcer left foot History of Present Illness: Darshan Dunaway is a 58 y.o. y/o male who was admitted for IV antibiotics for a left foot ulcer and cellulitis. He notes that this just started a few days ago. He has a history of left foot ulcer with previous partial left foot amputation. He is an uncontrolled diabetic. History: Past Medical History: Diagnosis Date Diabetes mellitus Essential hypertension, benign NC (myocardial infarction) Past Surgical History: Procedure Laterality Date APPENDECTOMY FOOT SURGERY Left History reviewed. No pertinent family history. Social History Socioeconomic History Marital status: Spouse name: Not on file Number of children: Not on file Years of education: Not on file Highest education level: Not on file Occupational History Not on file Tobacco Use Smoking status: Never Smokeless tobacco: Never Substance and Sexual Activity Alcohol use: Not on file Drug use: Not on file Sexual activity: Not on file Other Topics Concern Not on file Social History Narrative Not on file Social Determinants of Health Financial Resource Strain: Not on file Food Insecurity: Not on file Transportation Needs: Not on file Physical Activity: Not on file Stress: Not on file Social Connections: Not on file Intimate Partner Violence: Not on file Housing Stability: Not on file Allergy Information: No Known Allergies Home Medications: Current Outpatient Medications Medication Sig Last Dose Start Date End Date Authorizing Provider aspirin 81 MG Chew Tab chewable tablet 81 mg, Oral, DAILY, This AM 09/18/2023 Historical Provider busPIRone 10 MG tablet 10 mg, Oral, 3 TIMES DAILY, Last dose AM 09/18/2023 Historical Provider gabapentin 600 MG tablet 600 mg, Oral, 3 TIMES DAILY 09/18/2023 Historical Provider clindamycin 300 MG capsule 300 mg, Oral, 4 TIMES DAILY, For diabetic ulceration, started 09/17/2023Historical Provider Tests: XRAYS MRI FOOT LEFT WITHOUT CONTRAST Final Result IMPRESSION: 1. There appears to be a superficial soft tissue ulcer along the plantar and medial aspect of the first toe, but there is no MRI evidence of a soft tissue abscess or osteomyelitis. 2. There are degenerative changes of the foot as described above. 3. There is moderate to severe atrophy and diffuse edema-like signal of the musculature of the foot which is most compatible with the sequela of a long-standing peripheral neuropathy. 4. 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 XR FOOT LEFT 3 VIEWS Final Result MRI FOOT LEFT WITHOUT CONTRAST Result Date: 09/19/2023 HISTORY: The patient reportedly has a history of diabetes and has an ulcer of the left great toe. Evaluate for possible osteomyelitis. MRI FOOT LEFT WITHOUT CONTRAST: 09/19/2023 11:42 AM EDT COMPARISON: Radiographs left foot 09/18/2023. TECHNIQUE: Multiplanar, multisequence MRI images of the left midfoot/forefoot were obtained without contrast. FINDINGS: The Lisfranc ligament complex appears intact. The bone marrow signal intensity appears age appropriate. There is moderate to severe atrophy and diffuse edema-like signal of the musculature of the foot which is most compatible with the sequelaof a long-standing peripheral neuropathy. There are postsurgical changes again seen from prior partial amputation of the fifth ray at the level of the base of the fifth metatarsal. A hallux valgus deformity is again seen with a bunion complex along the medial aspect of the first metatarsal head. There again appear to be mild degenerative changes of the first MTP joint and moderate to severe degenerative changes of the first metatarsal-sesamoid joints. There are moderate to severe degenerative changes of the first and third tarsometatarsal joints and severe degenerative changes of the second tarsometatarsal joint. There is subchondral cystic change and bone marrow edema adjacent to the second tarsometatarsal joint. There are severe degenerative changes involving the dorsal aspect of the articulation of the navicular with the cuneiform bones at the edge of the [id number]. There appearsto be a superficial soft tissue ulcer along the plantar and medial aspect of the first toe extending from the level of the interphalangeal joint to the level of the MTP joint. There is a small amountof edema-like stranding of the underlying subcutaneous fat. No focal fluid signal intensity collection is seen. There is a moderate amount of subcutaneous edema along the dorsum of the foot. No significant tendinopathy or tenosynovitis is seen. IMPRESSION: 1. There appears to be a superficial soft tissue ulcer along the plantar and medial aspect of the first toe, but there is no MRI evidence of a soft tissue abscess or osteomyelitis. 2. There are degenerative changes of the foot as described above. 3. There is moderate to severe atrophy and diffuse edema-like signal of the musculature of the foot which is most compatible with the sequela of a long-standing peripheral neuropathy. 4. 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 XR FOOT LEFT 3 VIEWS Result Date: 09/18/2023 EXAM: XR FOOT LEFT 3 VIEWS HISTORY: Diabetic foot ulcers. COMPARISON: None. 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 On this study there is no acute fracture, dislocation, subluxation or osseous lesion.Mild to moderate degenerative changes of the midfoot articulations. The remainder of the joint spaces are unremarkable. Mild dorsal soft tissue edema. No periosteal reaction. LABS Lab Results Component Value Date WBC 8.3 09/18/2023 HGB 13.0 (L) 09/18/2023 HCT 38.8 (L) 09/18/2023 PLATELET 231 09/18/2023 MCV 92.1 09/18/2023 No results found for: INR No results found for: MAGNESIUM Lab Results Component Value Date CREATSERUM 0.70 09/19/2023 BUN 14 09/19/2023 SODIUM 133 (L) 09/19/2023 POTASSIUM 4.2 09/19/2023 CHLORIDE 99 09/19/2023 CO2 26 09/19/2023 No results found for: SPGRVTYUR , SPECGRAVUR , GLUCOSEURINE , BILIRUBINURI , KETONESURINE , BLOODURINE , PHURINE , NITRITEURINE , NITRITESURIN , LEUKOCESTUR , WBCURINE , RBCURINE , BACTERIAURIN MICRO No results found for: RESULTCULT Review of Systems: The following system(s) were reviewed and are negative unless otherwise noted in the HPI: CV, Resp, GI, Neuro, Skin, Musc, Allergy, Psych. Physical Examination: Vital Signs: BP 155/74 (BP Location: Left arm, BP Position: Lying) Pulse 96 Temp 98.4 F (36.9 C) (Temporal) Resp 22 Ht 1.88 m (6' 2 ) Wt 107.2 kg (236 lb 4.8 oz) SpO2 94% BMI 30.34 kg/m Smoking Status Never Physical Exam: Alert and oriented X 3 Vascular: Dorsalis pedis and posterior tibial pulses are palpable bilateral. Dermatological: Resolving erythema left 1st MPJ area Ulceration #1: Ulceration location Left great toe 1st mpj area . Type: neuropathic-Diabetic Wound dimensions: 09/19/23 4 cm long by 2.5 cm wide by 0.1 cm deep Wound dimensions after debridement: 09/19/23 No debridement today Base: Ulceration extends Partially through skin. Granular tissue 100%. Fibrous/scar tissue 0%. Necrotic tissue 0%. Drainage:No . drainage observed. Surrounding Area: negative odor, Positive swelling and localized erythema Sauer Staging: Grade 1 - superficial ulcer of skin without subcutaneous tissue involvement, not infected Neurological: sharp dull sensations absent Musculoskeletal: no gross deformities. 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 Diabetic foot infection E11.628 L08.9 Treatment: Patient was seen and evaluated today and a history and physical exam was completed. The diagnosis and the etiology was explained to the patient in detail. ED and hospitialist notes reviewed Xray and MRI reviewed. No OM The treatment plan will be as follows: Daily dressing changes with xerofrom, 4x4s and kerlix. From looking at pictures in the chart the cellulitis is almost resolved. He is at risk of bone infection and amputation He needs to keep the wound dry and covered at all times. He needs to get his diabetes under control to help this heal. He can be discharged on PO antibiotics and follow up with me in the [facility] clinic in 1 week Bobby Joel DPM [facility] Work Phone: [phone] 548-839210-23-2023 Consult note* Bobby Joel DPM - 09/19/2023 7:33 PM EDT CONSULT NOTE Patient Name: Darshan Dunaway Admit Date: 10211231 MR #: [id number] : 1965 PRIMARY CARE PHYSICIAN: Kate Mayers REFERRING PHYSICIAN: Hospitalist Chief Complaint/Reason for Visit: Cellulitis and ulcer left foot History of Present Illness: Darshan Dunaway is a 58 y.o. y/o male who was admitted for IV antibiotics for a left foot ulcer and cellulitis. He notes that this just started a few days ago. He has a history of left foot ulcer with previous partial left foot amputation. He is an uncontrolled diabetic. History: Past Medical History: Diagnosis Date Diabetes mellitus Essential hypertension, benign NC (myocardial infarction) Past Surgical History: Procedure Laterality Date APPENDECTOMY FOOT SURGERY Left History reviewed. No pertinent family history. Social History Socioeconomic History Marital status: Spouse name: Not on file Number of children: Not on file Years of education: Not on file Highest education level: Not on file Occupational History Not on file Tobacco Use Smoking status: Never Smokeless tobacco: Never Substance and Sexual Activity Alcohol use: Not on file Drug use: Not on file Sexual activity: Not on file Other Topics Concern Not on file Social History Narrative Not on file Social Determinants of Health Financial Resource Strain: Not on file Food Insecurity: Not on file Transportation Needs: Not on file Physical Activity: Not on file Stress: Not on file Social Connections: Not on file Intimate Partner Violence: Not on file Housing Stability: Not on file Allergy Information: No Known Allergies Home Medications: Current Outpatient Medications Medication Sig Last Dose Start Date End Date Authorizing Provider aspirin 81 MG Chew Tab chewable tablet 81 mg, Oral, DAILY, This AM 09/18/2023 Historical Provider busPIRone 10 MG tablet 10 mg, Oral, 3 TIMES DAILY, Last dose AM 09/18/2023 Historical Provider gabapentin 600 MG tablet 600 mg, Oral, 3 TIMES DAILY 09/18/2023 Historical Provider clindamycin 300 MG capsule 300 mg, Oral, 4 TIMES DAILY, For diabetic ulceration, started 09/17/2023Historical Provider Tests: XRAYS MRI FOOT LEFT WITHOUT CONTRAST Final Result IMPRESSION: 1. There appears to be a superficial soft tissue ulcer along the plantar and medial aspect of the first toe, but there is no MRI evidence of a soft tissue abscess or osteomyelitis. 2. There are degenerative changes of the foot as described above. 3. There is moderate to severe atrophy and diffuse edema-like signal of the musculature of the foot which is most compatible with the sequela of a long-standing peripheral neuropathy. 4. 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 XR FOOT LEFT 3 VIEWS Final Result MRI FOOT LEFT WITHOUT CONTRAST Result Date: 09/19/2023 HISTORY: The patient reportedly has a history of diabetes and has an ulcer of the left great toe. Evaluate for possible osteomyelitis. MRI FOOT LEFT WITHOUT CONTRAST: 09/19/2023 11:42 AM EDT COMPARISON: Radiographs left foot 09/18/2023. TECHNIQUE: Multiplanar, multisequence MRI images of the left midfoot/forefoot were obtained without contrast. FINDINGS: The Lisfranc ligament complex appears intact. The bone marrow signal intensity appears age appropriate. There is moderate to severe atrophy and diffuse edema-like signal of the musculature of the foot which is most compatible with the sequelaof a long-standing peripheral neuropathy. There are postsurgical changes again seen from prior partial amputation of the fifth ray at the level of the base of the fifth metatarsal. A hallux valgus deformity is again seen with a bunion complex along the medial aspect of the first metatarsal head. There again appear to be mild degenerative changes of the first MTP joint and moderate to severe degenerative changes of the first metatarsal-sesamoid joints. There are moderate to severe degenerative changes of the first and third tarsometatarsal joints and severe degenerative changes of the second tarsometatarsal joint. There is subchondral cystic change and bone marrow edema adjacent to the second tarsometatarsal joint. There are severe degenerative changes involving the dorsal aspect of the articulation of the navicular with the cuneiform bones at the edge of the [id number]-liff. There appearsto be a superficial soft tissue ulcer along the plantar and medial aspect of the first toe extending from the level of the interphalangeal joint to the level of the MTP joint. There is a small amountof edema-like stranding of the underlying subcutaneous fat. No focal fluid signal intensity collection is seen. There is a moderate amount of subcutaneous edema along the dorsum of the foot. No significant tendinopathy or tenosynovitis is seen. IMPRESSION: 1. There appears to be a superficial soft tissue ulcer along the plantar and medial aspect of the first toe, but there is no MRI evidence of a soft tissue abscess or osteomyelitis. 2. There are degenerative changes of the foot as described above. 3. There is moderate to severe atrophy and diffuse edema-like signal of the musculature of the foot which is most compatible with the sequela of a long-standing peripheral neuropathy. 4. 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 XR FOOT LEFT 3 VIEWS Result Date: 09/18/2023 EXAM: XR FOOT LEFT 3 VIEWS HISTORY: Diabetic foot ulcers. COMPARISON: None. 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 On this study there is no acute fracture, dislocation, subluxation or osseous lesion.Mild to moderate degenerative changes of the midfoot articulations. The remainder of the joint spaces are unremarkable. Mild dorsal soft tissue edema. No periosteal reaction. LABS Lab Results Component Value Date WBC 8.3 09/18/2023 HGB 13.0 (L) 09/18/2023 HCT 38.8 (L) 09/18/2023 PLATELET 231 09/18/2023 MCV 92.1 09/18/2023 No results found for: INR No results found for: MAGNESIUM Lab Results Component Value Date CREATSERUM 0.70 09/19/2023 BUN 14 09/19/2023 SODIUM 133 (L) 09/19/2023 POTASSIUM 4.2 09/19/2023 CHLORIDE 99 09/19/2023 CO2 26 09/19/2023 No results found for: SPGRVTYUR , SPECGRAVUR , GLUCOSEURINE , BILIRUBINURI , KETONESURINE , BLOODURINE , PHURINE , NITRITEURINE , NITRITESURIN , LEUKOCESTUR , WBCURINE , RBCURINE , BACTERIAURIN MICRO No results found for: RESULTCULT Review of Systems: The following system(s) were reviewed and are negative unless otherwise noted in the HPI: CV, Resp, GI, Neuro, Skin, Musc, Allergy, Psych. Physical Examination: Vital Signs: BP 155/74 (BP Location: Left arm, BP Position: Lying) Pulse 96 Temp 98.4 F (36.9 C) (Temporal) Resp 22 Ht 1.88 m (6' 2 ) Wt 107.2 kg (236 lb 4.8 oz) SpO2 94% BMI 30.34 kg/m Smoking Status Never Physical Exam: Alert and oriented X 3 Vascular: Dorsalis pedis and posterior tibial pulses are palpable bilateral. Dermatological: Resolving erythema left 1st MPJ area Ulceration #1: Ulceration location Left great toe 1st mpj area . Type: neuropathic-Diabetic Wound dimensions: 09/19/23 4 cm long by 2.5 cm wide by 0.1 cm deep Wound dimensions after debridement: 09/19/23 No debridement today Base: Ulceration extends Partially through skin. Granular tissue 100%. Fibrous/scar tissue 0%. Necrotic tissue 0%. Drainage:No . drainage observed. Surrounding Area: negative odor, Positive swelling and localized erythema Sauer Staging: Grade 1 - superficial ulcer of skin without subcutaneous tissue involvement, not infected Neurological: sharp dull sensations absent Musculoskeletal: no gross deformities. 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 Diabetic foot infection E11.628 L08.9 Treatment: Patient was seen and evaluated today and a history and physical exam was completed. The diagnosis and the etiology was explained to the patient in detail. ED and hospitialist notes reviewed Xray and MRI reviewed. No OM The treatment plan will be as follows: Daily dressing changes with xerofrom, 4x4s and kerlix. From looking at pictures in the chart the cellulitis is almost resolved. He is at risk of bone infection and amputation He needs to keep the wound dry and covered at all times. He needs to get his diabetes under control to help this heal. He can be discharged on PO antibiotics and follow up with me in the [facility] in 1 week Bobby Joel DPM documented in this [facility]10-23-2023 History and physical note* Tuan Baker, MECHANICAL ENGINEERING SPECIALIST-SILK SNAPPER - 09/19/2023 11:45 AM EDT Images from the original note were not included. History and Physical Examination Admit date: 09/18/2023 8:49 PM Chief Complaint: Chief Complaint Patient presents with Skin Ulcer Pt arrives with an ulcer on left medial large toe and left lateral heel. Pt states ulcer on foot for a couple days. History of Present Illness: Patient is a 58 y.o. male who presented to the hospital for evaluation of diabetic foot ulcers. Patient reports to be a diabetic. Patient noted to have several areas of ulceration on the left foot. he has had 5th amputated. Ulcerations first noticed a couple days ago. Patient was seen the previous day for that of the same and prescribed clindamycin 300 mg 4 times daily. Patient reports no associated pain. No fevers or chills. Patient apparently walks to work. He uses a cane. He works at [employer] and is no his feet all day. He appears to have uncontrolled DM. On arrival xray was without acute fracture, dislocation, subluxation or osseous lesion Objective: Past Medical History: Diagnosis Date Diabetes mellitus Essential hypertension, benign NC (myocardial infarction) Past Surgical History: Procedure Laterality Date APPENDECTOMY FOOT SURGERY Left Social History Tobacco Use Smoking status: Never Smokeless tobacco: Never Substance Use Topics Alcohol use: Not on file History reviewed. No pertinent family history. Medications Prior to Admission Medication Sig Dispense Refill Last Dose aspirin 81 MG Chew Tab chewable tablet Chew 1 tablet daily. This AM 09/18/2023 busPIRone 10 MG tablet Take 1 tablet by mouth 3 times daily. Last dose AM 09/18/2023 gabapentin 600 MG tablet Take 1 tablet by mouth 3 times daily. 09/18/2023 clindamycin 300 MG capsule Take 1 capsule by mouth 4 times daily. For diabetic ulceration, started 09/17/2023 No Known Allergies Review of Systems: Ten systems reviewed and found to be negative unless otherwise stated in the history and present illness. PHYSICAL EXAM: Patient Vitals for the past 8 hrs: BP Temp Temp src Pulse Resp SpO2 Weight 09/19/23 0700 138/76 97.8 F (36.6 C) Temporal 76 21 96 % -- 09/19/23 0438 135/64 97.8 F (36.6 C) Temporal 85 21 97 % 107.2 kg (236 lb 4.8 oz) General: Patient Awake. No acute distress. HEENT: Normalcephalic, atraumatic. Pupils equal, round, reactive, to light and accomodation B/L. Bilateral nares patent without obvious drainage. Oral mucosa moist, pink, intact without ulcers or lesions. Neck: No JVD, no thyromegaly, no anterior or posterior lymphadenopathy. Cardiovascular: Regular rate and rhythm, without murmurs, rubs, or gallops. Respiratory: Bilateral Upper and Lower Lobes anterior and posteriorly without wheezes, rales, or rhonchi Abdomen: Soft, rounded, non-tender. Bowel sounds present x4 quadrants. No rebound. No organomegaly or masses noted upon deep palpation. Extremities: trace lle edema, Left 5th toe amputated . No clubbing or cyanosis, pulses palpable 2+ distally. Skin: Warm, Dry, Left foot. Also whitish discoloration noted lateral arch. Un stageable. Neuro: Patient awake, alert, orientedx3. Cranial nerves 2-12 grossly intact upon seated examination. No focal deficit noted. Diagnostics: Admission on 09/18/2023 Component Date Value WBC (WHITE BLOOD COUNT) 09/18/2023 8.3 RBC 09/18/2023 4.21 HEMOGLOBIN (HGB) 09/18/2023 13.0 (L) HEMATOCRIT (HCT) 09/18/2023 38.8 (L) MEAN CELL VOLUME 09/18/2023 92.1 Mean Cell HGB 09/18/2023 31.0 MEAN CELL HGB CONCENTRAT* 09/18/2023 33.6 RBC DISTRIBUTION 09/18/2023 13.6 PLATELET COUNT 09/18/2023 231 MEAN PLATELET VOLUME 09/18/2023 9.3 DIFFERENTIAL TYPE 09/18/2023 AUTO DIFF NEUTROPHILS 09/18/2023 68.3 LYMPHOCYTE 09/18/2023 21.5 MONOCYTE % 09/18/2023 8.3 EOSINOPHIL % 09/18/2023 1.6 BASOPHIL % 09/18/2023 0.3 Absolute Neutrophil Count 09/18/2023 5.6 LYMPHOCYTES, ABSOLUTE 09/18/2023 1.8 MONOCYTES, ABSOLUTE 09/18/2023 0.7 ABSOLUTE EOSINOPHIL COUNT 09/18/2023 0.1 ABSOLUTE BASOPHIL COUNT 09/18/2023 0.0 Glucose 09/18/2023 353 (H) BUN 09/18/2023 17 CREATININE SERUM 09/18/2023 0.86 SODIUM 09/18/2023 134 (L) POTASSIUM 09/18/2023 4.1 CHLORIDE 09/18/2023 97 (L) CARBON DIOXIDE (CO2) 09/18/2023 28 ESTIMATED GFR, NON AFRIC* 09/18/2023 98 ESTIMATED GFR, A* 09/18/2023 118 GFR COMMENT 09/18/2023 Average GFR for 50-59 years old = 93. TROPONIN I, HIGH SENSITI* 09/18/2023 3 LACTATE 09/18/2023 1.3 C-Reactive Protein 09/18/2023 34.1 (H) SEDIMENTATION RATE AUTOM* 09/18/2023 26 (H) SCREEN: MRSA 09/18/2023 NEGATIVE STAPHYOCOCCUS AUREUS BY * 09/18/2023 NEGATIVE GLUCOSE, POINT OF CARE 09/19/2023 306 (H) Mass Spectrometry Specialist 09/19/2023 207,814 C-Reactive Protein 09/19/2023 29.4 (H) Impression and Plan: Principal Problem: Diabetic foot infection- mri foot. podiatry cs. Iv atb. Prn analgesia. Active Problems: Cellulitis of toe of left foot- follow cx. Type 2 diabetes mellitus with hyperglycemia, without long-term current use of insulin: Sliding scale insulin with accu-checks AC&HS, Resume home medications at discharge, Diabetic diet Add levemir. Check ha1c Diabetic neuropathy associated with type 2 diabetes mellitus Normocytic anemia- follow cbc Class 1 obesity due to excess calories with body mass index (BMI) of 30.0 to 30.9 in adult: Diet and lifestyle modification recommended. Code Status Full Code I personally spent 24 minutes in the management of this patient, the details of my visit are listedin my documentation above. Plan of care was initiated in collaboration with attending physician. Please note Portions of this note utilized [employer] dictation software, please excuse any typographical or grammatical errors Associated attestation - Ronald Connell MD - 09/19/2023 8:34 PM EDT Patient seen and examined. All testing reviewed. Discussed with SILK SNAPPER and agree with A/P. Ulcer to foot. No fever or chills. No better with oral ATB from another ED. ED eval x-ray no signs of osteo. Mildly elevated inflammatory markers. Labs OTW normal. IV ATB's and podiatry c/s. 55 minutes over half by me. Objective: Blood pressure 173/85, pulse 75, temperature 98.1 F (36.7 C), temperature source Temporal, resp. rate 20, height 1.88 m (6' 2 ), weight 107.2 kg (236 lb 4.8 oz), SpO2 95 %. Results for orders placed or performed during the hospital encounter of 09/18/23 SCREEN: MRSA ONLY, NARES (ISOLATION SCREEN) Specimen: NARES; E-Swab Result Value Ref Range SCREEN: MRSA NEGATIVE NEGATIVE STAPHYOCOCCUS AUREUS BY PCR NEGATIVE NEGATIVE CBC, EDIF, PLATELET Result Value Ref Range WBC (WHITE BLOOD COUNT) 8.3 3.6 - 11.0 10*3/uL RBC 4.21 4.0 - 6.1 10*6/uL HEMOGLOBIN (HGB) 13.0 (L) 14.0 - 18.0 G/DL HEMATOCRIT (HCT) 38.8 (L) 42.0 - 52.0 % MEAN CELL VOLUME 92.1 80.0 - 100.0 FL Mean Cell HGB 31.0 26.0 - 35.0 PG MEAN CELL HGB CONCENTRATION 33.6 27.0 - 37.0 G/DL RBC DISTRIBUTION 13.6 11.5 - 14.5 % PLATELET COUNT 231 130 - 400 10*3/uL MEAN PLATELET VOLUME 9.3 7.4 - 11.0 FL DIFFERENTIAL TYPE AUTO DIFF % NEUTROPHILS 68.3 37.0 - 75.0 % LYMPHOCYTE 21.5 20.0 - 55.0 % MONOCYTE % 8.3 0.0 - 10.0 % EOSINOPHIL % 1.6 0.0 - 11.0 % BASOPHIL % 0.3 0.0 - 2.0 % Absolute Neutrophil Count 5.6 1.4 - 6.5 10*3/uL LYMPHOCYTES, ABSOLUTE 1.8 1.2 - 3.4 10*3/uL MONOCYTES, ABSOLUTE 0.7 0.0 - 0.7 10*3/uL ABSOLUTE EOSINOPHIL COUNT 0.1 0.0 - 0.7 10*3/uL ABSOLUTE BASOPHIL COUNT 0.0 0.0 - 0.2 10*3/uL CHEM 7 (LYTES,BUN,CREA,GLUC) Result Value Ref Range Glucose 353 (H) 70 - 100 MG/DL BUN 17 7 - 20 MG/DL CREATININE SERUM 0.86 0.70 - 1.20 MG/DL SODIUM 134 (L) 137 - 145 MMOL/L POTASSIUM 4.1 3.5 - 5.1 MMOL/L CHLORIDE 97 (L) 98 - 107 MMOL/L CARBON DIOXIDE (CO2) 28 22 - 30 MMOL/L ESTIMATED GFR, NON AMER 98 ml/min/1.73sq.m ESTIMATED GFR, 118 ml/min/1.73sq.m GFR COMMENT Average GFR for 50-59 years old = 93. TROPONIN I, HIGH SENSITIVITY Result Value Ref Range TROPONIN I, HIGH SENSITIVITY 3 0 - 20 pg/mL LACTATE, BLOOD Result Value Ref Range LACTATE 1.3 0.7 - 2.0 mmol/L C REACTIVE PROTEIN Result Value Ref Range C-Reactive Protein 34.1 (H) 0 - 10 MG/L SEDIMENTATION RATE, AUTOMATED Result Value Ref Range SEDIMENTATION RATE AUTOMATED 26 (H) 0 - 20 MM/HR C REACTIVE PROTEIN Result Value Ref Range C-Reactive Protein 29.4 (H) 0 - 10 MG/L COMPREHENSIVE METABOLIC PANEL Result Value Ref Range Glucose 405 (HH) 70 - 100 MG/DL BUN 14 7 - 20 MG/DL CREATININE SERUM 0.70 0.70 - 1.20 MG/DL SODIUM 133 (L) 137 - 145 MMOL/L POTASSIUM 4.2 3.5 - 5.1 MMOL/L CHLORIDE 99 98 - 107 MMOL/L CALCIUM 8.6 8.4 - 10.2 MG/DL PROTEIN, TOTAL 6.6 6.3 - 8.2 GM/DL Albumin 3.5 3.5 - 5.0 G/dl BILIRUBIN, TOTAL 0.5 0.2 - 1.3 MG/DL AST 17 17 - 59 IU/L ALKALINE PHOSPHATASE 149 (H) 38 - 126 IU/L CARBON DIOXIDE (CO2) 26 22 - 30 MMOL/L A/G Ratio 1.1 RATIO ALT 17 <50 IU/L ESTIMATED GFR, NON AMER 124 ml/min/1.73sq.m ESTIMATED GFR, 150 ml/min/1.73sq.m GFR COMMENT Average GFR for 50-59 years old = 93. GLUCOSE (POC DEVICE) Result Value Ref Range GLUCOSE, POINT OF CARE 306 (H) 70 - 100 MG/DL Mass Spectrometry Specialist 207,[phone] GLUCOSE (POC DEVICE) Result Value Ref Range GLUCOSE, POINT OF CARE 358 (H) 70 - 100 MG/DL Mass Spectrometry Specialist 208,[phone] GLUCOSE (POC DEVICE) Result Value Ref Range GLUCOSE, POINT OF CARE 228 (H) 70 - 100 MG/DL Mass Spectrometry Specialist 208,[phone] GLUCOSE (POC DEVICE) Result Value Ref Range GLUCOSE, POINT OF CARE 349 (H) 70 - 100 MG/DL Mass Spectrometry Specialist 208,[phone] HEENT: NC/AT, PERRLA, EOMI, fundi benign, external ears normal, OP normal. Neck: No LAD/thyromegaly. No JVD/bruit. Lungs: Clear to auscultation bilaterally. No wheezes, rales, ronchi. Heart: RRR. No S3/S4. Abdomen: Soft, NT/ND, normal bowel sounds, no HSM, no bruits. Extremities: No clubbing, cyanosis, edema. Normal pulses. Neurologic: CN II-XII intact. Strength/DTR's/sensation symmetric. Cerebellar function normal. Skin: see attached picture. No LAD. Musculoskeletal: No edema, redness, warmth, deformities. Psychiatric: Alert and oriented. Affect and mood normal. Ronald Connell MD 09/19/2023 [facility]10-23-2023 History and physical note* Tuan Baker, BRIDGET- SILK SNAPPER - 09/19/2023 11:45 AM EDT Images from the original note were not included. History and Physical Examination Admit date: 09/18/2023 8:49 PM Chief Complaint: Chief Complaint Patient presents with Skin Ulcer Pt arrives with an ulcer on left medial large toe and left lateral heel. Pt states ulcer on foot for a couple days. History of Present Illness: Patient is a 58 y.o. male who presented to the hospital for evaluation of diabetic foot ulcers. Patient reports to be a diabetic. Patient noted to have several areas of ulceration on the left foot. he has had 5th amputated. Ulcerations first noticed a couple days ago. Patient was seen the previous day for that of the same and prescribed clindamycin 300 mg 4 times daily. Patient reports no associated pain. No fevers or chills. Patient apparently walks to work. He uses a cane. He works at [employer] and is no his feet all day. He appears to have uncontrolled DM. On arrival xray was without acute fracture, dislocation, subluxation or osseous lesion Objective: Past Medical History: Diagnosis Date Diabetes mellitus Essential hypertension, benign NC (myocardial infarction) Past Surgical History: Procedure Laterality Date APPENDECTOMY FOOT SURGERY Left Social History Tobacco Use Smoking status: Never Smokeless tobacco: Never Substance Use Topics Alcohol use: Not on file History reviewed. No pertinent family history. Medications Prior to Admission Medication Sig Dispense Refill Last Dose aspirin 81 MG Chew Tab chewable tablet Chew 1 tablet daily. This AM 09/18/2023 busPIRone 10 MG tablet Take 1 tablet by mouth 3 times daily. Last dose AM 09/18/2023 gabapentin 600 MG tablet Take 1 tablet by mouth 3 times daily. 09/18/2023 clindamycin 300 MG capsule Take 1 capsule by mouth 4 times daily. For diabetic ulceration, started 09/17/2023 No Known Allergies Review of Systems: Ten systems reviewed and found to be negative unless otherwise stated in the history and present illness. PHYSICAL EXAM: Patient Vitals for the past 8 hrs: BP Temp Temp src Pulse Resp SpO2 Weight 09/19/23 0700 138/76 97.8 F (36.6 C) Temporal 76 21 96 % -- 09/19/23 0438 135/64 97.8 F (36.6 C) Temporal 85 21 97 % 107.2 kg (236 lb 4.8 oz) General: Patient Awake. No acute distress. HEENT: Normalcephalic, atraumatic. Pupils equal, round, reactive, to light and accomodation B/L. Bilateral nares patent without obvious drainage. Oral mucosa moist, pink, intact without ulcers or lesions. Neck: No JVD, no thyromegaly, no anterior or posterior lymphadenopathy. Cardiovascular: Regular rate and rhythm, without murmurs, rubs, or gallops. Respiratory: Bilateral Upper and Lower Lobes anterior and posteriorly without wheezes, rales, or rhonchi Abdomen: Soft, rounded, non-tender. Bowel sounds present x4 quadrants. No rebound. No organomegaly or masses noted upon deep palpation. Extremities: trace lle edema, Left 5th toe amputated . No clubbing or cyanosis, pulses palpable 2+ distally. Skin: Warm, Dry, Left foot. Also whitish discoloration noted lateral arch. Un stageable. Neuro: Patient awake, alert, orientedx3. Cranial nerves 2-12 grossly intact upon seated examination. No focal deficit noted. Diagnostics: Admission on 09/18/2023 Component Date Value WBC (WHITE BLOOD COUNT) 09/18/2023 8.3 RBC 09/18/2023 4.21 HEMOGLOBIN (HGB) 09/18/2023 13.0 (L) HEMATOCRIT (HCT) 09/18/2023 38.8 (L) MEAN CELL VOLUME 09/18/2023 92.1 Mean Cell HGB 09/18/2023 31.0 MEAN CELL HGB CONCENTRAT* 09/18/2023 33.6 RBC DISTRIBUTION 09/18/2023 13.6 PLATELET COUNT 09/18/2023 231 MEAN PLATELET VOLUME 09/18/2023 9.3 DIFFERENTIAL TYPE 09/18/2023 AUTO DIFF NEUTROPHILS 09/18/2023 68.3 LYMPHOCYTE 09/18/2023 21.5 MONOCYTE % 09/18/2023 8.3 EOSINOPHIL % 09/18/2023 1.6 BASOPHIL % 09/18/2023 0.3 Absolute Neutrophil Count 09/18/2023 5.6 LYMPHOCYTES, ABSOLUTE 09/18/2023 1.8 MONOCYTES, ABSOLUTE 09/18/2023 0.7 ABSOLUTE EOSINOPHIL COUNT 09/18/2023 0.1 ABSOLUTE BASOPHIL COUNT 09/18/2023 0.0 Glucose 09/18/2023 353 (H) BUN 09/18/2023 17 CREATININE SERUM 09/18/2023 0.86 SODIUM 09/18/2023 134 (L) POTASSIUM 09/18/2023 4.1 CHLORIDE 09/18/2023 97 (L) CARBON DIOXIDE (CO2) 09/18/2023 28 ESTIMATED GFR, NON AFRIC* 09/18/2023 98 ESTIMATED GFR, A* 09/18/2023 118 GFR COMMENT 09/18/2023 Average GFR for 50-59 years old = 93. TROPONIN I, HIGH SENSITI* 09/18/2023 3 LACTATE 09/18/2023 1.3 C-Reactive Protein 09/18/2023 34.1 (H) SEDIMENTATION RATE AUTOM* 09/18/2023 26 (H) SCREEN: MRSA 09/18/2023 NEGATIVE STAPHYOCOCCUS AUREUS BY * 09/18/2023 NEGATIVE GLUCOSE, POINT OF CARE 09/19/2023 306 (H) Mass Spectrometry Specialist 09/19/2023 207,814 C-Reactive Protein 09/19/2023 29.4 (H) Impression and Plan: Principal Problem: Diabetic foot infection- mri foot. podiatry cs. Iv atb. Prn analgesia. Active Problems: Cellulitis of toe of left foot- follow cx. Type 2 diabetes mellitus with hyperglycemia, without long-term current use of insulin: Sliding scale insulin with accu-checks AC&HS, Resume home medications at discharge, Diabetic diet Add levemir. Check ha1c Diabetic neuropathy associated with type 2 diabetes mellitus Normocytic anemia- follow cbc Class 1 obesity due to excess calories with body mass index (BMI) of 30.0 to 30.9 in adult: Diet and lifestyle modification recommended. Code Status Full Code I personally spent 24 minutes in the management of this patient, the details of my visit are listedin my documentation above. Plan of care was initiated in collaboration with attending physician. Please note Portions of this note utilized [employer] dictation software, please excuse any typographical or grammatical errors Associated attestation - Ronald Connell MD - 09/19/2023 8:34 PM EDT Patient seen and examined. All testing reviewed. Discussed with SILK SNAPPER and agree with A/P. Ulcer to foot. No fever or chills. No better with oral ATB from another ED. ED eval x-ray no signs of osteo. Mildly elevated inflammatory markers. Labs OTW normal. IV ATB's and podiatry c/s. 55 minutes over half by me. Objective: Blood pressure 173/85, pulse 75, temperature 98.1 F (36.7 C), temperature source Temporal, resp. rate 20, height 1.88 m (6' 2 ), weight 107.2 kg (236 lb 4.8 oz), SpO2 95 %. Results for orders placed or performed during the hospital encounter of 09/18/23 SCREEN: MRSA ONLY, NARES (ISOLATION SCREEN) Specimen: NARES; E-Swab Result Value Ref Range SCREEN: MRSA NEGATIVE NEGATIVE STAPHYOCOCCUS AUREUS BY PCR NEGATIVE NEGATIVE CBC, EDIF, PLATELET Result Value Ref Range WBC (WHITE BLOOD COUNT) 8.3 3.6 - 11.0 10*3/uL RBC 4.21 4.0 - 6.1 10*6/uL HEMOGLOBIN (HGB) 13.0 (L) 14.0 - 18.0 G/DL HEMATOCRIT (HCT) 38.8 (L) 42.0 - 52.0 % MEAN CELL VOLUME 92.1 80.0 - 100.0 FL Mean Cell HGB 31.0 26.0 - 35.0 PG MEAN CELL HGB CONCENTRATION 33.6 27.0 - 37.0 G/DL RBC DISTRIBUTION 13.6 11.5 - 14.5 % PLATELET COUNT 231 130 - 400 10*3/uL MEAN PLATELET VOLUME 9.3 7.4 - 11.0 FL DIFFERENTIAL TYPE AUTO DIFF % NEUTROPHILS 68.3 37.0 - 75.0 % LYMPHOCYTE 21.5 20.0 - 55.0 % MONOCYTE % 8.3 0.0 - 10.0 % EOSINOPHIL % 1.6 0.0 - 11.0 % BASOPHIL % 0.3 0.0 - 2.0 % Absolute Neutrophil Count 5.6 1.4 - 6.5 10*3/uL LYMPHOCYTES, ABSOLUTE 1.8 1.2 - 3.4 10*3/uL MONOCYTES, ABSOLUTE 0.7 0.0 - 0.7 10*3/uL ABSOLUTE EOSINOPHIL COUNT 0.1 0.0 - 0.7 10*3/uL ABSOLUTE BASOPHIL COUNT 0.0 0.0 - 0.2 10*3/uL CHEM 7 (LYTES,BUN,CREA,GLUC) Result Value Ref Range Glucose 353 (H) 70 - 100 MG/DL BUN 17 7 - 20 MG/DL CREATININE SERUM 0.86 0.70 - 1.20 MG/DL SODIUM 134 (L) 137 - 145 MMOL/L POTASSIUM 4.1 3.5 - 5.1 MMOL/L CHLORIDE 97 (L) 98 - 107 MMOL/L CARBON DIOXIDE (CO2) 28 22 - 30 MMOL/L ESTIMATED GFR, NON AMER 98 ml/min/1.73sq.m ESTIMATED GFR, 118 ml/min/1.73sq.m GFR COMMENT Average GFR for 50-59 years old = 93. TROPONIN I, HIGH SENSITIVITY Result Value Ref Range TROPONIN I, HIGH SENSITIVITY 3 0 - 20 pg/mL LACTATE, BLOOD Result Value Ref Range LACTATE 1.3 0.7 - 2.0 mmol/L C REACTIVE PROTEIN Result Value Ref Range C-Reactive Protein 34.1 (H) 0 - 10 MG/L SEDIMENTATION RATE, AUTOMATED Result Value Ref Range SEDIMENTATION RATE AUTOMATED 26 (H) 0 - 20 MM/HR C REACTIVE PROTEIN Result Value Ref Range C-Reactive Protein 29.4 (H) 0 - 10 MG/L COMPREHENSIVE METABOLIC PANEL Result Value Ref Range Glucose 405 (HH) 70 - 100 MG/DL BUN 14 7 - 20 MG/DL CREATININE SERUM 0.70 0.70 - 1.20 MG/DL SODIUM 133 (L) 137 - 145 MMOL/L POTASSIUM 4.2 3.5 - 5.1 MMOL/L CHLORIDE 99 98 - 107 MMOL/L CALCIUM 8.6 8.4 - 10.2 MG/DL PROTEIN, TOTAL 6.6 6.3 - 8.2 GM/DL Albumin 3.5 3.5 - 5.0 G/dl BILIRUBIN, TOTAL 0.5 0.2 - 1.3 MG/DL AST 17 17 - 59 IU/L ALKALINE PHOSPHATASE 149 (H) 38 - 126 IU/L CARBON DIOXIDE (CO2) 26 22 - 30 MMOL/L A/G Ratio 1.1 RATIO ALT 17 <50 IU/L ESTIMATED GFR, NON AMER 124 ml/min/1.73sq.m ESTIMATED GFR, 150 ml/min/1.73sq.m GFR COMMENT Average GFR for 50-59 years old = 93. GLUCOSE (POC DEVICE) Result Value Ref Range GLUCOSE, POINT OF CARE 306 (H) 70 - 100 MG/DL Mass Spectrometry Specialist 207,[phone] GLUCOSE (POC DEVICE) Result Value Ref Range GLUCOSE, POINT OF CARE 358 (H) 70 - 100 MG/DL Mass Spectrometry Specialist 208,[phone] GLUCOSE (POC DEVICE) Result Value Ref Range GLUCOSE, POINT OF CARE 228 (H) 70 - 100 MG/DL Mass Spectrometry Specialist 208,[phone] GLUCOSE (POC DEVICE) Result Value Ref Range GLUCOSE, POINT OF CARE 349 (H) 70 - 100 MG/DL Mass Spectrometry Specialist 208,[phone] HEENT: NC/AT, PERRLA, EOMI, fundi benign, external ears normal, OP normal. Neck: No LAD/thyromegaly. No JVD/bruit. Lungs: Clear to auscultation bilaterally. No wheezes, rales, ronchi. Heart: RRR. No S3/S4. Abdomen: Soft, NT/ND, normal bowel sounds, no HSM, no bruits. Extremities: No clubbing, cyanosis, edema. Normal pulses. Neurologic: CN II-XII intact. Strength/DTR's/sensation symmetric. Cerebellar function normal. Skin: see attached picture. No LAD. Musculoskeletal: No edema, redness, warmth, deformities. Psychiatric: Alert and oriented. Affect and mood normal. Ronald Connell MD 09/19/2023 [facility]* Nursing Notes - MALENA Mcmahon - 09/19/2023 11:11 AM EDT Called consult to [facility]10-23-2023 Nurse Note* Nursing Notes - Venecia Kam RN - 09/19/2023 4:13 AM EDT Assessment remains unchanged from previous. Call light within reach. [facility]10-23-2023 Nurse Note* Nursing Notes - Venecia Kam RN - 09/19/2023 12:30 AM EDT Patient to room, report received from MARLENY Bobby. Assessment completed at this time. Blood sugar rechecked, result of 305. Dr. Connell made aware of blood sugar, new insulin orders added. Patient reports having a fall two days ago due to neuropathy in bilateral feet, educated on use of call light system, voices understanding. Denies further needs. Bed alarm set, call light within reach. [facility]10-[facility] Emergency department Note* Diamante Gao RN - 09/19/2023 12:02 AM EDT Pt foot wound seaping on floor- nonadaptic and hemalatha wrap applied. [facility] [facility]10-23-2023 Emergency department Note* Diamante Gao RN - 09/19/2023 12:02 AM EDT Pt foot wound seaping on floor- nonadaptic and hemalatha wrap applied. * Diamante Gao RN - 09/19/2023 12:01 AM EDT Gave report to Venecia FARMER, pt stable upon admit to floor * Diamante Gao RN - 09/19/2023 12:00 AM EDT Pt taken to floor, pt stable upon admit * Diamante Gao RN - 09/18/2023 11:50 PM EDT Attempted to call Venecia corey to return call * Diamante Gao RN - 09/18/2023 11:35 PM EDT Verified with Dr. Cesar if he would like to repeat blood sugar before giving 6 units of insulin, Dr. Cesar declines. Pt to be admitted to floor * Valerie Lyle RN - 09/18/2023 11:09 PM EDT Room assignment [id number]. * Mark Cesar MD - 09/18/2023 8:50 PM EDT EMERGENCY DEPARTMENT REPORT [facility] MED SURG SERVICE DATE: 09/19/23 PCP: Kate Mayers CHIEF COMPLAINT: Diabetic foot ulcers HPI: Darshan Dunaway is a 58 y.o. male who presents with complaint of diabetic foot ulcers. Patient reports to be a diabetic. Patient noted to have several areas of ulceration on the left foot. Ulcerationsfirst noticed a couple days ago. Patient was seen the previous day for that of the same and prescribed clindamycin 300 mg 4 times daily. Patient reports no associated pain. No fevers or chills. REVIEW OF SYSTEMS: As documented in HPI. General: No fevers or chills. Eyes: No visual complaints. ENT: No sore throat or earache. Cardiovascular: Patient reports chest pain which patient associates with antibiotic. Respiratory: No shortness of breath or cough. Gastrointestinal: No vomiting or diarrhea. Genitourinary: No dysuria. Neurologic: No headache or weakness. Skin: Foot ulcers. Psychiatric: No anxiety or depression. Remaining systems reviewed and negative other than the history of present illness. PAST MEDICAL HISTORY: Past Medical History: Diagnosis Date Diabetes mellitus Essential hypertension, benign NC (myocardial infarction) SURGICAL HISTORY: Past Surgical History: Procedure Laterality Date APPENDECTOMY FOOT SURGERY Left CURRENT MEDICATIONS: Current Discharge Medication List CONTINUE these medications which have NOT CHANGED Details aspirin 81 MG Chew Tab chewable tablet Chew 1 tablet daily. This AM busPIRone 10 MG tablet Take 1 tablet by mouth 3 times daily. Last dose AM gabapentin 600 MG tablet Take 1 tablet by mouth 3 times daily. clindamycin 300 MG capsule Take 1 capsule by mouth 4 times daily. For diabetic ulceration, started 09/17/2023 ALLERGIES: No Known Allergies FAMILY HISTORY: History reviewed. No pertinent family history. SOCIAL HISTORY: Social History Socioeconomic History Marital status: Spouse name: Not on file Number of children: Not on file Years of education: Not on file Highest education level: Not on file Occupational History Not on file Tobacco Use Smoking status: Never Smokeless tobacco: Never Substance and Sexual Activity Alcohol use: Not on file Drug use: Not on file Sexual activity: Not on file Other Topics Concern Not on file Social History Narrative Not on file Social Determinants of Health Financial Resource Strain: Not on file Food Insecurity: Not on file Transportation Needs: Not on file Physical Activity: Not on file Stress: Not on file Social Connections: Not on file Intimate Partner Violence: Not on file Housing Stability: Not on file PHYSICAL EXAM: Constitutional: Patient is in no obvious distress. HEENT: Normocephalic and atraumatic. No mucosal edema, rhinorrhea, or nasal deformity. Uvula is midline, no asymmetry or fullness. Mucous membranes are moist. No posterior oropharyngeal exudate or erythema. Eyes: Pupils are equal and round. No scleral icterus. Neck: Neck is supple. Cardiovascular: Regular rate and rhythm. No murmur heard. Pulmonary/Chest: Effort normal. Lungs are clear without wheezes, rales or rhonchi. Neurological: Neurovascularly intact in the left lower extremity Skin: Multiple areas of ulceration on the left foot. Surrounding erythema present. VITAL SIGNS DURING ED VISIT: Patient Vitals for the past 24 hrs: BP Temp Temp src Pulse Resp SpO2 Height Weight 09/19/23 0049 153/77 98.1 F (36.7 C) Temporal 80 19 98 % -- -- 09/19/23 0030 -- -- -- -- -- -- 1.88 m (6' 2 ) 105.2 kg (232 lb) 09/18/23 2347 172/82 -- -- 84 20 97 % 1.88 m (6' 2 ) 105.2 kg (232 lb) 09/18/23 2102 (!) 168/98 98.3 F (36.8 C) Temporal 84 18 98 % 1.88 m (6' 2 ) -- ED COURSE & MEDICAL DECISION MAKING: Patient seen evaluated by myself. Blood cultures x2 as well as lactic acid obtained. Cefepime and vancomycin instituted for antibacterial coverage. Patient admitted to hospitalist service for furtherevaluation and treatment. ORDERS/RESULTS: Orders Placed This Encounter BLOOD CULTURE, PERIPHERAL 1ST SITE BLOOD CULTURE, PERIPHERAL 2ND SITE MRSA NASAL SWABS TO BILATERAL NARES XR FOOT LEFT 3 VIEWS CBC, EDIF, PLATELET CHEM 7 (LYTES,BUN,CREA,GLUC) Troponin I, High sensitivity LACTATE, BLOOD C REACTIVE PROTEIN SEDIMENTATION RATE, AUTOMATED VANCOMYCIN LEVEL, TROUGH (PRE DRUG LEVEL) 1 Hour Glucose (POC device) Glucose (POC device) Glucose (POC device) DISCONTD: vancomycin (VANCOCIN) 1,000 mg in dextrose 200 ml premix IVPB ceFEPIme (MAXIPIME) 2 g in sodium chloride 0.9% (MB PLUS) 100 mL (total volume) IVPB Acetaminophen (TYLENOL) tablet 650 mg Insulin regular (HUMULIN R;NOVOLIN R) injection 6 Units vancomycin (VANCOCIN) 1,000 mg in dextrose 200 ml premix IVPB ceFEPIme (MAXIPIME) 2 g in sodium chloride 0.9% (MB PLUS) 100 mL (total volume) IVPB busPIRone (BUSPAR) tablet 10 mg Gabapentin (NEURONTIN) capsule 600 mg AND Linked Order Group insulin lispro (HumaLOG) injection glucose chewable tablet CHEW 16-32 g Dextrose 10% IV solution 250 mL Results for orders placed or performed during the hospital encounter of 09/18/23 CBC, EDIF, PLATELET Result Value Ref Range WBC (WHITE BLOOD COUNT) 8.3 3.6 - 11.0 10*3/uL RBC 4.21 4.0 - 6.1 10*6/uL HEMOGLOBIN (HGB) 13.0 (L) 14.0 - 18.0 G/DL HEMATOCRIT (HCT) 38.8 (L) 42.0 - 52.0 % MEAN CELL VOLUME 92.1 80.0 - 100.0 FL Mean Cell HGB 31.0 26.0 - 35.0 PG MEAN CELL HGB CONCENTRATION 33.6 27.0 - 37.0 G/DL RBC DISTRIBUTION 13.6 11.5 - 14.5 % PLATELET COUNT 231 130 - 400 10*3/uL MEAN PLATELET VOLUME 9.3 7.4 - 11.0 FL DIFFERENTIAL TYPE AUTO DIFF % NEUTROPHILS 68.3 37.0 - 75.0 % LYMPHOCYTE 21.5 20.0 - 55.0 % MONOCYTE % 8.3 0.0 - 10.0 % EOSINOPHIL % 1.6 0.0 - 11.0 % BASOPHIL % 0.3 0.0 - 2.0 % Absolute Neutrophil Count 5.6 1.4 - 6.5 10*3/uL LYMPHOCYTES, ABSOLUTE 1.8 1.2 - 3.4 10*3/uL MONOCYTES, ABSOLUTE 0.7 0.0 - 0.7 10*3/uL ABSOLUTE EOSINOPHIL COUNT 0.1 0.0 - 0.7 10*3/uL ABSOLUTE BASOPHIL COUNT 0.0 0.0 - 0.2 10*3/uL CHEM 7 (LYTES,BUN,CREA,GLUC) Result Value Ref Range Glucose 353 (H) 70 - 100 MG/DL BUN 17 7 - 20 MG/DL CREATININE SERUM 0.86 0.70 - 1.20 MG/DL SODIUM 134 (L) 137 - 145 MMOL/L POTASSIUM 4.1 3.5 - 5.1 MMOL/L CHLORIDE 97 (L) 98 - 107 MMOL/L CARBON DIOXIDE (CO2) 28 22 - 30 MMOL/L ESTIMATED GFR, NON AMER 98 ml/min/1.73sq.m ESTIMATED GFR, 118 ml/min/1.73sq.m GFR COMMENT Average GFR for 50-59 years old = 93. TROPONIN I, HIGH SENSITIVITY Result Value Ref Range TROPONIN I, HIGH SENSITIVITY 3 0 - 20 pg/mL LACTATE, BLOOD Result Value Ref Range LACTATE 1.3 0.7 - 2.0 mmol/L C REACTIVE PROTEIN Result Value Ref Range C-Reactive Protein 34.1 (H) 0 - 10 MG/L SEDIMENTATION RATE, AUTOMATED Result Value Ref Range SEDIMENTATION RATE AUTOMATED 26 (H) 0 - 20 MM/HR IMAGING: XR FOOT LEFT 3 VIEWS Final Result CLINICAL IMPRESSION: 1. Diabetic foot infection DISPOSITION: Admitted to hospitalist service. No follow-ups on file. Current Discharge Medication List Current Discharge Medication List An after visit summary was printed and given to the patient with the above information. Portions of this chart were created using [employer] electronic dictation. Please excuse any typographical or grammatical errors contained herein. Mark Cesar MD 09/19/23 0455 documented in this [facility]10-23-2023 Emergency department Note* Diamante Gao RN - 09/19/2023 12:01 AM EDT Gave report to Venecia RN, pt stable upon admit to floor [facility]10-23-2023 Emergency department Note* Diamante Gao RN - 09/19/2023 12:00 AM EDT Pt taken to floor, pt stable upon admit T [facility]10-22-2023 Emergency department Note* Diamante Gao RN - 09/18/2023 11:50 PM EDT Attempted to call leora, Venecia to return call [facility]10-22-2023 Emergency department Note* Diamante Gao RN - 09/18/2023 11:35 PM EDT Verified with Dr. Cesar if he would like to repeat blood sugar before giving 6 units of insulin, Dr. Cesar declines. Pt to be admitted to floor [facility]10-22-2023 Emergency department Note* Valerie Lyle RN - 09/18/2023 11:09 PM EDT Room assignment [id number]. 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 On this study there is no acute fracture, dislocation, subluxation or osseous lesion. Mild to moderate degenerative changes of the midfoot articulations. The remainder of the joint spaces are unremarkable. Mild dorsal soft tissue edema. No periosteal reaction. * Attachments The following attachments cannot be sent through Care Everywhere. * Diabetic Foot Ulcer (Angolan) * Anemia (Angolan) * Hypertension (Angolan) * Diabetes: Foot Care (Angolan) * Diabetes: Home Blood Sugar Test (Angolan) [facility] Emergency department Note* Mark Cesar MD - 09/18/2023 8:50 PM EDT EMERGENCY DEPARTMENT REPORT [facility] MED SURG SERVICE DATE: 09/19/23 PCP: Kate Mayers CHIEF COMPLAINT: Diabetic foot ulcers HPI: Darshan Dunaway is a 58 y.o. male who presents with complaint of diabetic foot ulcers. Patient reports to be a diabetic. Patient noted to have several areas of ulceration on the left foot. Ulcerationsfirst noticed a couple days ago. Patient was seen the previous day for that of the same and prescribed clindamycin 300 mg 4 times daily. Patient reports no associated pain. No fevers or chills. REVIEW OF SYSTEMS: As documented in HPI. General: No fevers or chills. Eyes: No visual complaints. ENT: No sore throat or earache. Cardiovascular: Patient reports chest pain which patient associates with antibiotic. Respiratory: No shortness of breath or cough. Gastrointestinal: No vomiting or diarrhea. Genitourinary: No dysuria. Neurologic: No headache or weakness. Skin: Foot ulcers. Psychiatric: No anxiety or depression. Remaining systems reviewed and negative other than the history of present illness. PAST MEDICAL HISTORY: Past Medical History: Diagnosis Date Diabetes mellitus Essential hypertension, benign NC (myocardial infarction) SURGICAL HISTORY: Past Surgical History: Procedure Laterality Date APPENDECTOMY FOOT SURGERY Left CURRENT MEDICATIONS: Current Discharge Medication List CONTINUE these medications which have NOT CHANGED Details aspirin 81 MG Chew Tab chewable tablet Chew 1 tablet daily. This AM busPIRone 10 MG tablet Take 1 tablet by mouth 3 times daily. Last dose AM gabapentin 600 MG tablet Take 1 tablet by mouth 3 times daily. clindamycin 300 MG capsule Take 1 capsule by mouth 4 times daily. For diabetic ulceration, started 09/17/2023 ALLERGIES: No Known Allergies FAMILY HISTORY: History reviewed. No pertinent family history. SOCIAL HISTORY: Social History Socioeconomic History Marital status: Spouse name: Not on file Number of children: Not on file Years of education: Not on file Highest education level: Not on file Occupational History Not on file Tobacco Use Smoking status: Never Smokeless tobacco: Never Substance and Sexual Activity Alcohol use: Not on file Drug use: Not on file Sexual activity: Not on file Other Topics Concern Not on file Social History Narrative Not on file Social Determinants of Health Financial Resource Strain: Not on file Food Insecurity: Not on file Transportation Needs: Not on file Physical Activity: Not on file Stress: Not on file Social Connections: Not on file Intimate Partner Violence: Not on file Housing Stability: Not on file PHYSICAL EXAM: Constitutional: Patient is in no obvious distress. HEENT: Normocephalic and atraumatic. No mucosal edema, rhinorrhea, or nasal deformity. Uvula is midline, no asymmetry or fullness. Mucous membranes are moist. No posterior oropharyngeal exudate or erythema. Eyes: Pupils are equal and round. No scleral icterus. Neck: Neck is supple. Cardiovascular: Regular rate and rhythm. No murmur heard. Pulmonary/Chest: Effort normal. Lungs are clear without wheezes, rales or rhonchi. Neurological: Neurovascularly intact in the left lower extremity Skin: Multiple areas of ulceration on the left foot. Surrounding erythema present. VITAL SIGNS DURING ED VISIT: Patient Vitals for the past 24 hrs: BP Temp Temp src Pulse Resp SpO2 Height Weight 09/19/23 0049 153/77 98.1 F (36.7 C) Temporal 80 19 98 % -- -- 09/19/23 0030 -- -- -- -- -- -- 1.88 m (6' 2 ) 105.2 kg (232 lb) 09/18/23 2347 172/82 -- -- 84 20 97 % 1.88 m (6' 2 ) 105.2 kg (232 lb) 09/18/23 2102 (!) 168/98 98.3 F (36.8 C) Temporal 84 18 98 % 1.88 m (6' 2 ) -- ED COURSE & MEDICAL DECISION MAKING: Patient seen evaluated by myself. Blood cultures x2 as well as lactic acid obtained. Cefepime and vancomycin instituted for antibacterial coverage. Patient admitted to hospitalist service for furtherevaluation and treatment. ORDERS/RESULTS: Orders Placed This Encounter BLOOD CULTURE, PERIPHERAL 1ST SITE BLOOD CULTURE, PERIPHERAL 2ND SITE MRSA NASAL SWABS TO BILATERAL NARES XR FOOT LEFT 3 VIEWS CBC, EDIF, PLATELET CHEM 7 (LYTES,BUN,CREA,GLUC) Troponin I, High sensitivity LACTATE, BLOOD C REACTIVE PROTEIN SEDIMENTATION RATE, AUTOMATED VANCOMYCIN LEVEL, TROUGH (PRE DRUG LEVEL) 1 Hour Glucose (POC device) Glucose (POC device) Glucose (POC device) DISCONTD: vancomycin (VANCOCIN) 1,000 mg in dextrose 200 ml premix IVPB ceFEPIme (MAXIPIME) 2 g in sodium chloride 0.9% (MB PLUS) 100 mL (total volume) IVPB Acetaminophen (TYLENOL) tablet 650 mg Insulin regular (HUMULIN R;NOVOLIN R) injection 6 Units vancomycin (VANCOCIN) 1,000 mg in dextrose 200 ml premix IVPB ceFEPIme (MAXIPIME) 2 g in sodium chloride 0.9% (MB PLUS) 100 mL (total volume) IVPB busPIRone (BUSPAR) tablet 10 mg Gabapentin (NEURONTIN) capsule 600 mg AND Linked Order Group insulin lispro (HumaLOG) injection glucose chewable tablet CHEW 16-32 g Dextrose 10% IV solution 250 mL Results for orders placed or performed during the hospital encounter of 09/18/23 CBC, EDIF, PLATELET Result Value Ref Range WBC (WHITE BLOOD COUNT) 8.3 3.6 - 11.0 10*3/uL RBC 4.21 4.0 - 6.1 10*6/uL HEMOGLOBIN (HGB) 13.0 (L) 14.0 - 18.0 G/DL HEMATOCRIT (HCT) 38.8 (L) 42.0 - 52.0 % MEAN CELL VOLUME 92.1 80.0 - 100.0 FL Mean Cell HGB 31.0 26.0 - 35.0 PG MEAN CELL HGB CONCENTRATION 33.6 27.0 - 37.0 G/DL RBC DISTRIBUTION 13.6 11.5 - 14.5 % PLATELET COUNT 231 130 - 400 10*3/uL MEAN PLATELET VOLUME 9.3 7.4 - 11.0 FL DIFFERENTIAL TYPE AUTO DIFF % NEUTROPHILS 68.3 37.0 - 75.0 % LYMPHOCYTE 21.5 20.0 - 55.0 % MONOCYTE % 8.3 0.0 - 10.0 % EOSINOPHIL % 1.6 0.0 - 11.0 % BASOPHIL % 0.3 0.0 - 2.0 % Absolute Neutrophil Count 5.6 1.4 - 6.5 10*3/uL LYMPHOCYTES, ABSOLUTE 1.8 1.2 - 3.4 10*3/uL MONOCYTES, ABSOLUTE 0.7 0.0 - 0.7 10*3/uL ABSOLUTE EOSINOPHIL COUNT 0.1 0.0 - 0.7 10*3/uL ABSOLUTE BASOPHIL COUNT 0.0 0.0 - 0.2 10*3/uL CHEM 7 (LYTES,BUN,CREA,GLUC) Result Value Ref Range Glucose 353 (H) 70 - 100 MG/DL BUN 17 7 - 20 MG/DL CREATININE SERUM 0.86 0.70 - 1.20 MG/DL SODIUM 134 (L) 137 - 145 MMOL/L POTASSIUM 4.1 3.5 - 5.1 MMOL/L CHLORIDE 97 (L) 98 - 107 MMOL/L CARBON DIOXIDE (CO2) 28 22 - 30 MMOL/L ESTIMATED GFR, NON AMER 98 ml/min/1.73sq.m ESTIMATED GFR, 118 ml/min/1.73sq.m GFR COMMENT Average GFR for 50-59 years old = 93. TROPONIN I, HIGH SENSITIVITY Result Value Ref Range TROPONIN I, HIGH SENSITIVITY 3 0 - 20 pg/mL LACTATE, BLOOD Result Value Ref Range LACTATE 1.3 0.7 - 2.0 mmol/L C REACTIVE PROTEIN Result Value Ref Range C-Reactive Protein 34.1 (H) 0 - 10 MG/L SEDIMENTATION RATE, AUTOMATED Result Value Ref Range SEDIMENTATION RATE AUTOMATED 26 (H) 0 - 20 MM/HR IMAGING: XR FOOT LEFT 3 VIEWS Final Result CLINICAL IMPRESSION: 1. Diabetic foot infection DISPOSITION: Admitted to hospitalist service. No follow-ups on file. Current Discharge Medication List Current Discharge Medication List An after visit summary was printed and given to the patient with the above information. Portions of this chart were created using [employer] electronic dictation. Please excuse any typographical or grammatical errors contained herein. Mark Cesar MD 09/19/23 0455 [facility]04-12-2023 NotePROCEDURE: FOOT LEFT COMPLETE HISTORY: Cellulitis , lateral foot ulcer COMPARISON: XR foot left 11/01/2022 FINDINGS: BONES:Prior resection of the fifth toe and fifth metatarsal except for base of fifth metatarsal. No fracture, dislocation, or acute bone abnormality. Mild degenerative changes of the midfoot. SOFT TISSUES:Soft tissue thickening/edema lateral to the midfoot/forefoot. No radiopaque foreign body. EFFUSION:None visible. OTHER: Negative. IMPRESSION: 1. Lateral soft tissue swelling. No evidence of osteomyelitis. 2. 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.[facility]* Diagnosis Diabetic foot infection- Primary Type II or unspecified type diabetes mellitus with other specified manifestations, not stated as uncontrolled Diabetic foot infection Type II or unspecified type diabetes mellitus with other specified manifestations, not stated as uncontrolled Cellulitis of toe of left foot Cellulitis and abscess of toe, unspecified Type 2 diabetes mellitus with hyperglycemia, without long-term current use of insulin Diabetic neuropathy associated with type 2 diabetes mellitus Normocytic anemia Anemia, unspecified Class 1 obesity due to excess calories with body mass index (BMI) of 30.0 to 30.9 in adult documented [facility] encounter [facility] Diagnosis Diabetic foot infection- Primary Type II or unspecified type diabetes mellitus with other specified manifestations, not stated as uncontrolled Cellulitis of toe of left foot Cellulitis and abscess of toe, unspecified [facility] Diagnosis Diabetic ulcer of left great toe- Primary Type II or unspecified type diabetes mellitus with other specified manifestations, not stated as uncontrolled documented [facility] this encounter [facility] noteNo InformationNort [employer] Other Evaluation noteNo assessment information available [facility] Work Phone: Evaluation note* Author Diamante Reis [facility] Authored February 17, 2024 11: 39am Patient here today for an appointment, Ozempic training completed. Patient cleaned their skin with alcohol pad to administer their first injection for Ozempic 0.125mg (18 clicks) SQ in their left upper quadrant of the abdomen without difficulty. Patient states they are very anxious. Patient was able to use correct technique. Instructed patient to dose 0.25 mg once a week starting next dose if tolerating well, then may continue thereafter. Discussed possible side effects and encouraged to maintain a healthy well-balanced diet. Encouraged to decrease carbonated beverages, avoid caffeine drinks like regular soda, tea, coffee, fatty dairy foods, spices, fried or high fat/carb foods, and alcohol. Consume lean protein, non-starchy vegetables for improved glycemia. Patient states understanding and is in agreement with plan. Reviewed insulin training also, reminded pt to inject injections at 90 degree angle. Pt was able to provide return demonstration well. Sallie 3 training also discussed, instructed on use and application on personal phone. Patient cleansed posterior side of left upper arm with alcohol then Skin Tac, applied sample Sallie 3 sensor. Reviewed with patient testing glucose with Sallie ac, hs explained how to enter insulin dosing/carbs/notes into Sallie application. Reviewed with patient no more than 500mg of Vitamin C per day, which can falsely elevate CGM glucose results. Need for confirmatory glucose fingerstick if not feeling well. Encouraged patient to check glucose 4xday, before meals/bedtime and to fingerstick when not wearing CGM. Discussed S/S of hypoglycemia/hyperglycemia and treatment options. All questions and concerns addressed. Instructed patient to return for scheduled follow up appointment with provider. 45 minutes was spent on education by Ivon EWING, RN [facility] Work Phone: Evaluation note* Diagnosis Chest pain, unspecified type- Primary Primary hypertension Unspecified essential hypertension Dyslipidemia Other and unspecified hyperlipidemia [facility]* Diagnosis Diabetic ulcer of toe of left foot associated with type 2 diabetes mellitus, with fat layer exposed (CMS-HCC)- Primary Diabetic polyneuropathy associated with type 2 diabetes mellitus ([facility]-H[facility]) [facility]* Diagnosis Diabetic ulcer of toe of left foot associated with type 2 diabetes mellitus, with fat layer exposed (CMS-HCC)- Primary Diabetic ulcer of right midfoot associated with type 2 diabetes mellitus, limited to breakdown of skin (CMS-HCC) Pre-ulcerative calluses Diabetic polyneuropathy associated with type 2 diabetes mellitus (CMS-HCC) documented [facility] encounter [facility]* Diagnosis Diabetic ulcer of toe of left foot associated with type 2 diabetes mellitus, with fat layer exposed (CMS-HCC)- Primary Type 2 diabetes mellitus with pressure callus (CMS-HCC) Diabetic polyneuropathy associated with type 2 diabetes mellitus (CMS-HCC) documented in [facility] encounter [facility]* Diagnosis Diabetic ulcer of toe of left foot associated with type 2 diabetes mellitus, with fat layer exposed (CMS-HCC)- Primary Diabetic ulcer of right midfoot associated with type 2 diabetes mellitus, limited to breakdown of skin (CMS-HCC) Type 2 diabetes mellitus with pressure callus (CMS-HCC) documented [facility] encounter [facility]* Diagnosis Diabetic ulcer of toe of left foot associated with type 2 diabetes mellitus, with fat layer exposed (CMS-HCC)- Primary Pre-ulcerative calluses Diabetic ulcer of right midfoot associated with type 2 diabetes mellitus, limited to breakdown of skin (CMS-HCC) documented [facility] encounter [facility] SystemHistory general Narrative - Reported* Type Description Date Medical History type II diabetes Medical History hyperlipidemia Medical History Esophageal reflux Medical History anxiety Medical History heart attack Medical History HTN Medical History diabetic foot ulcers Medical History neuropathy Surgical History cholecystectomy Surgical History left foot-toe removed Surgical History teeth extraction Hospitalization History See Above Hospitalization History [place] [facility]-blood sugar high [facility] Other InstructionsNot on filedocumented in this encounter [facility] SystemInstructionsNot on filedocumented in this encounter [facility] SystemInstructionsNot on filedocumented in this encounter [facility] [employer] Summary Purpose Family History Relationship Condition Age at Onset Recorded Date/T elisa brother Unknown father Hypertension Unknown Diabetes mellitus Unknown Heart disease Unknown Unknown History of stroke Unknown family member Family history of other condition Unknow n Not Specified Unknown Relationship Condition Age at Onset Recorded Date/T elisa brother Unknown father Hypertension Unknown Diabetes mellitus Unknown Heart disease Unknown Unknown History of stroke Unknown Not Specified Unknown sister Myocardial infarction Unknown Advance Directives Latest Code Status on File Code Status Date Activated Date Inactivated Comments Full Code 09/18/2023 11:08 PM Latest Code Status on File Code Status Date Activated Date Inactivated Comments Full Code 09/18/2023 11:08 PM Advance Directive Response Recorded Date/ Time Advance Directives No October 1:43pm Advance Directive Response Recorded Date/ Time Advance Directives No October 2:43pm Reason for Referral Specialty Diagnoses / Procedures Referred By Contac t Referred To Contact Endocrinology, Diabetes & Metabolism Diagnoses Diabetic foot infection Delores Qing Cates, MECHANICAL ENGINEERING SPECIALIST-SILK SNAPPER [address] [place] [address] Referral ID Status Reason Start Date Expiration Date V isits Requested Visits Authorized [id number] New Request 09/20/2023 10/14/2024 1 1 Scheduling Instructions . Specialty Diagnoses / Procedures Referred By Contac t Referred To Contact Wound Care Diagnoses Diabetic foot infection DeloresQing, MECHANICAL ENGINEERING SPECIALIST-SILK SNAPPER [address] [place] [address] Referral ID Status Reason Start Date Expiration Date V isits Requested Visits Authorized [id number] New Request 09/20/2023 10/14/2024 1 1 Specialty Diagnoses / Procedures Referred By Contac t Referred To Contact Podiatry Diagnoses Diabetic foot infection DeloresQing brooks, MECHANICAL ENGINEERING SPECIALIST-SILK SNAPPER [address] [place] [address] Bobby Joel, [address] [address] Referral ID Status Reason Start Date Expiration Date V isits Requested Visits Authorized [id number] New Request 09/20/2023 10/14/2024 1 1 Specialty Diagnoses / Procedures Referred By Contac t Referred To Contact [facility] [address] [place] [address] Referral ID Status Reason Start Date Expiration Date Visits Re quested Visits Authorized Specialty Diagnoses / Procedures Referred By Contac t Referred To Contact Procedures INPATIENT ADMISSION NOTIFICATION Ronald Connell MD [address] [place] [phone] Referral ID Status Reason Start Date Expiration Date V isits Requested Visits Authorized [id number] New Request 09/18/2023 10/12/2024 1 1 Specialty Diagnoses / Procedures Referred By Contac t Referred To Contact Diagnoses Chest pain, unspecified type Procedures Echo complete W/O contrast Rashid Fairchild MD [address] [place] [address] Referral ID Status Reason Start Date Expiration Date V isits Requested Visits Authorized [id number] Pending Review 11/25/2023 11/24/2024 1 1 Specialty Diagnoses / Procedures Referred By Contac t Referred To Contact Diagnoses Chest pain, unspecified type Procedures Nuc stress Lexiscan Rashid Fairchild MD [address] [place] [address] Referral ID Status Reason Start Date Expiration Date V isits Requested Visits Authorized [id number] Pending Review 11/25/2023 11/24/2024 5 5 Specialty Diagnoses / Procedures Referred By Contac t Referred To Contact Diagnoses Diabetic ulcer of toe of left foot associated with type 2 diabetes mellitus, with fat layer exposed ([facility]) Procedures Adaptic Debra Ventura, MECHANICAL ENGINEERING SPECIALIST-SILK SNAPPER [address] [place] [address] Referral ID Status Reason Start Date Expiration Date V isits Requested Visits Authorized [id number] Pending Review 12/02/2023 12/01/2024 1 1 Specialty Diagnoses / Procedures Referred By Contac t Referred To Contact Diagnoses Diabetic ulcer of toe of left foot associated with type 2 diabetes mellitus, with fat layer exposed ([facility]) Procedures Medi-honey Debra Ventura, MECHANICAL ENGINEERING SPECIALIST-SILK SNAPPER [address] [place] [address] Referral ID Status Reason Start Date Expiration Date V isits Requested Visits Authorized [id number] Pending Review 12/02/2023 12/01/2024 1 1 Specialty Diagnoses / Procedures Referred By Contac t Referred To Contact Diagnoses Diabetic ulcer of toe of left foot associated with type 2 diabetes mellitus, with fat layer exposed ([facility]) Procedures Optifoam Non-Adhesive Foam Debra Ventura, MECHANICAL ENGINEERING SPECIALIST-SILK SNAPPER [address] [place] [address] Referral ID Status Reason Start Date Expiration Date V isits Requested Visits Authorized [id number] Pending Review 04/04/2024 04/04/2025 1 1 Referral ID Status Reason Start Date Expiration Date V isits Requested Visits Authorized [id number] Pending Review 04/04/2024 04/04/2025 1 1 Referral ID Status Reason Start Date Expiration Date V isits Requested Visits Authorized [id number] Pending Review 04/04/2024 04/04/2025 1 1 Referral ID Status Reason Start Date Expiration Date V isits Requested Visits Authorized [id number] Pending Review 12/23/2023 12/22/2024 1 1 Referral ID Status Reason Start Date Expiration Date V isits Requested Visits Authorized [id number] Pending Review 12/23/2023 12/22/2024 1 1 Referral ID Status Reason Start Date Expiration Date V isits Requested Visits Authorized [id number] Pending Review 12/23/2023 12/22/2024 1 1 Referral ID Status Reason Start Date Expiration Date V isits Requested Visits Authorized [id number] Pending Review 01/13/2024 01/12/2025 1 1 Referral ID Status Reason Start Date Expiration Date V isits Requested Visits Authorized [id number] Pending Review 01/13/2024 01/12/2025 1 1 Referral ID Status Reason Start Date Expiration Date V isits Requested Visits Authorized [id number] Pending Review 01/13/2024 01/12/2025 1 1 Specialty Diagnoses / Procedures Referred By Contac t Referred To Contact Diagnoses Diabetic ulcer of toe of left foot associated with type 2 diabetes mellitus, with fat layer exposed ([facility]) Procedures Optifoam Non-Adhesive Foam Mike Barton, MECHANICAL ENGINEERING SPECIALIST-SILK SNAPPER [address] [place] [address] Referral ID Status Reason Start Date Expiration Date V isits Requested Visits Authorized [id number] Pending Review 02/03/2024 02/02/2025 1 1 Specialty Diagnoses / Procedures Referred By Contac t Referred To Contact Diagnoses Diabetic ulcer of toe of left foot associated with type 2 diabetes mellitus, with fat layer exposed ([facility]) Procedures Adaptic Mike Barton, MECHANICAL ENGINEERING SPECIALIST-SILK SNAPPER [address] [place] [address] Referral ID Status Reason Start Date Expiration Date V isits Requested Visits Authorized [id number] Pending Review 02/03/2024 02/02/2025 1 1 Specialty Diagnoses / Procedures Referred By Contac t Referred To Contact Diagnoses Diabetic ulcer of toe of left foot associated with type 2 diabetes mellitus, with fat layer exposed ([facility]) Procedures Mike Kearns, MECHANICAL ENGINEERING SPECIALIST-SILK SNAPPER [address] [place] [address] Referral ID Status Reason Start Date Expiration Date V isits Requested Visits Authorized [id number] Pending Review 02/03/2024 02/02/2025 1 1 Referral ID Status Reason Start Date Expiration Date V isits Requested Visits Authorized [id number] Pending Review 02/17/2024 02/16/2025 1 1 Referral ID Status Reason Start Date Expiration Date V isits Requested Visits Authorized [id number] Pending Review 02/17/2024 02/16/2025 1 1 Chief Complaint and Reason for Visit Chief Complaint DM Chief Complaint DM No METER Chief Complaint No METER Sallie 3 Application Reason for Visit Type 2 diabetes mykel itus with hyperglycemia Chief Complaint No METER Sallie 3 Application Download Reason for Visit Type 2 diabetes mykel itus with hyperglycemia Chief Complaint No METER Sallie 3 Application Download sallie on arm Reason for Visit Anxiety Dietary counseling and surveillance GERD (gastroesophageal reflux disease) Hyperlipidemia 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 Neuropathy Personal history of diabetic foot ulcer Type 2 diabetes mellitus with hyperglycemia Type 2 diabetes mellitus with hyperglycemia Anxiety Dietary counseling and surveillance GERD (gastroesophageal reflux disease) Hyperlipidemia Hypertension [facility] current use of insulin Neuropathy Personal history of diabetic foot ulcer Type 2 diabetes mellitus with hyperglycemia Additional Source Comments (unrecognized sect ion and content) No Status Records FoundNo Status Records FoundNo Status Records FoundNo Status Records FoundNo Status Records FoundNo Status Records Found INFORMATION SOURCE (unrecogn ized section and content) DATE CREATED AUTHOR 10/26/2022 [facility] DATE CREATED AUTHOR AUTHOR'S ORGANIZ ATION 09/21/2023 [facility] DATE CREATED AUTHOR AUTHOR'S ORGANIZ ATION 09/23/2023 [facility] DATE CREATED AUTHOR AUTHOR'S ORGANIZ ATION 12/21/2023 [facility] DATE CREATED AUTHOR AUTHOR'S ORGANIZ ATION 01/27/2024 [facility] DATE CREATED AUTHOR AUTHOR'S ORGANIZ ATION 04/29/2024 [facility] Reason for Visit (unrecogniz ed section and content) Reason Comments Skin Ulcer Pt arrives with an u lcer on left medial large toe and left lateral heel. Pt states ulcer on foot for a couple days. 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 TECHNICIAN INTERMITTENT CHES T PAINS, LABS PCP SCHED W/PT Reason Comments Wound Check Reason Comments Wound Check Scheduled Active and Recently Administ ered Medications (unrecognized section and content) Medication Order 09/18/2023 09/19/2023 09/20/2023 aspirin chewable tablet 81 mg 81 mg, Oral, DAILY, First dose on Tue09/19/23 at 1000, Until Discontinued 1338 (Given - Provider: Neha Presley, RN) 0859 (Given - Provider: Christina Marroquin, RN) busPIRone (BUSPAR) tablet 10 mg 10 mg, Oral, 3 TIMES DAILY, First dose on Tue09/19/23 at 0115, Until Discontinued 0130 (Given - Provider: Venecia Kam, MARLENY)0849 (Given - Provider: Neha Presley, RN)1337 (Given - Provider: Neha Presley, RN)2204 (Given - Provider: Ruddy Chauhan RN) 0859 (Given - Provider: Christina Marroquin, RN)1534 (Given - Provider: Christina Marroquin, RN)2100 (Canceled Entry - Provider: System Discharge - Comment: Automatically canceled at discontinue of medication order) ceFEPIme (MAXIPIME) 2 g in sodium chloride 0.9% (MB PLUS) 100 mL (total volume) IVPB (COMPLETED) 2 g, Intravenous, Administer over 0.5 Hours, ONCE, 1 dose, On Tue09/18/23 at 2315, Infuse STAT doses over 30 minutes. Infuse other doses over 4 hours. 2338 ($$New Bag$$ - Provider: Diamanet Gao RN) 0013 (Stopped - Provider: Venecia Kam RN - Comment: infusion complete) ceFEPIme (MAXIPIME) 2 g in sodium chloride 0.9% (MB PLUS) 100 mL (total volume) IVPB 2 g, Intravenous, Administer over 4 Hours, EVERY 8 HOURS NON-STANDARD, First dose on Tue09/19/23 at 0800, Until Discontinued, Infuse STAT doses over 30 minutes. Infuse other doses over 4 hours. 1338 ($$New Bag$$ - Provider: Neha Presley RN)2204 ($$New Bag$$ - Provider: Ruddy Chauhan RN) 0448 ($$New Bag$$ - Provider: Ruddy Chauhan RN)1536 ($$New Bag$$ - Provider: Christina Marroquin RN)2100 (Canceled Entry - Provider: System Discharge - Comment: Automatically canceled at discontinue of medication order) Dextrose 10% IV solution 250 mL(Linked Group 1) 250 mL, Intravenous, at 999 mL/hr, SEE ADMIN INSTRUCTIONS, Starting on Tue09/19/23 at 0929, Until Tue09/20/23 at 2316, Give Dextrose 10% 250 mL IV x 1 at a rate of 999 mL/hr for blood glucose LESS THAN 20 mg/dL or any blood glucose LESS THAN 70 mg/dL and patient has an altered level of consciousness, unable to swallow, or NPO. Notify physician and repeat blood glucose in 20 minutes. May repeat x 1 if repeat blood glucose less than 60 mg/dL Docusate (COLACE) capsule 100 mg 100 mg, Oral, EVERY 12 HOURS, First dose on Tue09/19/23 at 2245, Until Discontinued 2315 (Given - Provider: Ruddy Chauhan RN) 0859 (Given - Provider: Christina Marroquin, MARLENY)2100 (Canceled Entry - Provider: System Discharge - Comment: Automatically canceled at discontinue of medication order) Enoxaparin Sodium (LOVENOX) injection 40 mg 40 mg, Subcutaneous, DAILY, First dose on Tue09/19/23 at 2100, Until Discontinued, Indications: DVT/PE prophylaxis 220 (Given - Provider: Ruddy Chauhan, RN) 2100 (Canceled Entry - Provider: System Discharge - Comment: Automatically canceled at discontinue of medication order) Gabapentin (NEURONTIN) capsule 600 mg (CANCELED) 600 mg, Oral, 3 TIMES DAILY, First dose on Tue09/19/23 at 0115, Until Discontinued 0130 (Given - Provider: Venecia Kam RN)0850 (Given - Provider: Neha Presley RN) Gabapentin (NEURONTIN) capsule 600 mg 600 mg, Oral, 3 TIMES DAILY, First dose (after last modification) on Tue09/19/23 at 1400, Until Discontinued 1337 (Given - Provider: Neha Presley RN)2203 (Given - Provider: Ruddy Chauhan RN) 0859 (Given - Provider: Christina Marroquin RN)1534 (Given - Provider: Christina Marroquin RN)2100 (Canceled Entry - Provider: System Discharge - Comment: Automatically canceled at discontinue of medication order) glucose chewable tablet CHEW 16-32 g(Linked Group 1) 16-32 g (4-8 tablet), Oral, SEE ADMIN INSTRUCTIONS, Starting on Tue09/19/23 at 0929, Until Tue09/20/23 at 2316, If patient is alert and able to tolerate oral medications and blood glucose 69 - 50 mg/dL: give 4 chew tabs, if blood glucose 49 - 20 mg/dL: give 8 chew tabs. Notify physician and repeat blood glucose in 20 minutes. May repeat treatment x 1 if blood glucose less than 60 mg/dL. For alternative treatment options (juice, etc.) refer to the hypoglycemia management protocol on Ellucid: [facility] Management Protocol Insulin detemir (LEVEMIR) injection 15 Units 15 Units, Subcutaneous, EVERY 24 HOURS, First dose on Tue09/19/23 at 1000, Until Discontinued, Do Not Mix in Syringe with other insulins. 1336 (Given - Provider: Neha Presley RN) 1159 (Given - Provider: Christina Marroquin, MARLENY) insulin lispro (HumaLOG) injection (CANCELED)(Linked Group 2) Subcutaneous, 4 TIMES DAILY WITH MEALS & AT BEDTIME, First dose on Tue09/19/23 at 0800, Until Discontinued, Sliding Scale parameters: Blood glucose under 70 = call physician; 151 - 200 = 2 units; 201 - 250 = 4 units; 251 - 300 = 6 units; 301 - 350 = 8 units; 351 - 400 = 10 units; Over 400 = call physician. 0847 (Given - Provider: Neha Presley, MARLENY) Insulin regular (HUMULIN R;NOVOLIN R) injection 6 Units (COMPLETED) 6 Units, Subcutaneous, ONCE, 1 dose, On Tue09/18/23 at 2315 2337 (Given - Provider: Diamante Gao RN) Insulin regular (HUMULIN R;NOVOLIN R) injection(Linked Group 1) Subcutaneous, 4 TIMES DAILY WITH MEALS & AT BEDTIME, First dose on Tue09/19/23 at 1200, Until Discontinued, HIGH Sliding scale parameters most appropriate for NPO or tube feeding patients: Blood glucose under 60 =call H.O.; 151 - 200 = 4 units; 201 - 250 = 6 units; 251 - 300 = 10 units; 301 - 350 = 14 units; 351 - 400 = 18 units; Over 400 = 20 units; > 450 = call H.O. 1336 (Given - Provider: Neha Presley RN - Comment: [phone] (Given - Provider: Maren Hartman RN)2230 (Given - Provider: Ruddy Chauhan RN) 0859 (Given - Provider: Christina Marroquin RN)1159 (Given - Provider: Christina Marroquin RN)1725 (Given - Provider: Christina Marroquin RN)2100 (Canceled Entry - Provider: System Discharge - Comment: Automatically canceled at discontinue of medication order) LORazepam (ATIVAN) injection 1 mg (COMPLETED) 1 mg, Intravenous, ONCE, 1 dose, On Tue09/19/23 at 1100, Give half hr/ hr before mri foot. Extravasation Risk 1127 (Given - Provider: Neha Presley RN) Magnesium sulfate 2 g/50 ml in sterile water premix IVPB 2 g 50 mL (total volume) 2 g, Intravenous, Administer over 4 Hours, DAILY, First dose on Tue09/20/23 at 0600, Until Discontinued, Give if magnesium is less than 2 on morning labs. Infuse at a rate of 0.5 gm/hour. 0900 ($$New Bag$$ - Provider: Christina Marroquin RN - Comment: not compatible with antibiotic)1300 (Stopped - Provider: Christina Marroquin RN) Melatonin tablet 6 mg 6 mg, Oral, DAILY AT BEDTIME, First dose on Tue09/19/23 at 2100, Until Discontinued 2203 (Given - Provider: Ruddy Chauhan RN) 2100 (Canceled Entry - Provider: System Discharge - Comment: Automatically canceled at discontinue of medication order) Pantoprazole (PROTONIX) tablet DR 40 mg 40 mg, Oral, DAILY, First dose on Tue09/19/23 at 0945, Until Discontinued, Do not crush., Indications: Inpt Stress Ulcer Prophylaxis 1337 (Given - Provider: Neha Presley, RN) 0859 (Given - Provider: Christina Marroquin, RN) Polyethylene glycol (MIRALAX) packet 17 g 17 g, Oral, DAILY, First dose on Tue09/19/23 at 0945, Until Discontinued 1337 (Not Given - Provider: Neha Presley RN - Reason: Patient/family refused) 1200 (Given - Provider: Christina Marroquin RN) Potassium chloride (K-DUR) tablet ER 40 mEq(Linked Group 3) 40 mEq, Oral, DAILY, First dose on Tue09/20/23 at 0600, Until Discontinued, Give if potassium is 3.1 to 3.4 on morning labs and patient is able to tolerate oral medications Swallow tablets whole; do not crush, chew, or suck on tablet. Tablet may also be broken in half and each half swallowed separately. 0638 (Not Given - Provider: Ruddy Chauhan RN - Reason: Order Parameters not met) potassium chloride 40 mEq in 0.9% sodium chloride 500 ml IVPB(Linked Group 3) 40 mEq, Intravenous, at 125 mL/hr, Administer over 4 Hours, DAILY, First dose on Tue09/20/23 at 0600, Until Discontinued, Give if potassium is less than 3.1 on morning labs OR if potassium is 3.1 to 3.4 on morning labs and patient is UNABLE to tolerate oral medications 0638 (See Alternativ e - Provider: Ruddy Chauhan RN) probiotic blend (RISAQUAD) capsule 1 capsule 1 capsule, Oral, 2 TIMES DAILY, First dose on Tue09/19/23 at 0945, Until Discontinued 1337 (Given - Provider: Neha Presley RN)2230 (Given - Provider: Ruddy Chauhan RN) 0859 (Given - Provider: Christina Marroquin RN)1725 (Given - Provider: Christina Marroquin RN) vancomycin (VANCOCIN) 1,000 mg in dextrose 200 ml premix IVPB (CANCELED) 1,000 mg, Intravenous, EVERY 8 HOURS NON-STANDARD, First dose on Tue09/19/23 at 0100, Until Discontinued, Infuse at a rate of 1 gram/hour. Extravasation Risk 0037 ($$New Bag$$ - Provider: Venecia Kam RN)0137 (Stopped - Provider: Venecia Kam RN)1337 ($$New Bag$$ - Provider: Neha Presley RN)2204 ($$New Bag$$ - Provider: Ruddy Chauhan RN) 0530 (Due - Provider: Iliana Majano [facility]) Vancomycin (VANCOCIN) 1,500 mg in Sodium chloride 0.9%, with overfill 565 mL (total volume) IVPB 1,500 mg, Intravenous, EVERY 8 HOURS NON-STANDARD, First dose (after last modification) on Tue09/20/23 at 0800, Until Discontinued, Infuse at a rate of 1 gram/hour. Extravasation Risk 1048 ($$New Bag$$ - Provider: Christina Marroquin RN)1726 (Not Given - Provider: Christina Marroquin RN - Reason: Patient/family refused - Comment: patient being discharged) Continuous Medication Order 09/18/2023 09/19/2023 09/20/2023 Sodium chloride 0.9% IV solution Intravenous, at 75 mL/hr, CONTINUOUS, Starting on Tue09/19/23 at 0945, Until Tue09/20/23 at 2316 1338 ($$New Bag$$ - Provider: Neha Presley RN) 0326 ($$New Bag$$ - Provider: Ruddy Chauhan RN) PRN Medication Order 09/18/2023 09/19/2023 09/20/2023 Acetaminophen (TYLENOL) tablet 650 mg 650 mg, Oral, EVERY 6 HOURS NEEDED, Starting on Tue09/18/23 at 2308, Until Tue09/20/23 at 2316, Mild Pain, Oral temp > 100.4 F diphenhydrAMINE (BENADRYL) injection 25 mg 25 mg, Intravenous, EVERY 6 HOURS NEEDED, Starting on Tue09/19/23 at 0929, Until Tue09/20/23 at 6, Itching, Sleep, Allergic Reaction (Swelling throat, tongue or lips, rash, difficulty breathing), Infusion Reaction hydroCODone-acetaminophen (NORCO) 5-325 MG per tablet 1 tablet 1 tablet, Oral, EVERY 4 HOURS NEEDED, Starting on Tue09/19/23 at 0929, Until Tue09/20/23 at 231, Severe Pain, Maximum dose of acetaminophen is 4000 mg from all sources in 24 hours. Ipratropium-albuterol (DUONEB) 0.5-2.5 (3) MG/3ML nebulizer solution 3 mL 3 mL, Nebulization, EVERY 4 HOURS NEEDED, Starting on Tue09/19/23 at 0929, Until Tue09/20/23 at 2315, Shortness of Breath Labetalol (NORMODYNE) injection 20 mg 20 mg, Intravenous, EVERY 4 HOURS NEEDED, Starting on Tue09/19/23 at 0929, Until Tue09/20/23 at 2315, systolic blood pressure greater than 160, Administration duration: up to 20 mg over 2 minutes. 1206 (Given - Provid er: Christina Marroquin RN) lactulose (CHRONULAC) oral solution 20 g 20 g, Oral, EVERY 4 HOURS NEEDED, Starting on Tue09/19/23 at 0929, Until Tue09/20/23 at 2315, Constipation 1st Line Ondansetron 4mg/2ml (ZOFRAN) injection 4 mg 4 mg, Intravenous, EVERY 4 HOURS NEEDED, Starting on Tue09/19/23 at 0929, Until Tue09/20/23 at 2315, Nausea / Vomiting Potassium phosphates 30 mmol in Sodium chloride 0.9%, with overfill 535 mL (total volume) IVPB 30 mmol, Intravenous, Administer over 6 Hours, DAILY NEEDED, Starting on Tue09/19/23 at 0929, Until Tue09/20/23 at 2315, Other, If phospate <2.5, give 30mmol, Extravasation Risk traMADol (ULTRAM) tablet 50 mg 50 mg, Oral, EVERY 6 HOURS NEEDED, Starting on Tue09/19/23 at 1210, Until Tue09/20/23 at 2316, Moderate Pain Linked Groups Order Group 1: Insulin regular (HUMULIN R;NOVOLIN R) injectionJump to med Subcutaneous, 4 TIMES DAILY WITH MEALS & AT BEDTIME, First dose on Tue09/19/23 at 1200, Until Discontinued
HIGH Sliding scale parameters most appropriate for NPO or tube feeding patients: Blood glucose under 60 =call H.O.; 151 - 200 = 4 units; 201 - 250 = 6 units; 251 - 300 = 10 units; 301 - 350 = 14 units; 351 - 400 = 18 units; Over 400 = 20 units; > 450 = call H.O.
And Glucose (POC device) (CANCELED) Routine, 4 TIMES DAILY BEFORE MEALS & AT BEDTIME, First occurrence on Tue09/19/23 at 1030, Until Specified And Glucose (POC device) (CANCELED) Routine, ONE TIME, On Tue09/19/23 at 0930, For 1 occurrence
For all Blood Glucose LESS THAN 70 mg/dL, recheck 20 min after treatment then notify physician. And glucose chewable tablet CHEW 16-32 gJump to med 16-32 g (4-8 tablet), Oral, SEE ADMIN INSTRUCTIONS, Starting on Tue09/19/23 at 0929, Until Tue09/20/23 at 2316
If patient is alert and able to tolerate oral medications and blood glucose 69 - 50 mg/dL: give 4 chew tabs, if blood glucose 49 - 20 mg/dL: give 8 chew tabs. Notify physician and repeat blood glucose in 20 minutes. May repeat treatment x 1 if blood glucose less than 60 mg/dL. For alternative treatment options (juice, etc.) refer to the hypoglycemia management protocol on Ellucid: [facility] Management Protocol
And Dextrose 10% IV solution 250 mLJump to med 250 mL, Intravenous, at 999 mL/hr, SEE ADMIN INSTRUCTIONS, Starting on Tue09/19/23 at 0929, Until Tue09/20/23 at 2316
Give Dextrose 10% 250 mL IV x 1 at a rate of 999 mL/hr for blood glucose LESS THAN 20 mg/dL or any blood glucose LESS THAN 70 mg/dL and patient has an altered level of consciousness, unable to swallow, or NPO. Notify physician and repeat blood glucose in 20 minutes. May repeat x 1 if repeat blood glucose less than 60 mg/dL
And NOTIFY PHYSICIAN, Blood Glucose LESS THAN 70 mg/dl or greater than 400 mg/dl (CANCELED) Routine, CONTINUOUS, Starting on Tue09/19/23 at 0930, Until Specified
Who to Notify: TISSUE RECOVERY TECHNICIAN/Physician
For all Blood Glucose LESS THAN 70 mg/dl, or greater than 400 mg/dl notify TISSUE RECOVERY TECHNICIAN/Physician Group 2: insulin lispro (HumaLOG) injection (CANCELED)Jump to med Subcutaneous, 4 TIMES DAILY WITH MEALS & AT BEDTIME, First dose on Tue09/19/23 at 0800, Until Discontinued
Sliding Scale parameters: Blood glucose under 70 = call physician; 151 - 200 = 2 units; 201 - 250 = 4 units; 251 - 300 = 6 units; 301 - 350 = 8 units; 351 - 400 = 10 units; Over 400 = call physician.
And Glucose (POC device) (CANCELED) Routine, 4 TIMES DAILY BEFORE MEALS & AT BEDTIME, First occurrence on Tue09/19/23 at 0745, Until Specified And Glucose (POC device) (CANCELED) Routine, ONE TIME, On Tue09/19/23 at 0119, For 1 occurrence
For all Blood Glucose LESS THAN 70 mg/dL, recheck 20 min after treatment then notify physician. And glucose chewable tablet CHEW 16-32 g (CANCELED) 16-32 g (4-8 tablet), Oral, SEE ADMIN INSTRUCTIONS, Starting on Tue09/19/23 at 0118, Until Tue09/19/23 at 0931
If patient is alert and able to tolerate oral medications and blood glucose 69 - 50 mg/dL: give 4 chew tabs, if blood glucose 49 - 20 mg/dL: give 8 chew tabs. Notify physician and repeat blood glucose in 20 minutes. May repeat treatment x 1 if blood glucose less than 60 mg/dL. For alternative treatment options (juice, etc.) refer to the hypoglycemia management protocol on [employer]: I-LB-Zjmihpdroqgz Management Protocol.
And Dextrose 10% IV solution 250 mL (CANCELED) 250 mL, Intravenous, at 999 mL/hr, SEE ADMIN INSTRUCTIONS, Starting on Tue09/19/23 at 0118, Until Tue09/19/23 at 0931
Give Dextrose 10% 250 mL IV x 1 at a rate of 999 mL/hr for blood glucose LESS THAN 20 mg/dL or any blood glucose LESS THAN 70 mg/dL and patient has an altered level of consciousness, unable to swallow, or NPO. Notify physician and repeat blood glucose in 20 minutes. May repeat x 1 if repeat blood glucose less than 60 mg/dL
And NOTIFY PHYSICIAN, Blood Glucose LESS THAN 70 mg/dl or greater than 400 mg/dl (CANCELED) Routine, CONTINUOUS, Starting on Tue09/19/23 at 0119, Until Specified
Who to Notify: TISSUE RECOVERY TECHNICIAN/Physician
For all Blood Glucose LESS THAN 70 mg/dl, or greater than 400 mg/dl notify TISSUE RECOVERY TECHNICIAN/Physician Group 3: Potassium chloride (K-DUR) tablet ER 40 mEqJump to med 40 mEq, Oral, DAILY, First dose on Tue09/20/23 at 0600, Until Discontinued
Give if potassium is 3.1 to 3.4 on morning labs and patient is able to tolerate oral medications Swallow tablets whole; do not crush, chew, or suck on tablet. Tablet may also be broken in half and each half swallowed separately.
Or potassium chloride 40 mEq in 0.9% sodium chloride 500 ml IVPBJump to med 40 mEq, Intravenous, at 125 mL/hr, Administer over 4 Hours, DAILY, First dose on Tue09/20/23 at 0600, Until Discontinued
Give if potassium is less than 3.1 on morning labs OR if potassium is 3.1 to 3.4 on morning labs and patient is UNABLE to tolerate oral medications
Care Teams (unrecognized sec tion and content) Team Status: Active Member Role Status Dates Timo Moser MD Primary Care Provider Active Team Status: Inactive Member Role Status Dates Kathleen Diaz APRN Attending Provider Active Start: November 23, 2023 End: November 23, 2023 Timo Moser MD Primary Care Provider Active Start: November 23, 2023 End: November 23, 2023 Team Status: Inactive Member Role Status Dates Timo Moser MD Primary Care Provider Active Start: February 17, 2024 End: February 17, 2024 Kathleen Diaz APRN Attending Provider Active Start: February 17, 2024 End: February 17, 2024 Pipeman Relationship Specialty Start Date End Date Kate Mayers PCP - General 09/18/23 Pipeman Relationship Specialty Start Date End Date Kate Mayers PCP - General 09/18/23 Pipeman Relationship Specialty Start Date End Date Kate Mayers PCP - General 09/18/23 Team Status: Active Member Role Status Dates Provider Conversion Attending Provider Active St art: November 08, 2023 Team Status: Inactive Member Role Status Dates Timo Moser MD Primary Care Provider Active Start: February 22, 2024 End: February 22, 2024 Hayes Zamora RN Attending Provider Active St art: February 22, 2024 End: February 22, 2024 Kathleen Diaz APRN Active Star t: February 22, 2024 End: February 22, 2024 Team Status: Inactive Member Role Status Dates Timo Moser MD Primary Care Provider Active Start: February 28, 2024 End: February 28, 2024 Hayes Zamora RN Attending Provider Active St art: February 28, 2024 End: February 28, 2024 Team Status: Inactive Member Role Status Dates Timo Moser MD Primary Care Provider Active Start: February 28, 2024 End: February 28, 2024 Hayes Zamora RN Attending Provider Active St art: February 28, 2024 End: February 28, 2024 Kathleen Diaz APRN Active Star t: February 28, 2024 End: February 28, 2024 Team Status: Inactive Member Role Status Dates Timo Moser MD Primary Care Provider Active Start: April 05, 2024 End: April 05, 2024 Kathleen Diaz APRN Attending Provider Active Start: April 05, 2024 End: April 05, 2024 Pipeman Relationship Specialty Start Date End Date Rubén Cuenca APRN-ONCOLOGY SOCIAL WORKER [address] [place], [place] [id number] (work) PCP - General Family Medicine 11/25/23 Pipeman Relationship Specialty Start Date End Date Rubén Cuenca APRN-ONCOLOGY SOCIAL WORKER [address] [place], [place] [address] [address] PCP - General Family Medicine 11/25/23 Pipeman Relationship Specialty Start Date End Date Rubén Cuenca APRN-ONCOLOGY SOCIAL WORKER [address] [place] [address], [place] [address] PCP - General Family Medicine 11/25/23 Pipeman Relationship Specialty Start Date End Date Rubén Cuenca APRN-ONCOLOGY SOCIAL WORKER [address] [place] [address] [place] [address] PCP - General Family Medicine 01/19/24 Pipeman Relationship Specialty Start Date End Date Rubén Cuenca APRN-ONCOLOGY SOCIAL WORKER [address] [place] [address], [place] [address] PCP - General Family Medicine 11/25/23 Pipeman Relationship Specialty Start Date End Date Rubén Cuenca APRN-ONCOLOGY SOCIAL WORKER [address] [place] [address], [place] [address] PCP - General Family Medicine 01/19/24 Pipeman Relationship Specialty Start Date End Date Rubén Cuenca APRN-ONCOLOGY SOCIAL WORKER [address] [place] [address], [place] [address] PCP - General Family Medicine 01/19/24 Goals (unrecognized section and content) Goals may be documented in a n alternate section FOR RECORDS PERTAINING TO PATIENTS WHO ARE OR HAVE BEEN ENROLLED IN A CHEMICAL DEPENDENCY/SUBSTANCEABUSE PROGRAM, SOME INFORMATION MAY BE OMITTED. This clinical summary was aggregated from multiple sources. Caution should be exercised in using it in the provision of clinical care. This summary normalizes information from multiple sources, and as a consequence, information in this document may materially change the coding, format and clinical context of patient data. In addition, data may be omitted in some cases. CLINICAL DECISIONS SHOULD BE BASED ON THE PRIMARY CLINICAL RECORDS. [facility] [employer] [facility]. provides no warranty or guarantee of the accuracy or completeness of information in this document.
--- OUTSIDE RECORDS SUMMARY | 2025-09-01 02:34 | XMS_ITS | Encounter Summary ---
Author Organization [email or web address] [facility] work Address [address] [place] [address] Care Team Providers Care Finger Buffs Assembler Name Role Phone Gilmar Rodriguez DO Primary Care Provider + Encounter Details Date Type Department Care Team (Late st Contact Info) Description 06/05/2019 HME - Medical Equipment [email or web address] [facility] [phone] Flaco Calvillo MD [address] [address] Social History Tobacco Use Types Packs/Day Years [...] PM EST Sexual Orientation Not on file documented as of this encounter Plan of [...] kg (249 lb)(03/27/20 21 1:18 PM EDT) Bernie Townsend LPN Note: Weight loss will help with glucose control. Recommend 30 minutes or more of brisk walking daily other than what is required with your job. documented as of this encounter Visit Diagnoses Not on filedocumented in this encounter Additional Health Concerns Infection Onset Date Last Indicated Resolved Time Coronavirus Disease (COVID-1 9) - Rule out 12/23/2020 12/23/2020 01/03/2021 2:[address] documented as of this encounter Care Teams Finger Buffs Assembler Relationship Specialty Start Date End Date Gilmar Rodriguez DO [address] [place] [address] PCP - General Family Medicine 03/07/18 documented as of this encounter
--- OUTSIDE RECORDS SUMMARY | 2025-09-01 02:34 | XMS_ITS | Encounter Summary ---
Author Organization [employer] work Address [address] [place] [address] Care Team Providers Care Administrative Officer Name Role Phone Gilmar Rodriguez Primary Care Provider + Encounter Details Date Type Department Care Team (Late st Contact Info) Description 10/03/2020 HME - Medical Equipment [employer] [facility] [phone] Steve Hamilton, RON [address] [place] [address] Social History Tobacco Use Types Packs/Day Years [...] or suspected to have Coronavirus / COVID-19? Yes 10/03/2020 9:44 AM EST documented as of this encounter [...] documented as of this encounter Care Teams Administrative Officer Relationship Specialty Start Date End Date Gilmar Rodriguez DO [address] [place] [address] PCP - General Family Medicine 03/07/18 documented as of this encounter
--- OUTSIDE RECORDS SUMMARY | 2025-09-01 02:34 | XMS_ITS | Encounter Summary ---
Author Organization [employer] [facility] work Address [address] [place] [address] Care Team Providers Care Flight Test Supervisor Name Role Phone Gilmar Rodriguez Primary Care Provider + Encounter Details Date Type Department Care Team (Late st Contact Info) Description 10/09/2020 HME - Medical Equipment [employer] [facility] [phone] Amarjit Ibarra, DPM [address] [place] [address] Social History Tobacco Use Types Packs/Day Years [...] documented as of this encounter Care Teams Flight Test Supervisor Relationship Specialty Start Date End Date Gilmar Rodriguez DO [address] [place] [address] PCP - General Family Medicine 03/07/18 documented as of this encounter
--- OUTSIDE RECORDS SUMMARY | 2025-09-01 02:34 | XMS_ITS | Encounter Summary ---
Author Organization [facility] [employer] [facility] work Address [address] [place] [address] [place] [address] Care Team Providers Care Last Puller Name Role Phone Gilmar Rodriguez DO Primary Care Provider + Encounter Details Date Type Department Care Team (Late st Contact Info) Description 10/10/2020 Controlled Substance Monitoring [facility] [address] [place] [address] Gilmar Rodriguez DO [address] [place] [address] Social History Tobacco Use Types Packs/Day Years [...] (90.7 kg) Weight 112.9 kg (249 lb)(03/27/20 1:18 PM EDT) No Bernie Doran LPN [...] documented as of this encounter Care Teams Last Puller Relationship Specialty Start Date End Date Gilmar Rodriguez DO [address] [place] [address] PCP - General Family Medicine 03/07/18 documented as of this encounter
--- OUTSIDE RECORDS SUMMARY | 2025-09-01 02:34 | XMS_ITS | Encounter Summary ---
Author Organization [employer] [facility] work Address [address] [place] [address] [place] [address] Care Team Providers Care Advertising Coordinator Name Role Phone Gilmar Rodriguez DO Primary Care Provider + Encounter Details Date Type Department Care Team ([facility] st Contact Info) Description 10/01/2020 Orders Only [facility] [address] [place] [address] Gilmar Rodriguez DO [address] [facility] [place] [address] Chronic pain disorder (Primary Dx); Encounter for long-term (current) use of high-risk medication Social History Tobacco Use Types Packs/Day Years [...] your job. documented as of this encounter Procedures Procedure Name Priority Date/Time Associated Diagnosis Comments AIT SCREEN AND CONFIRM PREFERRED COMPONENTS, URINE Routine 10/01/2020 10:30 AM EST Chronic pain disorder Encounter for long-term (current) use of high-risk medication documented in this encounter Results * (ABNORMAL) AIT Screen and Confirm Preferred Components, Urine (10/01/2020 10:30 AM EST) Pathologist [facility] Med List HYDROCODONE, GABAPENTIN AIT Comment:HYDROCODONE LAST DOS E TAKEN 09/30/20 11:19 AM, GABAPENTIN LAST DOSE TAKEN 09/30/20 7:19 PM Hydrocodone 321.0 POSITIVE - Consistent with prescriptions . (H) 0.1 - 50.0 ng/mL AIT Norhydrocodone 327.1 POSITIVE - Consistent with prescriptions . (H) 0.1 - 50.0 ng/mL AIT Hydromorphone 5.3 Below Reporting Limit 0.1 - 50.0 ng/mL AIT Morphine 0.0 NEGATIVE (L) 0.1 - 50.0 ng/mL AIT Norcodeine 0.0 NEGATIVE (L) 0.1 - 50.0 ng/mL AIT Codeine 0.0 NEGATIVE (L) 0.1 - 50.0 ng/mL AIT Gabapentin 5000.0 POSITIVE - Consistent with prescriptions . (H) 0.1 - 500.0 ng/mL AIT Pregabalin 0.0 NEGATIVE (L) 0.1 - 500.0 ng/mL AIT PS_Opiates 321 POSITIVE (H) 0 - 50 ng/mL AIT PS_Oxycodone 0 NEGATIVE 0 - 50 ng/mL AIT PS_Buprenorphine 0 NEGATIVE 0 - 5 ng/mL AIT PS_Fentanyl 0 NEGATIVE 0 - 5 ng/mL AIT PS_Methadone 0 NEGATIVE 0 - 50 ng/mL AIT PS_Tapentadol 0 NEGATIVE 0 - 50 ng/mL AIT PS_Tramadol 0 NEGATIVE 0 - 50 ng/mL AIT PS_Meperidine 0 NEGATIVE 0 - 50 ng/mL AIT PS_Gaba/Pregab [id number] POSITIVE (H) 0 - 500 ng/mL AIT PS_Misc Opioids 0 NEGATIVE 0 - 30 ng/mL AIT PS_Ketamine 0 NEGATIVE 0 - 50 ng/mL AIT PS_Benzodiazepine 0 NEGATIVE 0 - 50 ng/mL AIT PS_Sedatives 0 NEGATIVE 0 - 5 ng/mL AIT PS_Antipsychotics 0.0 NEGATIVE 0.0 - 100.0 ng/mL AIT PS_Barbituates 0 NEGATIVE 0 - 100 ng/mL AIT PS_Muscle Relax 0 NEGATIVE 0 - 50 ng/mL AIT PS_Amphetamines 0 NEGATIVE 0 - 100 ng/mL AIT PS_ETG/ETS 0.0 NEGATIVE 0.0 - 250.0 ng/mL AIT PS_Illicits 0 NEGATIVE 0 - 20 ng/mL AIT PS_Illicits K 0.0 NEGATIVE 0.0 - 100.0 ng/mL AIT PS_Illicits D 0.0 NEGATIVE 0.0 - 5000.0 ng/mL AIT PS_Synthetic Amphetamines 0 NEGATIVE 0 - 100 ng/mL AIT PS_THC 0 NEGATIVE 0 - 10 ng/mL AIT PS_Bath Salts 0 NEGATIVE 0 - 30 ng/mL AIT PS_K2/Spice 0 NEGATIVE 0 - 50 ng/mL AIT Creatinine, Urine 78.0 NORMAL 20.0 - 200.0 mg/dL AIT pH, Urine 5.5 4.6 - 8.9 AIT Comment:NORMAL Specific [place], Urine 1.011 1.002 - 1.035 AIT Comment:NORMAL Urine specimen (specimen) 10/01/2020 10:30 AM EST 10/03/2020 3:28 PM EST Gilmar Rodriguez DO URINE ORDERABLES Final R esult AIT [address] [place] [address], [facility] [phone] documented in this encounter Visit Diagnoses Diagnosis Chronic pain disorder- Primary Chronic pain syndrome Encounter for long-term (current) use of high-risk medication Encounter for long-term (current) use of other medications documented in this encounter Additional Health Concerns Infection Onset Date Last Indicated Resolved Time Coronavirus Disease (COVID-1 9) - Rule out 12/23/2020 12/23/2020 01/03/2021 2:[address] documented as of this encounter Care Teams Advertising Coordinator Relationship Specialty Start Date End Date Gilmar Rodriguez DO [address] [place] [address] PCP - General Family Medicine 03/07/18 documented as of this encounter
--- OUTSIDE RECORDS SUMMARY | 2025-09-01 02:34 | XMS_ITS | Encounter Summary ---
Author Organization [employer] [facility] work Address [address] [place] [address] Care Team Providers Care Implementation Director Name Role Phone Michael, Gilmar Rao Primary Care Provider + Encounter Details Date Type Department Care Team (Late st Contact Info) Description 06/21/2019 HME - Medical Equipment [employer] [facility] [phone] Steve Hamilton, RON [address] [place] [address] Social History Tobacco Use Types [...] documented as of this encounter Care Teams Implementation Director Relationship Specialty Start Date End Date Gilmar Rodriguez DO [address] [place] [address] PCP - General Family Medicine 03/07/18 documented as of this encounter
--- OUTSIDE RECORDS SUMMARY | 2025-09-01 02:34 | XMS_ITS | Encounter Summary ---
Author Organization [employer] work Address [address] [place] [address] Care Team Providers Care Chemist Pharmaceutical Name Role Phone Gilmar Rodriguez Primary Care Provider + Encounter Details Date Type Department Care Team (Late st Contact Info) Description 10/31/2020 HME - Medical Equipment [employer] [facility] [phone] Amarjit Ibarra, DPM [address] [place] [address] Social History Tobacco Use Types Packs/Day Years [...] have Coronavirus / COVID-19? No / Unsure 10/30/2020 10:58 AM EST documented as of this encounter [...] documented as of this encounter Care Teams Chemist Pharmaceutical Relationship Specialty Start Date End Date Gilmar Rodriguez DO [address] [place] [address] PCP - General Family Medicine 03/07/18 documented as of this encounter
--- OUTSIDE RECORDS SUMMARY | 2025-09-01 02:35 | XMS_ITS | Clinical Summary ---
Author Organization [employer] work Address [address] [place] [address] Care Team Providers Care Medical Appliance Maker Name Role Phone Michael, Gilmar Yeh DO Primary Care Provider + Allergies Active Allergy Reactions Criticality Noted Date Comments Azithromycin Nausea Only 08/14/2015 Iodinated Contrast Media Other (See Comments) 0 06/10/2015 Medications * This document contains information received from the source organization and may not represent a complete record from that organization. alcohol swabs (ALCOHOL PADS) PadM Apply 1 Pad topically 2 (two) times daily (7am,7pm). 400 each Active hydrocortisone 2.5 % ointmentIndicatio ns:Disease of skin and subcutaneous tissue Apply topically 2 (two) times daily. Apply to rash twice daily when present on bilateral legs 453.6 g 4 Active Additional Information Patient taking differently: 1 applicationTopical 2 Times Daily, Apply to rash twice daily when present on bilateral legs, Reported on 03/06/2021 lancets (FREESTYLE) 28 gauge Misc 1 Cassette 2 (two) times daily. 200 each 020 Active aspirin 81 MG enteric coated tabletIndications :Essential (primary) hypertension Take ONE tablet (81 mg total) by mouth daily. 90 tablet Active blood glucose test stripsIndications :Uncontrolled diabetes mellitus with hyperglycemia, with long-term current use of insulin (HCC) bs testing bidTo go with freestyle meter dx e11.65 300 each 2 021 Active Additional Information Patient taking differently: 1 strip Misc.(Non-Drug; Combo Route) 2 times daily, bs testing bidTo go with freestyle meter dx e11.65, Reported on 03/06/2021 albuterol 90 mcg/actuation inhaler Inhale TWO puffs into the lungs every 4 (four) hours as needed for Wheezing. 6.7 g Active semaglutide (OZEMPIC) 0.25 mg or 0.5 mg(2 mg/1.5 mL) injectionIndicati ons:Uncontrolled diabetes mellitus with hyperglycemia, with long-term current use of insulin ([facility]) Inject ONE QUARTER mg into the skin every 7 days. 1.5 mL Active empagliflozin (JARDIANCE) 25 mg tabletIndications :Uncontrolled diabetes mellitus with hyperglycemia, with long-term current use of insulin ([facility]) Take ONE tablet (25 mg total) by mouth daily. 90 tablet 1 Active atorvastatin (LIPITOR) 20 MG tabletIndications :Mixed hyperlipidemia TAKE 1 TABLET BY MOUTH EVERY DAY 90 tablet Active Additional Information Patient taking differently: 20 mg Oral Daily, TAKE 1 TABLET BY MOUTH EVERY DAY, Reported on 03/06/2021 busPIRone (BUSPAR) 10 MG tabletIndications :Reactive depression Take ONE tablet (10 mg total) by mouth 2 (two) times daily. 180 tablet Active gabapentin (NEURONTIN) 600 MG tabletIndications :DDD (degenerative disc disease), lumbar Take one tablet (600 mg) PO at noon and two tablets (1200 mg) PO HS (30 day supply) 90 tablet 2 Active Additional Information Patient taking differently: 600 mg Oral 2 Times Daily, Take one tablet (600 mg) PO at noon and two tablets (1200 mg) PO HS (30 day supply), Reported on 03/06/2021 hydrochlorothiazi de (HYDRODIURIL) 12.5 MG tabletIndications :Essential (primary) hypertension Take ONE tablet (12.5 mg total) by mouth daily. 90 tablet Active lisinopriL (ZESTRIL) 40 MG tabletIndications :Essential (primary) hypertension Take ONE tablet (40 mg total) by mouth daily. 90 tablet Active omeprazole (PRILOSEC) 40 MG capsuleIndication s:Gastroesophagea l reflux disease without esophagitis TAKE 1 CAPSULE BY MOUTH EVERY DAY 90 capsule Active Additional Information Patient taking differently: 40 mg Oral Daily, TAKE 1 CAPSULE BY MOUTH EVERY DAY, Reported on 03/06/2021 HYDROcodone-aceta minophen (NORCO) 7.5-325 mg tabletIndications :DDD (degenerative disc disease), lumbar Take ONE tablet by mouth every 12 (twelve) hours as needed for Pain. Fill date 03-01-21 (30 Day Supply) 60 tablet Active sulfamethoxazole- trimethoprim (BACTRIM DS) 800-160 mg per tablet Take ONE tablet by mouth 2 (two) times daily. 14 tablet Active doxepin (SINEQUAN) 50 MG capsuleIndication s:Other insomnia TAKE 2 CAPSULES BY MOUTH AT BEDTIME 56 capsule Active Additional Information Patient taking differently: 50 mg Oral Nightly, Indications: 2 capsules at night, Reported on 03/06/2021 insulin degludec (TRESIBA FLEXTOUCH U-200) 200 unit/mL (3 mL) injectionIndicati ons:Uncontrolled diabetes mellitus with hyperglycemia, with long-term current use of insulin (HCC) Inject 65 units into the skin nightly DX E11.65 Active Additional Information Patient taking differently: 65 Units Subcutaneous Nightly, Inject 65 units into the skin nightly DX E11.65, Reported on 03/06/2021 HYDROcodone-aceta minophen (NORCO) 5-325 mg tabletIndications :Chronic refractory osteomyelitis of foot, left (HCC) Take ONE tablet by mouth every 8 (eight) hours as needed for Pain (Severe post operative pain). (5 Day Supply) 7 tablet Active Active Problems Problem Noted Date Diagnosed Date Subacute osteomyelitis 03/13/2021 Chronic refractory osteomyelitis of foot, left 0 02/25/2021 Overview (02/25/2021): Added automatically from request for surgery [id number] Preoperative cardiovascular examination 10/30/20 20 Hypertensive heart disease 10/30/2020 Coronary atherosclerosis of ione coronary viktor ry 10/30/2020 Abnormal EKG 10/30/2020 Diabetic ulcer of left midfo ot associated with type 2 diabetes mellitus, with fat layer exposed 10/22/2020 Overview (10/22/2020): Added automatically from request for surgery [id number] Tailor's bunion of left foot 10/22/2020 Overview (10/22/2020): Added automatically from request for surgery [id number] Lumbar radiculopathy 10/22/2020 Overview (10/22/2020): Added automatically from request for surgery [id number] Anxiety 03/27/2018 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 03/27/2018 Chronic pain disorder 03/27/2018 DDD (degenerative disc disease), lumbar 03/27/20 18 Gastro-esophageal reflux disease without esophag itis 03/27/2018 Generalized anxiety disorder 03/27/2018 Peripheral polyneuropathy 03/27/2018 Assessment & Plan (04/26/2018 10:09 AM EDT): Relevant Hx: Course: Daily Update: Today's Plan: Uncontrolled diabetes mellit us with hyperglycemia, with long-term current use of insulin 03/27/2018 Essential (primary) hypertension 02/02/2016 Assessment & Plan (10/21/2020 3:18 PM EST): Continue current medications as directed Encouraged to eat a heart healthy diet Encourage to exercise 3 to 5x weekly for 20 minutes as tolerated Encouraged to limit salt and items that contain salt such as canned foods Assessment & Plan (10/01/2019 3:07 PM EST): Encouraged to take lisinopril as prescribed. Recommend you monitor your blood pressure at home and bring a log of your results to your appointments with you. Report consistently high results or if you develop symptoms referable to hypertension as discussed. Recommend a low salt diet as well as too much sodium can raise your blood pressure. Increase activity as tolerated. Aim for at least 30 min/day at least 5 days per week of cardiovascular exercise as tolerated as this may help lower your blood pressure as well as your risk for other cardiovascular disease. It is also important to take your medications as directed, do not stop taking or skip doses without talking with your doctor first. Having labs drawn routinely and keeping all F/U appointments are also important parts of your care. Mixed hyperlipidemia 10/15/2015 Assessment & Plan (10/21/2020 3:18 PM EST): Continue current medications as directed Avoid fried fatty foods Encourage to eat a heart healthy diet Encouraged to exercise 3 to 5x weekly for 20 minutes as tolerated Continue to get fasting labs checked yearly Assessment & Plan (10/01/2019 3:08 PM EST): Takes lipitor as prescribed. Recommend a heart healthy diet and lifestyle. Avoid fried and fatty foods and increase your intake of lean meats, fish, fresh fruits and vegetables and whole grains. It is also important to continue to stay active. Aim for at least 30 minutes per day at least 5 days per week of cardiovascular exercise as tolerated. It is important to take your medications as directed, so not stop taking or skip doses. Having labs drawn routinely and keeping all F/U appointments are also important parts of your care Syncope and collapse Resolved Problems Problem Noted Date Diagnosed Date Resolved Date Diabetic polyneuropathy asso ciated with type 2 diabetes mellitus 03/27/2018 03/27/2018 Other diseases of nasal cavity and sinuses 03/27/2018 02/02/2019 Immunizations Immunization Administration Dates Next Due Influenza QIV (IM) 10/21/2020(Deferred: Patient Refused - Patient refused per Umang Perez RN) Family History Medical History Relation Comments Diabetes Father Heart disease Father Hyperlipidemia Father Hypertension Father Diabetes Mother Relation Status Comments Father Mother Alive Social History Tobacco Use Types Packs/Day Years Used Date Smoking Tobacco: Never Cigarettes Cigars Smokeless Tobacco: Never Tobacco Cessation:Counseling Given: Yes Alcohol Use Standard Drinks/Week Comments No 0 (1 standard drink = 0.6 oz pur e alcohol) Sex and Gender Information Value Date Recorded Sex Assigned at Not on file Legal Sex Male 6:23 PM EDT Gender Identity Male 11/07/2020 3:37 PM EST Sexual Orientation Not on file Last Filed Vital Signs Vital Sign Reading Time Taken Comments Blood Pressure 126/75 03/27/2021 2:05 PM EDT Pulse 92 03/27/2021 2:05 PM EDT Temperature 37.1 C (98.7 F) 03/27/2021 2:05 PM EDT Respiratory Rate 17 03/27/2021 2:05 PM EDT Oxygen Saturation 97% 03/27/2021 2:05 PM EDT Inhaled Oxygen Concentration - - Weight 112.9 kg (249 lb) 03/27/2021 1:18 PM EDT Height 188 cm (6' 2 ) 03/27/2021 1:18 PM EDT Body Mass Index 31.97 03/27/2021 1:18 PM EDT Plan of Treatment Health Maintenance Due Date Last Done Comments CT Colonography Colorectal Cancer Screening 1967 Diabetes Foot Exam 1967 Diabetes Ophthalmology Exam 1967 FIT-DNA (Cologuard) Colorect al Cancer Screening 1967 FOBT Colorectal Cancer Screening 1967 Hepatitis C Screening 1967 Hypertension Annual Blood Pressure Screening 1967 SDOH 1967 Sigmoidoscopy Colorectal Cancer Screening 1967 Hepatitis B Vaccines (Adult) (1 of 3 - 19+ 3-dose series) 1986 Tetanus/Pertussis Adult Vaccine (One-time Booster) 1986 Pneumococcal Vaccine: 50+ Years (1 of 1 - PCV) 2017 Zoster Vaccines (1 of 2) 2017 Annual Medicare Wellness Exam 10/01/2020 10/01/2019 Diabetes Hemoglobin A1c Screening 03/31/2021 10/01/2020, 06/26/2018 Colonoscopy Colorectal Cance r Screening 04/03/2023 04/03/2013 Colorectal Cancer Screening 04/03/2023 Annual Adult Depression Screen 11/28/2024 COVID-19 Vaccine (1 - 2023-2 5 season) 2025 Influenza Vaccine (#1) 2025 Meningococcal Vaccine (MCV4) Aged Out No longer eligible based on patient's age to complete this topic Goals Goal Patient Goal Type Associated Problems Recent Progress Patient-Stated? Author Cut out extra servings Diet No Bernie Doran LPN Note: Avoid carbohydrates in the diet. More protein, meat, eggs, fish, chicken, cheese, salads, broccoli, cauliflower. No fruit, juices, milk, sweets or starchy vegetables. High Risk - Keep a log of your food and drinks daily High Risk No Sera Price, MARIXA, LD Note: New goals: 1. Continue to follow rule of 15 for low blood glucose treatment. 2. Slow down eating times, trying to take 20 minutes to eat meals. 3. Tune into feeling of hunger and fullness. 4. Continue to monitor blood glucose, can monitor 2 hours after meals if you want to see how high bg goes. 5. Keep dose at 64 units for Tresiba. Increase physical activity Lifestyle No Bernie Doran [...] than what is required with your job. Procedures Procedure Name Priority Date/Time Associated Diagnosis Comments POCT HEMOGLOBIN A1C Routine 06/26/2018 3 :17 PM EDT Diabetes mellitus due to underlying condition, uncontrolled, with hyperglycemia, with long-term current use of insulin (HCC) COLONOSCOPY Routine 04/03/2013 from Last 3 Months or Most Recently Relevant to Health Maintenance Results * (ABNORMAL) POCT Hemoglobin A1c (06/26/2018 3:17 PM EDT) Hemoglobin A1C 8.8(A) 5.0 - 7.0 % Comment:204 06/26/2018 3:17 PM EDT Gilmar Rodriguez DO POINT OF CARE TEST ORDER TIERRA Final Result * COLONOSCOPY (04/03/2013) Colonoscopy normal Historical Provider MD HEALTH MAINTENANCE Final Result from Last 3 Months or Most Recently Relevant to Health Maintenance Insurance MEDICAID TRADITIONAL MEDICARE PART A AND B Care Teams Medical Appliance Maker Relationship Specialty Start Date End Date Gilmar Rodriguez DO [address] [place] [address] PCP - General Family Medicine 03/07/18
--- OUTSIDE RECORDS SUMMARY | 2025-09-01 02:35 | XMS_ITS | Encounter Summary ---
Author Organization [employer] work Address [address] [place] [address] Care Team Providers Care Retail Special Event Associate Name Role Phone Gilmar Rodriguez Primary Care Provider + Encounter Details Date Type Department Care Team (Late st Contact Info) Description 09/26/2020 HME - Medical Equipment [facility] [employer] [facility] [phone] Steve Hamilton, RON [address] [place] [address] Social History Tobacco Use Types [...] have Coronavirus / COVID-19? No / Unsure 09/19/2020 9:35 AM EDT documented as of this encounter Plan of [...] documented as of this encounter Care Teams Retail Special Event Associate Relationship Specialty Start Date End Date Gilmar Rodriguez DO [address] [place] [address] PCP - General Family Medicine 03/07/18 documented as of this encounter
--- OUTSIDE RECORDS SUMMARY | 2025-09-01 02:35 | XMS_ITS | Encounter Summary ---
Author Organization [employer] work Address [address] [place] [address] Care Team Providers Care Insurance Writer Name Role Phone Gilmar Rodriguez Primary Care Provider + Encounter Details Date Type Department Care Team (Late st Contact Info) Description 09/19/2020 HME - Medical Equipment [facility] [employer] [facility] [phone] Amarjit Ibarra, DPM [address] [place] [address] Social History Tobacco Use Types Packs/Day Years [...] documented as of this encounter Care Teams Insurance Writer Relationship Specialty Start Date End Date Gilmar Rodriguez DO [address] [place] [address] PCP - General Family Medicine 03/07/18 documented as of this encounter
--- OUTSIDE RECORDS SUMMARY | 2025-09-01 02:36 | XMS_ITS | Encounter Summary ---
Author Organization [employer] work Address [address] [place] [address] Care Team Providers Care Instrument Tech Name Role Phone Gilmar Rodriguez Primary Care Provider + Encounter Details Date Type Department Care Team (Late st Contact Info) Description 09/12/2020 HME - Medical Equipment [facility] [employer] [facility] [phone] Amarjit Ibarra, DPM [address] [place] [address] Social History Tobacco Use Types Packs/Day Years [...] have Coronavirus / COVID-19? No / Unsure 09/03/2020 1:25 PM EDT documented as of this encounter Plan [...] documented as of this encounter Care Teams Instrument Tech Relationship Specialty Start Date End Date Gilmar Rodriguez DO [address] [place] [address] PCP - General Family Medicine 03/07/18 documented as of this encounter
--- OUTSIDE RECORDS SUMMARY | 2025-09-01 02:36 | XMS_ITS | Encounter Summary ---
Author Organization [employer] work Address [address] [place] [address] Care Team Providers Care Land Surveying Survey Worker Name Role Phone Gilmar Rodriguez DO Primary Care Provider + Encounter Details Date Type Department Care Team (Late st Contact Info) Description 02/09/2021 Telephone [facility] [address] [facility] [place] [phone] Caitlin Rios, PEDRO [address] [place] [address] Social History Tobacco Use Types Packs/Day Years [...] have Coronavirus / COVID-19? No / Unsure 01/28/2021 9:07 AM EST documented as of this encounter [...] drinks daily High Risk No Sera Price, BRIDGETTN, LD Note: New goals: 1. Continue to [...] Diagnoses Not on filedocumented in this encounter Care Teams Land Surveying Survey Worker Relationship Specialty Start Date End Date Gilmar Rodriguez DO [address] [place] [address] PCP - General Family Medicine 03/07/18 documented as of this encounter
--- OUTSIDE RECORDS SUMMARY | 2025-09-01 02:36 | XMS_ITS | Encounter Summary ---
Author Organization [employer] work Address [address] [place] [address] Care Team Providers Care Events Assistant Name Role Phone Gilmar Rodriguez Primary Care Provider + Encounter Details Date Type Department Care Team (Late st Contact Info) Description 02/18/2021 HME - Medical Equipment [facility] [employer] [facility] [phone] Caitlin Rios, PEDRO [address] [place] [address] Social History Tobacco Use Types [...] have Coronavirus / COVID-19? No / Unsure 02/17/2021 8:56 AM EDT documented as of this encounter [...] drinks daily High Risk No Sera Price, RDN, LD Note: New goals: 1. Continue to [...] on filedocumented in this encounter Care Teams Events Assistant Relationship Specialty Start Date End Date Gilmar Rodriguez DO [address] [place] [address] PCP - General Family Medicine 03/07/18 documented as of this encounter
--- OUTSIDE RECORDS SUMMARY | 2025-09-01 02:36 | XMS_ITS | Encounter Summary ---
Author Organization [employer] work Address [address] [facility] [place] [address] Care Team Providers Care Wreath Maker Name Role Phone Gilmar Rodriguez DO Primary Care Provider + Encounter Details Date Type Department Care Team (Late st Contact Info) Description 03/09/2021 [facility]phone [facility] [address] [place] [phone] Caitlin Rios, PEDRO [address] [place] [address] Social History Tobacco Use [...] have Coronavirus / COVID-19? No / Unsure 03/02/2021 10:47 AM EDT documented as of this encounter [...] on filedocumented in this encounter Care Teams Wreath Maker Relationship Specialty Start Date End Date Gilmar Rodriguez DO [address] [place] [address] PCP - General Family Medicine 03/07/18 documented as of this encounter
--- OUTSIDE RECORDS SUMMARY | 2025-09-01 02:36 | XMS_ITS | Encounter Summary ---
Author Organization [employer] work Address [address] [place] [address] Care Team Providers Care Spray Cementer Name Role Phone Gilmar Rodriguez DO Primary Care Provider + Encounter Details Date Type Department Care Team (Late st Contact Info) Description 09/09/2020 [facility] [address] [place] [phone] Amarjit Ibarra, DPM [address] [place] [address] Social History Tobacco Use Types Packs/Day Years [...] or starchy vegetables. Increase physical activity Lifestyle Bernie Townsend LPN Plan meals Lifestyle No Bernie Doran [...] documented as of this encounter Care Teams Spray Cementer Relationship Specialty Start Date End Date Gilmar Rodriguez DO [address] [place] [address] PCP - General Family Medicine 03/07/18 documented as of this encounter
--- OUTSIDE RECORDS SUMMARY | 2025-09-01 02:36 | XMS_ITS | Encounter Summary ---
Author Organization [employer] work Address [address] [place] [address] Care Team Providers Care Sanding Line Operator Name Role Phone Gilmar Rodriguezez SANTOS Primary Care Provider + Encounter Details Date Type Department Care Team (Late st Contact Info) Description 02/25/2021 HME - Medical Equipment [facility] [email or web address] [facility] [phone] Caitlin Rios, PEDRO [address] [place] [address] Social History Tobacco Use Types [...] on filedocumented in this encounter Care Teams Sanding Line Operator Relationship Specialty Start Date End Date Gilmar Rodriguez DO [address] [place] [address] PCP - General Family Medicine 03/07/18 documented as of this encounter
--- OUTSIDE RECORDS SUMMARY | 2025-09-01 02:36 | XMS_ITS | Encounter Summary ---
Author Organization [employer] [facility] work Address [address] [place] [address] Care Team Providers Care Combination Window Installer Name Role Phone Gilmar Rodriguez DO Primary Care Provider + Encounter Details Date Type Department Care Team (Late st Contact Info) Description 02/17/2021 Controlled Substance Monitoring [facility] [address] [place] [address] Gilmar Rodriguez DO [address] [place] [facility] [place] [place] [address] Social History Tobacco Use [...] on filedocumented in this encounter Care Teams Combination Window Installer Relationship Specialty Start Date End Date Gilmar Rodrigeuz DO [address] [place] [address] PCP - General Family Medicine 03/07/18 documented as of this encounter
--- OUTSIDE RECORDS SUMMARY | 2025-09-01 02:36 | XMS_ITS | Encounter Summary ---
Author Organization [employer] work Address [address] [place] [address] Care Team Providers Care Six Sigma Black Trainer Name Role Phone Gilmar Rodriguez Primary Care Provider + Encounter Details Date Type Department Care Team (Late st Contact Info) Description 09/04/2020 HME - Medical Equipment [facility] [employer] [facility] [phone] Amarjit Ibarra, DPM [address] [place] [address] Social History Tobacco Use Types Packs/Day Years [...] documented as of this encounter Care Teams Six Sigma Black Trainer Relationship Specialty Start Date End Date Gilmar Rodriguez DO [address] [place] [address] PCP - General Family Medicine 03/07/18 documented as of this encounter
--- OUTSIDE RECORDS SUMMARY | 2025-09-01 02:36 | XMS_ITS | Encounter Summary ---
Author Organization [employer] work Address [address] [place] [address] Care Team Providers Care Senior Electrical Engineer Name Role Phone Gilmar Rodriguez DO Primary Care Provider + Encounter Details Date Type Department Care Team (Late st Contact Info) Description 03/16/2021 [facility]phone [facility] [address] [place] [phone] Klarissa Santana PA [address] [place] [address] Social History Tobacco Use Types Packs/Day Years [...] have Coronavirus / COVID-19? No / Unsure 03/17/2021 9:56 AM EDT documented as of this encounter [...] on filedocumented in this encounter Care Teams Senior Electrical Engineer Relationship Specialty Start Date End Date Gilmar Rodriguez DO [address] [place] [address] PCP - General Family Medicine 03/07/18 documented as of this encounter
--- OUTSIDE RECORDS SUMMARY | 2025-09-01 02:36 | XMS_ITS | Encounter Summary ---
Author Organization [employer] work Address [address] [place] [address] Care Team Providers Care Evaporator Repairer Name Role Phone Gilmar Rodriguez DO Primary Care Provider + Encounter Details Date Type Department Care Team (Late st Contact Info) Description 09/03/2020 [facility]phone [facility] [address] [place] [phone] Amarjit Ibarra, DPM [address] [place] [address] Social History Tobacco Use Types Packs/Day Years [...] documented as of this encounter Care Teams Evaporator Repairer Relationship Specialty Start Date End Date Gilmar Rodriguez DO [address] [place] [address] PCP - General Family Medicine 03/07/18 documented as of this encounter
--- OUTSIDE RECORDS SUMMARY | 2025-09-01 02:36 | XMS_ITS | Encounter Summary ---
Author Organization [employer] work Address [address] [facility] [address] Care Team Providers Care Railcar Brake Operator Name Role Phone Gilmar Rodriguez DO Primary Care Provider + Encounter Details Date Type Department Care Team (Late st Contact Info) Description 03/03/2021 Orders Only [facility] [address] [facility] [place] [phone] Caitlin Rios, PEDRO [address] [place] [address] Social History Tobacco Use Types [...] on filedocumented in this encounter Care Teams Railcar Brake Operator Relationship Specialty Start Date End Date Gilmar Rodriguez DO [address] [place] [address] PCP - General Family Medicine 03/07/18 documented as of this encounter
--- OUTSIDE RECORDS SUMMARY | 2025-09-01 02:36 | XMS_ITS | Encounter Summary ---
Author Organization [employer] work Address [address] [place] [address] Care Team Providers Care Jukebox Operator Name Role Phone Gilmar Rodriguez DO Primary Care Provider + Encounter Details Date Type Department Care Team (Late st Contact Info) Description 03/03/2021 [facility] [address] [place] [address] Caitlin Rios, PEDRO [address] [facility] [place] [address] Social History Tobacco Use [...] on filedocumented in this encounter Care Teams Jukebox Operator Relationship Specialty Start Date End Date Gilmar Rodriguez DO [address] [place] [address] PCP - General Family Medicine 03/07/18 documented as of this encounter
--- OUTSIDE RECORDS SUMMARY | 2025-09-01 02:37 | XMS_ITS | Encounter Summary ---
Author Organization [facility] work Address [address] [place] [address] Care Team Providers Care Finisher Special Stocks Name Role Phone Gilmar Rodrigeuz Primary Care Provider + Encounter Details Date Type Department Care Team (Late st Contact Info) Description 07/18/2020 HME - Medical Equipment [facility] [phone] Amarjit Ibarra, DPM [address] [place] [address] Social History Tobacco Use Types Packs/Day Years [...] have Coronavirus / COVID-19? No / Unsure 07/17/2020 4:52 PM EDT documented as of this encounter [...] documented as of this encounter Care Teams Finisher Special Stocks Relationship Specialty Start Date End Date Gilmar Rodriguez DO [address] [place] [address] PCP - General Family Medicine 03/07/18 documented as of this encounter
--- OUTSIDE RECORDS SUMMARY | 2025-09-01 02:37 | XMS_ITS | Encounter Summary ---
Author Organization [facility] Address [address] [facility] [place] [address] Care Team Providers Care Inside Sales Advisor Name Role Phone Kathleen Diaz MD Unavailable [phone] Encounter Details Date Type Department Care Team (Late st Contact Info) Description 04/17/2024 Abstract [facility] [address] [place] [id number] Yg Matthews DPM [address] [place] [address] Social History Tobacco Use Types Packs/Day Years Used Date Smoking Tobacco: Never Smokeless Tobacco: Never Alcohol Use Standard Drinks/Week Comments Not Currently 0 (1 standard drink = 0.6 oz pur e alcohol) Sex and Gender Information Value Date Recorded Sex Assigned at Not on file Legal Sex Male 10:50 AM EST Gender Identity Not on file Sexual Orientation Not on file documented as of this encounter Plan of Treatment Not on file documented as of this encounter Visit Diagnoses Not on filedocumented in this encounter Care Teams Inside Sales Advisor Relationship Specialty Start Date End Date Kathleen Diaz MD [address] [place] [id number] Referring Physician Family Medicine 01/03/24 documented as of this encounter
--- OUTSIDE RECORDS SUMMARY | 2025-09-01 02:37 | XMS_ITS | Encounter Summary ---
Author Organization [employer] work Address [address] [place] [address] Care Team Providers Care Clinical Sociologist Name Role Phone Gilmar Rodriguez DO Primary Care Provider + Reason for Visit * Reason Comments Medication Refill Encounter Details Date Type Department Care Team ([facility] st Contact Info) Description 10/01/2018 Refill [facility] 1 [place] [address] Gilmar Rodriguez DO 1 [place] [address] Medication Refill Social History Tobacco Use Types Packs/Day Years [...] documented as of this encounter Visit Diagnoses Diagnosis Essential (primary) hypertension Unspecified essential hypertension documented in this encounter Additional Health Concerns Infection Onset Date Last Indicated Resolved Time Coronavirus Disease (COVID-1 9) - Rule out 12/23/2020 12/23/2020 01/03/2021 2:42 AM E documented as of this encounter Care Teams Clinical Sociologist Relationship Specialty Start Date End Date Gilmar Rodriguez DO [address] [place] [address] PCP - General Family Medicine 03/07/18 documented as of this encounter
--- OUTSIDE RECORDS SUMMARY | 2025-09-01 02:37 | XMS_ITS | Clinical Summary ---
Author Organization [employer] Address [address] [place] [address] Care Team Providers Care Electronics Lead Name Role Phone Kate Mayers Primary Care Provider Unavailabl e Allergies No known active allergies Medications gabapentin 600 MG tablet Take 1 tablet by mouth 3 times daily. Active busPIRone 10 MG tablet Take 1 tablet by mouth 3 times daily. Last dose AM Active aspirin 81 MG Chew Tab chewable tablet Chew 1 tablet daily. This AM Active hydroCODone-hemalatha taminophen 5-325 MG tabletIndicatio ns:Diabetic foot infection Take 1 tablet by mouth every 8 hours as needed for Severe Pain or Moderate Pain for up to 5 days. 15 tablet 09/20/2023 Active Insulin detemir 100 UNIT/ML vial Inject 15 Units under the skin every 24 hours. 4.5 mL 1 09/20/2023 Active Insulin Lispro 100 UNIT/ML vial Inject 1-10 Units under the skin before meals & at bedtime. 151 - 200 = 4 units; 201 - 250 = 6 units; 251 - 300 = 10 units; 301 - 350 = 14 units; 351 - 400 = 18 units; 12 mL 1 09/20/2023 Active Mupirocin 2 % ointmentIndicat ions:Diabetic ulcer of left great toe Apply small amount to affected area at every bandage change. Change bandage 1x a day This will be used for about 2 weeks 30 g 3 09/27/2023 Active Active Problems Problem Noted Date Diagnosed Date Cellulitis of toe of left foot 09/19/2023 Type 2 diabetes mellitus wit h hyperglycemia, without long-term current use of insulin 09/19/2023 Diabetic neuropathy associat ed with type 2 diabetes mellitus 09/19/2023 Normocytic anemia 09/19/2023 Class 1 obesity due to exces s calories with body mass index (BMI) of 30.0 to 30.9 in adult 09/19/2023 Diabetic foot infection 09/18/2023 Social History Tobacco Use Types Packs/Day Years Used Date Smoking Tobacco: Never Smokeless Tobacco: Never Tobacco Cessation:Counseling Given: Not Answered Sex and Gender Information Value Date Recorded Sex Assigned at Not on file Legal Sex Male 6:21 PM EDT Gender Identity Not on file Sexual Orientation Not on file Last Filed Vital Signs Vital Sign Reading Time Taken Comments Blood Pressure 160/90 09/27/2023 10:20 AM EDT Pulse 96 09/26/2023 3:39 PM EDT Temperature 36.2 C (97.2 F) 09/26/2023 3:39 PM EDT Respiratory Rate 18 09/26/2023 3:39 PM EDT Oxygen Saturation 96% 09/20/2023 3:33 PM EDT Inhaled Oxygen Concentration - - Weight 106.6 kg (235 lb) 09/27/2023 10:20 AM EDT Height 188 cm (6' 2 ) 09/27/2023 10:20 AM EDT Body Mass Index 30.17 09/27/2023 10:20 AM EDT Plan of Treatment Health Maintenance Due Date Last Done Comments DIABETIC FOOT EXAM 1967 EYE EXAM 1965 HEPATITIS C VIRUS SCREENING 1967 TETANUS 1967 URINE MICROALBUMIN TEST 1967 HIV SCREENING DISCUSSION 1982 HEP B VACCINE (1 of 3 - 19+ 3-dose series) 1986 TDAP (ADULT) 1986 COLORECTAL CANCER SCREENING DISCUSSION 01/31/2012 PNEUMOCOCCAL VACCINE SERIES (1 of 1 - PCV) 2017 ZOSTER (SHINGLES) VACCINE (1 of 2) 2017 PROSTATE CANCER SCREENING DISCUSSION 2022 HBA1C TEST 03/21/2024 09/20/2023 LIPIDS 09/20/2024 09/20/2023 COVID-19 VACCINE ( season) 2025 INFLUENZA VACCINE (#1) 2025 LIPID SCREENING Discontinued 09/20/2023 Procedures Procedure Name Priority Date/Time Associated Diagnosis Comments HEMOGLOBIN A1C Today 09/20/2023 5:10 AM EDT LIPID PANEL W CALCULATED LDL Today 09/20/2023 5:10 AM EDT from Last 3 Months or Most Recently Relevant to Health Maintenance Results * (ABNORMAL) HEMOGLOBIN A1C (09/20/2023 5:10 AM EDT) HEMOGLOBIN A1C 10.9(H) 0 - 6 % [address] Comment: NORMAL <5.7% PREDIABETES 5.7-6.4% DIABETES 6.5% OR HIGHER Estimated Average Glucose 266 mg/dL [address] Blood 09/20/2023 5:10 AM EDT 09/20/2023 5:39 AM EDT us Tuan Baker GRINDER OPERATOR TOOL-PACKAGE DYEING MACHINE OPERATOR HEMATOLOGY ORDERABLES Final Result Performing Organization Address City/State/[place]UST Co de Phone Number [address] [address] * (ABNORMAL) LIPID PANEL W CALCULATED LDL (09/20/2023 5:10 AM EDT) CHOLESTEROL 148 120 - 200 MG/DL [address] TRIGLYCERIDE 166(H) 0 - 150 MG/DL [address] HDL CHOLESTEROL 26 26 - 63 MG/DL [address] LDL CHOLESTEROL, CALCULATED 89 <100 MG/DL [address] VLDL Cholesterol, Calculated 33(H) 5 - 25 MG/DL [address] TCHOL/HDL RATIO, MANUAL ENTER 5.[address] Comment: RISK TOTAL/HDL RATIO MEN WOMEN 1/2 AVERAGE 3.43 3.27 AVERAGE 4.97 4.44 2X AVERAGE 9.55 7.05 3X AVERAGE 23.99 11.04 Blood 09/20/2023 5:10 AM EDT 09/20/2023 5:41 AM EDT us Tuan Baker GRINDER OPERATOR TOOL-PACKAGE DYEING MACHINE OPERATOR CHEMISTRY ORDERABLES F inal Result Performing Organization Address [facility]/ZIP Co de Phone Number [facility] [address] [facility] [address] [place] [address] from Last 3 Months or Most Recently Relevant to Health Maintenance Advance Directives For more information, please contact: [phone] (7:30 AM - 6PM [facility], Tuesday-Tuesday) * Full Code (Latest Code Status on File) Date Activated Date Inactivated Comments 09/18/2023 11:08 PM Care Teams Electronics Lead Relationship Specialty Start Date End Date Kate Mayers PCP - General 09/18/23
--- OUTSIDE RECORDS SUMMARY | 2025-09-01 02:37 | XMS_ITS | Encounter Summary ---
Author Organization [employer] work Address [address] [place] [address] Care Team Providers Care Food Sales Clerk Name Role Phone Gilmar Rodriguez DO Primary Care Provider + Reason for Visit * Reason Comments Medication Refill Encounter Details Date Type Department Care Team ([facility] st Contact Info) Description 07/03/2018 Refill [facility] [address] [place] [address] Gilmar Rodriguez DO 1 [place] [address] Medication Refill Social History Tobacco Use Types Packs/Day Years Used Date Smoking Tobacco: Former Cigarettes Cigars Smokeless Tobacco: Never Alcohol Use [...] as of this encounter Visit Diagnoses Diagnosis Diabetes mellitus due to underlying condition, uncontrolled, with hyperglycemia, with long-term current use of insulin (HCC) documented in this encounter Additional Health Concerns Infection Onset Date Last Indicated Resolved Time Coronavirus Disease (COVID-1 9) - Rule out 12/23/2020 12/23/2020 01/03/2021 2:[address] documented as of this encounter Care Teams Food Sales Clerk Relationship Specialty Start Date End Date Gilmar Rodriguez DO [address] [place] [address] PCP - General Family Medicine 03/07/18 documented as of this encounter
--- OUTSIDE RECORDS SUMMARY | 2025-09-01 02:37 | XMS_ITS | Encounter Summary ---
Author Organization [employer] work Address [address] [place] [address] Care Team Providers Care County Supervisor Name Role Phone Gilmar Rodriguez DO Primary Care Provider + Reason for Visit * Reason Comments Medication Refill Encounter Details Date Type Department Care Team ([facility] st Contact Info) Description 07/02/2018 Refill [facility] 1 [place] [address] Gilmar Rodriguez DO 1 [facility] [place] [address] Medication Refill Social History Tobacco [...] documented as of this encounter Care Teams County Supervisor Relationship Specialty Start Date End Date Gilmar Rodriguez DO [address] [place] [address] PCP - General Family Medicine 03/07/18 documented as of this encounter
--- OUTSIDE RECORDS SUMMARY | 2025-09-01 02:37 | XMS_ITS | Clinical Summary ---
Author Organization [facility] [facility] tem Address [id number] [address] [place] [address] Care Team Providers Care Front Man Name Role Phone Cheri Em ONLINE MEDIA DIRECTOR-MORTGAGE ASSISTANT Primary Care Provider [phone] Allergies Active Allergy Reactions Criticality Noted Date Comments Iodinated Contrast Media 10/19/2023 Medications aspirin 81 mg chewable tablet Chew 1 tablet (81 mg total) and swallow in the morning. Active atorvastatin (LIPITOR) 20 mg tablet TAKE ONE TABLET BY MOUTH DAILY 3 Active busPIRone (BUSPAR) 10 mg tablet Take 1 tablet (10 mg total) by mouth. Active cholecalciferol , vitamin D3, (VITAMIN D3) 5,000 units capsule TAKE ONE CAPSULE BY MOUTH DAILY 3 Active doxepin (SINEquan) 25 mg capsule TAKE ONE CAPSULE BY MOUTH AT BEDTIME 3 Active JARDIANCE 25 mg tablet tablet TAKE ONE TABLET BY MOUTH IN THE MORNING 3 Active gabapentin (NEURONTIN) 600 mg tablet Take 1 tablet (600 mg total) by mouth. Active hydroCHLOROthia zide (HYDRODIURIL) 12.5 mg tablet TAKE ONE TABLET BY MOUTH DAILY 3 Active hydrOXYzine (ATARAX) 25 mg tablet TAKE ONE TABLET BY MOUTH DAILY FOR ANXIETY / FOR SLEEP MAY CAUSE DROWSINESS DO NOT TAKE WITH ALCOHOL, DRIVE, OR OPERATE MACHINERY. 3 Active lisinopriL (PRINIVIL,ZESTR IL) 40 mg tablet 1 tablet (40 mg total). 3 Active mupirocin (BACTROBAN) 2 % ointment 3 Active omeprazole (PriLOSEC) 20 mg capsule TAKE ONE CAPSULE BY MOUTH DAILY 3 Active alcohol swabs pads, medicated 3 Active ONETOUCH ULTRA TEST strip 3 Active ONETOUCH DELICA PLUS LANCET 30 gauge misc 3 Active COMFORT EZ PEN NEEDLES 31 gauge x 5/16 needle USE DIRECTED DAILY 3 Active SURE COMFORT INSULIN SYRINGE 0.3 mL 29 gauge x 1/2 syringe use with insulin vials FOUR TIMES DAILY 3 Active insulin detemir U-100 (LEVEMIR) 100 unit/mL injection Inject 0.22 mL (22 Units total) under the skin nightly. Active nitroglycerin (NITROSTAT) 0.4 MG SL tablet 1 under the tongue as needed for angina, may repeat q5mins for up three doses 100 tablet 11 3 Active insulin degludec (TRESIBA FLEXTOUCH U-100) 100 unit/mL (3 mL) insulin pen Inject 22 Units under the skin nightly. 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 10/19/2023 Diabetic ulcer of toe of lef t foot associated with type 2 diabetes mellitus, with fat layer exposed 10/19/2023 Cellulitis of toe of left foot 09/19/2023 Diabetic neuropathy associat ed with type 2 diabetes mellitus 09/19/2023 Normocytic anemia 09/19/2023 Type 2 diabetes mellitus wit h hyperglycemia, with long-term current use of insulin 09/19/2023 Diabetic foot infection 09/18/2023 Family History Medical History Relation Name Comments defects Brother Diabetes Father Heart disease Father Hypertension Father Diabetes Mother Heart disease Mother Heart disease Sister 1 Celeste Heart disease Sister 2 Shelby Relation Name Status Comments Brother Father Mother Sister 1 Celeste Alive Sister 2 Shelby Alive Social History Tobacco Use Types Packs/Day Years Used Date Smoking Tobacco: Never Smokeless Tobacco: Never Tobacco Cessation:Counseling Given: Not Answered Alcohol Use Standard Drinks/Week Comments Not Currently 0 (1 standard drink = 0.6 oz pur e alcohol) Childcare Answer Date Recorded Childcare Unknown 05/09/2019 Employment Answer Date Recorded Employment Unknown 05/09/2019 Hunger Screening Answer Date Recorded Within the past 12 months we worried whether our food would run out before we got money to buy more. Never True 02/03/2024 Within the past 12 months th e food we bought just didn't last and we didn't have money to get more. Never True 02/03/2024 Sex and Gender Information Value Date Recorded Sex Assigned at Not on file Legal Sex Male 11:47 AM EDT Gender Identity Not on file Sexual Orientation Not on file Last Filed Vital Signs Vital Sign Reading Time Taken Comments Blood Pressure 146/66 04/04/2024 10:40 AM EDT Pulse 93 04/04/2024 10:40 AM EDT Temperature 36.9 C (98.4 F) 04/04/2024 10:40 AM EDT Respiratory Rate 16 04/04/2024 10:4 0 AM EDT Oxygen Saturation 97% 01/19/2024 9:55 AM EST Inhaled Oxygen Concentration - - Weight 110.5 kg (243 lb 11.2 oz) 01/19/2024 9:55 AM EST Height 188 cm (6' 2 ) 01/19/2024 9:55 AM EST Body Mass Index 31.29 01/19/2024 9:55 AM EST Plan of Treatment Health Maintenance Due Date Last Done Comments Diabetic Ophthalmology Exam 1967 Statin Use: Cardiovascular 1967 Statin Use: Diabetic 1967 Depression Screening 1979 Diabetic Foot Exam 1985 DTaP,Tdap and Td Vaccines (1 - Tdap) 1986 Zoster (Shingles) Vaccine (1 of 2) 2017 Adult BMI Screening 01/19/2025 01/19/2024 Tobacco Screening 04/04/2025 04/04/2024 Influenza Vaccine 07/29/2025 Medical Devices Not on file Insurance MEDICAID [place] Care Teams Front Man Relationship Specialty Start Date End Date Cheri Em APRN-FNP [address] [place] [address] PCP - General Family Medicine 01/19/24
--- OUTSIDE RECORDS SUMMARY | 2025-09-01 02:37 | XMS_ITS | Clinical Summary ---
Author Organization [facility] Address [address] [place] [address] Care Team Providers Care Youth Probation Officer Name Role Phone Kathleen Diaz MD Unavailable [phone] Allergies Active Allergy Reactions Criticality Noted Date Comments Iodinated Contrast Media 10/19/2023 Medications aspirin 81 MG EC tablet Take 81 mg by mouth in the morning. Active atorvastatin (Lipitor) 20 MG tablet Take 20 mg by mouth in the morning. 3 Active Blood Glucose Monitoring Suppl (ONE TOUCH ULTRA 2) w/Device kit use as directed 3 Active busPIRone (Buspar) 10 MG tablet Take 10 mg by mouth Active cholecalciferol (Vitamin D-3) 125 MCG (5000 UT) capsule Take 1 capsule by mouth in the morning. 3 Active doxepin (SINEquan) 25 MG capsule Take 25 mg by mouth at bedtime 3 Active Jardiance 25 MG Take 25 mg by mouth in the morning. 3 Active gabapentin (Neurontin) 600 MG tablet Take 600 mg by mouth Active OneTouch Ultra test strip 3 Active hydroCHLOROthia zide (HYDRODiuril) 12.5 MG tablet Take 12.5 mg by mouth in the morning. 3 Active hydrOXYzine HCl (Atarax) 25 MG tablet 25 mg 3 Active insulin detemir (Levemir) 100 UNIT/ML injection Inject 22 Units under the skin at bedtime Active Comfort EZ Pen [place] 31G X 8 MM misc USE DIRECTED DAILY 3 Active Lancets (OneTouch Delica Plus Mgihbi23Z) misc USE 1 LANCET TO TEST BLOOD SUGAR THREE TIMES A DAY 3 Active lisinopril 40 MG tablet Take 40 mg by mouth in the morning. 3 Active nitroglycerin (Nitrostat) 0.4 MG SL tablet 0.4 mg 3 Active mupirocin (Bactroban) 2 % ointment Apply topically 3 Active omeprazole (PriLOSEC) [address] capsule Take 20 mg by mouth in the morning. 3 Active Family History Medical History Relation Name Comments Diabetes Father Heart disease Father Hypertension Father Diabetes Mother Heart disease Mother Relation Name Status Comments Father Mother Social History Tobacco Use Types Packs/Day Years [...] Sign Reading Time Taken Comments Blood Pressure - - Pulse - - Temperature - - Respiratory Rate - - Oxygen Saturation - - Inhaled Oxygen Concentration - - Weight 109 kg (240 lb) 04/02/2024 10:54 AM EDT Height 188 cm (6' 2 ) 04/02/2024 10:54 AM EDT Body Mass Index 30.81 04/02/2024 10:54 AM EDT Plan of Treatment Not on file Insurance [employer] MEDICARE ADVANTAGE MEDICAID [place] Care Teams Youth Probation Officer Relationship Specialty Start Date End Date Kathleen Diaz MD [address] [place] [address] Referring Physician Family Medicine 01/03/24
--- OUTSIDE RECORDS SUMMARY | 2025-09-01 02:37 | XMS_ITS | Encounter Summary ---
Author Organization [employer] work Address [address] [place] [address] Care Team Providers Care Ehr Trainer Name Role Phone Gilmar Rodriguez DO Primary Care Provider + Reason for Visit * Reason Comments Medication Refill Encounter Details Date Type Department Care Team ([facility] st Contact Info) Description 10/03/2018 Refill [facility] 1 [place] [address] Gilmar Rodriguez DO 1 [place] [address] Medication Refill Social History Tobacco [...] documented as of this encounter Care Teams Ehr Trainer Relationship Specialty Start Date End Date Gilmar Rodriguez DO [address] [place] [address] PCP - General Family Medicine 03/07/18 documented as of this encounter
--- OUTSIDE RECORDS SUMMARY | 2025-09-01 02:37 | XMS_ITS | Encounter Summary ---
Author Organization [facility] [employer] [facility] work Address [address] [place] [address] Care Team Providers Care White Washer Piler Name Role Phone Gilmar Rodriguez DO Primary Care Provider + Reason for Visit * Reason Comments Medication Refill Encounter Details Date Type Department Care Team (Late st Contact Info) Description 03/16/2018 Refill [facility] 1 [place] [address] Gilmar Rodriguez DO [address] [place] [facility] [address] Medication Refill Social History Tobacco Use Types Packs/Day Years Used Date Smoking Tobacco: Never Smokeless Tobacco: Never Sex and Gender Information Value Date Recorded [...] documented as of this encounter Care Teams White Washer Piler Relationship Specialty Start Date End Date Gilmar Rodriguez DO [address] [place] [facility] [facility] [address] PCP - General Family Medicine 03/07/18 documented as of this encounter
--- OUTSIDE RECORDS SUMMARY | 2025-09-01 02:37 | XMS_ITS | Encounter Summary ---
Author Organization [employer] work Address [address] [place] [address] Care Team Providers Care Candy Cutter Machine Name Role Phone Michael Gilmar Rao DO Primary Care Provider + Encounter Details Date Type Department Care Team (Late st Contact Info) Description 02/03/2021 HME - Medical Equipment [facility] [phone] Caitlin Rios, PEDRO [address] [place] [address] Social History Tobacco Use Types [...] Patient-Stated? Author Cut out extra servings Diet Bernie Townsend LPN Note: Avoid carbohydrates in the diet. [...] on filedocumented in this encounter Care Teams Candy Cutter Machine Relationship Specialty Start Date End Date Gilmar Rodriguez DO [address] [place] [address] PCP - General Family Medicine 03/07/18 documented as of this encounter
--- OUTSIDE RECORDS SUMMARY | 2025-09-01 02:37 | XMS_ITS | Encounter Summary ---
Author Organization [employer] work Address [address] [place] [address] Care Team Providers Care Airconditioning Engineer Name Role Phone Gilmar Rodriguez DO Primary Care Provider + Reason for Visit * Reason Comments Medication Refill Encounter Details Date Type Department Care Team ([facility] st Contact Info) Description 05/29/2018 Refill [facility] [address] [place] [address] Gilmar Rdoriguez DO [address] [facility] [address] Medication Refill Social History [...] documented as of this encounter Care Teams Airconditioning Engineer Relationship Specialty Start Date End Date Gilmar Rodriguez DO [address] [place] [address] PCP - General Family Medicine 03/07/18 documented as of this encounter
--- OUTSIDE RECORDS SUMMARY | 2025-09-01 02:37 | XMS_ITS | Encounter Summary ---
Author Organization [employer] work Address [address] [place] [address] Care Team Providers Care Executive Producer Promos Name Role Phone Gilmar Rodriguez DO Primary Care Provider + Reason for Visit * Reason Comments Medication Refill Encounter Details Date Type Department Care Team ([facility] st Contact Info) Description 06/07/2018 Refill [facility] 1 [place] [address] Gilmar Rodriguez DO 1 [place] [address] Medication Refill Social History [...] documented as of this encounter Care Teams Executive Producer Promos Relationship Specialty Start Date End Date Gilmar Rodriguez DO [address] [place] [address] PCP - General Family Medicine 03/07/18 documented as of this encounter
--- OUTSIDE RECORDS SUMMARY | 2025-09-01 02:38 | XMS_ITS | Encounter Summary ---
Author Organization [employer] work Address [address] [place] [address] Care Team Providers Care Tanning Consultant Name Role Phone Gilmar Rodriguez DO Primary Care Provider + Reason for Visit * Reason Comments Medication Refill Encounter Details Date Type Department Care Team ([facility] st Contact Info) Description 05/02/2018 Refill [facility] [address] [place] [address] Gilmar Rodriguez DO 1 [place] [address] Medication Refill Social History [...] Diagnosis Essential (primary) hypertension Unspecified essential hypertension Diabetes mellitus due to underlying condition, uncontrolled, with hyperglycemia, with long-term current use of insulin (HCC) documented in this encounter Additional Health Concerns Infection Onset Date Last Indicated Resolved Time Coronavirus Disease (COVID-1 9) - Rule out 12/23/2020 12/23/2020 01/03/2021 2:[address] documented as of this encounter Care Teams Tanning Consultant Relationship Specialty Start Date End Date Gilmar Rodriguez DO [address] [place] [address] PCP - General Family Medicine 03/07/18 documented as of this encounter
--- OUTSIDE RECORDS SUMMARY | 2025-09-01 02:38 | XMS_ITS | Encounter Summary ---
Author Organization [employer] work Address [address] [place] [address] Care Team Providers Care Pre Owned Sales Manager Name Role Phone Gilmar Rodriguez Primary Care Provider + Encounter Details Date Type Department Care Team (Late st Contact Info) Description 07/04/2020 HME - Medical Equipment [facility] [phone] Amarjit Ibarra, DPM [address] [place] [address] Social History Tobacco Use Types Packs/Day Years [...] have Coronavirus / COVID-19? No / Unsure 06/27/2020 9:49 AM EDT documented as of this encounter [...] documented as of this encounter Care Teams Pre Owned Sales Manager Relationship Specialty Start Date End Date Gilmar Rodriguez DO [address] [place] [address] PCP - General Family Medicine 03/07/18 documented as of this encounter
--- OUTSIDE RECORDS SUMMARY | 2025-09-01 02:38 | XMS_ITS | Encounter Summary ---
Author Organization [facility] [employer] [facility] work Address [address] [place] [address] Care Team Providers Care Boomboat Operator Name Role Phone Gilmar Rodriguez DO Primary Care Provider + Reason for Visit * Reason Comments Medication Refill Encounter Details Date Type Department Care Team (Late st Contact Info) Description 03/22/2018 Refill [facility] 1 [place] [address] Gilmar Rodriguez DO [address] [place] [facility] [place] [address] Medication Refill Social History [...] documented as of this encounter Care Teams Boomboat Operator Relationship Specialty Start Date End Date Gilmar Rodriguez DO [address] [place] [facility] [place] [address] PCP - General Family Medicine 03/07/18 documented as of this encounter
--- OUTSIDE RECORDS SUMMARY | 2025-09-01 02:38 | XMS_ITS | Encounter Summary ---
Author Organization [employer] work Address [address] [place] [address] Care Team Providers Care Judicial Law Clerk Name Role Phone Gilmar Rodriguez DO Primary Care Provider + Encounter Details Date Type Department Care Team (Late st Contact Info) Description 01/21/2021 HME - Medical Equipment [facility] [phone] Klarissa Santana PA [address] [place] [address] Social History Tobacco Use Types [...] have Coronavirus / COVID-19? No / Unsure 01/09/2021 10:18 AM EST documented as of this encounter [...] on filedocumented in this encounter Care Teams Judicial Law Clerk Relationship Specialty Start Date End Date Gilmar Rodriguez DO [address] [place] [address] PCP - General Family Medicine 03/07/18 documented as of this encounter
--- OUTSIDE RECORDS SUMMARY | 2025-09-01 02:38 | XMS_ITS | Encounter Summary ---
Author Organization [employer] work Address [address] [place] [address] Care Team Providers Care Paper Box Cutter Name Role Phone Gilmar Rodriguez Primary Care Provider + Encounter Details Date Type Department Care Team (Late st Contact Info) Description 07/11/2020 HME - Medical Equipment [facility] [phone] Amarjit Ibarra, DPM [address] [place] [address] Social History Tobacco Use Types Packs/Day Years [...] documented as of this encounter Care Teams Paper Box Cutter Relationship Specialty Start Date End Date Gilmar Rodriguez DO [address] [place] [address] PCP - General Family Medicine 03/07/18 documented as of this encounter
--- OUTSIDE RECORDS SUMMARY | 2025-09-01 02:39 | XMS_ITS | Encounter Summary ---
Author Organization [employer] work Address [address] [place] [address] Care Team Providers Care Billboard Erector Name Role Phone Gilmar Rodriguez Primary Care Provider + Encounter Details Date Type Department Care Team (Late st Contact Info) Description 06/06/2020 HME - Medical Equipment [facility] [phone] Amarjit Ibarra, DPM [address] [place] [address] Social History Tobacco Use Types Packs/Day Years [...] have Coronavirus / COVID-19? No / Unsure 05/27/2020 11:13 AM EDT documented as of this encounter [...] documented as of this encounter Care Teams Billboard Erector Relationship Specialty Start Date End Date Gilmar Rodriguez DO [address] [place] [address] PCP - General Family Medicine 03/07/18 documented as of this encounter
--- OUTSIDE RECORDS SUMMARY | 2025-09-01 02:39 | XMS_ITS | Encounter Summary ---
Author Organization [facility] [employer] [facility] work Address [address] [place] [address] [place] [address] Care Team Providers Care Catering Staff Member Name Role Phone Gilmar Rodriguez DO Primary Care Provider + Encounter Details Date Type Department Care Team (Late st Contact Info) Description 2021 Orders Only [facility] [address] [place] [address] Gilmar Rodriguez DO [address] [facility] [place] [address] DDD (degenerative disc disease), lumbar (Primary Dx); Encounter for long-term (current) use [...] daily High Risk No Sera Price, MARIXA, DANIEL Note: New goals: 1. Continue to follow [...] Comments AIT SCREEN AND CONFIRM PREFERRED COMPONENTS, SALIVA Routine 2021 3:05 PM EST DDD (degenerative disc disease), lumbar Encounter for long-term (current) use of high-risk medication documented in this encounter Results * (ABNORMAL) AIT Screen and Confirm Preferred Components, Saliva (2021 3:05 PM EST) Pathologist [facility] Med List HYDROCODONE, GABAPENTIN AIT Comment:HYDROCODONE LAST DOS E TAKEN 01/30/21 4:06 PM, GABAPENTIN LAST DOSE TAKEN 01/30/21 4:07 PM Hydrocodone 0.0 NEGATIVE - INCONSISTENT (L) 0.1 - 10.0 ng/mL AIT Norhydrocodone 0.0 NEGATIVE - INCONSISTENT (L) 0.1 - 10.0 ng/mL AIT Hydromorphone 0.0 NEGATIVE - INCONSISTENT (L) 0.1 - 10.0 ng/mL AIT Morphine 0.0 NEGATIVE (L) 0.1 - 10.0 ng/mL AIT Norcodeine 0.0 NEGATIVE (L) 0.1 - 10.0 ng/mL AIT Codeine 0.0 NEGATIVE (L) 0.1 - 10.0 ng/mL AIT Gabapentin 152.7 POSITIVE - Consistent with prescriptions. (H) 0.1 - 50.0 ng/mL AIT Pregabalin 0.0 NEGATIVE (L) 0.1 - 50.0 ng/mL AIT PS_Opiates 0.0 NEGATIVE 0.0 - 10.0 ng/mL AIT PS_Oxycodone 0.0 NEGATIVE 0.0 - 10.0 ng/mL AIT PS_Buprenorphine 0.0 NEGATIVE 0.0 - 2.0 ng/mL AIT PS_Fentanyl 0.0 NEGATIVE 0.0 - 2.0 ng/mL AIT PS_Methadone 0.0 NEGATIVE 0.0 - 10.0 ng/mL AIT PS_Tapentadol 0.0 NEGATIVE 0.0 - 10.0 ng/mL AIT PS_Tramadol 0.0 NEGATIVE 0.0 - 20.0 ng/mL AIT PS_Meperidine 0.0 NEGATIVE 0.0 - 10.0 ng/mL AIT PS_Gaba/Pregab 152.7 POSITIVE (H) 0.0 - 50.0 ng/mL AIT PS_Misc Opioids 0.0 NEGATIVE 0.0 - 10.0 ng/mL AIT PS_Ketamine 0.0 NEGATIVE 0.0 - 10.0 ng/ml AIT PS_Benzodiazepine 0.0 NEGATIVE 0.0 - 5.0 ng/mL AIT PS_Sedatives 0.0 NEGATIVE 0.0 - 2.0 ng/mL AIT PS_Antipsychotics 0.0 NEGATIVE 0.0 - 10.0 ng/mL AIT PS_Barbituates 0.0 NEGATIVE 0.0 - 50.0 ng/mL AIT PS_Muscle Relax 0.0 NEGATIVE 0.0 - 10.0 ng/mL AIT PS_Amphetamines 0.0 NEGATIVE 0.0 - 10.0 ng/mL AIT PS_Illicits 0.0 NEGATIVE 0.0 - 10.0 ng/mL AIT PS_Illicits K 0.0 NEGATIVE 0.0 - 20.0 ng/mL AIT PS_Illicits D 0.0 NEGATIVE 0.0 - 100.0 ng/mL AIT PS_Synthetic Amphetamines 0.0 NEGATIVE 0.0 - 10.0 ng/mL AIT PS_Bath Salts 0.0 NEGATIVE 0.0 - 10.0 ng/mL AIT PS_THC 0.0 NEGATIVE 0.0 - 10.0 ng/mL AIT PS_K2/Spice 0.0 NEGATIVE 0.0 - 20.0 ng/mL AIT Saliva specimen (specimen) 2021 3:05 PM EST 02/03/2021 4:57 PM EST us Gilmar Rodriguez DO LAB BODY FLUIDS AND STOO L ORDERABLES Final Result AIT [address] [phone] documented in this encounter Visit Diagnoses Diagnosis DDD (degenerative disc disease), lumbar- Primary Degeneration of lumbar or lumbosacral intervertebral disc Encounter for long-term (current) use of high-risk medication Encounter for long-term (current) use of other medications documented in this encounter Care Teams Catering Staff Member Relationship Specialty Start Date End Date Gilmar Rodriguez DO [address] [place] [address] PCP - General Family Medicine 03/07/18 documented as of this encounter
--- OUTSIDE RECORDS SUMMARY | 2025-09-01 02:39 | XMS_ITS | Encounter Summary ---
Author Organization [employer] work Address [address] [place] [address] Care Team Providers Care Editor Department Name Role Phone Gilmar Rodriguez DO Primary Care Provider + Encounter Details Date Type Department Care Team (Late st Contact Info) Description 05/28/2020 HME - Medical Equipment [facility] [phone] Klarissa Santana PA [address] [place] [address] Social History Tobacco Use Types [...] documented as of this encounter Care Teams Editor Department Relationship Specialty Start Date End Date Gilmar Rodriguez DO [address] [place] [address] PCP - General Family Medicine 03/07/18 documented as of this encounter
--- OUTSIDE RECORDS SUMMARY | 2025-09-01 02:39 | XMS_ITS | Encounter Summary ---
Author Organization [employer] work Address [address] [place] [address] Care Team Providers Care Sales Solutions Representative Name Role Phone Gilmar Rodriguez Primary Care Provider + Encounter Details Date Type Department Care Team (Late st Contact Info) Description 01/02/2021 HME - Medical Equipment [facility] [phone] Amarjit Ibarra, DPM [address] [place] [address] Social History Tobacco Use Types Packs/Day Years [...] have Coronavirus / COVID-19? No / Unsure 12/23/2020 5:57 PM EST documented as of this encounter Plan [...] documented as of this encounter Care Teams Sales Solutions Representative Relationship Specialty Start Date End Date Gilmar Rodriguez DO [address] [place] [address] PCP - General Family Medicine 03/07/18 documented as of this encounter
--- NOTE | 2025-09-01 02:43 | PC.NURSE ---
pt does not appear to have altered mental status, pt is aware of how he is, Bd, where he is and is able to answer questions approriatly.
--- NOTE | 2025-09-01 02:46 | XR_ITS ---
[facility] [place] [id number] Patient Name: DARSHAN BREWSTER MRN: [id number] date: 1965 Sex: M Assigned Patient Location: ED.MAIN Current Patient Location: [place] Accession/Order Number: [id number] Exam Date: 09/01/2025 02:50 Report Date: 09/01/2025 08:33 At the request of: RODOLFO WILLETT MD Procedure: XR foot LT min 3V LEFT FOOT - 3 views CLINICAL HISTORY: Diabetic foot infection COMPARISON: None FINDINGS: Diffuse soft tissue swelling. No soft tissue gas is present. There appears to be distal amputation of the fifth digit. There appears to be lucency/developing bony destruction involving the head of the fourth metatarsal suspicious for underlying osteomyelitis. XR/XR foot LT min 3V IMPRESSION: DIFFUSE SOFT TISSUE SWELLING. THERE APPEARS TO BE LUCENCY/LYTIC DESTRUCTION INVOLVING THE HEAD OF THE FOURTH METATARSAL SUSPICIOUS FOR OSTEOMYELITIS. Impression dictated by: Jeison Quiroz Jr., D.OShara 09/01/2025 8:33 AM Dictation Location: scroll kit Electronically authenticated by: [id number] Y Date: 09/01/2025 08:33
--- NOTE | 2025-09-01 02:47 | ECG_ITS ---
[facility] Test Date: 2025-09-01 Pat Name: DARSHAN BREWSTER Department: Room: - Gender: Male Trench Digging Machine Operator: : 1965 Requested By: [id number] Order Number: [id number] Reading MD: IVONNE TURCIOS M.D. Measurements Intervals [place] Rate: 96 P: 135 VT: 144 QRS: 180 QRSD: 92 T: 169 QT: 340 QTc: 394 Interpretive Statements NORMAL SINUS RHYTHM 3534 Lateral myocardial infarction, age undetermined 7300 Indeterminate axis 0101 Possible arm leads reversed, check lead requested 9150 abnormal ECG Compared to ECG 10/18/2023 03:36:23 Indeterminate axis now present T-wave abnormality no longer present Myocardial infarct finding still present Electronically Signed On 09-01-2025 13:29:27 EDT by IVONNE TURCIOS M.D.
--- NOTE | 2025-09-01 02:48 | ED_ITS ---
HPI HPI - General Adult General Chief complaint: Altered Mental Status Stated complaint: other Time Seen by Provider: 09/01/25 02:43 Source: patient Mode of arrival: ambulance History of Present Illness HPI narrative: 60-year-old male presenting to the emergency department for swelling to his left foot. He has diabetes and he has had a wound on the plantar aspect of the foot for a month and in the last day it became swollen. No fever or vomiting. He is a poor historian. Related Data Home Medications ?Medication ?Instructions ?Recorded ?Confirmed aspirin 81 mg tablet,delayed 81 mg PO DAILY 09/01/25 1 release atorvastatin 20 mg tablet 20 mg PO HS 09/01/25 5 buspirone 10 mg tablet 10 mg PO 09/01/25 doxepin 50 mg capsule 50 mg PO 09/01/25 gabapentin 600 mg tablet 600 mg PO 09/01/25 hydrocodone 7.5 mg-acetaminophen 1 tab PO 09/01/25 325 mg tablet lisinopril 40 mg tablet 40 mg PO 09/01/25 omeprazole 40 mg capsule,delayed 40 mg PO 09/01/25 release semaglutide 1 mg/dose (4 mg/3 mL) 1 mg subcut 09/01/25 subcutaneous pen injector (Ozempic) Allergies Allergy/AdvReac Type Severity Reaction Status Date / Time povidone-iodine (From AdvReac Unknown Verified 10/18/23 03:37 Betadine) Opioid HPI Opioid Management Most Recent Opioid Data: Last Pain Scale 8 10/18/23, 04:03 Review of Systems ROS Narrative A ten point review of systems is negative except as noted above. [facility] Medical History (Updated 09/01/25 @ 03:18 by Eddie Nolen MD) HTN (hypertension) ?I10 - Essential (primary) hypertension (ICD-10) Neuropathy ?G62.9 - Polyneuropathy, unspecified (ICD-10) Diabetes ?E11.9 - Type 2 diabetes mellitus without complications (ICD-10) Heart attack ?I21.9 - Acute myocardial infarction, unspecified (ICD-10) Social History Smoking status: Never smoker Exam Narrative Exam Narrative: Nurses note and vital signs reviewed and patient is not hypoxic. General:The patient appears in no apparent distress.Patient is resting comfortably on cart. Skin:Warm, dry, no pallor noted.There is no rash noted. Head:Normocephalic, atraumatic Eye: Normal conjunctiva, no drainage Ears, Nose, Mouth, and Throat: oral mucosa is moist. Nares patent. Cardiovascular:Regular Rate and Rhythm Respiratory:Patient is in no distress, no accessory muscle use, lungs are clear to auscultation, no wheezing, rales or rhonchi Back:non-tender GI: Soft and nontender Musculoskeletal: Left foot swollen with some erythema. On the plantar aspect is in opening in the skin less than a centimeter in diameter. Neurological:A&O, normal speech Psychiatric:Cooperative Constitutional Vital Signs, click to edit/add: Last Vital Signs Temp 99.8 F 09/01/25 02:26 Pulse 101 H 09/01/25 03:00 Resp 15 09/01/25 03:00 BP 135/80 09/01/25 03:00 Pulse Ox 96 09/01/25 02:26 O2 Del Method Room Air 09/01/25 02:26 Course Vital Signs Vital signs: Vital Signs Temperature 99.8 F 09/01/25 02:26 Pulse Rate 102 H 09/01/25 02:26 Respiratory Rate 22 H 09/01/25 02:26 Blood Pressure 165/100 H 09/01/25 02:26 Pulse Oximetry 96 09/01/25 02:26 Oxygen Delivery Method Room Air 09/01/25 02:26 Temperature 99.8 F 09/01/25 02:26 Pulse Rate 101 H 09/01/25 03:00 Respiratory Rate 15 09/01/25 03:00 Blood Pressure 135/80 09/01/25 03:00 Pulse Oximetry 96 09/01/25 02:26 Oxygen Delivery Method Room Air 09/01/25 02:26 Medical Decision Making [facility] Narrative Medical decision making narrative: The patient has a diabetic foot infection and likely has osteomyelitis. He is being admitted for IV antibiotics and podiatry consultation. He was given IV vancomycin and Zosyn. Treatment diagnosis and disposition were discussed with the patient. Differential Diagnosis Differential Diagnosis: Cellulitis, abscess, osteomyelitis Lab Data Lab results reviewed: Yes I reviewed the patient's lab results Labs: Lab Results 09/01/25 09/01/25 Range/Units 02:29 02:37 WBC 10.5 (4.0-11.0) 10^3/uL RBC 3.97 L (4.70-6.10) 10^6/uL Hgb 12.7 L (14.0-18.0) g/dL Hct 36.6 L (42.0-54.0) % MCV 92.2 (80.0-94.0) fL MCH 32.0 (25.9-34.0) pg MCHC 34.7 (29.9-35.2) g/dL RDW 13.1 (11.0-15.0) % Plt Count 187 (150-450) 10^3/uL MPV 11.3 (9.5-13.5) fL Neut % (Auto) 75.6 H (43.0-75.0) % Lymph % (Auto) 13.7 L (20.5-60.0) % [place] % (Auto) 9.3 (1.7-12.0) % Eos % (Auto) 0.4 L (0.9-7.0) % Baso % (Auto) 0.4 (0.2-2.0) % Neut # (Auto) 7.9 H (1.4-6.5) 10^3/uL Lymph # (Auto) 1.4 (1.2-3.8) 10^3/uL [place] # (Auto) 1.0 H (0.3-0.8) 10^3/uL Eos # (Auto) 0.0 (0.0-0.7) 10^3/uL Baso # (Auto) 0.0 (0.0-0.1) 10^3/uL Abs Immat Gran (auto) 0.06 H (0.00-0.03) 10^3/uL Imm/Tot Granulo (auto) 0.6 H (0.0-0.5) % ESR 94 H (<=20) mm/hr Sodium 133 L (136-145) mmol/L Potassium 3.8 (3.5-5.1) mmol/L Chloride 95 L (98-107) mmol/L Carbon Dioxide 24.8 (21.0-32.0) mmol/L Anion Gap 17.0 BUN 13.0 (7.0-18.0) mg/dL Creatinine 1.25 (0.70-1.30) mg/dL Est GFR ( Amer) >60 (>=60 mL/min/1.73m^2) Est GFR (Non-Af Amer) 59 L (>=60 mL/min/1.73m^2) BUN/Creatinine Ratio 10.4 Glucose 249 H (74-106) mg/dL Calcium 9.2 (8.5-10.1) mg/dL POC Glucose 233 H (74-106) mg/dL Imaging Data Foot x-ray: My impression: Soft tissue swelling, likely has osteomyelitis at fifth metatarsal head ECG Data Attestation: I personally reviewed and interpreted this ECG as follows: ([id number], my interpretation shows sinus rhythm with a rate of 96 and no acute change) Discharge Plan Discharge Chief Complaint: Altered Mental Status Clinical Impression: Diabetic foot infection Patient Disposition: Admitted As Inpatient Time of Disposition Decision: 03:18 Condition: Fair
[2025-09-01 03:00] LABS: Hematocrit 36.6 % (42.0-54.0); Hemoglobin 12.7 g/dL (14.0-18.0); Immature Granulocytes Abs Auto 0.06 10^3/uL (0.00-0.03); Immature Granulocytes Pct Auto 0.6 % (0.0-0.5); Lymphocytes Absolute Auto 1.4 10^3/uL (1.2-3.8); Mean Corpuscular HGB Conc 34.7 g/dL (29.9-35.2); Mean Corpuscular Hemoglobin 32.0 pg (25.9-34.0); Mean Corpuscular Volume 92.2 fL (80.0-94.0); Platelet Count 187 10^3/uL (150-450); Red Blood Count 3.97 10^6/uL (4.70-6.10); White Blood Count 10.5 10^3/uL (4.0-11.0)
[2025-09-01 03:07] LABS: Anion Gap 17.0; Blood Urea Nitrogen 13.0 mg/dL (7.0-18.0); Calcium 9.2 mg/dL (8.5-10.1); Carbon Dioxide 24.8 mmol/L (21.0-32.0); Chloride 95 mmol/L (98-107); Estimated GFR (African America >60 (>=60 mL/min/1.73m^2); Estimated GFR (Non-African Ame 59 (>=60 mL/min/1.73m^2); Glucose 249 mg/dL (74-106); Potassium 3.8 mmol/L (3.5-5.1); Sodium 133 mmol/L (136-145)
[2025-09-01] MEDS: PIPERACILLIN SODIUM/TAZOBACTAM 3.375 GM in 0.9 % SODIUM CHLORIDE 50 ML IV (03:28)
--- OUTSIDE RECORDS SUMMARY | 2025-09-01 04:07 | XMS_ITS | CCD ---
Author Organization [facility] CliniSynv Care Team Providers Care Remelter Name Role Phone ERIN CRUZ Admitting Unavailable ERIN CRUZ Attending Unavailable MISC, DR MORRELL Primary Care Unavailable GARCIA, DR KAMRYN Hogue Consulting Unavailable ERIN CRUZ Consulting Unavailable Kate Mayers Primary Care Provider UnavailKATE Ramirez Primary Care Unavailable KRISTEN HERNANDEZ Attending Unavailable QING HASTINGS Referring Unavailable CONSULT, PODIATRY Consulting Unavailable KATE MAYERS Primary Care Unavailable RONALD CONNELL Attending Unavailable RONALD CONNELL Admitting Unavailable Kathleen Diaz Unavailable SOUZA PELT GRADER~[id number], SOUZA VY N Admitting Unavailable SOUZA PELT GRADER~[id number], SOUZA VY N Attending Unavailable SOUZA PELT GRADER, VY N Consulting Unavailable SOUZA PELT GRADER~[id number], SOUZA VY N Primary Ca re Unavailable SOUZA PELT GRADER, VY N Consulting Unavailable SOUZA PELT GRADER~[id number], SOUZA VY N Attending Unavailable SOUZA PELT GRADER, VY N Consulting Unavailable SOUZA PELT GRADER~[id number], SOUZA VY N Primary Ca re Unavailable SOUZA PELT GRADER~[id number], SOUZA VY N Admitting Unavailable SOUZA PELT GRADER, VY N Consulting Unavailable SOUZA PELT GRADER~[id number], SOUZA VY N Attending Unavailable SOUZA PELT GRADER, VY N Consulting Unavailable SOUZA PELT GRADER~[id number], SOUZA VY N Admitting Unavailable SOUZA PELT GRADER~[id number], SOUZA VY N Primary Ca re Unavailable SOUZA PELT GRADER, VY N Consulting Unavailable SOUZA PELT GRADER~[id number], SOUZA VY N Attending Unavailable SOUZA PELT GRADER, VY N Consulting Unavailable SOUZA PELT GRADER~[id number], SOUZA VY N Primary Ca re Unavailable SOUZA PELT GRADER~[id number], SOUZA VY N Admitting Unavailable SOUZA PELT GRADER, VY N Consulting Unavailable MOOMAW PELT GRADER, JULIO CÉSAR I Consulting Unavailable DAYNA ORTEGA~[id number], DAYNA Ken Attending Unavailable DAYNA ORTEGA~[id number], DAYNA Ken Admitting Unavailable SOUZA PELT GRADER~[id number], SOUZA VY N Primary Ca re Unavailable MOOMAW PELT GRADER, JULIO CÉSAR I Consulting Unavailable TIFFANIE MCINTOSH MD Consulting Unavailable TIFFANIE MCINTOSH MD Consulting Unavailable SOUZA PELT GRADER, VY N Consulting Unavailable SOUZA PELT GRADER, VY N Consulting Unavailable SOUZA PELT GRADER, VY N Consulting Unavailable DAYNA ORTEGA~[id number], DAYNA Ken Attending Unavailable DAYNA ORTEGA~[id number], DAYNA Ken Admitting Unavailable SOUZA PELT GRADER~[id number], SOUZA VY N Primary Ca re Unavailable SOUZA PELT GRADER, VY N Consulting Unavailable KIRKHOPE PELT GRADER~[id number], KIRKHOPE IGGY L Admitt ing Unavailable KIRKHOPE PELT GRADER, IGGY L Consulting Unavailabl e KIRKHOPE PELT GRADER~[id number], KIRKHOPE IGGY L Attend ing Unavailable SOUZA PELT GRADER~[id number], SOUZA VY N Primary Ca re Unavailable KIRKHOPE PELT GRADER, IGGY L Consulting Unavailabl e SOUZA PELT GRADER, VY N Consulting Unavailable SOUZA PELT GRADER, VY N Consulting Unavailable SOUZA PELT GRADER~[id number], SOUZA VY N Attending Unavailable SOUZA PELT GRADER, VY N Consulting Unavailable SOUZA PELT GRADER~[id number], SOUZA VY N Primary Ca re Unavailable SOUZA PELT GRADER~[id number], SOUZA VY N Admitting Unavailable SOUZA PELT GRADER, VY N Consulting Unavailable CAROLINA ORTEGA DR~[id number] ARIANE Ken Attending Unavailable CAROLINA ORTEGA DR~[id number] ARIANE Ken Admitting Unavailable SOUZA PELT GRADER, VY N Consulting Unavailable SOUZA PELT GRADER~[id number], SOUZA VY N Primary Ca re Unavailable SOUZA PELT GRADER, VY N Consulting Unavailable WILSON DO~[id number], WILSON AKIKO K Attending Unavailable WILSON DO~[id number], WILSON AKIKO K Admitting Unavailable JERNIGAN PAC, ROZINA Consulting Unavailable SOUZA PELT GRADER~[phone], SOUZA VY N Primary Ca re Unavailable JERNIGAN PAC, ROZINA Consulting Unavailable SOUZA PELT GRADER, VY N Consulting Unavailable SOUZA PELT GRADER, VY N Consulting Unavailable WOOD DO~[id number], WOOD CHARLEE A Attending Unavailable WOOD DO~[id number], WOOD CHARLEE A Admitting Unavailable SOUZA PELT GRADER, VY N Consulting Unavailable SOUZA PELT GRADER~[id number], SOUZA VY N Primary Ca re Unavailable SOUZA PELT GRADER, VY N Consulting Unavailable WOOD DO, CHARLEE A Consulting Unavailable WOOD DO, CHARLEE A Consulting Unavailable GARCIA ORTEGA, KAMRYN Hogue Consulting Unavailable GARCIA ORTEGA, KAMRYN Hogue Consulting Unavailable SOUZA PELT GRADER~[id number], SOUZA VY N Attending Unavailable SOUZA PELT GRADER, VY N Consulting Unavailable SOUZA PELT GRADER~[id number], SOUZA VY N Admitting Unavailable SOUZA PELT GRADER~[id number], SOUZA VY N Primary Ca re Unavailable SOUZA PELT GRADER, VY N Consulting Unavailable SOUZA PELT GRADER~[id number], SOUZA VY N Admitting Unavailable SOUZA PELT GRADER~[id number], SOUZA VY N Attending Unavailable SOUZA PELT GRADER, VY N Consulting Unavailable SOUZA PELT GRADER~[id number], SOUZA VY N Primary Ca re Unavailable SOUZA PELT GRADER, VY N Consulting Unavailable Scally, PELT GRADER Kathleen Christina Attending Provider MD Timo Moser Primary Care Provider Timo Moser Primary Care Unavailable Kathleen Diaz Attending Unavailable Kathleen Diaz Admitting Unavailable Scally, PELT GRADER Kathleen Christina Attending Provider MD Timo Moser [...] Unavailable Primary Care Provider Unavailabl e Bang PELT GRADER-POLICE DISPATCHER, [place] Primary Care Provider Bang PELT GRADER-POLICE DISPATCHER, [place] Primary Care Provider Allergies Allergy Classification Reported Allergen(s) Allergy Type Date of Onset Reaction(s) Facility (2 sources) Iodine (And Iodine Containting Drugs) Drug allergy (disorder) 2 [facility] (4 sources) Gadolinium-Cont aining Contrast Medi Allergy to substance 4 Unknown Reaction, Swollen and red hands/feet [facility] (14 sources) Iodinated Contrast Media; Translations: [IODINATED CONTRAST MEDIA] Allergy to substance 3 Unknown Reaction, Swollen and red hands/feet [facility] Medications Current Medications Medication Drug Class(es) Dates [...] Daily January 23, 2024 1:00am bifidobacterium animalis [id number] unt / lactobacillus acidophilus [id number] unt oral capsule (4 sources) Start: 09-20-2023 [...] 10/11/2023 Active take 1 capsule by [facility] every twenty-four hours Doxycycline Hyclate 100 MG [...] mouth. 0 Active take 1 tablet by [facility] in the morning, then take 2 tablets [...] tablet DR 40 mg polyethylene glycol [phone] [id number] mg powder for oral solution (1 source) [...] sources) Long-term current use of insulin; Translations: [retirement (current) use of insulin] 02-17-2024 Episodic Other aftercare (4 sources) terminal carman (current) use of insulin; Translations: [Long-term (current) [...] Applied in clinic today MANUALLY TRANSCRIBED RESULTS [facility] HbA1c HPLC (Bld) [Mass fract ion]on 02-17-2024 HbA1c (Bld) [Mass fraction] 11.3 % [facility] No Panel Informationon 02-16 APPLIED IN CLINIC TODAY. MANUALLY TRANSCRIBED RESULTS [facility] Bedside Glucose 321 [facility] No Panel Informationon 02-02 Applied in clinic today MANUALLY TRANSCRIBED RESULTS [facility] [email or web address] XR FOOT RT MIN 3 VWSon 01-19 [...] Willson DO on 01/19/2024 10:34 AM Normal [facility] No Panel Informationon 01-13 Applied in clinic today MANUALLY TRANSCRIBED RESULTS No Panel InformationOrdered By: Carisa Sneed on 01-13-2024 [facility] [employer] [facility] Medi-honeyon 12-23-2023 APPLIED IN CLINIC TODAY. MANUALLY TRANSCRIBED RESULTS [facility] No Panel Informationon 12-23 APPLIED IN CLINIC TODAY. MANUALLY TRANSCRIBED RESULTS [facility] US ABDOMEN LMTDon 12-07-2023 US ABDOMEN LMTD [...] Jacobs MD on 12/07/2023 4:38 PM Normal [facility] No Panel Informationon 12-02 Applied in clinic today MANUALLY TRANSCRIBED RESULTS [facility] PO[facility] EKGon 11-25-2023 [facility] Multiple labsOrdered By: Adrian Parra on 11-14-2023 [facility] [employer] [facility] Glucose - FINGER STICKon Glucose [Mass/Vol] 313 mg/dL [employer] Other C REACTIVE PROTEINon 023 CRP [Mass/Vol] 27.8 mg/L High 0-10 [facility] Comment on above: Performed By: #### T ROHS #### Testing performed at [address] [address] CRP [Mass/Vol] 27.8 mg/L High 0 - 10 MG/L [facility] CBCon 09-20-2023 ABSOLUTE BAS 0.0 10*3/uL Normal 0.0-0.2 [facility] Comment on above: Performed By: #### T ROHS #### Testing performed at [address] [address] ABSOLUTE EOS 0.3 10*3/uL Normal 0.0-0.7 [facility] Comment on above: Performed By: #### T ROHS #### Testing performed at [address] [address] ABSOLUTE NEUTROPHIL COUNT 3.8 10*3/uL Normal 1.4-6.5 [facility] Comment on above: Performed By: #### T ROHS #### Testing performed at [address] [address] Basophils/100 WBC (Bld) 0.4 % Normal 0.0-2.0 [facility] Comment on above: Performed By: #### T ROHS #### Testing performed at [address] [place] [address] DTYPE AUTO DIFF Normal [facility] Comment on above: Performed By: #### T ROHS #### Testing performed at [address] [address] Eosinophils/100 WBC (Bld) 3.9 % Normal 0.0-11.0 [facility] Comment on above: Performed By: #### T ROHS #### Testing performed at [address] [address] Lymphocytes (Bld) [#/Vol] 2.1 10*3/uL Normal 1.2-3.4 [facility] Comment on above: Performed By: #### T ROHS #### Testing performed at [address] [place] [address] Lymphocytes/100 WBC (Bld) 31.4 % Normal 20.0-55.0 [facility] Comment on above: Performed By: #### T ROHS #### Testing performed at [address] [place] [address] Monocytes (Bld) [#/Vol] 0.6 10*3/uL Normal 0.0-0.7 [facility] Comment on above: Performed By: #### T ROHS #### Testing performed at [address] [address] Monocytes/100 WBC (Bld) 8.4 % Normal 0.0-10.0 [facility] Comment on above: Performed By: #### T ROHS #### Testing performed at [address] [address] Neutrophils/100 WBC (Bld) 55.9 % Normal 37.0-75.0 [facility] Comment on above: Performed By: #### T ROHS #### Testing performed at [address] [address] Erythrocyte distribution width (RBC) [Ratio] 13.5 % Normal 11.5-14.5 [facility] Comment on above: Performed By: #### T ROHS #### Testing performed at [address] [address] Hematocrit (Bld) [Volume fraction] 34.7 % Low 42.0-52.0 [facility] Comment on above: Performed By: #### T ROHS #### Testing performed at [address] [address] Hemoglobin (Bld) [Mass/Vol] 12.1 g/dL Low 14.0-18.0 [facility] Comment on above: Performed By: #### T ROHS #### Testing performed at [address] [address] MCH (RBC) [Entitic mass] 31.7 pg Normal 26.0-35.0 [facility] Comment on above: Performed By: #### T ROHS #### Testing performed at [address] [address] MCHC (RBC) [Mass/Vol] 34.9 g/dL Normal 27.0-37.0 [facility] Comment on above: Performed By: #### T ROHS #### Testing performed at [address] [address] MCV (RBC) [Entitic vol] 91.0 fL Normal 80.0-100.0 [facility] Comment on above: Performed By: #### T ROHS #### Testing performed at [address] [address] Platelet mean volume (Bld) [Entitic vol] 9.7 fL Normal 7.4-11.0 [facility] Comment on above: Performed By: #### T ROHS #### Testing performed at [address] [address] Platelets (Bld) [#/Vol] 200 10*3/uL Normal 130-400 [facility] Comment on above: Performed By: #### T ROHS #### Testing performed at [address] [address] RBC (Bld) [#/Vol] 3.82 10*6/uL Low 4.0-6.1 [facility] Comment on above: Performed By: #### T ROHS #### Testing performed at [address] [address] WBC (Bld) [#/Vol] 6.8 10*3/uL Normal 3.6-11.0 [facility] Comment on above: Performed By: #### T ROHS #### Testing performed at [address] [address] CBC, EDIF, PLATELETon 2022 ABSOLUTE BASOPHIL COUNT 0.0 10*3/uL 0.0 - 0.2 10*3/uL [facility] Basophils/100 WBC (Bld) 0.4 % 0.0 - 2.0 % [facility] Differential cell count method Nom (Bld) AUTO DIFF % [facility] Eosinophils (Bld) [#/Vol] 0.3 10*3/uL 0.0 - 0.7 10*3/uL [facility] Eosinophils/100 WBC (Bld) 3.9 % 0.0 - 11.0 % [facility] Erythrocyte distribution width (RBC) [Ratio] 13.5 % 11.5 - 14.5 % [facility] Hematocrit (Bld) [Volume fraction] 34.7 % Low 42.0 - 52.0 % [facility] Hemoglobin (Bld) [Mass/Vol] 12.1 g/dL Low [facility] Interpretation and review of laboratory results Abnormal [facility] Lymphocytes (Bld) [#/Vol] 2.1 10*3/uL 1.2 - 3.4 10*3/uL [facility] Lymphocytes/100 WBC (Bld) 31.4 % 20.0 - 55.0 % [facility] MCH (RBC) [Entitic mass] 31.7 pg 26.0 - 35.[address] [facility] MCHC (RBC) [Mass/Vol] 34.9 g/dL [facility] MCV (RBC) [Entitic vol] 91.[address] [facility] Monocytes (Bld) [#/Vol] 0.6 10*3/uL 0.0 - 0.7 10*3/uL [facility] Monocytes/100 WBC (Bld) 8.4 % 0.0 - 10.0 % [facility] Neutrophils (Bld) [#/Vol] 3.8 10*3/uL 1.4 - 6.5 10*3/uL [facility] Neutrophils/100 WBC (Bld) 55.9 % 37.0 - 75.0 % [facility] Platelet mean volume (Bld) [Entitic vol] 9.[address] [facility] Platelets (Bld) [#/Vol] 200 10*3/uL 130 - 400 10*3/uL [facility] RBC (Bld) [#/Vol] 3.82 10*6/uL Low 4.0 - 6.1 10*6/uL [facility] WBC (Bld) [#/Vol] 6.8 10*3/uL 3.6 - 11.0 10*3/uL [facility] CMP FASTINGon 09-20-2023 A:G RATIO 1.1 RATIO Normal [facility] Comment on above: Performed By: #### T ROHS #### Testing performed at [address] [address] ALBUMIN 3.4 G/dl Low 3.5-5.0 [facility] Comment on above: Performed By: #### T ROHS #### Testing performed at [address] [address] ALP [Catalytic activity/Vol] 140 U/L High 38-126 [facility] Comment on above: Performed By: #### T ROHS #### Testing performed at [address] [address] ALT [Catalytic activity/Vol] 15 U/L Normal <50 [facility] Comment on above: Performed By: #### T ROHS #### Testing performed at [address] [address] AST [Catalytic activity/Vol] 19 U/L Normal 17-59 [facility] Comment on above: Performed By: #### T ROHS #### Testing performed at [address] [address] Bilirubin [Mass/Vol] 0.4 mg/dL Normal 0.2-1.3 [facility] Comment on above: Performed By: #### T ROHS #### Testing performed at [address] [address] Calcium [Mass/Vol] 8.9 mg/dL Normal 8.4-10.2 [facility] Comment on above: Performed By: #### T ROHS #### Testing performed at [address] [address] Chloride [Moles/Vol] 102 mmol/L Normal 98-107 [facility] Comment on above: Result Comment: Trudy garcia note: Triglyceride levels of 600mg/dL or higher may positively bias chloride results by approximately 2.1 mmol Performed By: #### T ROHS #### Testing performed at [address] [address] CO2 [Moles/Vol] 28 mmol/L Normal 22-30 [facility] Comment on above: Performed By: #### T ROHS #### Testing performed at [address] [address] Creatinine [Mass/Vol] 0.73 mg/dL Normal 0.70-1.20 [facility] Comment on above: Performed By: #### T ROHS #### Testing performed at [address] [address] EST. GFR, 143 ml/min/1.73sq.m [facility] Comment on above: Performed By: #### T ROHS #### Testing performed at [address] [place] [address] EST. GFR,Non 118 ml/min/1.73sq.m [facility] Comment on above: Performed By: #### T ROHS #### Testing performed at [address] [place] [address] GFR Information Average GFR for 50-5 9 years old = 93. Normal [facility] Comment on above: Result Comment: [employer] Optician morteza Kidney disease, GFR = <60. Kidney failure, GFR = <15. The GFR estimate is not adjusted for extreme body surface area or acute process, nor has it been validated for women or ethnic groups other than and . Performed By: #### T ROHS #### Testing performed at [address] [address] Glucose [Mass/Vol] 243 mg/dL High 70-100 [facility] Comment on above: Result Comment: NORMAL <100 mg/dL PREDIABETES 101-126 mg/dL DIABETES 126 mg/dL or higher Performed By: #### T ROHS #### Testing performed at [address] [address] Potassium [Moles/Vol] 3.8 mmol/L Normal 3.5-5.1 [facility] Comment on above: Performed By: #### T ROHS #### Testing performed at [address] [address] Protein [Mass/Vol] 6.6 g/dL Normal 6.3-8.2 [facility] Comment on above: Performed By: #### T ROHS #### Testing performed at [address] [address] Sodium [Moles/Vol] 136 mmol/L Low 137-145 [facility] Comment on above: Performed By: #### T ROHS #### Testing performed at [address] [address] Urea nitrogen [Mass/Vol] 15 mg/dL Normal 7-20 [facility] Comment on above: Performed By: #### T ROHS #### Testing performed at [address] [address] COMPREHENSIVE METABOLIC PANE [place] 09-20-2023 Albumin [Mass/Vol] 3.4 G/dl Low 3.5 - 5.0 G/dl [facility] Albumin/Globulin [Mass ratio] 1.1 {ratio} RATIO [facility] ALP [Catalytic activity/Vol] 140 U/L High [facility] ALT [Catalytic activity/Vol] 15 U/L NINF [facility] AST [Catalytic activity/Vol] 19 U/L [facility] Bilirubin [Mass/Vol] 0.4 mg/dL [facility] Calcium [Mass/Vol] 8.9 mg/dL [facility] Chloride [Moles/Vol] 102 mmol/L [facility] Comment on above: Please note: Triglyc eride levels of 600mg/dL or higher may positively bias chloride results by approximately 2.1 mmol CO2 [Moles/Vol] 28 mmol/L [facility] Creatinine [Mass/Vol] 0.73 mg/dL [facility] GFR COMMENT Average GFR for 50-5 9 years old = 93. [facility] Comment on above: Chronic Kidney disea se, GFR = <60. Kidney failure, GFR = <15. The GFR estimate is not adjusted for extreme body surface area or acute process, nor has it been validated for women or ethnic groups other than and . GFR/1.73 sq M.predicted among blacks MDRD (S/P/Bld) [Vol rate/Area] 143 mL/min/{1.73_m2} ml/min/1.73s q.m [facility] GFR/1.73 sq M.predicted among non-blacks MDRD (S/P/Bld) [Vol rate/Area] 118 mL/min/{1.73_m2} ml/min/1.73s q.m [facility] Glucose post fast [Mass/Vol] 243 mg/dL High [facility] Comment on above: NORMAL <100 mg/dL PREDIABETES 101-126 mg/dL DIABETES 126 mg/dL or higher Potassium [Moles/Vol] 3.8 mmol/L [facility] Protein [Mass/Vol] 6.6 g/dL [facility] Sodium [Moles/Vol] 136 mmol/L Low [facility] Urea nitrogen [Mass/Vol] 15 mg/dL [facility] GLUCOSE (POC DEVICE)on 09-20 GLUCOSE, POINT OF CARE 296 [facility] Interpretation and review of laboratory results Abnormal [facility] Operator [id number] [facility] GLUCOSE, POINT OF CARE 256 [facility] Interpretation and review of laboratory results Abnormal [facility] Operator [id number] [facility] GLUCOSE, POINT OF CARE 234 [facility] Interpretation and review of laboratory results Abnormal [facility] Operator [id number] [facility] HEMOGLOBIN A1Con 09-20-2023 Glucose [Mass/Vol] 266 mg/dL Normal [facility] Comment on above: Performed By: #### H A1CT ####Testing performed at [address] [address] HbA1c (Bld) [Mass fraction] 10.9 % High 0-6 [facility] Comment on above: Result Comment: NORMAL <5.7% PREDIABETES 5.7-6.4% DIABETES 6.5% OR HIGHER Performed By: #### H A1CT ####Testing performed at [address] [address] Glucose [Mass/Vol] 266 mg/dL [facility] HbA1c (Bld) [Mass fraction] 10.9 % High 0 - 6 % [facility] Comment on above: NORMAL <5.7% PREDIABETES 5.7-6.4% DIABETES 6.5% OR HIGHER Interpretation and review of laboratory results Abnormal [facility] LIPID PANEL W CALCULATED LDL on 09-20-2023 Cholesterol [Mass/Vol] 148 mg/dL [facility] Cholesterol in HDL [Mass/Vol] 26 mg/dL [facility] Cholesterol in LDL [Mass/Vol] 89 mg/dL NINF [facility] Cholesterol in VLDL [Mass/Vol] 33 mg/dL High [facility] Cholesterol.total/Cho lesterol in HDL [Mass ratio] 5.69 {ratio} RATIO [facility] Comment on above: RISK TOTAL/HDL RATIO MEN WOMEN 1/2 AVERAGE 3.43 3.27 AVERAGE 4.97 4.44 2X AVERAGE 9.55 7.05 3X AVERAGE 23.99 11.04 Interpretation and review of laboratory results Abnormal [facility] Triglyceride [Mass/Vol] 166 mg/dL High [facility] LIPID PROFILEon 09-20-2023 Cholesterol [Mass/Vol] 148 mg/dL Normal 120-200 [facility] Comment on above: Performed By: #### L IP2 ####Testing performed at [address] [address] Cholesterol in HDL [Mass/Vol] 26 mg/dL Normal 26-63 [facility] Comment on above: Performed By: #### L IP2 ####Testing performed at [address] [address] Cholesterol in LDL [Mass/Vol] 89 mg/dL Normal <100 [facility] Comment on above: Performed By: #### L IP2 ####Testing performed at [address] [address] Cholesterol in VLDL [Mass/Vol] 33 mg/dL High 5-25 [facility] Comment on above: Performed By: #### L IP2 ####Testing performed at [address] [address] Cholesterol.total/Cho lesterol in HDL [Mass ratio] 5.69 {ratio} Normal [facility] Comment on above: Result Comment: RISK TOTAL/HDL RATIO MEN WOMEN 1/2 AVERAGE 3.43 3.27 AVERAGE 4.97 4.44 2X AVERAGE 9.55 7.05 3X AVERAGE 23.99 11.04 Performed By: #### L IP2 ####Testing performed at [address] [address] Triglyceride [Mass/Vol] 166 mg/dL High 0-150 [facility] Comment on above: Performed By: #### L IP2 ####Testing performed at [address] [address] MAGNESIUMon 09-20-2023 Magnesium [Mass/Vol] 1.7 mg/dL Normal 1.6-2.3 [facility] Comment on above: Performed By: #### T ROHS #### Testing performed at [address] [address] Magnesium [Mass/Vol] 1.7 mg/dL [facility] No Panel Informationon 09-20 Interpretation and review of laboratory results Abnormal [facility] PHOSPHATE, INORGANICon 09-20 Phosphate [Mass/Vol] 4.3 mg/dL [facility] PHOSPHOROUSon 09-20-2023 PHOSPHOROUS 4.3 MG/DL Normal 2.5-4.5 [facility] Comment on above: Performed By: #### T ROHS #### Testing performed at [address] [address] POCT GLUCOSEon 09-20-2023 Glucose [Mass/Vol] 296 mg/dL High 70-100 [facility] REGULATOR INSPECTOR [id number] Normal [facility] Glucose [Mass/Vol] 256 mg/dL High 70-100 [facility] REGULATOR INSPECTOR [id number] Normal [facility] Glucose [Mass/Vol] 234 mg/dL High 70-100 [facility] REGULATOR INSPECTOR [id number] Normal [facility] Glucose [Mass/Vol] 386 mg/dL High 70-100 [facility] REGULATOR INSPECTOR [id number] Normal [facility] PROTIMEon 09-20-2023 INR Coag (PPP) [Relative time] 1.13 {INR} High 0.85-1.10 [facility] Comment on above: Result Comment: 2.0-3.0 THERAPEUTIC RANGE 2.5-3.5 MECHANICAL VALVE RANGE Performed By: #### T ROHS #### Testing performed at [address] [address] PT Coag (PPP) [Time] 14.6 s High 11.8-14.4 [facility] Comment on above: Performed By: #### T ROHS #### Testing performed at [address] [address] PROTIME-INRon 09-20-2023 INR Coag (PPP) [Relative time] 1.13 {INR} High 0.85 - 1.[address] [facility] Comment on above: 2.0-3.0 THERAPEUTIC RANGE 2.5-3.5 MECHANICAL VALVE RANGE Interpretation and review of laboratory results Abnormal [facility] PT Coag (PPP) [Time] 14.6 s High [facility] TSH W/FT4 REFLEXon 3 TSH Qn 0.710 m[IU]/L [facility] TSH,REFLEX FREE T4on 023 TSH,REFLEX FREE T4 0.710 uIU/ML Normal 0.465-4.680 [facility] Comment on above: Performed By: #### R TSH ####Testing performed at [address] [address] VANCOMYCIN LEVEL, TROUGH (WI E DRUG LEVEL)on 09-20-2023 Interpretation and review of laboratory results Abnormal [facility] Vancomycin trough [Mass/Vol] 9.9 ug/mL Low [facility] VANCOMYCIN TROUGHon 09-20-20 VANCOMYCIN TROUGH 9.9 UG/ML Low 15.0-20.0 [facility] Comment on above: Performed By: #### V ANT #### Testing performed at [address] [address] BLOOD CULTUREon 09-19-2023 Bacteria identified Cx Nom (Bld) SPECIMEN DESCRIPTION PERIPHERAL BLOOD DRAW CULTURE NO GROWTH 5 DAYS * Result Note: Testing performed at [place] [address] * REPORT STATUS 09/23/2023 * Result Note: FINAL * Normal [facility] Comment on above: Performed By: #### B LC #### Testing performed at [address] [address] Testing performed at [address] [address] Bacteria identified Cx Nom (Bld) SPECIMEN DESCRIPTION PERIPHERAL BLOOD DRAW CULTURE NO GROWTH 5 DAYS * Result Note: Testing performed at [place] [address] * REPORT STATUS 09/23/2023 * Result Note: FINAL * Normal [facility] Comment on above: Performed By: #### T ROHS #### Testing performed at [address] [address] C REACTIVE PROTEINon 023 CRP [Mass/Vol] 29.4 mg/L High 0-10 [facility] Comment on above: Performed By: #### C REACT ####Testing performed at [address] [address] CRP [Mass/Vol] 29.4 mg/L High 0 - 10 MG/L [facility] Interpretation and review of laboratory results Abnormal [facility] CRP [Mass/Vol] 34.1 mg/L High 0-10 [facility] Comment on above: Performed By: #### T ROHS #### Testing performed at [address] [address] CMP FASTINGon 09-19-2023 A:G RATIO 1.1 RATIO Normal [facility] Comment on above: Performed By: #### M RSAST #### Testing performed at [address] [address] ALBUMIN 3.5 G/dl Normal 3.5-5.0 [facility] Comment on above: Performed By: #### M RSAST #### Testing performed at [address] [address] ALP [Catalytic activity/Vol] 149 U/L High 38-126 [facility] Comment on above: Performed By: #### M RSAST #### Testing performed at [address] [address] ALT [Catalytic activity/Vol] 17 U/L Normal <50 [facility] Comment on above: Performed By: #### M RSAST #### Testing performed at [address] [address] AST [Catalytic activity/Vol] 17 U/L Normal 17-59 [facility] Comment on above: Performed By: #### M RSAST #### Testing performed at [address] [address] Bilirubin [Mass/Vol] 0.5 mg/dL Normal 0.2-1.3 [facility] Comment on above: Performed By: #### M RSAST #### Testing performed at [address] [address] Calcium [Mass/Vol] 8.6 mg/dL Normal 8.4-10.2 [facility] Comment on above: Performed By: #### M RSAST #### Testing performed at [address] [address] Chloride [Moles/Vol] 99 mmol/L Normal 98-107 [facility] Comment on above: Result Comment: Trudy garcia note: Triglyceride levels of 600mg/dL or higher may positively bias chloride results by approximately 2.1 mmol Performed By: #### M RSAST #### Testing performed at [address] [address] CO2 [Moles/Vol] 26 mmol/L Normal 22-30 [facility] Comment on above: Performed By: #### M RSAST #### Testing performed at [address] [address] Creatinine [Mass/Vol] 0.70 mg/dL Normal 0.70-1.20 [facility] Comment on above: Performed By: #### M RSAST #### Testing performed at [address] [address] EST. GFR, 150 ml/min/1.73sq.m [facility] Comment on above: Performed By: #### M RSAST #### Testing performed at [address] [address] EST. GFR,Non 124 ml/min/1.73sq.m [facility] Comment on above: Performed By: #### M RSAST #### Testing performed at [address] [address] GFR Information Average GFR for 50-5 9 years old = 93. Normal [facility] Comment on above: Result Comment: Surface [employer] Optician morteza Kidney disease, GFR = <60. Kidney failure, GFR = <15. The GFR estimate is not adjusted for extreme body surface area or acute process, nor has it been validated for women or ethnic groups other than and . Performed By: #### M RSAST #### Testing performed at [address] [address] Glucose [Mass/Vol] 405 mg/dL Critically high 70-100 [facility] Comment on above: Result Comment: NORMAL <100 mg/dL PREDIABETES 101-126 mg/dL DIABETES 126 mg/dL or higher Result called to read back by: JIMENEZ 09/19/2023 @ 18:53 by MMB Performed By: #### M RSAST #### Testing performed at [address] [address] Potassium [Moles/Vol] 4.2 mmol/L Normal 3.5-5.1 [facility] Comment on above: Performed By: #### M RSAST #### Testing performed at [address] [address] Protein [Mass/Vol] 6.6 g/dL Normal 6.3-8.2 [facility] Comment on above: Performed By: #### M RSAST #### Testing performed at [address] [address] Sodium [Moles/Vol] 133 mmol/L Low 137-145 [facility] Comment on above: Performed By: #### M RSAST #### Testing performed at [address] [address] Urea nitrogen [Mass/Vol] 14 mg/dL Normal 7-20 [facility] Comment on above: Performed By: #### M RSAST #### Testing performed at [address] [address] COMPREHENSIVE METABOLIC PANE [place] 09-19-2023 Albumin [Mass/Vol] 3.5 G/dl 3.5 - 5.0 G/dl [facility] Albumin/Globulin [Mass ratio] 1.1 {ratio} RATIO [facility] ALP [Catalytic activity/Vol] 149 U/L High [facility] ALT [Catalytic activity/Vol] 17 U/L NINF [facility] AST [Catalytic activity/Vol] 17 U/L [facility] Bilirubin [Mass/Vol] 0.5 mg/dL [facility] Calcium [Mass/Vol] 8.6 mg/dL [facility] Chloride [Moles/Vol] 99 mmol/L [facility] Comment on above: Please note: Triglyc eride levels of 600mg/dL or higher may positively bias chloride results by approximately 2.1 mmol CO2 [Moles/Vol] 26 mmol/L [facility] Creatinine [Mass/Vol] 0.70 mg/dL [facility] GFR COMMENT Average GFR for 50-5 9 years old = 93. [facility] Comment on above: Chronic Kidney disea se, GFR = <60. Kidney failure, GFR = <15. The GFR estimate is not adjusted for extreme body surface area or acute process, nor has it been validated for women or ethnic groups other than and . GFR/1.73 sq M.predicted among blacks MDRD (S/P/Bld) [Vol rate/Area] 150 mL/min/{1.73_m2} ml/min/1.73s q.m [facility] GFR/1.73 sq M.predicted among non-blacks MDRD (S/P/Bld) [Vol rate/Area] 124 mL/min/{1.73_m2} ml/min/1.73s q.m [facility] Glucose post fast [Mass/Vol] 405 mg/dL Critically high [facility] Comment on above: NORMAL <100 mg/dL PREDIABETES 101-126 mg/dL DIABETES 126 mg/dL or higher Result called to read back by: JIMENEZ 09/19/2023 @ 18:53 by MMB Interpretation and review of laboratory results Abnormal [facility] Potassium [Moles/Vol] 4.2 mmol/L [facility] Protein [Mass/Vol] 6.6 g/dL [facility] Sodium [Moles/Vol] 133 mmol/L Low [facility] Urea nitrogen [Mass/Vol] 14 mg/dL [facility] ESRon 09-19-2023 ESR (Bld) [Velocity] 26 mm/h High 0-20 [facility] Comment on above: Performed By: #### T [facility] #### Testing performed at [address] [address] GLUCOSE (POC DEVICE)on 09-19 GLUCOSE, POINT OF CARE 386 [facility] Interpretation and review of laboratory results Abnormal [facility] Operator [id number] [facility] GLUCOSE, POINT OF CARE [address] [facility] GLUCOSE, POINT OF CARE [address] [facility] GLUCOSE, POINT OF CARE [address] [facility] GLUCOSE, POINT OF CARE 306 [facility] Interpretation and review of laboratory results Abnormal [facility] Operator [id number] [facility] LACTATE,BLOODon 09-19-2023 Lactate [Moles/Vol] 1.3 mmol/L Normal 0.7-2.0 [facility] Comment on above: Performed By: #### L [facility] #### Testing performed at [address] [address] MR Foot - left WO contraston 09-19-2023 [...] cuneiform bones at the edge of the [id number]-[id number]. There appears to be a superficial soft [...] significant tendinopathy or tenosynovitis is seen. RADIOLOGY [place], Steph Almeida - 09/19/2023 HISTORY: The patient [...] cuneiform bones at the edge of the [id number]. There appears to be a superficial soft [...] of the base of the fifth metatarsal. [facility] Radiology Study observation (narrative) [facility] MR Foot - left WO contrastOr dered By: Charlee Easley on 09-19-2023 [facility] Work Phone: MRI FOOT LEFT WITHOUT CONTRA [...] cuneiform bones at the edge of the gsjfb-st-[id number]. There appears to be a superficial soft [...] base of the fifth metatarsal. Normal [facility] [place] [facility] MRSA SCREENon 09-19-2023 MRSA DNA WILLIAM+probe Ql (Unsp spec) Negative Normal NEGATIVE [facility] Comment on above: Performed By: #### M RSAST #### Testing performed at [address] [address] STAPH AUREUS SCREEN Negative Normal NEGATIVE [facility] Comment on above: Result Comment: TEST ING PERFORMED BY PCR Performed By: #### M RSAST #### Testing performed at [address] [address] No Panel Informationon 09-19 Interpretation and review of laboratory results Abnormal [facility] Operator [id number] [facility] POCT GLUCOSEon 09-19-2023 Glucose [Mass/Vol] 358 mg/dL High 70-100 [facility] Glucose [Mass/Vol] 349 mg/dL High 70-100 [facility] Glucose [Mass/Vol] 228 mg/dL High 70-100 [facility] REGULATOR INSPECTOR [id number] Normal [facility] Glucose [Mass/Vol] 306 mg/dL High 70-100 [facility] REGULATOR INSPECTOR [id number] Normal [facility] SCREEN: MRSA ONLY, NARES (IS OLATION SCREEN)on 09-19-2023 MRSA isol Org specific cx Ql (Nose) Negative NEGATIVE [facility] STAPHYOCOCCUS AUREUS BY PCR Negative NEGATIVE [facility] Comment on above: TESTING PERFORMED BY PCR [facility] C REACTIVE PROTEINon 023 CRP [Mass/Vol] 34.1 mg/L High 0 - 10 MG/L [facility] Interpretation and review of laboratory results Abnormal [facility] CBCon 09-18-2023 ABSOLUTE BAS 0.0 10*3/uL Normal 0.0-0.2 [facility] Comment on above: Performed By: #### A CBC, CHEM7F #### Testing performed at [address] [address] ABSOLUTE EOS 0.1 10*3/uL Normal 0.0-0.7 [facility] Comment on above: Performed By: #### A CBC, CHEM7F #### Testing performed at [facility] [place] [facility] [address] [place] [address] ABSOLUTE NEUTROPHIL COUNT 5.6 10*3/uL Normal 1.4-6.5 [facility] Comment on above: Performed By: #### A CBC, CHEM7F #### Testing performed at [address] [address] Basophils/100 WBC (Bld) 0.3 % Normal 0.0-2.0 [facility] Comment on above: Performed By: #### A CBC, CHEM7F #### Testing performed at [address] [address] DTYPE AUTO DIFF Normal [facility] Comment on above: Performed By: #### A CBC, CHEM7F #### Testing performed at [address] [address] Eosinophils/100 WBC (Bld) 1.6 % Normal 0.0-11.0 [facility] Comment on above: Performed By: #### A CBC, CHEM7F #### Testing performed at [address] [address] Lymphocytes (Bld) [#/Vol] 1.8 10*3/uL Normal 1.2-3.4 [facility] Comment on above: Performed By: #### A CBC, CHEM7F #### Testing performed at [address] [address] Lymphocytes/100 WBC (Bld) 21.5 % Normal 20.0-55.0 [facility] Comment on above: Performed By: #### A CBC, CHEM7F #### Testing performed at [address] [address] Monocytes (Bld) [#/Vol] 0.7 10*3/uL Normal 0.0-0.7 [facility] Comment on above: Performed By: #### A CBC, CHEM7F #### Testing performed at [address] [address] Monocytes/100 WBC (Bld) 8.3 % Normal 0.0-10.0 [facility] Comment on above: Performed By: #### A CBC, CHEM7F #### Testing performed at [address] [address] Neutrophils/100 WBC (Bld) 68.3 % Normal 37.0-75.0 [facility] Comment on above: Performed By: #### A CBC, CHEM7F #### Testing performed at [address] [address] Erythrocyte distribution width (RBC) [Ratio] 13.6 % Normal 11.5-14.5 [facility] Comment on above: Performed By: #### A CBC, CHEM7F #### Testing performed at [address] [address] Hematocrit (Bld) [Volume fraction] 38.8 % Low 42.0-52.0 [facility] Comment on above: Performed By: #### A CBC, CHEM7F #### Testing performed at [address] [address] Hemoglobin (Bld) [Mass/Vol] 13.0 g/dL Low 14.0-18.0 [facility] Comment on above: Performed By: #### A CBC, CHEM7F #### Testing performed at [address] [address] MCH (RBC) [Entitic mass] 31.0 pg Normal 26.0-35.0 [facility] Comment on above: Performed By: #### A CBC, CHEM7F #### Testing performed at [address] [address] MCHC (RBC) [Mass/Vol] 33.6 g/dL Normal 27.0-37.0 [facility] Comment on above: Performed By: #### A CBC, CHEM7F #### Testing performed at [address] [address] MCV (RBC) [Entitic vol] 92.1 fL Normal 80.0-100.0 [facility] Comment on above: Performed By: #### A CBC, CHEM7F #### Testing performed at [address] [address] Platelet mean volume (Bld) [Entitic vol] 9.3 fL Normal 7.4-11.0 [facility] Comment on above: Performed By: #### A CBC, CHEM7F #### Testing performed at [address] [address] Platelets (Bld) [#/Vol] 231 10*3/uL Normal 130-400 [facility] Comment on above: Performed By: #### A CBC, CHEM7F #### Testing performed at [address] [address] RBC (Bld) [#/Vol] 4.21 10*6/uL Normal 4.0-6.1 [facility] Comment on above: Performed By: #### A CBC, CHEM7F #### Testing performed at [address] [address] WBC (Bld) [#/Vol] 8.3 10*3/uL Normal 3.6-11.0 [facility] Comment on above: Performed By: #### A CBC, CHEM7F #### Testing performed at [address] [address] CBC, EDIF, PLATELETon 2022 ABSOLUTE BASOPHIL COUNT 0.0 10*3/uL 0.0 - 0.2 10*3/uL [facility] Basophils/100 WBC (Bld) 0.3 % 0.0 - 2.0 % [facility] Differential cell count method Nom (Bld) AUTO DIFF % [facility] Eosinophils (Bld) [#/Vol] 0.1 10*3/uL 0.0 - 0.7 10*3/uL [facility] Eosinophils/100 WBC (Bld) 1.6 % 0.0 - 11.0 % [facility] Erythrocyte distribution width (RBC) [Ratio] 13.6 % 11.5 - 14.5 % [facility] Hematocrit (Bld) [Volume fraction] 38.8 % Low 42.0 - 52.0 % [facility] Hemoglobin (Bld) [Mass/Vol] 13.0 g/dL Low [facility] Interpretation and review of laboratory results Abnormal [facility] Lymphocytes (Bld) [#/Vol] 1.8 10*3/uL 1.2 - 3.4 10*3/uL [facility] Lymphocytes/100 WBC (Bld) 21.5 % 20.0 - 55.0 % [facility] MCH (RBC) [Entitic mass] 31.0 pg 26.0 - 35.[address] [facility] MCHC (RBC) [Mass/Vol] 33.6 g/dL [facility] MCV (RBC) [Entitic vol] 92.[address] [facility] Monocytes (Bld) [#/Vol] 0.7 10*3/uL 0.0 - 0.7 10*3/uL [facility] Monocytes/100 WBC (Bld) 8.3 % 0.0 - 10.0 % [facility] Neutrophils (Bld) [#/Vol] 5.6 10*3/uL 1.4 - 6.5 10*3/uL [facility] Neutrophils/100 WBC (Bld) 68.3 % 37.0 - 75.0 % [facility] Platelet mean volume (Bld) [Entitic vol] 9.[address] [facility] Platelets (Bld) [#/Vol] 231 10*3/uL 130 - 400 10*3/uL [facility] RBC (Bld) [#/Vol] 4.21 10*6/uL 4.0 - 6.1 10*6/uL [facility] WBC (Bld) [#/Vol] 8.3 10*3/uL 3.6 - 11.0 10*3/uL [facility] CHEM 7 FASTINGon 09-18-2023 Chloride [Moles/Vol] 97 mmol/L Low 98-107 [facility] Comment on above: Result Comment: Trudy garcia note: Triglyceride levels of 600mg/dL or higher may positively bias chloride results by approximately 2.1 mmol Performed By: #### A CBC, CHEM7F #### Testing performed at [address] [address] CO2 [Moles/Vol] 28 mmol/L Normal 22-30 [facility] Comment on above: Performed By: #### A CBC, CHEM7F #### Testing performed at [address] [address] Creatinine [Mass/Vol] 0.86 mg/dL Normal 0.70-1.20 [facility] Comment on above: Performed By: #### A CBC, CHEM7F #### Testing performed at [place] [id number] EST. GFR, 118 ml/min/1.73sq.m [facility] Comment on above: Performed By: #### A CBC, CHEM7F #### Testing performed at [address] [address] EST. GFR,Non 98 ml/min/1.73sq.m [facility] Comment on above: Performed By: #### A CBC, CHEM7F #### Testing performed at [address] [address] GFR Information Average GFR for 50-5 9 years old = 93. Normal [facility] Comment on above: Result Comment: [employer] Optician morteza Kidney disease, GFR = <60. Kidney failure, GFR = <15. The GFR estimate is not adjusted for extreme body surface area or acute process, nor has it been validated for women or ethnic groups other than and . Performed By: #### A CBC, CHEM7F #### Testing performed at [place] [id number] Glucose [Mass/Vol] 353 mg/dL High 70-100 [facility] Comment on above: Result Comment: NORMAL <100 mg/dL PREDIABETES 101-126 mg/dL DIABETES 126 mg/dL or higher Performed By: #### A CBC, CHEM7F #### Testing performed at [address] [address] Potassium [Moles/Vol] 4.1 mmol/L Normal 3.5-5.1 [facility] Comment on above: Performed By: #### A CBC, CHEM7F #### Testing performed at [address] [address] Sodium [Moles/Vol] 134 mmol/L Low 137-145 [facility] Comment on above: Performed By: #### A CBC, CHEM7F #### Testing performed at [place] [id number] Urea nitrogen [Mass/Vol] 17 mg/dL Normal 7-20 [facility] Comment on above: Performed By: #### A CBC, CHEM7F #### Testing performed at [place] [id number] CHEM 7 (LYTES,BUN,CREA,GLUC) on 09-18-2023 Chloride [Moles/Vol] 97 mmol/L Low [facility] Comment on above: Please note: Triglyc eride levels of 600mg/dL or higher may positively bias chloride results by approximately 2.1 mmol CO2 [Moles/Vol] 28 mmol/L [facility] Creatinine [Mass/Vol] 0.86 mg/dL [facility] GFR COMMENT Average GFR for 50-5 9 years old = 93. [facility] Comment on above: Chronic Kidney disea se, GFR = <60. Kidney failure, GFR = <15. The GFR estimate is not adjusted for extreme body surface area or acute process, nor has it been validated for women or ethnic groups other than and . GFR/1.73 sq M.predicted among blacks MDRD (S/P/Bld) [Vol rate/Area] 118 mL/min/{1.73_m2} ml/min/1.73s q.m [facility] GFR/1.73 sq M.predicted among non-blacks MDRD (S/P/Bld) [Vol rate/Area] 98 mL/min/{1.73_m2} ml/min/1.73s q.m [facility] Glucose post fast [Mass/Vol] 353 mg/dL High [facility] Comment on above: NORMAL <100 mg/dL PREDIABETES 101-126 mg/dL DIABETES 126 mg/dL or higher Interpretation and review of laboratory results Abnormal [facility] Potassium [Moles/Vol] 4.1 mmol/L [facility] Sodium [Moles/Vol] 134 mmol/L Low [facility] Urea nitrogen [Mass/Vol] 17 mg/dL [facility] LACTATE, BLOODon 09-18-2023 Lactate [Moles/Vol] 1.3 mmol/L 0.7 - 2. 0 mmol/L [facility] SEDIMENTATION RATE, AUTOMATE Don 09-18-2023 ESR (Bld) [Velocity] 26 mm/h High [facility] Interpretation and review of laboratory results Abnormal [facility] TROPONIN I, HIGH SENSITIVITY on 09-18-2023 TROPONIN I, HIGH SENSITIVITY 3 pg/mL Normal 0-20 [facility] Comment on above: Result Comment: Indeterminant: >12 to 100 pg/mL female >20 to 100 pg/mL male Indicative of myocardial injury. Serial sampling is recommended, a change of greater than or equal to 20 pg/mL is indicative of acute coronary syndrome. Performed By: #### T YAZMIN #### Testing performed at [facility] [address] [place] [address] TROPONIN I, HIGH SENSITIVITY 3 pg/mL 0 - 20 pg/mL [facility] Comment on above: Indeterminant: >12 to 100 pg/mL female >20 to 100 pg/mL male Indicative of myocardial injury. Serial sampling is recommended, a change of greater than or equal to 20 pg/mL is indicative of acute coronary syndrome. [facility] XR FOOT LEFT 3 VIEWSon 09-18 [...] soft tissue edema. No periosteal reaction. Normal [facility] XR Foot - left 3 [employer] EXAM: [...] dorsal soft tissue edema. No periosteal reaction. [facility] Radiology Study observation (narrative) [facility] [employer] [facility] XR Foot - left 3 ViewsOrdere d By: Simon Romano on 09-18-[address] [facility] Work Phone: Comprehensive metabolic 2000 panelon 09-13-2023 Albumin [Mass/Vol] 3.8 g/dL Normal 3.4-5.0 [facility] Comment on above: Performed By: #### 2 [id number] #### [facility] [address] [place] [address] [employer] - Harmony Almanza CLIA [id number] ALP [Catalytic activity/Vol] 177 U/L High 50-136 [facility] [facility]: Performed By: #### 2 4323-8 #### [facility] [address] [place] [address] [place] - [place] [id number] ALT [Catalytic activity/Vol] 20 U/L Normal 16-63 [facility] Comment on above: Performed By: #### 2 4323-8 #### [facility] [address] [place] [address] [employer] - [place] Almanza CLIA [id number] Anion gap [Moles/Vol] 5.0 mmol/L Normal <=15.0 [facility] Comment on above: Performed By: #### 2 4323-8 #### [facility] [address] [place] [address] [employer] - [place] Almanza CLIA [id number] AST [Catalytic activity/Vol] 15 U/L Normal 15-37 [facility] Comment on above: Performed By: #### 2 4323-8 #### [facility] [address] [place] [address] [employer] - [place] [id number] Bilirubin [Mass/Vol] 0.7 mg/dL Normal 0.2-1.0 [facility] Comment on above: Performed By: #### 2 4323-8 #### [facility] [address] [place] [address] [employer] - [place] [id number] Calcium [Mass/Vol] 9.6 mg/dL Normal 8.5-10.1 [facility] Comment on above: Performed By: #### 2 4323-8 #### [facility] [address] [place] [address] [employer] - [place] Almanza CLIA [id number] Chloride [Moles/Vol] 101 mmol/L Normal 98-107 [facility] Comment on above: Performed By: #### 2 4323-8 #### [facility] [address] [place] [address] [employer] - [place] Almanza CLIA [id number] CO2 [Moles/Vol] 29 mmol/L Normal 21-32 [facility] Comment on above: Performed By: #### 2 4323-8 #### [facility] [address] [place] [address] [employer] - [place] [id number] Creatinine [Mass/Vol] 0.90 mg/dL Normal 0.67-1.17 [facility] Comment on above: Performed By: #### 2 4323-8 #### [facility] [address] [place] [address] [employer] - [place] [id number] GFR/1.73 sq M.predicted MDRD (S/P/Bld) [Vol rate/Area] mL/min/{1.73_m2} Normal >=59 [facility] Comment on above: Performed By: #### 2 4323-8 #### [facility] [address] [place] [address] [employer] - [place] Almanza CLIA [id number] Glucose [Mass/Vol] 273 mg/dL High 74-106 [facility] Comment on above: Performed By: #### 2 4323-8 #### [facility] [address] [place] [address] [employer] - [place] Almanza CLIA [id number] HGFR GLOMERULAR FILTRATIO N RATE INTERPRETATION~The eGFR [...] months, with or without kidney damage.~ Normal [facility] Comment on above: Performed By: #### 2 4323-8 #### [facility] [address] [place] [address] [facility] [id number] Potassium [Moles/Vol] 4.2 mmol/L Normal 3.5-5.1 [facility] Comment on above: Performed By: #### 2 432-8 #### [facility] [address] [place] [address] [place] - [facility] PERRYIA [id number] Protein [Mass/Vol] 8.3 g/dL High 6.4-8.2 [facility] Comment on above: Performed By: #### 2 4323-8 #### [facility] [address] [place] [address] [place] - [facility] CLIA [id number] Sodium [Moles/Vol] 135 mmol/L Low 136-145 [facility] Comment on above: Performed By: #### 2 4323-8 #### [facility] [address] [facility] [place] [address] [place] [facility] [id number] Urea nitrogen [Mass/Vol] 16 mg/dL Normal 9-20 [facility] Comment on above: Performed By: #### 2 4323-8 #### [facility] [address] [facility] [place] [address] [employer] - [place] JAIMES [id number] HbA1c Calc (Bld) [Mass fract ion]on 09-13-2023 Average glucose Estimated from glycated hemoglobin (Bld) [Mass/Vol] 272 mg/dL High 68-125 [facility] Comment on above: Performed By: #### 2 4323-8 #### [address] [place] [address] [place] [employer] - [place] JAIMES [id number] HA1C A1C INTERPRETATION %A1c (NGSP) Interpretation 3.8 - 6.4 Non-Diabetic Range 5.7 - 6.4 Prediabetic >6.5 Action Suggested The eAG (estimated average glucose) is an estimation of one?s average blood glucose level, calculated based on A1C test results, reported using the same units (mg/dL) seen on blood glucose meters. Normal [facility] Comment on above: Performed By: #### 2 4323-8 #### [address] [place] [address] [place] [employer] - [place] JAIMES [id number] HbA1c (Bld) [Mass fraction] 11.1 %A1C High 4.2-6.3 [facility] Comment on above: Performed By: #### 2 4323-8 #### [address] [place] [address] [employer] - [place] JAIMES [id number] 25-hydroxyvitamin D [Mass/Vo l]on 04-20-2023 25-hydroxyvitamin D3 [Mass/Vol] 25.1 ng/mL Low 30.0-100.0 [facility] Comment on above: Performed By: #### 2 4323-8 #### [address] [place] [address] [employer] - [place] JAIMES [id number] HVITD VITAMIN D INTERPRETATION VITAMIN D STATUS RANGE ----- DEFICIENCY <20 ng/mL INSUFFICIENCY 20-30 ng/mL SUFFICIENCY 30-100 ng/mL TOXICITY >100 ng/mL Normal [facility] Comment on above: Performed By: #### 2 4323-8 #### [facility] [address] [place] [address] [employer] - [place] JAIMES [id number] Comprehensive metabolic 2000 panelon 04-20-2023 Albumin [Mass/Vol] 3.7 g/dL Normal 3.4-5.0 [facility] Comment on above: Performed By: #### 2 4323-8 #### [facility] [address] [place] [address] [place] [employer] - [place] [id number] ALP [Catalytic activity/Vol] 164 U/L High 50-136 [facility] Comment on above: Performed By: #### 2 4323-8 #### [facility] [address] [place] [address] [employer] - [place] [id number] ALT [Catalytic activity/Vol] 20 U/L Normal 16-63 [facility] Comment on above: Performed By: #### 2 4323-8 #### [facility] [address] [place] [address] [place] [employer] - [place] [id number] Anion gap [Moles/Vol] 5.0 mmol/L Normal <=15.0 [facility] Comment on above: Performed By: #### 2 4323-8 #### [facility] [address] [place] [address] [place] [employer] - [place] [id number] AST [Catalytic activity/Vol] 11 U/L Low 15-37 [facility] Comment on above: Performed By: #### 2 4323-8 #### [facility] [address] [place] [address] [place] - [place] [id number] Bilirubin [Mass/Vol] 0.6 mg/dL Normal 0.2-1.0 [facility] Comment on above: Performed By: #### 2 4323-8 #### [facility] [address] [place] [address] [place] - [place] [id number] Calcium [Mass/Vol] 9.5 mg/dL Normal 8.5-10.1 [facility] Comment on above: Performed By: #### 2 4323-8 #### [facility] [address] [place] [address] [employer] - [place] Almanza CLIA [id number] Chloride [Moles/Vol] 101 mmol/L Normal 98-107 [facility] Comment on above: Performed By: #### 2 4323-8 #### [facility] [address] [place] [address] [place] [employer] - [place] Almanza CLIA [id number] CO2 [Moles/Vol] 28 mmol/L Normal 21-32 [facility] Comment on above: Performed By: #### 2 4323-8 #### [facility] [address] [place] [address] [place] - [place] [id number] Creatinine [Mass/Vol] 0.90 mg/dL Normal 0.67-1.17 [facility] Comment on above: Performed By: #### 2 4323-8 #### [facility] [address] [place] [address] [employer] - [place] Almanza CLIA [id number] GFR/1.73 sq M.predicted MDRD (S/P/Bld) [Vol rate/Area] mL/min/{1.73_m2} Normal >=59 [facility] Comment on above: Performed By: #### 2 4323-8 #### [facility] [address] [place] [address] [place] [employer] - [place] [id number] Glucose [Mass/Vol] 289 mg/dL High 74-106 [facility] Comment on above: Performed By: #### 2 4323-8 #### [facility] [address] [place] [address] [employer] - [place] JAIMES [id number] HGFR GLOMERULAR FILTRATIO N RATE INTERPRETATION~The eGFR [...] months, with or without kidney damage.~ Normal [facility] Comment on above: Performed By: #### 2 4323-8 #### [facility] [address] [place] [address] [place] [employer] - [place] JAIMES [id number] Potassium [Moles/Vol] 4.3 mmol/L Normal 3.5-5.1 [facility] Comment on above: Performed By: #### 2 4323-8 #### [facility] [address] [place] [address] [employer] - [place] JAIMES [id number] Protein [Mass/Vol] 8.1 g/dL Normal 6.4-8.2 [facility] Comment on above: Performed By: #### 2 4323-8 #### [facility] [address] [place] [address] [place] - [place] JAIMES [id number] Sodium [Moles/Vol] 134 mmol/L Low 136-145 [facility] Comment on above: Performed By: #### 2 4323-8 #### [facility] [address] [place] [address] [place] [employer] - [place] JAIMES [id number] Urea nitrogen [Mass/Vol] 12 mg/dL Normal 9-20 [facility] Comment on above: Performed By: #### 2 4323-8 #### [facility] [address] [place] [address] [employer] - [place] JAIMES [id number] HbA1c Calc (Bld) [Mass fract ion]on 04-20-2023 Average glucose Estimated from glycated hemoglobin (Bld) [Mass/Vol] 252 mg/dL High 68-125 [facility] Comment on above: Performed By: #### 2 4323-8 #### [address] [place] [address] [place] [employer] - [place] JAIMES [id number] HA1C A1C INTERPRETATION %A1c (NGSP) Interpretation 3.8 - 6.4 Non-Diabetic Range 5.7 - 6.4 Prediabetic >6.5 Action Suggested The eAG (estimated average glucose) is an estimation of one?s average blood glucose level, calculated based on A1C test results, reported using the same units (mg/dL) seen on blood glucose meters. Normal [facility] Comment on above: Performed By: #### 2 4323-8 #### [place] [address] [address] [place] [address] [place] [employer] - [place] JAIMES [id number] HbA1c (Bld) [Mass fraction] 10.4 %A1C High 4.2-6.3 [facility] Comment on above: Performed By: #### 2 4323-8 #### [place] [address] [place] [address] [place] - [place] JAIMES [id number] ALKALINE PHOS ISOENZYMESon 0 03-14-2023 44554-1 22 % Normal 12-68 [facility] Comment on above: Performed By: #### A LPISO #### Performed for [place] [address] [place] [place] [address] 57571-7 1 % Normal 0-18 [facility] Comment on above: Performed By: #### A LPISO #### Performed for [address] [place], [place] [address] 57847-4 77 % Normal 13-88 [facility] Comment on above: Performed By: #### A LPISO #### Performed for [facility] [address] [place], [place] [address] ALP [Catalytic activity/Vol] 159 U/L High 44-121 [facility] Comment on above: Performed By: #### A LPISO #### Performed for [facility] [address] [place], [place] [address] 25-hydroxyvitamin D [Mass/Vo l]on 03-10-2023 25-hydroxyvitamin D3 [Mass/Vol] 19.3 ng/mL Low 30.0-100.0 [facility] Comment on above: Performed By: #### 2 4323-8 #### [facility] [address] [place], [place] [address] [place] [employer] - [place] JAIMES [id number] HVITD VITAMIN D INTERPRETATION VITAMIN D STATUS RANGE ----- DEFICIENCY <20 ng/mL INSUFFICIENCY 20-30 ng/mL SUFFICIENCY 30-100 ng/mL TOXICITY >100 ng/mL Normal [facility] Comment on above: Performed By: #### 2 4323-8 #### [facility] [address] [place] [address] [place] - [place] JAIMES [id number] GGTon 03-10-2023 Gamma glutamyl transferase [Catalytic activity/Vol] 11 U/L Low 15-85 [facility] Comment on above: Performed By: #### 2 324-2, 2777-1, 82682-0 #### [facility] [address] [place], [place] [address] [employer] - [place] JAIMES [id number] PHOSPHORUSon 03-10-2023 Phosphate [Mass/Vol] 2.7 mg/dL Normal 2.5-4.9 [facility] Comment on above: Performed By: #### 2 324-2, 2777-1, 05372-0 #### [facility] [address] [place] [address] [place] - [employer] [id number] PTH INTACTon 03-10-2023 Parathyrin.intact [Mass/Vol] 54.3 pg/mL Normal 18.4-80.1 [facility] Comment on above: Performed By: #### 2 731-8 #### [facility] [address] [place] [address] [place] - [employer] [place] [id number] Parathyrin.intact [Mass/Vol] on 03-10-2023 Calcium [Mass/Vol] 9.5 mg/dL Normal 8.5-10.1 [facility] Comment on above: Performed By: #### 2 731-8 #### [facility] [address] [place] [address] [place] - Brand[place]IA [id number] HIP INTACT PTH INTERPRETATION Interpretation Intact PTH Calcium (pg/mL) (mg/dL) Normal 10.0 - 65.0 8.4 - 10.2 Primary Hyperparathyroidism >65.0 >10.2 Secondary Hyperparathyroidism >65.0 <10.2 Non-Parathyroid Hypercalcemia <65.0 >10.2 Hypoparathyroidism <10.2 <8.4 Non-Parathyroid Hypocalcemia 10.0 - 65.0 <8.4 Careful interpretation of the PTH result may be necessary to evaluate the falsely depressed PTH values in patients taking high doses of biotin. Normal [facility] Comment on above: Performed By: #### 2 731-8 #### [facility] [address] [place] [address] [place] - [employer] Labsrell Minus[employer]IA [id number] TSH DL <= 0.05 mIU/L Qnon TSH Qn 0.945 uIU/mL Normal 0.358-3.740 [facility] Comment on above: Performed By: #### 2 324-2, 2777-1, 66419-9 #### [facility] [address] [place], [place] [address] [employer] - [place] JAIMES [id number] URINE DRUG SCREEN 14 W/CONFI RMon 02-15-2023 15549-3 Negative Normal Wilmby=790 [facility] Comment on above: Performed By: #### U DRUG14 #### Performed for [facility] [address] [place], [place] [address] 92467-9 Negative Normal Actizp=2369 [facility] Comment on above: Performed By: #### U DRUG14 #### Performed for [facility] [address] [place], [place] [address] 15590-7 Negative Normal Jtmgpf=199 [facility] Comment on above: Result Comment: Opia te test includes Codeine, Morphine, Hydromorphone, Hydrocodone. Performed By: #### U DRUG14 #### Performed for [facility] [address] [place], [place] [address] 10194-5 Negative Normal Eexxdx=679 [facility] Comment on above: Performed By: #### U DRUG14 #### Performed for [facility] [address] [place], [place] [address] 44722-7 Negative Normal Hrvawb=505 [facility] Comment on above: Performed By: #### U DRUG14 #### Performed for [facility] [address] [place], [place] [address] 3414-0 Negative Normal Cutoff=10 [facility] Comment on above: Performed By: #### U DRUG14 #### Performed for [facility] [address] [place], [place] [address] 3637-6 Negative Normal Krffoz=7853 [facility] Comment on above: Result Comment: Test includes Fentanyl and Norfentanyl . This test was developed and its performance characteristics determined by [facility]. It has not been cleared or approved by the Food and Drug Administration. Performed By: #### U DRUG14 #### Performed for [facility] [address] [place], [place] [address] 3746-5 Negative Normal Xizntp=886 [facility] Comment on above: Result Comment: This test was developed and its performance characteristics determined by [facility]. It has not been cleared or approved by the Food and Drug Administration. Performed By: #### U DRUG14 #### Performed for [address] [address] 15271-7 Negative Normal Syqyxz=704 [facility] Comment on above: Result Comment: Test includes Oxycodone and Oxymorphone Performed By: #### U DRUG14 #### Performed for [place] [address] 47796-4 Comment Normal [facility] Comment on above: Result Comment: Drug -test results should be interpreted in the context of clinical information. Patient metabolic variables, specific drug chemistry, and specimen characteristics can affect test outcome. Technical consultation is available if a test result is inconsistent with an expected outcome. ([email or web address] or call toll-free [phone]) . Drug brands, if listed herein, are trademarks of their respective owners. Performed By: #### U DRUG14 #### Performed for [address] [address] Barbiturates Screen Ql (U) Negative Normal Exdszq=184 [facility] Comment on above: Performed By: #### U DRUG14 #### Performed for [address] [address] Benzodiazepines Ql (U) Negative Normal Kceikk=723 [facility] Comment on above: Performed By: #### U DRUG14 #### Performed for [address] [address] Cannabinoids Screen Ql (U) Negative Normal Cutoff=20 [facility] Comment on above: Performed By: #### U DRUG14 #### Performed for [address] [address] Creatinine (U) [Mass/Vol] 14.7 mg/dL Low 20.0-300.0 [facility] Comment on above: Performed By: #### U DRUG14 #### Performed for [address] [address] pH (U) 5.7 [pH] Normal 4.5-8.9 [facility] Comment on above: Performed By: #### U DRUG14 #### Performed for [facility] [address] [place], [place] [address] Phencyclidine Ql (U) Negative Normal Cutoff=25 [facility] Comment on above: Performed By: #### U DRUG14 #### Performed for [facility] [address] [place], [place] [address] Propoxyphene Screen Ql (U) Negative Normal Kglxmo=340 [facility] Comment on above: Performed By: #### U DRUG14 #### Performed for [facility] [address] [place], [place] [address] Specific gravity (U) [Rel density] 1.0029 Normal [facility] Comment on above: Performed By: #### U DRUG14 #### Performed for [facility] [address] [place] [address] Comprehensive metabolic 2000 panelon 02-11-2023 Albumin [Mass/Vol] 4.0 g/dL Normal 3.4-5.0 [facility] Comment on above: Performed By: #### 2 4323-8 #### [facility] [address] [place] [address] [facility] [id number] ALP [Catalytic activity/Vol] 165 U/L High 50-136 [facility] Comment on above: Performed By: #### 2 4323-8 #### [facility] [address] [place] [address] [place] - [facility] [id number] ALT [Catalytic activity/Vol] 21 U/L Normal 16-63 [facility] Comment on above: Performed By: #### 2 4323-8 #### [facility] [address] [place] [address] [place] [facility] [id number] Anion gap [Moles/Vol] 6.6 mmol/L Normal <=15.0 [facility] Comment on above: Performed By: #### 2 4323-8 #### [facility] [address] [place] [address] [place] [employer] - [place] Almanza CLIA [id number] AST [Catalytic activity/Vol] 13 U/L Low 15-37 [facility] Comment on above: Performed By: #### 2 4323-8 #### [facility] [address] [place] [address] [employer] - [place] Almanza CLIA [id number] Bilirubin [Mass/Vol] 0.5 mg/dL Normal 0.2-1.0 [facility] Comment on above: Performed By: #### 2 4323-8 #### [facility] [address] [place] [address] [place] [employer] - [place] Almanza CLIA [id number] Calcium [Mass/Vol] 9.3 mg/dL Normal 8.5-10.1 [facility] Comment on above: Performed By: #### 2 4323-8 #### [facility] [address] [place] [address] [place] [employer] - [place] Almanza CLIA [id number] Chloride [Moles/Vol] 102 mmol/L Normal 98-107 [facility] Comment on above: Performed By: #### 2 4323-8 #### [facility] [address] [place] [address] [employer] - [place] Almanza CLIA [id number] CO2 [Moles/Vol] 26 mmol/L Normal 21-32 [facility] Comment on above: Performed By: #### 2 4323-8 #### [facility] [address] [place] [address] [employer] - [place] Almanza CLIA [id number] Creatinine [Mass/Vol] 0.77 mg/dL Normal 0.67-1.17 [facility] Comment on above: Performed By: #### 2 4323-8 #### [facility] [address] [place] [address] [employer] - [place] Almanza CLIA [id number] GFR/1.73 sq M.predicted MDRD (S/P/Bld) [Vol rate/Area] mL/min/{1.73_m2} Normal >=59 [facility] Comment on above: Performed By: #### 2 4323-8 #### [facility] [address] [place] [address] [employer] - [place] JAIMES [id number] Glucose [Mass/Vol] 231 mg/dL High 74-106 [facility] Comment on above: Performed By: #### 2 4323-8 #### [facility] [address] [place] [address] [employer] - [place] JAIM[employer] [id number] HGFR GLOMERULAR FILTRATIO N RATE INTERPRETATION~The eGFR [...] months, with or without kidney damage.~ Normal [facility] Comment on above: Performed By: #### 2 4323-8 #### [facility] [address] [facility] [place] [address] [place] - [place] JAIMES [id number] Potassium [Moles/Vol] 3.8 mmol/L Normal 3.5-5.1 [facility] Comment on above: Performed By: #### 2 4323-8 #### [facility] [address] [facility] [place] [address] [place] [employer] - [place] JAIM[employer] [id number] Protein [Mass/Vol] 8.3 g/dL High 6.4-8.2 [facility] Comment on above: Performed By: #### 2 4323-8 #### [facility] [address] [place] [address] [employer] - [place] [employer] [id number] Sodium [Moles/Vol] 136 mmol/L Normal 136-145 [facility] Comment on above: Performed By: #### 2 4323-8 #### [facility] [address] [place] [address] [employer] - [place] [employer]IM[employer] [id number] Urea nitrogen [Mass/Vol] 10 mg/dL Normal 9-20 [facility] Comment on above: Performed By: #### 2 4323-8 #### [facility] [address] [place] [address] [employer] - [place] JAIMES [id number] HbA1c Calc (Bld) [Mass fract ion]on 02-11-2023 Average glucose Estimated from glycated hemoglobin (Bld) [Mass/Vol] 203 mg/dL High 68-125 [facility] Comment on above: Performed By: #### 1 7855-8 #### [facility] [address] [place] [address] [employer] - [place] [employer] [id number] HA1C A1C INTERPRETATION %A1c (NGSP) Interpretation 3.8 - 6.4 Non-Diabetic Range 5.7 - 6.4 Prediabetic >6.5 Action Suggested The eAG (estimated average glucose) is an estimation of one?s average blood glucose level, calculated based on A1C test results, reported using the same units (mg/dL) seen on blood glucose meters. Normal [facility] Comment on above: Performed By: #### 1 7855-8 #### [facility] [address] [place] [address] [place] JA[place] [id number] HbA1c (Bld) [Mass fraction] 8.7 %A1C High 4.2-6.3 [facility] Comment on above: Performed By: #### 1 7855-8 #### [facility] [address] [place] [address] [place] [id number] Lipid panel with direct LDLo n 02-11-2023 Cholesterol [Mass/Vol] 147 mg/dL Normal <=200 [facility] Comment on above: Performed By: #### 5 7698-3 #### [facility] [address] [place] [address] [place] [id number] Cholesterol in HDL [Mass/Vol] 53 mg/dL Normal 40-59 [facility] Comment on above: Performed By: #### 5 7698-3 #### [facility] [address] [place] [address] [place] [id number] Cholesterol in LDL [Mass/Vol] 56 mg/dL Normal 5-100 [facility] Comment on above: Performed By: #### 5 7698-3 #### [facility] [address] [place] [address] [place] [id number] CHOLESTEROL/HDL 2.8 Normal [facility] Comment on above: Performed By: #### 5 7698-3 #### [facility] [address] [place] [address] [place] [id number] HCHOL CHOLESTEROL INTERPRETATION Desirable <200 Borderline High 200-239 High >240 Normal [facility] Comment on above: Performed By: #### 5 7698-3 #### [facility] [address] [place] [address] [place] [id number] HLDL LDL INTERPRETATION Desirable <100 Near Optimal 100-129 Borderline High 130-159 High 160-190 Very High >190 Normal [facility] Comment on above: Performed By: #### 5 7698-3 #### [facility] [address] [place] [address] [place] [id number] HLIPID ATEROSCLEROSIS RISK FACTORS FOR LDL, HDL, AND CHOLESTEROL RISK FACTOR SEX LDL/HDL CHOL/HDL 1/2 Average M 1.00 3.43 F 1.47 3.27 Average M 3.55 4.97 F 3.22 4.44 2X Average M 6.25 9.55 F 5.03 7.05 3X Average M 7.99 23.39 F 6.14 11.04 Normal [facility] Comment on above: Performed By: #### 5 7698-3 #### [place] [address] [facility] [id number] HTRIG TRIGLYCERIDES INTERPRETATION Normal <150 Borderline High 150-199 High 200-499 Very High >500 Normal [facility] Comment on above: Performed By: #### 5 7698-3 #### [place] [address] [facility] [id number] LDL/HDL 1.1 Normal [facility] Comment on above: Performed By: #### 5 7698-3 #### [place] [address] [facility] [id number] Triglyceride [Mass/Vol] 189 mg/dL High <=150 [facility] Comment on above: Performed By: #### 5 7698-3 #### [place] [address] [place] - [facility] [id number] CBC AUTO DIFFon 06-19-2022 BASO # 0.0 103/ul Normal 0.0-0.1 [facility] Comment on above: Performed By: #### C BC #### [facility] [address] [place] [address] [address] Heron Mandel Basophils/100 WBC (Bld) 0.2 % Normal 0.2-2.0 [facility] Comment on above: Performed By: #### C BC #### [facility] [address] [place] [address] Dr. Heron Mandel EO # 0.1 103/ul Normal 0.0-0.7 [facility] Comment on above: Performed By: #### C BC #### [facility] [address] [place] [address] Dr. Heron Mandel Eosinophils/100 WBC (Bld) 0.9 % Normal 0.9-7.0 [facility] Comment on above: Performed By: #### C BC #### [facility] [address] [place] [address] Dr. Heron Mandel Erythrocyte distribution width (RBC) [Ratio] 12.7 % Normal 11.0-15.0 [facility] Comment on above: Performed By: #### C BC #### [facility] [address] [place] [address] Dr. Heron Mandel Hematocrit (Bld) [Volume fraction] 37.6 % Critically low 42.0-54.0 [facility] Comment on above: Performed By: #### C BC #### [facility] [address] [place] [address] Dr. Heron Mandel Hemoglobin (Bld) [Mass/Vol] 13.0 g/dL Critically low 14.0-18.0 [facility] Comment on above: Performed By: #### C BC #### [facility] [address] [place] [address] Dr. Heron Mandel IG # 0.04 10e3/ul Critically high 0.00-0.03 [facility] Comment on above: Performed By: #### C BC #### [facility] [address] [place] [address] Dr. Heron Mandel IG % 0.4 % Normal 0.0-0.5 [facility] Comment on above: Performed By: #### C BC #### [facility] [address] [place] [address] Dr. Heron Mandel LYMPH # 1.6 103/ul Normal 1.2-3.8 [facility] Comment on above: Performed By: #### C BC #### [facility] [address] [place] [address] Dr. Heron Mandel Lymphocytes/100 WBC (Bld) 17.3 % Critically low 20.5-60.0 [facility] Comment on above: Performed By: #### C BC #### [facility] [address] [place] [address] Dr. Heron Mandel MANUAL DIFF REQ NO Normal [facility] Comment on above: Performed By: #### C BC #### [facility] [address] [place] [address] Dr. Heron Mandel MCH (RBC) [Entitic mass] 31.0 pg Normal 25.9-34.0 [facility] Comment on above: Performed By: #### C BC #### [facility] [address] [place] [address] Dr. Heron Mandel MCHC (RBC) [Mass/Vol] 34.6 g/dL Normal 29.9-35.2 [facility] Comment on above: Performed By: #### C BC #### [facility] [address] [place] [address] Dr. Heron Mandel MCV (RBC) [Entitic vol] 89.5 fL Normal 80.0-94.0 [facility] Comment on above: Performed By: #### C BC #### [facility] [address] [place] [address] Dr. Heron Mandel MONO # 0.6 103/ul Normal 0.3-0.8 [facility] Comment on above: Performed By: #### C BC #### [facility] [address] [place] [address] Dr. Heron Mandel Monocytes/100 WBC (Bld) 6.8 % Normal 1.7-12.0 [facility] Comment on above: Performed By: #### C BC #### [facility] [address] [place] [address] Dr. Heron Mandel NEUT # 6.8 103/ul Critically high 1.4-6.5 [facility] Comment on above: Performed By: #### C BC #### [facility] [address] [place] [address] [address] Heron Mandel Neutrophils/100 WBC (Bld) 74.4 % Normal 43.0-75.0 [facility] Comment on above: Performed By: #### C BC #### [facility] [address] [place] [address] [address] Heron Mandel Platelet mean volume (Bld) [Entitic vol] 11.4 fL Normal 9.5-13.5 [facility] Comment on above: Performed By: #### C BC #### [facility] [address] [place] [address] [address] Heron Mandel PLT 256 103/ul Normal 150-450 [facility] Comment on above: Performed By: #### C BC #### [facility] [address] [place] [address] Dr. Heron Mandel RBC 4.20 106/ul Critically low 4.70-6.10 [facility] Comment on above: Performed By: #### C BC #### [facility] [address] [place] [address] [address] Heron Mandel WBC 9.1 103/ul Normal 4.0-11.0 [facility] Comment on above: Performed By: #### C BC #### [facility] [address] [place] [address] ABD/PELVIS WO CONon [...] by: KAMRYN ZELAYA Date: 2022-06-19 16:55 Normal [facility] LIPASEon 06-19-2022 Lipase [Catalytic activity/Vol] 137.0 U/L Normal 73.0-393.0 [facility] Comment on above: Performed By: #### C MP, LIPA #### [facility] [address] [place] [address] Dr. Heron Mandel PROF 14(COMP METB)on 022 Albumin [Mass/Vol] 3.8 g/dL Normal 3.4-5.0 [facility] Comment on above: Performed By: #### C MP, LIPA #### [facility] [address] [place] [address] [address] Heron Mandel Albumin/Globulin [Mass ratio] 1.0 {ratio} Normal [facility] Comment on above: Performed By: #### C MP, LIPA #### [facility] [address] [place] [address] [address] Heron Mandel ALP [Catalytic activity/Vol] 134 U/L Critically high 46-116 [facility] Comment on above: Performed By: #### C MP, LIPA #### [facility] [address] [place] [address] [address] Heron Mandel ALT [Catalytic activity/Vol] 12 U/L Critically low 16-63 [facility] Comment on above: Performed By: #### C MP, LIPA #### [facility] [address] [place] [address] [address] Heron Mandel Anion gap [Moles/Vol] 12.4 mmol/L Normal [facility] Comment on above: Performed By: #### C MP, LIPA #### [facility] [address] [place] [address] [address] Heron Mandel AST [Catalytic activity/Vol] 11 U/L Critically low 15-37 [facility] Comment on above: Performed By: #### C MP, LIPA #### [facility] [address] [place] [address] [address] Heron Mandel Bilirubin [Mass/Vol] 0.4 mg/dL Normal 0.2-1.0 [facility] Comment on above: Performed By: #### C MP, LIPA #### [facility] [address] [place] [address] [address] Heron Mandel Calcium [Mass/Vol] 9.6 mg/dL Normal 8.5-10.1 [facility] Comment on above: Performed By: #### C MP, LIPA #### [facility] [address] [place] [address] Dr. Heron Mandel Chloride [Moles/Vol] 99 mmol/L Normal 98-107 [facility] Comment on above: Performed By: #### C MP, LIPA #### [facility] [address] [place] [address] [address] Heron Mandel CO2 [Moles/Vol] 28.3 mmol/L Normal 21.0-32.0 [facility] Comment on above: Performed By: #### C MP, LIPA #### [facility] [address] [place] [address] [address] Heron Mandel Creatinine [Mass/Vol] 1.14 mg/dL Normal 0.70-1.30 [facility] Comment on above: Performed By: #### C MP, LIPA #### [facility] [address] [place] [address] Dr. Heron Mandel EGFR-AF PALESTINIAN >60 Normal >=60 [facility] Comment on above: Performed By: #### C MP, LIPA #### [facility] [address] [place] [address] Dr. Heron Mandel EGFR-NON AF PALESTINIAN >60 Normal >=60 [facility] Comment on above: Performed By: #### C MP, LIPA #### [facility] [address] [place] [address] [address] Heron Mandel Globulin (S) [Mass/Vol] 3.8 g/dL Normal [facility] Comment on above: Performed By: #### C MP, LIPA #### [facility] [address] [place] [address] Dr. Heron Mandel Glucose [Mass/Vol] 256 mg/dL Critically high 74-106 [facility] Comment on above: Performed By: #### C MP, LIPA #### [facility] [address] [place] [address] Dr. Heron Mandel Potassium [Moles/Vol] 4.7 mmol/L Normal 3.5-5.1 [facility] Comment on above: Performed By: #### C MP, LIPA #### [facility] [address] [place] [address] Dr. Heron Mandel Protein [Mass/Vol] 7.6 g/dL Normal 6.4-8.2 [facility] Comment on above: Performed By: #### C MP, LIPA #### [facility] [address] [place] [address] Dr. Heron Mandel Sodium [Moles/Vol] 135 mmol/L Critically low 136-145 [facility] Comment on above: Performed By: #### C MP, LIPA #### [facility] [address] [place] [address] Dr. Heron Mandel Urea nitrogen [Mass/Vol] 21.0 mg/dL Critically high 7.0-18.0 [facility] Comment on above: Performed By: #### C MP, LIPA #### [facility] [address] [place] [address] Dr. Heron Mandel Urea nitrogen/Creatinine [Mass ratio] 18.4 mg/mg Normal [facility] Comment on above: Performed By: #### C MP, LIPA #### [facility] [address] [place] [address] Dr. Heron Mandel Vital Signs Date Time Vital Sign Value Performing Clinician Facility 04-05-2024 10:0400 Body height 184.15 cm [facility] 04-05-2024 [id number] Body mass index (BMI) [Ratio] 32.6 kg/m2 [facility] 04-05-2024 10:040 Body weight 110.7 kg [facility] 04-05-2024 10:26-0400 Diastolic blood pressure 85 mm[Hg] [facility] 04-05-2024 10:0400 Heart rate 89 /min [facility] 04-05-2024 10:0400 Respiratory rate 18 /min [facility] 04-05-2024 10:0400 SaO2% (BldA) [Mass fraction] 95 % [facility] 04-05-2024 [id number] Systolic blood pressure 130 mm[Hg] [facility] 04-04-2024 10:40-0400 Body temperature 98.4 [degF] Debra Audrey BRIDGET-ENGINEER TECHNICAL STAFF Work Phone: [facility] 04-04-2024 10:40-0400 Diastolic blood pressure 66 mm[Hg] Debra Ventura BRIDGET-ENGINEER TECHNICAL STAFF Work Phone: [facility] 04-04-2024 10:40-0400 Heart rate 93 /min Debra Dingle BRIDGET-ENGINEER TECHNICAL STAFF Work Phone: [facility] 04-04-2024 10:40-0400 Respiratory rate 16 /min Debra Ventura BRIDGET-ENGINEER TECHNICAL STAFF Work Phone: [facility] 04-04-2024 10:40-0400 Systolic blood pressure 146 mm[Hg] Debra Audrey BRIDGET-ENGINEER TECHNICAL STAFF Work Phone: [facility] 02-17-2024 13:00-0400 Body temperature 96.91 [degF] Debra Ventura BRIDGET-ENGINEER TECHNICAL STAFF Work Phone: [facility] 02-17-2024 13:00-0400 Diastolic blood pressure 76 mm[Hg] Debra Audrey BRIDGET-ENGINEER TECHNICAL STAFF Work Phone: [facility] 02-17-2024 13:00-0400 Heart rate 81 /min Debra Ventura APRN-ENGINEER TECHNICAL STAFF Work Phone: [facility] 02-17-2024 13:00-0400 Respiratory rate 16 /min Debra Ventura APRN-ENGINEER TECHNICAL STAFF Work Phone: [facility] 02-17-2024 13:00-0400 Systolic blood pressure 118 mm[Hg] Debra COOPERENGINEER TECHNICAL STAFF Work Phone: [facility] 02-17-2024 10:26-0400 Body height 184.15 cm MD Timo Moser Work Phone: [facility] 02-17-2024 10:26-0400 Body mass index (BMI) [Ratio] 32.9 kg/m2 MD Timo Moser Work Phone: [facility] 02-17-2024 10:26-0400 Body weight 111.64 kg MD Timo Moser Work Phone: [facility] 02-17-2024 10:26-0400 Diastolic blood pressure 80 mm[Hg] MD Timo Moser Work Phone: [facility] 02-17-2024 10:26-0400 Heart rate 80 /min MD Timo Moser Work Phone: [facility] 02-17-2024 10:26-0400 Respiratory rate 18 /min MD Timo Moser Work Phone: [facility] 02-17-2024 10:26-0400 SaO2% (BldA) [Mass fraction] 95 % MD Timo Moser Work Phone: [facility] 02-17-2024 10:26-0400 Systolic blood pressure 145 mm[Hg] MD Timo Moser Work Phone: [facility] 02-03-2024 09:31-0500 Body temperature 98.4 [degF] Mike Parish PELT GRADER-ENGINEER TECHNICAL STAFF Work Phone: [facility] 02-03-2024 09:31-0500 Diastolic blood pressure 71 mm[Hg] Mike Barton PELT GRADER-ENGINEER TECHNICAL STAFF Work Phone: [facility] 02-03-2024 09:31-0500 Heart rate 93 /min Mike Barton PELT GRADER-ENGINEER TECHNICAL STAFF Work Phone: [facility] 02-03-2024 09:31-0500 Respiratory rate 18 /min Mike Barton PELT GRADER-ENGINEER TECHNICAL STAFF Work Phone: [facility] 02-03-2024 09:31-0500 Systolic blood pressure 132 mm[Hg] Mike Barton PELT GRADER-ENGINEER TECHNICAL STAFF Work Phone: [facility] 01-13-2024 09:46-0500 Body temperature 97 [degF] Debra Ventura PELT GRADER-ENGINEER TECHNICAL STAFF Work Phone: [facility] 01-13-2024 09:46-0500 Diastolic blood pressure 90 mm[Hg] Debra Ventura PELT GRADER-ENGINEER TECHNICAL STAFF Work Phone: [facility] 01-13-2024 09:46-0500 Heart rate 80 /min Debra Ventura PELT GRADER-ENGINEER TECHNICAL STAFF Work Phone: [facility] 01-13-2024 09:46-0500 Respiratory rate 16 /min Debra Ventura PELT GRADER-ENGINEER TECHNICAL STAFF Work Phone: [facility] 01-13-2024 09:46-0500 Systolic blood pressure 129 mm[Hg] Debra Ventura PELT GRADER-ENGINEER TECHNICAL STAFF Work Phone: [facility] 12-23-2023 09:00-0500 Body temperature 98.2 [degF] Debra Ventura PELT GRADER-ENGINEER TECHNICAL STAFF Work Phone: [facility] 12-23-2023 09:00-0500 Diastolic blood pressure 91 mm[Hg] Debra Ventura PELT GRADER-ENGINEER TECHNICAL STAFF Work Phone: [facility] 12-23-2023 09:00-0500 Heart rate 94 /min Debra Ventura PELT GRADER-ENGINEER TECHNICAL STAFF Work Phone: [facility] 12-23-2023 09:00-0500 Respiratory rate 16 /min Debra Ventura PELT GRADER-ENGINEER TECHNICAL STAFF Work Phone: [facility] 12-23-2023 09:00-0500 Systolic blood pressure 154 mm[Hg] Debra Ventura PELT GRADER-ENGINEER TECHNICAL STAFF Work Phone: [facility] 12-02-2023 09:59-0500 Body temperature 97 [degF] Debra Ventura PELT GRADER-ENGINEER TECHNICAL STAFF Work Phone: [facility] 12-02-2023 09:59-0500 Diastolic blood pressure 68 mm[Hg] Debra Ventura PELT GRADER-ENGINEER TECHNICAL STAFF Work Phone: [facility] 12-02-2023 09:59-0500 Heart rate 83 /min Debra Ventura PELT GRADER-ENGINEER TECHNICAL STAFF Work Phone: [facility] 12-02-2023 09:59-0500 Respiratory rate 18 /min Debra Ventura PELT GRADER-ENGINEER TECHNICAL STAFF Work Phone: [facility] 12-02-2023 09:59-0500 Systolic blood pressure 118 mm[Hg] Debra Ventura PELT GRADER-ENGINEER TECHNICAL STAFF Work Phone: [facility] 11-25-2023 09:27-0500 Body height 188 cm Rashid Fairchild MD Work Phone: [facility] 11-25-2023 09:27-0500 Body mass index (BMI) [Ratio] 30.87 kg/m2 Rashid Fairchild MD Work Phone: [facility] 11-25-2023 09:27-0500 Body weight 109.05 kg Rashid Fairchild MD Work Phone: [facility] 11-25-2023 09:27-0500 Diastolic blood pressure 74 mm[Hg] Rashid Fairchild MD Work Phone: [facility] 11-25-2023 09:27-0500 Heart rate 76 /min Rashid Fairchild MD Work Phone: [facility] 11-25-2023 09:27-0500 SaO2% (BldA) [Mass fraction] 97 % Rashid Fairchild MD Work Phone: [facility] 11-25-2023 09:27-0500 Systolic blood pressure 118 mm[Hg] Rashid Fairchild MD Work Phone: [facility] 11-08-2023 10:45-0500 Body height 184.15 cm Kathleen Scally Other [facility] 11-08-2023 10:45-0500 Body mass index (BMI) [Ratio] 31.7 kg/m2 Kathleen Scally Other [facility] [employer] Other 11-08-2023 10:45-0500 Body weight 107.5 kg Kathleen Scally Other [facility] 11-08-2023 10:45-0500 Diastolic blood pressure 63 mm[Hg] Kathleen Scally Other [facility] 11-08-2023 10:45-0500 Respiratory rate 18 /min Kathleen Scally Other [facility] [employer] Other 11-08-2023 10:45-0500 SaO2% (BldA) [Mass fraction] 96 % Kathleen Scally Other [facility] [employer] Other 11-08-2023 10:45-0500 Systolic blood pressure 93 mm[Hg] Kathleen Scally Other [facility] 09-27-2023 10:20-0400 Body height 188 cm Bobby Joel DPM Work Phone: [facility] 09-27-2023 10:20-0400 Body mass index (BMI) [Ratio] 30.17 kg/m2 Bobby Joel DPM Work Phone: [facility] 09-27-2023 10:20-0400 Body weight 106.59 kg Bobby Joel DPM Work Phone: [facility] 09-27-2023 10:20-0400 Diastolic blood pressure 90 mm[Hg] Bobby Joel DPM Work Phone: [facility] 09-27-2023 10:20-0400 Systolic blood pressure 160 mm[Hg] Bobby Joel DPM Work Phone: [facility] 09-26-2023 15:39-0400 Body temperature 97.2 [degF] Kristen Auck PELT GRADER-ENGINEER TECHNICAL STAFF Work Phone: [facility] 09-26-2023 15:39-0400 Diastolic blood pressure 73 mm[Hg] Kristen Auck PELT GRADER-ENGINEER TECHNICAL STAFF Work Phone: [facility] 09-26-2023 15:39-0400 Heart rate 96 /min Kristen Auck PELT GRADER-ENGINEER TECHNICAL STAFF Work Phone: [facility] 09-26-2023 15:39-0400 Respiratory rate 18 /min Kristen Auck PELT GRADER-ENGINEER TECHNICAL STAFF Work Phone: [facility] 09-26-2023 15:39-0400 Systolic blood pressure 131 mm[Hg] Kristen Auck PELT GRADER-ENGINEER TECHNICAL STAFF Work Phone: [facility] 09-20-2023 15:33-0400 Body temperature 97.7 [degF] Mark Cesar MD Work Phone: [facility] 09-20-2023 15:33-0400 Diastolic blood pressure 77 mm[Hg] Mark Cesar MD Work Phone: [facility] Comment on above: Rn notified 09-20-2023 15:33-0400 Heart rate 75 /min Mark Cesar MD Work Phone: [facility] 09-20-2023 15:33-0400 Respiratory rate 22 /min Mark Cesar MD Work Phone: [facility] 09-20-2023 15:33-0400 SaO2% (BldA) [Mass fraction] 96 % Mark Cesar MD Work Phone: [employer] 09-20-2023 15:33-0400 Systolic blood pressure 165 mm[Hg] Mark Cesar MD Work Phone: [facility] Comment on above: Rn notified 09-20-2023 04:58-0400 Body mass index (BMI) [Ratio] 30.19 kg/m2 Mark Cesar MD Work Phone: [facility] 09-20-2023 04:58-0400 Body weight 106.64 kg Mark Cesar MD Work Phone: [facility] 09-19-2023 00:30-0400 Body height 188 cm Mark Cesar MD Work Phone: [facility] Encounters Encounter Date Encounter Type Care Provider Facility Start: 04-05-2024 End: 04-28-2024 ambulatory DEBRA VENTURA [facility] Work Phone: Start: 04-05-2024 End: 04-05-2024 Patient encounter procedure [facility] Work Phone: Start: 04-04-2024 End: 04-04-2024 ambulatory DEBRA VENTURA [facility] Start: 04-04-2024 End: 04-04-2024 Patient encounter procedure Debra Ventura PELT GRADER-ENGINEER TECHNICAL STAFF Work Phone: [facility] Comment on above: 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, with fat layer exposed ([facility]) (Primary Dx); Diabetic ulcer of right midfoot associated with type 2 diabetes mellitus, limited to breakdown of skin ([facility]); Pre-ulcerative calluses; Diabetic polyneuropathy associated with type 2 diabetes mellitus ([facility]) Start: 02-28-2024 End: 03-28-2024 ambulatory DEBRA VENTURA [facility] Work Phone: Start: 02-28-2024 End: 02-28-2024 Patient encounter procedure [facility] Work Phone: Start: 02-22-2024 End: 02-22-2024 ambulatory [facility] Work Phone: Start: 02-22-2024 End: 02-22-2024 Patient encounter procedure [facility] Work Phone: Start: 02-17-2024 End: 02-17-2024 ambulatory DEBRA VENTURA [facility] Start: 02-17-2024 End: 02-17-2024 Patient encounter procedure Debra Ventura PELT GRADER-ENGINEER TECHNICAL STAFF Work Phone: [facility] Comment on above: 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, with fat layer exposed (CMS-HCC) (Primary Dx); Pre-ulcerative calluses; Diabetic ulcer of right midfoot associated with type 2 diabetes mellitus, limited to breakdown of skin (CMS-HCC) Start: 02-17-2024 End: 02-17-2024 ambulatory MD Timo Moser Work Phone: [facility] Work Phone: Start: 02-17-2024 End: 02-17-2024 Patient encounter procedure MD Timo Moser Work Phone: [facility] Work Phone: Start: 02-03-2024 End: 02-03-2024 Patient encounter procedure Debra Ventura PELT GRADER-ENGINEER TECHNICAL STAFF Work Phone: [facility] Comment on above: 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, with fat layer exposed (CMS-HCC) (Primary Dx); Diabetic ulcer of right midfoot associated with type 2 diabetes mellitus, limited to breakdown of skin (CMS-HCC); Type 2 diabetes mellitus with pressure callus (CMS-HCC) Start: 02-03-2024 End: 02-03-2024 ambulatory MIKE BARTON [facility] Start: 01-19-2024 End: 01-20-2024 Emergency department patient visit IVA LEARY [facility] Start: 01-13-2024 End: 01-13-2024 Patient encounter procedure Debra Ventura PELT GRADER-ENGINEER TECHNICAL STAFF Work Phone: [facility] Comment on above: 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, with fat layer exposed ([facility]) (Primary Dx); Type 2 diabetes mellitus with pressure callus (CMS-HCC) ; Diabetic polyneuropathy associated with type 2 diabetes mellitus ([facility]) Start: 01-13-2024 End: 01-13-2024 ambulatory DEBRA VENTURA [facility] Start: 12-23-2023 End: 12-23-2023 ambulatory DEBRA VENTURA [facility] Start: 12-23-2023 End: 12-23-2023 Patient encounter procedure Debra Ventura PELT GRADER-ENGINEER TECHNICAL STAFF Work Phone: [facility] Comment on above: 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, with fat layer exposed ([facility]) (Primary Dx); Type 2 diabetes mellitus with pressure callus ([facility]) ; Diabetic polyneuropathy associated with type 2 diabetes mellitus ([facility]) Start: 12-22-2023 End: 12-22-2023 ambulatory [facility] Start: 12-22-2023 End: 12-22-2023 ambulatory [facility] Start: 12-20-2023 End: 12-20-2023 ambulatory Kathleen Diaz Other [employer] Other Start: 12-20-2023 Telephone encounter Kathleen Diaz [facility] Start: 12-16-2023 End: 12-29-2023 [facility] Teofilo AUDREY [facility] Start: 12-14-2023 End: 12-14-2023 ambulatory [facility] Start: 12-14-2023 End: 12-15-2023 ambulatory [facility] Start: 12-07-2023 End: 12-07-2023 ambulatory RUBÉN CUENCA [facility] Start: 12-05-2023 End: 12-05-2023 ambulatory Kathleen Diaz Other [employer] Other Start: 12-05-2023 Telephone encounter [facility] Start: 12-02-2023 Telephone encounter Kathleen [facility] Start: 12-02-2023 End: 12-02-2023 Patient encounter procedure Debra Ventura PELT GRADER-ENGINEER TECHNICAL STAFF Work Phone: [facility] Comment on above: 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, with fat layer exposed ([facility]) (Primary Dx); Diabetic polyneuropathy associated with type 2 diabetes mellitus ([facility]) Start: 12-02-2023 End: 12-02-2023 ambulatory DEBRA VENTURA [employer] Other Start: 11-29-2023 ambulatory HARLEY PIMENTELLIDIA Roe HARLEY PELT GRADER~[id number] Facility:[facility] Start: 11-25-2023 End: 11-25-2023 Office outpatient new 45 minutes Rashid Fairchild MD Work Phone: [facility] Comment on above: Chest pain, unspecif ied type (Primary Dx); Primary hypertension; Dyslipidemia Start: 11-25-2023 End: 11-25-2023 ambulatory [facility] Start: 11-24-2023 Telephone encounter [facility] Start: 11-23-2023 End: 11-23-2023 Discharged Recurring MD Timo Moser Work Phone: [facility] Work Phone: Start: 11-23-2023 End: 11-24-2023 ambulatory MD Timo Moser Work Phone: [employer] Other Start: 11-23-2023 Nursing evaluation o f patient and report Kathleen Diaz [facility] Start: 11-08-2023 End: 11-08-2023 ambulatory Kathleen Diaz Other [employer] Other Start: 11-08-2023 [facility] visit new patient Kathleen abdul [facility] Start: 11-08-2023 Patient encounter procedure MD Timo Moser Work Phone: [facility]- Start: 11-01-2023 End: 11-28-2023 ambulatory VY SOUZA APRN Facility:[facility] Start: 09-27-2023 End: 09-27-2023 Office outpatient visit 25 minutes Bobby Joel DPM Work Phone: [facility] Comment on above: Diabetic ulcer of le ft great toe (Primary Dx) Start: 09-26-2023 End: 09-26-2023 Office outpatient new 30 minutes Kristen Hernandez PELT GRADER-ENGINEER TECHNICAL STAFF Work Phone: [facility] Comment on above: Diabetic foot infect ion (Primary Dx); Cellulitis of toe of left foot Start: 09-26-2023 ambulatory KATE Caruso [facility] Start: 09-18-2023 End: 09-20-2023 ambulatory PODIATRY CONS[facility] Start: 09-18-2023 End: 09-20-2023 Emergency department patient visit Mark Cesar MD Work Phone: [facility] Comment on above: Diabetic foot infect ion Start: 09-16-2023 End: 09-16-2023 ambulatory KATIE WILSON DO~[id number] Facility:[facility] Start: 09-13-2023 End: 09-14-2023 ambulatory HARLEY MICHAELSE Jyothi SOUZA PELT GRADER~[id number] Facility:[facility] Start: 04-26-2023 End: 04-26-[address]~[id number] ARIANE FIGUEROA MD Facility:[facility] Start: 04-20-2023 End: 04-21-2023 ambulatory HARLEY MICHAELSE Jyothi SOUZA PELT GRADER~[id number] Facility:[facility] Start: 04-13-2023 End: 04-14-2023 ambulatory HARLEY MICHAELSE N SOUZA PELT GRADER~[id number] Facility:[facility] Start: 03-16-2023 End: 07-19-2023 ambulatory JULIO CÉSAR FRANCOIS PELT GRADER Facility:[facility] Start: 03-14-2023 End: 05-16-2023 ambulatory KIRKHOPE IGGY Mora KIRELSIOPE PELT GRADER~[id number] Facility:[facility] Start: 03-10-2023 End: 03-11-2023 ambulatory HARLEY MICHAELSE Jyothi SOUZA PELT GRADER~[id number] Facility:[facility] Start: 03-09-2023 End: 03-09-2023 ambulatory WOOD CHARLEE A WOOD DO~[id number] Facility:[facility] Start: 02-11-2023 End: 02-12-2023 ambulatory SOUZA VY N SOUZA PELT GRADER~[id number] Facility:[facility] Start: 02-11-2023 End: 02-11-2023 ambulatory SOUZA VY N SOUZA PELT GRADER~[id number] Facility:[facility] Start: 06-19-2022 End: 06-19-2022 ambulatory ERIN CRUZ Facility:[facility] Procedures Date Procedure Procedure Detail Performing Clinician Start: 04-04-2024 NURSING COMMUNICATION Debra Vnetura PELT GRADER -ENGINEER TECHNICAL STAFF Work Phone: Start: 02-17-2024 NURSING COMMUNICATION Debra Ventura PELT GRADER -ENGINEER TECHNICAL STAFF Work Phone: Start: 02-03-2024 NURSING COMMUNICATION Debra Ventura PELT GRADER -ENGINEER TECHNICAL STAFF Work Phone: Start: 01-13-2024 NURSING COMMUNICATION Debra Ventura PELT GRADER -ENGINEER TECHNICAL STAFF Work Phone: Start: 12-23-2023 End: 12-23-2023 NURSING COMMUNICATION Debra Ventura PELT GRADER -ENGINEER TECHNICAL STAFF Work Phone: Start: 12-02-2023 NURSING COMMUNICATION Debra Ventura PELT GRADER -ENGINEER TECHNICAL STAFF Work Phone: Start: 11-25-2023 Ecg routine ecg [...] with white cell differential, automated Tuan Baker PELT GRADER-ENGINEER TECHNICAL STAFF Work Phone: Start: 09-20-2023 Comprehensive metabolic panel Ronald Connell MD Work Phone: Start: 09-20-2023 Lipid panel Tuan Baker PELT GRADER-ENGINEER TECHNICAL STAFF Work Phone: Start: 09-20-2023 Lipid 1996 panel [...] oth/thn jt w/o contr matrl Tuan Monteiro Oilton PELT GRADER-ENGINEER TECHNICAL STAFF Work Phone: Start: 09-19-2023 C-reactive protein Tuan Motneiro Olivia PELT GRADER-ENGINEER TECHNICAL STAFF Work Phone: Start: 09-19-2023 Gluc bld gluc mntr dev cleared fda spec home use Ronald Connell MD Work Phone: Start: 09-19-2023 Gluc bld gluc mntr dev cleared fda spec home use Ronald Connell MD Work Phone: Start: 09-18-2023 End: 09-18-2023 Culture bacterial blood aerobic w/id isolates Mark Cesar MD Work Phone: Start: 09-18-2023 Assay [...] Author Start: 09-20-2028 Lipid panel LIPID SCREENING [facility] Start: 04-04-2025 Tobacco Screening Tobacco Screening [facility] Start: 01-19-2025 Adult BMI Screening Adult BMI Screening [facility] Start: 01-19-2025 Tobacco Screening Tobacco Screening [facility] Start: 12-23-2024 Tobacco Screening Tobacco Screening [facility] Start: 12-22-2024 Adult BMI Screening Adult BMI Screening [facility] Start: 12-22-2024 Tobacco Screening Tobacco Screening [facility] Start: 11-25-2024 Adult BMI Screening Adult BMI Screening [facility] Start: 11-25-2024 Tobacco Screening Tobacco Screening [facility] Start: 11-11-2024 Tobacco Screening Tobacco Screening [facility] Start: 09-26-2024 Diabetic foot examination DIABETIC FOOT EXAM [facility] Start: 09-20-2024 Lipid panel LIPIDS [facility] Start: 07-29-2024 Influenza vaccination Influenza Vaccine [facility] Start: 04-19-2024 End: 04-19-2024 Patient encounter procedure 04/19/2024 2:15 PM EDT Office Visit [facility] [address] [place] [phone] Cherrie Alvarez MD [address] [place] [address] [facility] Start: 04-06-2024 End: 04-06-2024 Patient encounter procedure 04/06/2024 11:00 AM EDT Office Visit [facility] [address] [place] [phone] Debra Ventura, PELT GRADER-[facility] [address] [place] [address] [facility] Start: 03-27-2024 End: 03-27-2024 Patient encounter procedure 03/27/2024 11:45 AM EDT Office Visit [facility] [address] [place] [phone] Rashid Fairchild MD [address] [place] [address] [facility] Start: 03-21-2024 Hemoglobin A1c measurement HBA1C TEST [facility] Start: 02-29-2024 End: 02-29-2024 Patient encounter procedure 02/29/2024 10:20 AM EDT Office Visit [facility] [address] [place] [address] Debra Ventura, PELT GRADER-ENGINEER TECHNICAL STAFF [address] [place] [address] [facility] Start: 02-03-2024 End: 02-03-2024 Patient encounter procedure 02/03/2024 10:20 AM EST Office Visit [facility] [address] [place] [address] Debra Ventura, PELT GRADER-ENGINEER TECHNICAL STAFF [address] [place] [address] [facility] Start: 01-13-2024 End: 01-13-2024 Patient encounter procedure 01/13/2024 10:20 AM EST Office Visit [facility] [address] [place] [address] Debra Ventura, PELT GRADER-ENGINEER TECHNICAL STAFF [address] [place] [address] [facility] Start: 12-16-2023 End: 12-16-2023 Patient encounter procedure 12/16/2023 10:20 AM EST Office Visit [facility] [address] [place] [address] Debra Ventura, PELT GRADER-ENGINEER TECHNICAL STAFF [address] [place] [address] [facility] Start: 12-14-2023 End: 12-14-2023 Patient encounter procedure 12/14/2023 11:45 AM EST Appointment [facility] [address] [place] [address] [facility] Start: 12-14-2023 End: 12-14-2023 Patient encounter procedure [facility] Start: 12-14-2023 Subsequent hospital visit by physician 12/14/2023 10:00 AM EST Hospital Encounter [facility] [address] [place] [address] [facility] Start: 12-14-2023 End: 12-14-2023 Patient encounter procedure [facility] Start: 12-07-2023 End: 12-07-2023 Patient encounter procedure 12/07/2023 8:30 AM EST Appointment [facility] [address] [place] [address] [facility] Start: 12-02-2023 End: 12-02-2023 Patient encounter procedure 12/02/2023 10:00 AM EST Office Visit [facility] [address] [place] [address] Debra Ventura, PELT GRADER-[facility] [address] [place] [id number] [facility] Start: 11-25-2023 End: 11-25-2024 Echo complete W/O contrast Echo complete W/O contrast Echocardiography Routine Chest pain, unspecified type Expected: 11/25/2023, Expires: 11/25/2024 [facility] Comment on above: Expected: 11/25/2023, Expires: Start: [...] Cardiology [address] [place] [address] Rashid Fairchild MD [address] [place] [address] [facility] Start: 10-13-2023 End: 10-13-2023 Patient encounter procedure 10/13/2023 11:00 AM EST Office Visit [facility] [address] [place] [address] Bobby Joel, DPM [address] [place] [address] [facility] Start: 09-27-2023 End: 10-25-2023 Bacterial culture and sensitivity [facility] Comment on above: Expected: 09/27/2023, Expires: Start: 09-27-2023 End: 09-27-2023 Patient encounter procedure 09/27/2023 9:50 AM EDT Office Visit [facility] [address] [place] [address] Bobby Joel, DPM [address] [place] [address] [facility] Start: 09-26-2023 End: 09-26-2023 Patient encounter procedure 09/26/2023 3:00 PM EDT Office Visit [facility] [address] [place] [phone] Kristen Hernandez, PELT GRADER-ENGINEER TECHNICAL STAFF [address] [place] [phone] [facility] Start: 07-29-2023 Influenza vaccination [facility] Start: 2017 Administration of varicella zoster vaccine Zoster (Shingles) Vaccine (1 of 2) [facility] Start: 2017 Prostate specific antigen measurement PROSTATE CANCER SCREENING DISCUSSION [facility] Start: 2017 Zoster vaccine hzv live for subcutaneous use ZOSTER (SHINGLES) VACCINE (1 of 2) [facility] Start: 01-31-2012 Screening for malignant neoplasm of colon COLORECTAL CANCER SCREENING DISCUSSION [facility] Start: 1986 DTaP,Tdap and Td Vaccines (1 - Tdap) DTaP,Tdap and Td Vaccines (1 - Tdap) [facility] Start: 1986 Third diphtheria, tetanus and acellular pertussis (DTaP) vaccination TDAP (ADULT) [facility] Start: 1985 Adult BMI Follow Up Plan Adult BMI Follow Up Plan [facility] Start: 1985 Adult BMI Screening Adult BMI Screening [facility] Start: 1985 Diabetic foot examination Diabetic Foot Exam [facility] Start: 1982 HIV screening HIV SCREENING DISCUSSION [facility] Start: 1979 Depression Screening Depression Screening [facility] Start: 1967 COVID-19 VACCINE (#1) COVID-19 VACCINE (#1) [facility] tem Start: 1967 Diabetic foot examination DIABETIC FOOT EXAM [facility] Start: 1967 Glaucoma screening [facility] Start: 1967 Hepatitis C screening HEPATITIS C VIRUS SCREENING [facility] Start: 1967 Tetanus vaccination TETANUS [facility] Start: 1967 Urine screening for protein URINE MICROALBUMIN TEST [facility] Bacteria identified in Blood by Culture [facility] Change of dressing [place] DRESSING C [place] - OFFICE PERFORMED Routine Diabetic foot infection Cellulitis of toe of left foot Ordered: 09/26/[address] [facility] Comment on above: Ordered: 09/26/2023 End: 11-25-2024 Lipid 1996 panel - Serum or Plasma Lipid profile Lab Routine Primary hypertension 1 Occurrences starting 11/25/2023 until 11/25/2024 [facility] [employer] [facility] Comment on above: 1 Occurrences starting 11/25/2023 until 11/25/2024 Payers Date Payer Category [place] [id number] 2023-Present [phone] [address] [place] [address] [id number] 2023 Medicaid [id number] 2022 Medicare [id number] [id number] 1967 Unknown [id number] 2.16.840.1.242107.3.579.2.593 1967 Unknown [id number] 2.16.840.1.067812.3.579.2.983 1967 Unknown [id number] 2.16.840.1.709534.3.579.2.983 1967 Unknown [id number] 2.16.840.1.837331.3.579.2.419 1967 Unknown [id number] 2.16.840.1.008792.3.579.2.419 1967 Unknown [id number] 2.16.840.1.243979.3.579.2.419 1967 Unknown [id number] 2.16.840.1.970461.3.579.2.419 1967 Unknown [id number] 2.16.840.1.531361.3.579.2.419 1967 Unknown [id number] 2.16.840.1.030973.3.579.2.419 1967 Unknown [id number] 2.16.840.1.159239.3.579.2.419 1967 Unknown [id number] 2.16.840.1.263669.3.579.2.419 1967 Unknown [id number] 2.16.840.1.416255.3.579.2.419 1967 Unknown [id number] 2.16.840.1.370181.3.579.2.419 1967 Unknown [id number] 2.16.840.1.078547.3.579.2.419 1967 Unknown [id number] 2.16.840.1.838204.3.579.2.419 1967 Unknown [id number] 2.16.840.1.792449.3.579.2.419 1967 Unknown [id number] 2.16.840.1.485684.3.579.2.1285 1967 Unknown [id number] 2.16.840.1.729208.3.579.2.1285 1967 Unknown [id number] 2.16.840.1.168438.3.579.2.1285 1967 Unknown [id number] 2.16.840.1.961043.3.579.2.1285 1967 Unknown [id number] 2.16.840.1.924320.3.579.2.1285 1967 Unknown [id number] 2.16.840.1.182639.3.579.2.1285 1967 Unknown [id number] 2.16.840.1.970080.3.579.2.1285 1967 Unknown [id number] 2.16.840.1.351438.3.579.2.1285 1967 Unknown [id number] 2.16.840.1.995277.3.579.2.1285 1967 Unknown [id number] 2.16.840.1.033798.3.579.2.1285 1967 Unknown [id number] 2.16.840.1.194318.3.579.2.1285 1967 Unknown [id number] 2.16.840.1.053004.3.579.2.1285 1967 Unknown [id number] 2.16840.1.193742.3.579.2.1285 1967 Unknown [id number] 2.16.840.1.468200.3.579.2.1285 1967 Unknown [id number] 2.840.1.424288.3.579.2.1285 1967 Unknown [id number] 2.840.1.486346.3.579.2.1285 1967 Unknown [id number] 2.840.1.678167.3.579.2.1285 1967 Unknown [id number] 2.840.1.435902.3.579.2.1285 1967 Unknown [id number] 2.840.1.769104.3.579.2.1285 1967 Unknown [id number] 2.840.1.310062.3.579.2.1285 1967 Unknown [id number] 2.840.1.684486.3.579.2.1285 1967 Unknown [id number] 2.840.1.438483.3.579.2.1285 1967 Unknown [id number] 2.840.1.762489.3.579.2.1286 1957 Medicare [id number] 1959 Self-pay Unknown [id number] 2.16840.1.913876.3.579.2.531 Social History Date Type Detail Facility Start: 09-18-2023 End: 10-19-2023 Tobacco smoking status NHIS Never smoked tobacco [facility] Start: 09-18-2023 End: 10-19-2023 Tobacco use and exposure Smokeless tobacco non-user [facility] Start: 09-18-2023 End: 02-03-2024 History of Social function [facility] Start: 09-18-2023 End: 02-03-2024 Tobacco use panel [facility] Start: 1965 Sex Assigned At Not on file A [facility] Start: 1965 Sex Assigned At Male F [facility] Housing Instability Unknown [facility] Start: 11-25-2023 End: 02-17-2024 Alcohol intake Ex-drinker (finding) [facility] Medical Equipment Procedure Code Equipment Code Equipment Origin al Text Equipment Identifier Dates [id number], [id number], [id number], [id number] Start: 08-18-2023 Pen Needle, Diab etic (1st [...] Clinical Notes 03-09-2023 to 04-04-2024 Debra Ventura, PELT GRADER-ENGINEER TECHNICAL STAFF - 04/04/2024 10:00 AM EDTPatient Instructions Note Date & Type Note Facility 04-04-2024 History of Present illness Narrative Images from the original note were not included. Wound Care Progress Note Patient: Darshan Dunaway Date of : 1965 Chief Complaint: Left great toe and right mid foot ulcers, follow up Subjective/HPI: Darshan is a 59 y.o. male who present to [facility] for evaluation of 2 ulcer(s) [...] followup with a wound care clinic in [place] where he will be traveling. Diabetic shoes [...] toe of left foot Diabetic foot infection ([facility]) Diabetic neuropathy associated with type 2 diabetes mellitus ([facility]) Normocytic anemia Type 2 diabetes mellitus with hyperglycemia, with long-term current use of insulin ([facility]) [place] (myocardial infarction) ([facility]) Primary hypertension 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 ([facility]) Diabetic ulcer of toe of left foot associated with type 2 diabetes mellitus, with fat layer exposed ([facility]) Diabetic ulcer of right midfoot associated with type 2 diabetes mellitus, limited to breakdown of skin ([facility]) Type 2 diabetes mellitus with pressure callus ([facility]) Past Medical History: Diagnosis Date Anxiety Arthritis Depression Diabetes mellitus ([facility] [facility] GERD (gastroesophageal reflux disease) Hyperlipidemia Hypertension Lazy eye, left Myocardial infarction ([facility]) fall of 2021 Sleep apnea Past Surgical [...] Site Assessment Dry;Brown;Yellow 04/04/24 104 Padma-wound Assessment Callous;[place] 04/04/24 104 Wound Length (cm) 0.4 cm [...] 2 diabetes mellitus, with fat layer exposed ([facility]) 2. Pre-ulcerative callus 3. Diabetic ulcer of [...] polyneuropathy associated with type 2 diabetes mellitus ([facility]) Instructed to protect feet at all times Continue to follow with podiatry as scheduled Patient instructed in diabetic foot ulcer care to right and foot. Patient verbalize understanding of treatment regimen and the importance of adherence. Patient verbalized understanding. We will continue to follow closely to avoid any complications or infection. Our short term goal is wound compliance. Our chcf goal is wound closure. The patient was [...] clinic in 4 weeks after returning from [facility] [place] Instructed to contact wound clinic/PCP or ER should symptoms worsen. Total time spent was 20 minutes: Preparing to see the patient (e.g., review of tests) Obtaining and/or reviewing separately obtained history Performing a medically appropriate examination and/or evaluation Counseling and educating the patient/family/caregiver Ordering medications, tests, or procedures Referring and communicating with other health continuum of care manager (not separately reported) Documenting clinical information in the electronic or other health record - NU TIWARI 04/04/24 11:36 AM Debra Ventura APRN, SERGEI, CWS, ERIC [facility]:[phone] NU Tiwari 12/23/23 1116 NU Tiwari 01/13/24 1035 NU Tiwari 02/17/24 1457 NU Tiwari 04/04/24 114 documented in this encounter [facility] 04-04-2024 Instructions Carisa Sneed RN - 04/04/2024 [...] 2024. Patient states this Dr is in [place], [place]. Length Width Depth Wound 02/03/24 2 [...] none none none documented in this encounter [facility] 02-17-2024 Evaluation note Authored February 17, 2024 [...] spent on education by Ivon EWING, RN [facility] Work Phone: 1(974) 852-754503-22-2024 History of Present illness Narrative* Debra Ventura, PELT GRADER-ENGINEER TECHNICAL STAFF - 02/17/2024 1:20 PM EDT Images from the original note were not included. Wound Care Progress Note Patient: Darshan Dunaway Date of : 1965 Chief Complaint: Left great toe and right mid foot ulcers, follow up Subjective/HPI: Darshan is a 59 y.o. male who present to [facility] for evaluation of 2 ulcer(s) [...] toe of left foot Diabetic foot infection ([facility]) Diabetic neuropathy associated with type 2 diabetes mellitus ([facility]) Normocytic anemia Type 2 diabetes mellitus with hyperglycemia, with long-term current use of insulin ([facility]) SD (myocardial infarction) ([facility]) Primary hypertension 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 ([facility]) Diabetic ulcer of toe of left foot associated with type 2 diabetes mellitus, with fat layer exposed([facility]) Diabetic ulcer of right midfoot associated with type 2 diabetes mellitus, limited to breakdown of skin ([facility]) Type 2 diabetes mellitus with pressure callus ([facility]) Past Medical History: Diagnosis Date Anxiety Arthritis Depression Diabetes mellitus ([facility]) GERD (gastroesophageal reflux disease) Hyperlipidemia Hypertension Lazy eye, left Myocardial infarction ([facility]) fall 2021 Sleep apnea Past Surgical History: [...] Post callus removal 02/17/24 1300 Site Assessment [place];Brown 02/17/24 1359 Padma-wound Assessment Callous 02/17/24 1359 [...] Post callus removal 02/17/24 1300 Site Assessment [place] 02/17/24 1359 Padma-wound Assessment [place];Callous 02/17/24 1359 Wound Length (cm) 0.1 cm [...] 2 diabetes mellitus, with fat layer exposed ([facility]) 2. Pre-ulcerative callus 3. Diabetic ulcer of [...] polyneuropathy associated with type 2 diabetes mellitus ([facility]) Instructed to protect feet at all times Continue to follow with podiatry as scheduled Patient instructed in diabetic foot ulcer care to right and foot. Patient verbalize understanding of treatment regimen and the importance of adherence. Patient verbalized understanding. We will continue to follow closely to avoid any complications or infection. Our short term goal is wound compliance. Our long term care administrator goal is wound closure. The patient was [...] procedures Referring and communicating with other health continuum of care manager (not separately reported) Documenting clinical information in the electronic or other health record - NU TIWARI 02/17/24 2:12 PM Debra Ventura APRN, SERGEI, RADHA, ERIC [facility]:[phone] NU Tiwari 12/23/23 1117 NU Tiwari 01/13/24 1034 NU Tiwari 02/17/24 4373 documented in this encounterMayo Memorial HospitalAdvanced Ballistic Concepts [id number] Instructions* Patient Instructions* Bela Rodriguez RN - [...] 2024. Patient states this Dr is in [place], [place]. Length Width Depth Wound 02/03/24 2 [...] Description none none none documented in this encounterWex[facility] Center03-08-[facility]24 History of Present illness Narrative* Mike Barton, PELT GRADER-ENGINEER TECHNICAL STAFF - 02/03/2024 10:20 AM EST Images from the original note were not included. Wound Care Progress Note Patient: Darshan Dunaway Date of : 1965 Chief Complaint: Left great toe ulcer, follow up Subjective/HPI: Darshan is a 59 y.o. male who present to [facility] for evaluation of 1 ulcer(s) [...] neuropathy associated with type 2 diabetes mellitus ([facility]) Normocytic anemia Type 2 diabetes mellitus with hyperglycemia, with long-term current use of insulin ([facility]) SD (myocardial infarction) ([facility]) Primary hypertension 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 ([facility]) Diabetic ulcer of toe of left foot associated with type 2 diabetes mellitus, with fat layer exposed([facility]) Past Medical History: Diagnosis Date Anxiety Arthritis Depression Diabetes mellitus ([facility]) GERD (gastroesophageal reflux disease) Hyperlipidemia Hypertension Lazy eye, left Myocardial infarction ([facility]) fall of 2021 Sleep apnea Past Surgical [...] (Active) Wound Image 02/03/24 0954 Site Assessment Pale;[place] 02/03/24 0945 Padma-wound Assessment Callous 02/03/24 0945 [...] Lateral;Plantar (Active) Wound Image 02/03/24953 Site Assessment [place];Red 02/03/24953 Padma-wound Assessment White;[place];Callous 02/03/24953 Wound Length (cm) 0.3 cm 02/03/24953 [...] 2 diabetes mellitus, with fat layer exposed ([facility] Diabetic ulcer of right midfoot associated with type 2 diabetes mellitus, limited to breakdown of skin ([facility]) Wash daily mild soap and water. Cover [...] polyneuropathy associated with type 2 diabetes mellitus ([facility]), Type 2 diabetes mellitus with pressure callus [...] short term goal is wound compliance. Our chcf goal is wound closure. The patient was [...] procedures Referring and communicating with other health continuum of care manager (not separately reported) Documenting clinical information in the electronic or other health record Mckenna JUDGE, [facility] Office: [phone] Email: [email or web address] NU Glaser 02/03/24 1208 documented in this encounterDunlap Memorial HospitalEventfinda Veterans Affairs Medical [id number] Instructions* Patient Instructions* Klarissa Sanchez RN - [...] 2024. Patient states this Dr is in [place], [place]. Length Width Depth Wound drainage Type Description none none none documented in this encounterWexner Medical Center02-16-2024 History of Present illness Narrative* Debra Ventura, PELT GRADER-ENGINEER TECHNICAL STAFF - 01/13/2024 10:20 AM EST Images from the original note were not included. Wound Care Progress Note Patient: Darshan Dunaway Date of : 1965 Chief Complaint: Left great toe ulcer, follow up Subjective/HPI: Darshan is a 58 y.o. male who present to [facility] for evaluation of 1 ulcer(s) [...] neuropathy associated with type 2 diabetes mellitus ([facility]) Normocytic anemia Type 2 diabetes mellitus with hyperglycemia, with long-term current use of insulin ([facility]) SD (myocardial infarction) ([facility]) Primary hypertension 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 ([facility]) Diabetic ulcer of toe of left foot associated with type 2 diabetes mellitus, with fat layer exposed([facility]) Past Medical History: Diagnosis Date Anxiety Arthritis Depression Diabetes mellitus ([facility]) GERD (gastroesophageal reflux disease) Hyperlipidemia Hypertension Lazy eye, left Myocardial infarction ([facility]) fall of 2021 Sleep apnea Past Surgical [...] DAILY ONETOUCH DELICA PLUS LANCET 30 gauge [facility] ONETOUCH ULTRA TEST strip SURE COMFORT INSULIN [...] polyneuropathy associated with type 2 diabetes mellitus ([facility]) Instructed to protect feet at all times Continue to follow with podiatry as scheduled Patient instructed in diabetic foot ulcer care to right and foot. Patient verbalize understanding of treatment regimen and the importance of adherence. Patient verbalized understanding. We will continue to follow closely to avoid any complications or infection. Our short term goal is wound compliance. Our chcf goal is wound closure. The patient was [...] procedures Referring and communicating with other health continuum of care manager (not separately reported) Documenting clinical information in the electronic or other health record - NU TIWARI 01/13/24 10:29 AM Debra Ventura APRN, SERGEI, CWS, ERIC [facility]:[phone] NU Tiwari 12/23/23 1117 NU Tiwari 01/13/24 1034 documented in this encounterWexner Medical Center02-16-2024 Instructions* Patient Instructions* Carisa Sneed RN - 01/13/2024 10:20 AM EST Wound [...] Description none none none documented in this encounterWexner Medical Center01-26-2024 History of Present illness Narrative* Debra Red Audrey, PELT GRADER-ENGINEER TECHNICAL STAFF - 12/23/2023 10:00 AM EST Images from the original note were not included. Wound Care Progress Note Patient: Darshan Dunaway Date of : 1965 Chief Complaint: Left great toe ulcer, follow up Subjective/HPI: Darshan is a 58 y.o. male who present to [facility] for evaluation of 1 ulcer(s) [...] Diagnosis Date Anxiety Arthritis Depression Diabetes mellitus ([facility]) GERD (gastroesophageal reflux disease) Hyperlipidemia Hypertension Lazy eye, left Myocardial infarction ([facility]) fall of 2021 Sleep apnea Past Surgical [...] DAILY ONETOUCH DELICA PLUS LANCET 30 gauge [facility] ONETOUCH ULTRA TEST strip SURE COMFORT INSULIN [...] 2 diabetes mellitus, with fat layer exposed ([facility]) 2. Type 2 diabetes mellitus with pressure [...] polyneuropathy associated with type 2 diabetes mellitus ([facility]) Instructed to protect feet at all times Patient instructed in diabetic foot ulcer care to right and foot. Patient verbalize understanding of treatment regimen and the importance of adherence. Patient verbalized understanding. We will continue to follow closely to avoid any complications or infection. Our short term goal is wound compliance. Our long term care administrator goal is wound closure. The patient was [...] procedures Referring and communicating with other health continuum of care manager (not separately reported) Documenting clinical information in the electronic or other health record - NU TIWARI 12/23/23 11:10 AM Debra Ventura APRN, SERGEI, CWS, ERIC [facility]:[phone] NU Tiwari 12/23/23 1117 documented in this encounterWexner Medical Center01-26-2024 Instructions* Patient Instructions* Bela Rodriguez RN - [...] Description none none none documented in this [facility]01-08-20[facility] Evaluation note* Encounter Date Diagnosis Assessment Notes Treatment Notes Treatment Clinical Notes Nov, Type 2 diabetes mellitus with hyperglycemia (ICD-10 - E11.65) [employer] Other [id number] History of Present illness Narrative* NU Tiwari - 12/02/2023 10:00 AM EST Images from the original note were not included. Wound Care Progress Note Patient: Darshan Dunaway Date of : 1965 Chief Complaint: Left great toe ulcer, follow up Subjective/HPI: Darshan is a 58 y.o. male who present to [facility] for evaluation of 1 ulcer(s) [...] cuneiform bones at the edge of the dzsae-ae-omhx. There appearsto be a superficial soft tissue [...] debridement Post debridement 12/02/23 1008 Site Assessment Dry;[place] 12/02/23 1000 Padma-wound Assessment Dry;Callous 12/02/23 1000 [...] 2 diabetes mellitus, with fat layer exposed ([facility]) Wash daily mild soap and water Cover [...] polyneuropathy associated with type 2 diabetes mellitus ([facility]) Instructed to protect feet at all times Patient instructed in diabetic foot ulcer care to right and foot. Patient verbalize understanding of treatment regimen and the importance of adherence. Patient verbalized understanding. We will continue to follow closely to avoid any complications or infection. Our short term goal is wound compliance. Our chcf goal is wound closure. The patient was [...] procedures Referring and communicating with other health continuum of care manager (not separately reported) Documenting clinical information in the electronic or other health record - NU TIWARI 12/02/23 10:32 AM Debra Ventura APRN, SERGEI, RADHA, ERIC [facility]:[phone] NU Tiwari 12/02/23 1043 documented in this encounterDunlap Memorial HospitalEventfinda Veterans Affairs Medical [id number] Instructions* Patient Instructions* Klarissa Sanchez RN - [...] Description none none none documented in this encounterWexner Medical Center12-29-2023 History of Present illness Narrative* Rashid Fairchild MD - 11/25/2023 9:30 AM EST Darshan Travis Gume Date of visit: 11/25/2023 Date of : 1965 Age: 58 y.o. Patient Active Problem List Diagnosis Cellulitis of toe of left foot Diabetic foot infection Diabetic neuropathy associated with type 2 diabetes mellitus ([facility]) Normocytic anemia Type 2 diabetes mellitus with hyperglycemia, with long-term current use of insulin ([facility]) SD (myocardial infarction) ([facility]) Primary hypertension 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 ([facility]) Diabetic ulcer of toe of left foot associated with type 2 diabetes mellitus, with fat layer exposed([facility]) Allergies Allergen Reactions Iodinated Contrast Media Current [...] Chief Complaint Patient presents with New Patient 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 New to our practice. Referred for evaluation of intermittent chest pain. Accompanied by sister today. Recently moved to [facility]. Stated that for about a year has [...] with CAD in her 60s, Dad of SD at age 51. Sister diagnosed wit CAD in early 40s. EKG in the office today showing NSR with possible old anterior infarct. Past Medical History: Diagnosis Date Anxiety Arthritis Depression Diabetes mellitus ([facility]) GERD (gastroesophageal reflux disease) Hyperlipidemia Hypertension Lazy eye, left Myocardial infarction ([facility]) fall of 2021 Sleep apnea No data [...] Atypical type chest pain Questionable hx of SD Hypertension Hyperlipidemia - 08/2023: Total cholesterol 148, [...] abnormal, plan for diagnostic cardiac catheterization at [facility]. Lipid function check. Patient follow-up with [...] defined for this encounter. documented in this encounterWexner Medical Center12-28-2023 Miscellaneous Notes* Telephone Encounter - MAYA Diaz - 11/24/2023 11:04 AM EST Called patient to remind them to bring their most current copy of their medication list with them to their appt. Patient verbalizes understanding. documented in this encounterWexner Medical Center12-28-2023 Telephone encounter Note* Telephone Encounter - MAYA Diaz - 11/24/2023 11:04 AM EST Called patient to remind them to bring their most current copy of their medication list with them to their appt. Patient verbalizes understanding. [facility]12-27-2023 Evaluation note* Encounter Date Diagnosis Assessment Notes [...] examples. Rxs for pens were sent to [employer]. 45 minutes were spent evaluating the patient's report and discussing its findings with him by Benita Zamora RN, Kathleen Fuentes 11/24/2023 01:11:30 PM >discussed, reviewed and endorsed date of visit [employer] Other 12-12-2023 Evaluation note* Encounter Date Diagnosis [...] Instructions material was published to portal Oct, retirement current use of insulin (ICD-10 - Z79.4) Oct, BMI 31.0-31.9,adult (ICD-10 - Z68.31) [employer] Other 10-31-2023 History of Present illness Narrative* [...] Darshan Dunaway Admit Date: [id number] MR #: [id number] : 1965 PRIMARY CARE PHYSICIAN: Kate Mayers [...] Diagnosis Date Diabetes mellitus Essential hypertension, benign SD (myocardial infarction) Past Surgical History: Procedure Laterality [...] EVERY 8 HOURS NEEDED 09/20/23 09/25/23Chaclaus Hastings APRN-ENGINEER TECHNICAL STAFF Tests: XRAYS No orders to display MRI [...] cuneiform bones at the edge of the ymwus-wh-hdto. There appearsto be a superficial soft tissue [...] arise. Bobby Joel DPM documented in this [facility]10-30-2023 History of Present illness Narrative* Rebecca Mcintosh LPN - 09/26/2023 3:00 PM EDT Images from the original note were not included. * Bee Wang RN - 09/26/2023 3:00 PM EDT To wound on left great toe/foot: xeroform, gauze, gauze wrap applied. Patient tolerated well with brisk capillary refill following. * Kristen Hernandez, PELT GRADER-ENGINEER TECHNICAL STAFF - 09/26/2023 3:00 PM EDT Subjective History of Present Illness Darshan is a very pleasant 58-year-old male who presents to the wound center on referral from the hospitalist after discharge with a diabetic foot wound with infection of his left foot. [facility] [...] Plan ICD-10-CM 1. Diabetic foot infection E11.628 [place] DRESSING CHANGE L08.9 2. Cellulitis of toe of left foot L03.032 WI DRESSING CHANGE He will continue Xeroform and a dry dressing. The infection seems to be improving, vascular check is normal. He will see Dr. Joel tomorrow as planned, follow-up here if needed Please note: Portions of this note utilized Voice recognition software, please excuse any typographical or grammatical errors documented in this [facility]10-30-2023 Instructions* Patient Instructions* Bee Wang RN - 09/26/2023 3:00 PM EDT Keep your upcoming podiatry appointment. They will give you further instructions on what kind of bandage to apply, if they want to make any changes. Try to keep your blood sugars more within normal range, see your diabetic doctor for help with this. documented in this [facility]10-24-2023 Nurse Note* Nursing Notes - Christina Marroquin RN - 09/20/2023 4:39 PM EDT Patient resting in bed, no changes to physical assessment. [facility]10-24-2023 Miscellaneous Notes* Nursing Notes - Christina [...] call light within reach. documented in this [facility]10-24-2023 Hospital course Narrative* Qing Hastings APRN-SERGEI [...] type 2 diabetes, diabetic neuropathy, CAD with SD, partial left foot amputation and obesity who presented to ER forevaluation of diabetic foot ulcer. While hospitalized patients labs and VS were monitored and additional testing was ordered and reviewed. He was seen by strategic communications manager who did review all charting and okay patient for discharge with PO antibiotics and follow up in his office in 1 week. A referral has been sent to that office to call patient and schedule a follow up appointment. Patient met with social science professor and did deny all needs post discharge. [...] diabetic foot ulcer Bobby Joel, PEDRO [address] [address] Schedule an appointment as soon as possible for a visit in 1 week(s) Follow up hospital visit, diabetic foot ulcer Discharge Disposition: Patient will be discharged in stable condition. Discharge Time: Including assessment, planning, and medication reconciliation was greater than 15 min. Qing Hastings CNP completing Discharge Summary for Dr. Ronald Connell Please note Portions of this note utilized [employer] dictation software, please excuse any typographical or grammatical errors Associated attestation - Ronald Connell MD - 09/20/2023 8:09 PM EDT Patient seen and examined. All testing reviewed. Discussed with ENGINEER TECHNICAL STAFF and agree with A/P. No fever or [...] CARE 306 (H) 70 - 100 MG/DL Can Vacuum Tester 207,814 GLUCOSE (POC DEVICE) Result Value Ref Range GLUCOSE, POINT OF CARE 358 (H) 70 - 100 MG/DL Can Vacuum Tester 208,099 GLUCOSE (POC DEVICE) Result Value Ref Range GLUCOSE, POINT OF CARE 228 (H) 70 - 100 MG/DL Can Vacuum Tester 208,099 GLUCOSE (POC DEVICE) Result Value Ref Range GLUCOSE, POINT OF CARE 349 (H) 70 - 100 MG/DL Can Vacuum Tester 208,099 GLUCOSE (POC DEVICE) Result Value Ref Range GLUCOSE, POINT OF CARE 386 (H) 70 - 100 MG/DL Can Vacuum Tester 207,804 GLUCOSE (POC DEVICE) Result Value Ref Range GLUCOSE, POINT OF CARE 234 (H) 70 - 100 MG/DL Can Vacuum Tester 208,099 GLUCOSE (POC DEVICE) Result Value Ref Range GLUCOSE, POINT OF CARE 256 (H) 70 - 100 MG/DL Can Vacuum Tester 208,099 GLUCOSE (POC DEVICE) Result Value Ref Range GLUCOSE, POINT OF CARE 296 (H) 70 - 100 MG/DL Can Vacuum Tester 208,099 HEENT: NC/AT, PERRLA, EOMI, fundi benign, [...] Ronald Connell MD 09/20/2023 documented in this [facility] [facility] History of Present illness Narrative* Belinda Sherman RD - 09/20/2023 11:10 AM EDT NUTRITION ASSESSMENT - DIABETIC NUTRITION EDUCATION Mr. Darshan Dunaway is a 58 y.o. male admitted to [facility] for: 1. Diabetic foot infection Nutrition [...] 09/20/23 106.6 kg (235 lb 1.6 oz) [place] body weight: 82.2 kg (181 lb 3.5 oz) Adjusted ideal body weight: 92 kg (202 lb 12.3 oz) Body mass index is 30.19 kg/m . Nutrition Intake Evaluation Current Diet Orders Procedures DIET HEART [employer] - 4 GM SODIUM Carb Controlled Standing [...] Diagnosis Date Diabetes mellitus Essential hypertension, benign SD (myocardial infarction) Past Surgical History: Procedure Laterality [...] Vancomycin Progress Note PATIENT: Darshan Dunaway Room/Bed: [facility] Indication: Diabetic Foot Infection Trough Goal: 15-20 [...] with any further questions. Alix Blanco RPh,PharmC[place]et[facility], [facility] Phone: [phone] Date/Time: 09/20/2023 7:03 AM * Neha Presley [...] Providers Updated In IHIS Yes Contact Information Cannon Crewmember/SW Added to Care Team Yes This Hi Teacher is Primary Cannon Crewmember/SW Yes Social Work Contact Name Gretel DYER Sign Shop Supervisor's Living Environment Lives With significant other Living [...] Yes Initial Discharge Planning Home Care Services (RESEARCH INTERVIEWER) No Home Therapies (RESEARCH INTERVIEWER) None DME (RESEARCH INTERVIEWER) Straight cane Medical Supplies (RESEARCH INTERVIEWER) None Patient Goal for Discharge Return home with assistance from family and friends Anticipated discharge disposition Home Anticipated Services at Discharge Physical Therapy Anticipated Changes Related to Illness none Home Care Services (RESEARCH INTERVIEWER) Additional Home Care Services (RESEARCH INTERVIEWER) no Assessment/Concerns to be Addressed Concerns To Be Addressed denies needs/concerns at this time * Wilton Hurt - 09/19/2023 12:34 AM EDT Pharmacy to Dose - Vancomycin Progress Note PATIENT: Darshan Dunaway Room/Bed: [facility] Indication: Diabetic Foot ulcer Trough Goal: 15-20 [...] any further questions. Wilton Hurt RPh Phone: [phone] Date/Time: 09/19/2023 12:34 AM documented in this [facility]10-24-2023 Plan of care note* Plan of [...] Diabetes, Type 2 (Adult) CPG). Outcome: Ongoing [facility]10-23-2023 Consult note* Bobby Joel DPM - 09/19/2023 7:33 PM EDT CONSULT NOTE Patient Name: Darshan Dunaway Admit Date: 10211231 MR #: [id number] : 1965 PRIMARY CARE PHYSICIAN: Kate Mayers [...] Diagnosis Date Diabetes mellitus Essential hypertension, benign SD (myocardial infarction) Past Surgical History: Procedure Laterality [...] cuneiform bones at the edge of the gkjlq-kk-fscy. There appearsto be a superficial soft tissue [...] and follow up with me in the [facility] clinic in 1 week Bobby Joel DPM [facility] Work Phone: [phone] Consult note* Bobby Joel DPM - 09/19/2023 7:33 PM EDT CONSULT NOTE Patient Name: Darshan Dunaway Admit Date: 10211231 MR #: [id number] : 1965 PRIMARY CARE PHYSICIAN: Kate Mayers [...] Diagnosis Date Diabetes mellitus Essential hypertension, benign SD (myocardial infarction) Past Surgical History: Procedure Laterality [...] cuneiform bones at the edge of the sjgek-kc-qopu. There appearsto be a superficial soft tissue [...] and follow up with me in the [facility] in 1 week Bobby Joel DPM documented in this [facility]10-23-2023 History and physical note* Tuan Baker, PELT GRADER-ENGINEER TECHNICAL STAFF - 09/19/2023 11:45 AM EDT Images from [...] He uses a cane. He works at [employer] and is no his feet all day. He appears to have uncontrolled DM. On arrival xray was without acute fracture, dislocation, subluxation or osseous lesion Objective: Past Medical History: Diagnosis Date Diabetes mellitus Essential hypertension, benign SD (myocardial infarction) Past Surgical History: Procedure Laterality [...] GLUCOSE, POINT OF CARE 09/19/2023 306 (H) Can Vacuum Tester 09/19/2023 207,814 C-Reactive Protein 09/19/2023 29.4 (H) [...] Please note Portions of this note utilized Big Live dictation software, please excuse any typographical or grammatical errors Associated attestation - Ronald Connell MD - 09/19/2023 8:34 PM EDT Patient seen and examined. All testing reviewed. Discussed with ENGINEER TECHNICAL STAFF and agree with A/P. Ulcer to foot. [...] CARE 306 (H) 70 - 100 MG/DL Can Vacuum Tester 207,814 GLUCOSE (POC DEVICE) Result Value Ref Range GLUCOSE, POINT OF CARE 358 (H) 70 - 100 MG/DL Can Vacuum Tester 208,099 GLUCOSE (POC DEVICE) Result Value Ref Range GLUCOSE, POINT OF CARE 228 (H) 70 - 100 MG/DL Can Vacuum Tester 208,099 GLUCOSE (POC DEVICE) Result Value Ref Range GLUCOSE, POINT OF CARE 349 (H) 70 - 100 MG/DL Can Vacuum Tester 208,099 HEENT: NC/AT, PERRLA, EOMI, fundi benign, [...] and mood normal. Ronald Connell MD 09/19/[address] [facility]10-23-2023 History and physical note* Tuan Baker, BRIDGET- ENGINEER TECHNICAL STAFF - 09/19/2023 11:45 AM EDT Images from [...] He uses a cane. He works at [employer] and is no his feet all day. He appears to have uncontrolled DM. On arrival xray was without acute fracture, dislocation, subluxation or osseous lesion Objective: Past Medical History: Diagnosis Date Diabetes mellitus Essential hypertension, benign SD (myocardial infarction) Past Surgical History: Procedure Laterality [...] GLUCOSE, POINT OF CARE 09/19/2023 306 (H) Can Vacuum Tester 09/19/2023 207,814 C-Reactive Protein 09/19/2023 29.4 (H) [...] Please note Portions of this note utilized Big Live dictation software, please excuse any typographical or grammatical errors Associated attestation - Ronald Connell MD - 09/19/2023 8:34 PM EDT Patient seen and examined. All testing reviewed. Discussed with ENGINEER TECHNICAL STAFF and agree with A/P. Ulcer to foot. [...] CARE 306 (H) 70 - 100 MG/DL Can Vacuum Tester 207,814 GLUCOSE (POC DEVICE) Result Value Ref Range GLUCOSE, POINT OF CARE 358 (H) 70 - 100 MG/DL Can Vacuum Tester 208,099 GLUCOSE (POC DEVICE) Result Value Ref Range GLUCOSE, POINT OF CARE 228 (H) 70 - 100 MG/DL Can Vacuum Tester 208,099 GLUCOSE (POC DEVICE) Result Value Ref Range GLUCOSE, POINT OF CARE 349 (H) 70 - 100 MG/DL Can Vacuum Tester 208,099 HEENT: NC/AT, PERRLA, EOMI, fundi benign, [...] Ronald Connell MD 09/19/2023 [facility] Nurse Note* Nursing Notes - MALENA Mcmahon - 09/19/2023 11:11 AM EDT Called consult to [facility]10-23-2023 Nurse Note* Nursing Notes - Venecia Kam RN - 09/19/2023 4:13 AM EDT Assessment remains unchanged from previous. Call light within reach. [facility]10-23-2023 Nurse Note* Nursing Notes - Venecia [...] Bed alarm set, call light within reach. [facility]10-23-2023 Emergency department Note* Diamante Gao RN - 09/19/2023 12:02 AM EDT Pt foot wound seaping on floor- nonadaptic and hemalatha wrap applied. [facility]10-23-2023 Emergency department Note* Diamante Gao RN [...] 09/18/2023 8:50 PM EDT EMERGENCY DEPARTMENT REPORT [facility] DATE: 09/19/23 PCP: Kate [...] Diagnosis Date Diabetes mellitus Essential hypertension, benign SD (myocardial infarction) SURGICAL HISTORY: Past Surgical History: [...] Portions of this chart were created using Big Live electronic dictation. Please excuse any typographical or grammatical errors contained herein. Mark Cesar MD 09/19/23 0455 documented in this [facility]10-23-2023 Emergency department Note* Diamante Gao RN - 09/19/2023 12:01 AM EDT Gave report to Venecia RN, pt stable upon admit to floor [facility]10-23-2023 Emergency department Note* Diamante Gao RN - 09/19/2023 12:00 AM EDT Pt taken to floor, pt stable upon admit T [facility]10-22-2023 Emergency department Note* Diamante Gao RN - 09/18/2023 11:50 PM EDT Attempted to call leora, Venecia to return call [facility]10-22-2023 Emergency department Note* Diamante Gao RN - 09/18/2023 11:35 PM EDT Verified with Dr. Cesar if he would like to repeat blood sugar before giving 6 units of insulin, Dr. Cesar declines. Pt to be admitted to floor [facility]10-22-2023 Emergency department Note* Valerie Lyle RN - 09/18/2023 11:09 PM EDT Room assignment [id number]. [facility]10-22-2023 Hospital Discharge instructions* Discharge Instructions* Mark [...] through Care Everywhere. * Diabetic Foot Ulcer (Malaysian) * Anemia (Malaysian) * Hypertension (Malaysian) * Diabetes: Foot Care (Malaysian) * Diabetes: Home Blood Sugar Test (Malaysian) [facility] Physician Emergency department Note* Mark Cesar MD - 09/18/2023 8:50 PM EDT EMERGENCY DEPARTMENT REPORT [facility] DATE: 09/19/23 PCP: Kate [...] Diagnosis Date Diabetes mellitus Essential hypertension, benign SD (myocardial infarction) SURGICAL HISTORY: Past Surgical History: [...] Portions of this chart were created using Big Live electronic dictation. Please excuse any typographical or grammatical errors contained herein. Mark Cesar MD 09/19/23 0455 [facility]04-12-2023 NotePROCEDURE: FOOT LEFT COMPLETE HISTORY: Cellulitis [...] of fifth toe and majority of fifth metatarsal.[facility] Diagnosis Diabetic foot infection- Primary [...] 30.9 in adult documented [facility] Diagnosis Diabetic foot infection- Primary Type II or unspecified type diabetes mellitus with other specified manifestations, not stated as uncontrolled Cellulitis of toe of left foot Cellulitis and abscess of toe, unspecified documented [facility]* Diagnosis Diabetic ulcer of left great toe- Primary Type II or unspecified type diabetes mellitus with other specified manifestations, not stated as uncontrolled documented [facility] this [facility] [place] noteNo InformationNort Halo [employer] Other Evaluation noteNo assessment information available [facility] Work Phone: Evaluation note* Author Diamante Reis [facility] Authored February 17, 2024 11: 39am Patient [...] spent on education by Ivon EWING, RN [facility] Work Phone: Evaluation note* Diagnosis Chest pain, unspecified type- Primary Primary hypertension Unspecified essential hypertension Dyslipidemia Other and unspecified hyperlipidemia [facility]* Diagnosis Diabetic ulcer of toe of left foot associated with type 2 diabetes mellitus, with fat layer exposed (CMS-HCC)- Primary Diabetic polyneuropathy associated with type 2 diabetes mellitus ([facility]) [facility]* Diagnosis Diabetic ulcer of toe of left foot associated with type 2 diabetes mellitus, with fat layer exposed (CMS-HCC)- Primary Diabetic ulcer of right midfoot associated with type 2 diabetes mellitus, limited to breakdown of skin (CMS-HCC) Pre-ulcerative calluses Diabetic polyneuropathy associated with type 2 diabetes mellitus (CMS-HCC) documented in this encounter [facility]* Diagnosis Diabetic ulcer of toe of left foot associated with type 2 diabetes mellitus, with fat layer exposed (CMS-HCC)- Primary Type 2 diabetes mellitus with pressure callus (CMS-HCC) Diabetic polyneuropathy associated with type 2 diabetes mellitus (CMS-HCC) documented in this encounter [facility]* Diagnosis Diabetic ulcer of toe of left foot associated with type 2 diabetes mellitus, with fat layer exposed (CMS-HCC)- Primary Diabetic ulcer of right midfoot associated with type 2 diabetes mellitus, limited to breakdown of skin (CMS-HCC) Type 2 diabetes mellitus with pressure callus (CMS-HCC) documented in this encounter [facility]* Diagnosis Diabetic ulcer of toe of left foot associated with type 2 diabetes mellitus, with fat layer exposed (CMS-HCC)- Primary Pre-ulcerative calluses Diabetic ulcer of right midfoot associated with type 2 diabetes mellitus, limited to breakdown of skin (CMS-HCC) documented in this encounter [facility] SystemHistory general Narrative - Reported* Type Description Date Medical History type II diabetes Medical History hyperlipidemia Medical History Esophageal reflux Medical History anxiety Medical History heart attack Medical History HTN Medical History diabetic foot ulcers Medical History neuropathy Surgical History cholecystectomy Surgical History left foot-toe removed Surgical History teeth extraction Hospitalization History See Above Hospitalization History [facility]-blood sugar high [employer] Other InstructionsNot on filedocumented in this encounter [facility] [employer] SystemInstructionsNot on filedocumented in this encounter [facility] [employer] SystemInstructionsNot on filedocumented in this encounter [facility] [employer] Summary Purpose Family History Relationship Condition Age [...] Diagnoses Diabetic foot infection Delores Qing Cates, PELT GRADER-ENGINEER TECHNICAL STAFF [address] [place] [address] Referral ID Status Reason Start Date Expiration Date V isits Requested Visits Authorized [id number] New Request 09/20/2023 10/14/2024 1 1 Scheduling Instructions . Specialty Diagnoses / Procedures Referred By Contac t Referred To Contact Wound Care Diagnoses Diabetic foot infection DeloresQing, PELT GRADER-ENGINEER TECHNICAL STAFF [address] [place] [address] Referral ID Status Reason Start Date Expiration Date V isits Requested Visits Authorized [id number] New Request 09/20/2023 10/14/2024 1 1 Specialty Diagnoses / Procedures Referred By Contac t Referred To Contact Podiatry Diagnoses Diabetic foot infection DeloresQing brooks, PELT GRADER-ENGINEER TECHNICAL STAFF [address] [place] [address] Bobby Joel, AN[address] [address] Referral ID Status Reason Start Date Expiration Date V isits Requested Visits Authorized [id number] New Request 09/20/2023 10/14/2024 1 1 Specialty Diagnoses / Procedures Referred By Contac t Referred To Contact [facility] [address] [place] [address] Referral ID Status Reason Start Date Expiration Date Visits Re quested Visits Authorized Specialty Diagnoses / Procedures Referred By Contac t Referred To Contact Procedures INPATIENT ADMISSION NOTIFICATION Ronald Connell MD [address] [place] [id number] Referral ID Status Reason Start Date Expiration Date V isits Requested Visits Authorized [id number] New Request 09/18/2023 10/12/2024 1 1 Specialty Diagnoses / Procedures Referred By Contac t Referred To Contact Diagnoses Chest pain, unspecified type Procedures Echo complete W/O contrast Rashid Fairchild MD [address] [place] [address] Referral ID Status Reason Start Date Expiration Date V isits Requested Visits Authorized [id number] Pending Review 11/25/2023 11/24/2024 1 1 Specialty Diagnoses / Procedures Referred By Contac t Referred To Contact Diagnoses Chest pain, unspecified type Procedures Nuc stress Lexiscan Rashid Fairchild MD [address] [place] [address] Referral ID Status Reason Start Date Expiration Date V isits Requested Visits Authorized [id number] Pending Review 11/25/2023 11/24/2024 5 5 Specialty Diagnoses / Procedures Referred By Contac t Referred To Contact Diagnoses Diabetic ulcer of toe of left foot associated with type 2 diabetes mellitus, with fat layer exposed ([facility] Procedures Adaptic Debra Ventura, PELT GRADER-ENGINEER TECHNICAL STAFF [address] [place] [address] Referral ID Status Reason Start Date Expiration Date V isits Requested Visits Authorized [id number] Pending Review 12/02/2023 12/01/2024 1 1 Specialty Diagnoses / Procedures Referred By Contac t Referred To Contact Diagnoses Diabetic ulcer of toe of left foot associated with type 2 diabetes mellitus, with fat layer exposed ([facility]) Procedures Medi-honey Debra Ventura, PELT GRADER-ENGINEER TECHNICAL STAFF [address] [place] [address] Referral ID Status Reason Start Date Expiration Date V isits Requested Visits Authorized [id number] Pending Review 12/02/2023 12/01/2024 1 1 Specialty Diagnoses / Procedures Referred By Contac t Referred To Contact Diagnoses Diabetic ulcer of toe of left foot associated with type 2 diabetes mellitus, with fat layer exposed ([facility]) Procedures Optifoam Non-Adhesive Foam Debra Ventura, PELT GRADER-ENGINEER TECHNICAL STAFF [address] [place] [address] Referral ID Status Reason Start Date Expiration Date V isits Requested Visits Authorized [id number] Pending Review 04/04/2024 04/04/2025 1 1 Referral ID Status Reason Start Date Expiration Date V isits Requested Visits Authorized [id number] Pending Review 04/04/2024 04/04/2025 1 1 Referral ID Status Reason Start Date Expiration Date V isits Requested Visits Authorized [id number] Pending Review 04/04/2024 04/04/2025 1 1 Referral ID Status Reason Start Date Expiration Date V isits Requested Visits Authorized [id number] Pending Review 12/23/2023 12/22/2024 1 1 Referral ID Status Reason Start Date Expiration Date V isits Requested Visits Authorized [id number] Pending Review 12/23/2023 12/22/2024 1 1 Referral ID Status Reason Start Date Expiration Date V isits Requested Visits Authorized [id number] Pending Review 12/23/2023 12/22/2024 1 1 Referral ID Status Reason Start Date Expiration Date V isits Requested Visits Authorized [id number] Pending Review 01/13/2024 01/12/2025 1 1 Referral ID Status Reason Start Date Expiration Date V isits Requested Visits Authorized [id number] Pending Review 01/13/2024 01/12/2025 1 1 Referral ID Status Reason Start Date Expiration Date V isits Requested Visits Authorized [id number] Pending Review 01/13/2024 01/12/2025 1 1 Specialty Diagnoses / Procedures Referred By Contac t Referred To Contact Diagnoses Diabetic ulcer of toe of left foot associated with type 2 diabetes mellitus, with fat layer exposed ([facility]-H[facility]) Procedures Optifoam Non-Adhesive Foam Mike Barton, PELT GRADER-ENGINEER TECHNICAL STAFF [address] [place] [address] Referral ID Status Reason Start Date Expiration Date V isits Requested Visits Authorized [id number] Pending Review 02/03/2024 02/02/2025 1 1 Specialty Diagnoses / Procedures Referred By Contac t Referred To Contact Diagnoses Diabetic ulcer of toe of left foot associated with type 2 diabetes mellitus, with fat layer exposed ([facility]-HCC) Procedures Adaptic Mike Barton, PELT GRADER-ENGINEER TECHNICAL STAFF [address] [place] [address] Referral ID Status Reason Start Date Expiration Date V isits Requested Visits Authorized [id number] Pending Review 02/03/2024 02/02/2025 1 1 Specialty Diagnoses / Procedures Referred By Contac t Referred To Contact Diagnoses Diabetic ulcer of toe of left foot associated with type 2 diabetes mellitus, with fat layer exposed ([facility]) Procedures Mike Kearns, PELT GRADER-ENGINEER TECHNICAL STAFF [address] [place] [address] Referral ID Status Reason Start Date Expiration Date V isits Requested Visits Authorized [id number] Pending Review 02/03/2024 02/02/2025 1 1 Referral ID Status Reason Start Date Expiration Date V isits Requested Visits Authorized [id number] Pending Review 02/17/2024 02/16/2025 1 1 Referral ID Status Reason Start Date Expiration Date V isits Requested Visits Authorized [id number] Pending Review 02/17/2024 02/16/2025 1 1 Chief [...] surveillance GERD (gastroesophageal reflux disease) Hyperlipidemia Hypertension terminal carman current use of insulin Neuropathy Personal history of diabetic foot ulcer Type 2 diabetes mellitus with hyperglycemia Type 2 diabetes mellitus with hyperglycemia Anxiety Dietary counseling and surveillance GERD (gastroesophageal reflux disease) Hyperlipidemia Hypertension retirement current use of insulin Neuropathy Personal history of diabetic foot ulcer Type 2 diabetes mellitus with hyperglycemia Additional Source Comments (unrecognized sect ion and content) No Status Records FoundNo Status Records FoundNo Status Records FoundNo Status Records FoundNo Status Records FoundNo Status Records Found INFORMATION SOURCE (unrecogn ized section and content) DATE CREATED AUTHOR 10/26/2022 [facility] DATE CREATED AUTHOR AUTHOR'S ORGANIZ ATION 09/21/2023 [facility] DATE CREATED AUTHOR AUTHOR'S ORGANIZ ATION 09/23/2023 [facility] DATE CREATED AUTHOR AUTHOR'S ORGANIZ ATION 12/21/2023 [facility] DATE CREATED AUTHOR AUTHOR'S ORGANIZ ATION 01/27/2024 [facility] DATE CREATED AUTHOR AUTHOR'S ORGANIZ ATION 04/29/2024 [facility] Reason for Visit (unrecogniz ed section and content) Reason Comments Skin Ulcer Pt arrives with an u lcer on left medial large toe and left lateral heel. Pt states ulcer on foot for a couple days. Specialty Diagnoses / Procedures Referred By Contac t Referred To Contact Diagnoses Diabetic foot infection Ronald Connell MD [address] [place] [address] [facility] Referral ID Status Reason Start Date Expiration Date Visits Re quested Visits Authorized [id number] 1 1 Reason Comments Wound Check Reason Comments Ulcer Reason Comments New Patient LYE BOILER INTERMITTENT CHES T PAINS, LABS PCP SCHED [...] 4 hours. 2338 ($$New Bag$$ - Provider: Diamante Gao RN) 0013 (Stopped - Provider: Venecia [...] to the hypoglycemia management protocol on Ellucid: D-QD-Jxjnyusrvypp Management Protocol Insulin detemir (LEVEMIR) injection 15 [...] RN) 0530 (Due - Provider: Iliana Majano [facility]) Vancomycin (VANCOCIN) 1,500 mg in Sodium chloride [...] to the hypoglycemia management protocol on Ellucid: C-XY-Czxdljahxslw Management Protocol
And Dextrose 10% IV solution [...] at 0930, Until Specified
Who to Notify: LYE BOILER/Physician
For all Blood Glucose LESS THAN 70 mg/dl, or greater than 400 mg/dl notify LYE BOILER/Physician Group 2: insulin lispro (HumaLOG) injection (CANCELED)Jump [...] to the hypoglycemia management protocol on Ellucid: F-OL-Hhgbbvnvsqdo Management Protocol.
And Dextrose 10% IV solution [...] at 0119, Until Specified
Who to Notify: LYE BOILER/Physician
For all Blood Glucose LESS THAN 70 mg/dl, or greater than 400 mg/dl notify LYE BOILER/Physician Group 3: Potassium chloride (K-DUR) tablet ER [...] February 17, 2024 End: February 17, 2024 Remelter Relationship Specialty Start Date End Date Kate Mayers PCP - General 09/18/23 Remelter Relationship Specialty Start Date End Date Kate Mayers PCP - General 09/18/23 Remelter Relationship Specialty Start Date End Date Kate Mayers PCP - General 09/18/23 Team Status: Active Member Role Status Dates Provider Conversion Attending Provider Active St art: November 08, 2023 Team Status: Inactive Member Role Status Dates Tiom Moser MD Primary Care Provider Active Start: [...] April 05, 2024 End: April 05, 2024 Remelter Relationship Specialty Start Date End Date Rubén Cuenca APRN-POLICE DISPATCHER [address] [place], [place] [id number] (work) PCP - General Family Medicine 11/25/23 Remelter Relationship Specialty Start Date End Date Rubén Cuenca APRN-POLICE DISPATCHER [address] [place], [place] [address], [place] [address] PCP - General Family Medicine 11/25/23 Remelter Relationship Specialty Start Date End Date Rubén Cuenca APRN-POLICE DISPATCHER [address] [place] [address], [place] [address] PCP - General Family Medicine 11/25/23 Remelter Relationship Specialty Start Date End Date Rubén Cuenca APRN-POLICE DISPATCHER [address] [place] [address] [place] [address] PCP - General Family Medicine 01/19/24 Remelter Relationship Specialty Start Date End Date Rubén Cuenca APRN-POLICE DISPATCHER [address] [place] [address], [place] [address] PCP - General Family Medicine 11/25/23 Remelter Relationship Specialty Start Date End Date Rubén Cuenca APRN-POLICE DISPATCHER [address] [place] [address], [place] [address] PCP - General Family Medicine 01/19/24 Remelter Relationship Specialty Start Date End Date Rubén Cuenca APRN-POLICE DISPATCHER [address] [place] [address], [place] [address] PCP - General Family Medicine 01/19/24 Goals [...] BE BASED ON THE PRIMARY CLINICAL RECORDS. [facility] [employer] [facility]. provides no warranty or guarantee of the accuracy or completeness of information in this document.
[2025-09-01] MEDS: 0.9 % SODIUM CHLORIDE 1,000 ML 125 ML IV (04:42)
[2025-09-01] MEDS: ENOXAPARIN SODIUM 40 MG/0.4 ML SYRINGE SUBQ (04:49)
[2025-09-01] MEDS: VANCOMYCIN HCL 1,750 MG in 0.9 % SODIUM CHLORIDE 500 ML 250 MG IV (04:49)
[2025-09-01] MEDS: ASPIRIN 81 MG TABLET.DR PO (08:26)
[2025-09-01] MEDS: INSULIN ASPART 300 UNIT/3 ML PEN SUBQ ×4 (08:26→21:04)
[2025-09-01] MEDS: PANTOPRAZOLE SODIUM 40 MG TABLET.DR PO (09:42)
[2025-09-01] MEDS: GABAPENTIN 300 MG CAPSULE 600 MG PO ×3 (09:42→21:04)
[2025-09-01] MEDS: LISINOPRIL 20 MG TABLET 40 MG PO (09:42)
[2025-09-01] MEDS: BUSPIRONE HCL 10 MG TABLET PO ×2 (09:42→21:04)
[2025-09-01 10:08] LABS: Alanine Aminotransferase 18 U/L (16-63); Albumin Globulin Ratio 0.7; Albumin Level 3.0 g/dL (3.4-5.0); Alkaline Phosphatase 118 U/L (46-116); Anion Gap 15.5; Aspartate Amino Transferase 18 U/L (15-37); Blood Urea Nitrogen 15.0 mg/dL (7.0-18.0); Calcium 9.1 mg/dL (8.5-10.1); Carbon Dioxide 24.2 mmol/L (21.0-32.0); Chloride 99 mmol/L (98-107); Estimated GFR (African America >60 (>=60 mL/min/1.73m^2); Estimated GFR (Non-African Ame >60 (>=60 mL/min/1.73m^2); Globulin 4.6 g/dL; Glucose 271 mg/dL (74-106); Potassium 3.7 mmol/L (3.5-5.1); Sodium 135 mmol/L (136-145); Total Protein 7.6 g/dL (6.4-8.2)
--- NOTE | 2025-09-01 11:14 | PM.HP ---
HPI H&P: HPI History of Present Illness Chief complaint: DIABETIC FOOT INFECTION Narrative: This is a 60-year-old man who was sent to the ER last night due to high blood sugars, some confusion at home, and a wound on the bottom of his left foot, where he has had a previous amputation of the fifth ray. In the ER the left foot was found to be swollen with some erythema and on the plantar aspect there is a small opening on the skin. The patient's ESR is high at 94. The patient's CRP is high at 12.94. In the ER and x-ray was done of the left foot that shows DIFFUSE SOFT TISSUE SWELLING. THERE APPEARS TO BE LUCENCY/LYTIC DESTRUCTION INVOLVING THE HEAD OF THE FOURTH METATARSAL SUSPICIOUS FOR OSTEOMYELITIS. The patient was provided with IV vancomycin and IV Zosyn and then admitted. When I go to see the patient in room 202 he is alone. He is visiting the area to visit his sister. His sister lives in [place]. The patient normally lives in [facility]. He describes that over the last couple weeks he noticed that his left foot was having a lot more swelling. He has followed with a oil processing technician in his hometown in [place] for several years. He did have to have surgery on that foot maybe about 4 or 5 years ago. He describes that it took about a year for it to heal up all the way. This patient seems to function at about the level of a 6 grade eighth grade education. He describes taking Januvia, Ozempic, and the sliding scale insulin for his blood sugars. His only other medical history that he recalls is that he had a mild heart attack for which she was evaluated in the emergency room but it sounds like he did not ever have to have any surgery or any stents. The patient denies having any fevers or chills or rigors. No cough. No chest pain. No shortness of breath. No anginal discomfort. No headache. No dizziness. No neurologic changes. I discussed with the patient that he can certainly get this problem treated here. I anticipate that the oil processing technician would need to do an MRI to find out the depth of the infection and degree of osteomyelitis and evaluate for any deep tissue abscesses and then surgery could be done possibly on Tuesday or even Tuesday. Alternatively, because he lives in [place], he could choose to return to [place] and call his oil processing technician as soon as possible on Tuesday to begin the workup to treat the problem there. The patient will call his sister later today and discuss which way he wants to go in regards to where he wants to get this problem treated. Opioid HPI Opioid Management Most Recent Pain and Opioid Data: Last Pain Scale 3 Today, 08:00 Last Pain Assessment Today, 05:00 Last ORT Total Score 1 Today, 04:24 Last ORT Risk Category Low Risk Today, 04:24 Review of Systems ROS Narrative A 10 point review of systems is obtained and is negative except as mentioned elsewhere in this documentation. [facility] Medical History (Updated 09/01/25 @ 11:21 by GERALDO ULLOA) HTN (hypertension) ?I10 - Essential (primary) hypertension (ICD-10) Neuropathy ?G62.9 - Polyneuropathy, unspecified (ICD-10) Diabetes ?E11.9 - Type 2 diabetes mellitus without complications (ICD-10) Heart attack ?I21.9 - Acute myocardial infarction, unspecified (ICD-10) Surgical History (Updated 09/01/25 @ 11:18 by GERALDO ULLOA) History of amputation of left fifth toe ?Z89.422 - Acquired absence of other left toe(s) (ICD-10) Family History Mother Family history of CHF (congestive heart failure) Social History Within the past year, how often did you have a drink containing alcohol: never Within the past year, how often did you have six or more drinks on one occasion: never Score interpretation: A score less than 4 is consistent with normal alcohol consumption. Smoking status: Never smoker Non-prescribed substance use: denies use Highest level of school completed/degree received: 8th grade Are you now , , , , never or living with a partner: In a typical week, how many times do you talk on the telephone with family, friends, or neighbors: twice per week How often do you get together with friends or relatives: twice per week How often do you attend religion or confucianist services: never Little interest or pleasure in doing things: nearly every day Feeling down, depressed, or hopeless: nearly every day Feel stressed/tense/nervous/anxious/difficulty sleeping: to some extent Do you think of yourself as: straight/heterosexual Gender Identity: male Meds Home Medications and Allergies Home Medications ?Medication ?Instructions ?Recorded ?Confirmed ?Type aspirin 81 mg tablet,delayed 81 mg PO DAILY 09/01/25 09/01/25 History release atorvastatin 20 mg tablet 20 mg PO HS 09/01/25 09/01/25 History buspirone 10 mg tablet 10 mg PO BID 09/01/25 09/01/25 History doxepin 50 mg capsule 100 mg PO .QHS 09/01/25 09/01/25 History gabapentin 600 mg tablet 600 mg PO TID 09/01/25 09/01/25 History hydrocodone 7.5 mg-acetaminophen 1 tab PO QID PRN pain 09/01/25 09/01/25 History 325 mg tablet lisinopril 40 mg tablet 40 mg PO .QD 09/01/25 09/01/25 History omeprazole 40 mg capsule,delayed 40 mg PO .QD 09/01/25 09/01/25 History release semaglutide 1 mg/dose (4 mg/3 mL) 1 mg subcut Q7D 09/01/25 09/01/25 History subcutaneous pen injector (Ozempic) Allergies Allergy/AdvReac Type Severity Reaction Status Date / Time povidone-iodine (From AdvReac Unknown Verified 10/18/23 03:37 Betadine) Exam Narrative Exam Narrative: General: In bed, feeding himself breakfast. Function sad about the level of his sixth grade to eighth grade education. Psychiatric: Mood and affect are normal. He is polite and pleasant in the interview. Neurologic: Awake and alert and oriented x 3. Eyes: Triptone sclera clear. EOMI intact. Mouth: Oropharynx is clear. Tongue is in the midline. Cardiac: Regular rate and rhythm to auscultation, no murmurs rubs or gallops to auscultation. Pulmonary: Clear to auscultation throughout without any wheezing or crackles to auscultation. GI: Abdomen soft and nontender, normal bowel sounds to auscultation. Right foot: Mild Charcot foot changes are noted. The skin on his right foot is intact. No acute problems there. Left foot: At the plantar aspect / base of the fourth distal MTP he does have a small punctate wound. Right now this is not draining. The left lateral aspect of the foot is rather swollen. No superficial areas of fluctuance. The great toe and toes 2 or 3 appear to be normal. Toe 4 is a little painful to manipulation. The previous surgical site on the lateral aspect of the foot really looked excellent and well-healed and well approximated. Constitutional Vital Signs, click to edit/add: Last Vital Signs Temp 99.1 F 09/01/25 08:00 Pulse 83 09/01/25 08:00 Resp 20 09/01/25 08:00 BP 146/74 H 09/01/25 08:00 Pulse Ox 97 09/01/25 08:00 O2 Del Method Room Air 09/01/25 08:00 Results Labs Labs: Short CBC 09/01/25 Range/Units 02:37 WBC 10.5 (4.0-11.0) 10^3/uL Hgb 12.7 L (14.0-18.0) g/dL Hct 36.6 L (42.0-54.0) % Plt Count 187 (150-450) 10^3/uL BMP 09/01/25 09/01/25 02:37 09:30 Sodium 133 L 135 L Potassium 3.8 3.7 Chloride 95 L 99 Carbon Dioxide 24.8 24.2 BUN 13.0 15.0 Creatinine 1.25 1.16 Glucose 249 H 271 H Calcium 9.2 9.1 Liver Function 09/01/25 Range/Units 09:30 Total Bilirubin 0.8 (0.2-1.0) mg/dL AST 18 (15-37) U/L ALT 18 (16-63) U/L Alkaline Phosphatase 118 H (46-116) U/L Albumin 3.0 L (3.4-5.0) g/dL Assessment and Plan Assessment and Plan (1) Diabetic foot infection: (2) Hyperglycemia: (3) Dehydration: Plan Assessment: Diabetic foot infection, with likely osteomyelitis with bony destruction at the head of the fourth metatarsal. At high risk for deeper soft tissue infection and abscess formation. History of fifth ray amputation in [place] probably about 4 years ago. Diabetes mellitus, type II, uncontrolled, with acute hyperglycemia. Clinical dehydration, likely due to polyuria from the dehydration. History of hypertension. Likely history of atherosclerotic coronary artery disease, not clinically active at this time. Plan: Normally the plan would be to admit to the patient inpatient status and he would likely get an MRI tomorrow with possible surgery to amputate the osteomyelitis and drain any abscess or deep tissue infection either on Tuesday or on Tuesday, but since the patient lives in [place] another possibility is that he could return to his home town within the next 24 hours and seek treatment there. Right now he will think about this. He will let the nursing team know what he and his family decide about how to treat this infection. For now we will continue broad-spectrum antibiotics with IV vancomycin and IV Zosyn. Blood cultures x 2 and wound culture are currently pending. Will give the patient 2 L of IV fluids to rehydrate him. It was difficult for the high speed operator to draw a lot of the labs. Will manage hyperglycemia by using sliding scale insulin. DVT prophylaxis with Lovenox 40 mg subcutaneously daily.
[2025-09-01] MEDS: 0.9 % SODIUM CHLORIDE 1,000 ML 250 ML IV (11:47)
[2025-09-01 14:28] LABS: Hematocrit 33.0 % (42.0-54.0); Hemoglobin 11.6 g/dL (14.0-18.0); Immature Granulocytes Abs Auto 0.04 10^3/uL (0.00-0.03); Immature Granulocytes Pct Auto 0.5 % (0.0-0.5); Lymphocytes Absolute Auto 1.4 10^3/uL (1.2-3.8); Mean Corpuscular HGB Conc 35.2 g/dL (29.9-35.2); Mean Corpuscular Hemoglobin 32.4 pg (25.9-34.0); Mean Corpuscular Volume 92.2 fL (80.0-94.0); Platelet Count 173 10^3/uL (150-450); Red Blood Count 3.58 10^6/uL (4.70-6.10); White Blood Count 7.3 10^3/uL (4.0-11.0)
[2025-09-01 14:39] LABS: INR 1.08; Partial Thromboplastin Time 30.5 sec (22.3-36.2); Prothrombin Time 11.4 sec (9.0-11.6)
[2025-09-01] MEDS: VANCOMYCIN HCL 1,250 MG in 0.9 % SODIUM CHLORIDE 250 ML 166.667 MG IV (16:31)
[2025-09-01] MEDS: ATORVASTATIN CALCIUM 20 MG TABLET PO (21:04)
[2025-09-02] VITALS (8 sets, daily range): BP systolic 131–166; BP diastolic 78–93; PULSE 69–91; TEMP 36.4–36.9; O2SAT 91–96
[2025-09-02] MEDS: GABAPENTIN 300 MG CAPSULE 600 MG PO ×3 (05:24→21:24)
[2025-09-02] MEDS: PANTOPRAZOLE SODIUM 40 MG TABLET.DR PO (05:24)
[2025-09-02] MEDS: VANCOMYCIN HCL 1,250 MG in 0.9 % SODIUM CHLORIDE 250 ML 167 MG IV (05:25)
[2025-09-02 05:53] LABS: Hematocrit 33.8 % (42.0-54.0); Hemoglobin 11.8 g/dL (14.0-18.0); Mean Corpuscular HGB Conc 34.9 g/dL (29.9-35.2); Mean Corpuscular Hemoglobin 31.9 pg (25.9-34.0); Mean Corpuscular Volume 91.4 fL (80.0-94.0); Platelet Count 206 10^3/uL (150-450); Red Blood Count 3.70 10^6/uL (4.70-6.10); White Blood Count 7.5 10^3/uL (4.0-11.0)
[2025-09-02 06:06] LABS: Alanine Aminotransferase 17 U/L (16-63); Albumin Globulin Ratio 0.6; Albumin Level 2.9 g/dL (3.4-5.0); Alkaline Phosphatase 123 U/L (46-116); Anion Gap 14.5; Aspartate Amino Transferase 16 U/L (15-37); Blood Urea Nitrogen 15.0 mg/dL (7.0-18.0); Calcium 9.0 mg/dL (8.5-10.1); Carbon Dioxide 24.6 mmol/L (21.0-32.0); Chloride 100 mmol/L (98-107); Estimated GFR (African America >60 (>=60 mL/min/1.73m^2); Estimated GFR (Non-African Ame >60 (>=60 mL/min/1.73m^2); Globulin 4.7 g/dL; Glucose 340 mg/dL (74-106); Potassium 4.1 mmol/L (3.5-5.1); Sodium 135 mmol/L (136-145); Total Protein 7.6 g/dL (6.4-8.2)
--- NOTE | 2025-09-02 07:50 | CM.NOTE ---
Rounds made with Dr. Hatfield, discussed with pt plan of care. Clifford will also consult on patient for further recommendations. Pt inpatient status, no discharge today.
[2025-09-02] MEDS: INSULIN ASPART 300 UNIT/3 ML PEN SUBQ ×4 (09:16→21:25)
[2025-09-02] MEDS: LISINOPRIL 20 MG TABLET 40 MG PO (09:17)
[2025-09-02] MEDS: ENOXAPARIN SODIUM 40 MG/0.4 ML SYRINGE SUBQ (09:17)
[2025-09-02] MEDS: ASPIRIN 81 MG TABLET.DR PO (09:17)
[2025-09-02] MEDS: BUSPIRONE HCL 10 MG TABLET PO (09:18)
--- NOTE | 2025-09-02 09:50 | PC.NURSE ---
0815: pt ambulates to bathroom with walker and SBA,pt independently completes a sink bath with SBA. pt returns to bed. siderails up,bed in lowest position with call light in reach.
--- NOTE | 2025-09-02 10:13 | SWNOTE1 ---
Important Message from Medicare reviewed and discussed with patient. Pt. verbalized understanding and signed the form. Original given to patient and copy placed in patient?s chart.
--- NOTE | 2025-09-02 10:15 | SWNOTE1 ---
SANTANA met with pt to discuss dc needs. Pt lives at home with his . He currently is visiting his sister. He lives in [place], about 4 hours away with his . Pt is independent and does not use any DME at home. Pt does not have any services coming in at this time. He voiced someone from his insurance does do a home visit every once in a while to check on him and his . They make sure pt and have everything they need at home and assist with any transportation. SANTANA did look over pt's insurance and Medicare is listed. SW did ask pt if he has another insurance besides Medicare. Pt voiced he thinks he has [facility] Medicare. SW to check. Pt also stated that he does not want any surgical intervention and he wants to follow up with his art objects supervisor. He voiced his sister is coming to hospital soon and she was asking if he was being discharged? SANTANA advised that SW does not see that he is being discharged today. Pt requested to be discharged today and that his sister is driving him back to [place] tomorrow. He again voiced he wants to follow up with his own art objects supervisor. SANTANA advised pt that SANTANA will speak with case management and advise case management of pt's request to be discharged today in order to follow up with his art objects supervisor in [place] as soon as possible. SANTANA updated nurse and spoke with case management.
--- NOTE | 2025-09-02 10:21 | SWNOTE1 ---
SANTANA called Monica, medicare biller, and she did confirm pt does have [facility] medicare dual dual complete for insurance. SANTANA updated case management.
--- NOTE | 2025-09-02 11:19 | MR_ITS ---
The [address] [address] Patient Name: DARSHAN BREWSTER MRN: [id number] date: 1965 Sex: M Assigned Patient Location: MS Current Patient Location: MS Accession/Order Number: [id number] Exam Date: 09/02/2025 14:15 Report Date: 09/02/2025 19:39 At the request of: KEZIA FIELDS MD Procedure: MR foot LT wo con MR foot LT wo con 09/02/2025 2:44 PM SIGNS AND SYMPTOMS: Infected ulcer r/o abscess or osteo PROTOCOL: Multiplanar multisequence MR images of the left foot without IV contrast COMPARISON: 09/01/2025 FINDINGS: Lisfranc ligament: Intact. Hallux: Osseous: Normal. Extensor tendon: Normal. Flexor tendon: Normal. First metatarsophalangeal joint: Intact. Hallux-sesamoid complex: Normal. Second ray: Osseous: Normal. Extensor tendon: Normal. Flexor tendon: Normal. Second metatarsophalangeal joint: Intact. Plantar plate: Normal. Third ray: Osseous: Normal. Extensor tendon: Normal. Flexor tendon: Normal. Third metatarsophalangeal joint: Intact. Plantar plate: Normal. Fourth ray: Osseous: There is cortical erosion and marrow edema within the fourth metatarsal greatest distally extending into the fourth metatarsophalangeal joint to involve the proximal, middle, and distal phalanx of the fourth toe. This is consistent with osteomyelitis. Extensor tendon: Normal. Flexor tendon: Normal. Fourth metatarsophalangeal joint: As above. Plantar plate: Normal. Fifth ray: There is evidence of previous amputation of the fifth digit. Interspaces: Interdigital (Lui) neuroma: None. Intermetatarsal bursitis: None. Soft tissues: There is soft tissue ulceration along the base of the foot underlying the fourth metatarsal and fourth metatarsal phalangeal joint. There is diffuse soft tissue edema consistent with cellulitis and myositis. Muscles: Normal. Bones: Normal. Nerves: Normal. Blood vessels: Normal. MR/MR foot LT wo con IMPRESSION: There is soft tissue ulceration along the base of the foot underlying the fourth metatarsal and fourth metatarsal phalangeal joint. There is diffuse soft tissue edema consistent with cellulitis and myositis. There is cortical erosion and marrow edema within the fourth metatarsal greatest distally extending into the fourth metatarsophalangeal joint to involve the proximal, middle, and distal phalanx of the fourth toe. This is consistent with osteomyelitis. Impression dictated by: Eulogio Fields M.D. 09/02/2025 7:39 PM Dictation Location: [place] [address] Electronically authenticated by: [id number] Y Date: 09/02/2025 19:39
--- NOTE | 2025-09-02 11:25 | P.PN_ITS ---
Progress Note: Subjective Subjective Interval history: Patient reports having pain and discomfort in the foot. No chest pain or palpitation. No abdominal pain, nausea or vomiting. Exam Narrative Exam Narrative: [pt is awake and alert. oriented to place, time and person, morbidly obese HEENT: [place] conjunctiva and NL buccal mucosa Neck: Supple, no tenderness Endocrine: No Thyromegaly. Vascular: No JVD or carotid bruit. Lymphatic: No cervical lymphadenopathy. Chest: CTA no DTP. Heart RRR, no extra sound or murmur. Abd: Soft, no tenderness, no rebound and no rigidity. Increase abd girth therefore clinically I could not exclude the possibility of intra abd mass or organomegaly. LE: No cyanosis or clubbing, no varices or edema. Pain, tenderness, swelling, erythema involving the dorsal and plantar aspect of the foot. Unstageable ulcer involving the distal metatarsal. Neuro: A A O. Nl speech, comprehension and attention. Nl and symetrical motor and tone examination through out. []] Constitutional Vital Signs, click to edit/add: Last Vital Signs Temp 98.1 F 09/02/25 08:00 Pulse 75 09/02/25 08:40 Resp 18 09/02/25 08:40 BP 137/82 09/02/25 09:17 Pulse Ox 94 L 09/02/25 08:00 O2 Del Method Room Air 09/02/25 08:00 Progress Note: Objective Labs Labs: Short CBC 09/01/25 09/02/25 Range/Units 14:17 05:36 WBC 7.3 7.5 (4.0-11.0) 10^3/uL Hgb 11.6 L 11.8 L (14.0-18.0) g/dL Hct 33.0 L 33.8 L (42.0-54.0) % Plt Count 173 206 (150-450) 10^3/uL BMP 09/02/25 05:36 Sodium 135 L Potassium 4.1 Chloride 100 Carbon Dioxide 24.6 BUN 15.0 Creatinine 1.16 Glucose 340 H Calcium 9.0 Liver Function 09/02/25 Range/Units 05:36 Total Bilirubin 0.4 (0.2-1.0) mg/dL AST 16 (15-37) U/L ALT 17 (16-63) U/L Alkaline Phosphatase 123 H (46-116) U/L Albumin 2.9 L (3.4-5.0) g/dL Progress Note: A&P Assessment and Plan (1) Diabetic foot infection: (2) Hyperglycemia: (3) Dehydration: Plan Cellulitis of the foot with infected foot ulcer MRI rule out osteomyelitis. Continue antibiotic. Podiatry consultation. Arterial studies rule out PVD Diabetes, poor control. Accu-Chek with sliding scale coverage Added Tasha Diabetes teaching Hypertension Continue lisinopril Neuropathy Continue gabapentin DVT prophylaxis Lovenox subcu Chronic, subacute medical conditions not listed above, abnormal labs and imaging. These would need to be addressed. Could be addressed later on or in the outpatient setting by PCP collaboration with other needed outpatient providers when time and condition are appropriate.
[2025-09-02] MEDS: INSULIN GLARGINE 300 UNIT/3 ML INSULN.PEN 25 UNIT SQ (13:32)
[2025-09-02] MEDS: PIPERACILLIN SODIUM/TAZOBACTAM 3.375 GM in 0.9 % SODIUM CHLORIDE 50 ML IV ×2 (13:32→21:24)
[2025-09-02] MEDS: LINEZOLID 600 MG TABLET PO ×2 (13:33→21:24)
--- NOTE | 2025-09-02 16:21 | PC.NURSE ---
[address] Hatfield of the results on the us LLE artery and is aware.
--- NOTE | 2025-09-02 17:38 | PC.NURSE ---
Updated Dr. Hatfield that a wound culture was ordered from the ER prior to this patient being brought to the floor. Lab states no culture was obtained. This creative writer went to obtain culture but there is no drainage to obtain. Dr. Hatfield states if there is no drainage to cancel the order.
[2025-09-02] MEDS: ATORVASTATIN CALCIUM 20 MG TABLET PO (21:24)
[2025-09-03 04:00] VITALS: BP 145/78; PULSE 68; TEMP 36.6; O2SAT 94
[2025-09-03] MEDS: PANTOPRAZOLE SODIUM 40 MG TABLET.DR PO (05:14)
[2025-09-03] MEDS: PIPERACILLIN SODIUM/TAZOBACTAM 3.375 GM in 0.9 % SODIUM CHLORIDE 50 ML IV ×2 (05:14→11:42)
[2025-09-03] MEDS: GABAPENTIN 300 MG CAPSULE 600 MG PO ×2 (05:14→14:05)
[2025-09-03 05:35] LABS: Hematocrit 32.2 % (42.0-54.0); Hemoglobin 11.3 g/dL (14.0-18.0); Immature Granulocytes Abs Auto 0.04 10^3/uL (0.00-0.03); Immature Granulocytes Pct Auto 0.6 % (0.0-0.5); Lymphocytes Absolute Auto 2.2 10^3/uL (1.2-3.8); Mean Corpuscular HGB Conc 35.1 g/dL (29.9-35.2); Mean Corpuscular Hemoglobin 32.5 pg (25.9-34.0); Mean Corpuscular Volume 92.5 fL (80.0-94.0); Platelet Count 196 10^3/uL (150-450); Red Blood Count 3.48 10^6/uL (4.70-6.10); White Blood Count 6.4 10^3/uL (4.0-11.0)
[2025-09-03 05:58] LABS: Anion Gap 14.3; Blood Urea Nitrogen 14.0 mg/dL (7.0-18.0); Calcium 9.1 mg/dL (8.5-10.1); Carbon Dioxide 26.6 mmol/L (21.0-32.0); Chloride 103 mmol/L (98-107); Estimated GFR (African America >60 (>=60 mL/min/1.73m^2); Estimated GFR (Non-African Ame >60 (>=60 mL/min/1.73m^2); Glucose 271 mg/dL (74-106); Potassium 3.9 mmol/L (3.5-5.1); Sodium 140 mmol/L (136-145)
[2025-09-03 08:46] VITALS: BP 156/89; PULSE 69; TEMP 36.6; O2SAT 95
[2025-09-03] MEDS: INSULIN ASPART 300 UNIT/3 ML PEN SUBQ ×2 (08:59→11:38)
[2025-09-03] MEDS: INSULIN GLARGINE 300 UNIT/3 ML INSULN.PEN 25 UNIT SQ (09:00)
[2025-09-03] MEDS: LISINOPRIL 20 MG TABLET 40 MG PO (09:44)
[2025-09-03] MEDS: ASPIRIN 81 MG TABLET.DR PO (09:44)
[2025-09-03] MEDS: ENOXAPARIN SODIUM 40 MG/0.4 ML SYRINGE SUBQ (09:44)
[2025-09-03] MEDS: LINEZOLID 600 MG TABLET PO (09:46)
--- NOTE | 2025-09-03 10:08 | CM.NOTE ---
Rounds made with . to see patient today due to MRI results.
--- NOTE | 2025-09-03 10:41 | PM.CN ---
Consult Note: [facility] Data of Consult Consult date: 09/03/25 Requesting Physician: Shauna Hatfield MD Primary Care Provider: Non-Staff Physician, Consult Narrative Reason for consult: Left diabetic foot infection Narrative: Patient is a 60-year-old poorly controlled diabetic male who relates to a recurrent nonhealing ulcer on the left foot. He is from [facility] and has been following with a smoke room operator locally. He was in [place] visiting his sister and relates to feeling ill over the weekend prompting presentation to the emergency department on Tuesday. He was admitted for dehydration and diabetic foot infection and has been receiving broad-spectrum antibiotics. Patient relates that he is feeling much improved however imaging obtained during admission reveals evidence of osteomyelitis of the fourth metatarsal. He relates that he is to see his smoke room operator tomorrow and that up until this point the ulcer had been doing much better. Currently he denies nausea, vomiting, fever, chills, night sweats, left foot pain, chest pain, shortness of breath and calf pain cc:: CC: Shauna Hatfield MD Review of Systems ROS Status of ROS 10 or more systems reviewed and unremarkable except as noted in history and below [facility] Medical History (Updated 09/03/25 @ 10:48 by Terrence Horton DPM) HTN (hypertension) ?I10 - Essential (primary) hypertension (ICD-10) Neuropathy ?G62.9 - Polyneuropathy, unspecified (ICD-10) Diabetes ?E11.9 - Type 2 diabetes mellitus without complications (ICD-10) Heart attack ?I21.9 - Acute myocardial infarction, unspecified (ICD-10) Surgical History (Updated 09/01/25 @ 11:18 by GERALDO ULLOA) History of amputation of left fifth toe ?Z89.422 - Acquired absence of other left toe(s) (ICD-10) Family History Mother Family history of CHF (congestive heart failure) Social History Within the past year, how often did you have a drink containing alcohol: never Within the past year, how often did you have six or more drinks on one occasion: never Score interpretation: A score less than 4 is consistent with normal alcohol consumption. Smoking status: Never smoker Non-prescribed substance use: denies use Highest level of school completed/degree received: 8th grade Are you now , , , , never or living with a partner: In a typical week, how many times do you talk on the telephone with family, friends, or neighbors: twice per week How often do you get together with friends or relatives: twice per week How often do you attend yazidism or yazidi services: never Little interest or pleasure in doing things: nearly every day Feeling down, depressed, or hopeless: nearly every day Feel stressed/tense/nervous/anxious/difficulty sleeping: to some extent Do you think of yourself as: straight/heterosexual Gender Identity: male Meds Home Medications and Allergies Home Medications ?Medication ?Instructions ?Recorded ?Confirmed ?Type aspirin 81 mg tablet,delayed 81 mg PO DAILY 09/01/25 09/01/25 History release atorvastatin 20 mg tablet 20 mg PO HS 09/01/25 09/01/25 History buspirone 10 mg tablet 10 mg PO BID 09/01/25 09/01/25 History doxepin 50 mg capsule 100 mg PO .QHS 09/01/25 09/01/25 History gabapentin 600 mg tablet 600 mg PO TID 09/01/25 09/01/25 History hydrocodone 7.5 mg-acetaminophen 1 tab PO QID PRN pain 09/01/25 09/01/25 History 325 mg tablet lisinopril 40 mg tablet 40 mg PO .QD 09/01/25 09/01/25 History omeprazole 40 mg capsule,delayed 40 mg PO .QD 09/01/25 09/01/25 History release semaglutide 1 mg/dose (4 mg/3 mL) 1 mg subcut Q7D 09/01/25 09/01/25 History subcutaneous pen injector (Ozempic) Allergies Allergy/AdvReac Type Severity Reaction Status Date / Time povidone-iodine (From AdvReac Unknown Verified 10/18/23 03:37 Betadine) Exam Narrative Exam Narrative: Skin: Partial-thickness ulceration subfourth metatarsal head with no erythema, drainage, malodor or fluctuance. Ulceration measures 0.3 x 0.2 cm and does not probe to bone Vascular: Dorsalis pedis pulses nonpalpable while posterior tibial pulse is faintly palpable. Minimal dorsal foot swelling. No calf pain on squeeze. Neuro: Absent protective and vibratory sensation Musculoskeletal: Partial fifth ray amputation of the left foot is noted. Ankle joint dorsiflexion is to neutral but not passed. No pain on palpation. Mild lesser toe contractures Constitutional Vital Signs, click to edit/add: Last Vital Signs Temp 97.9 F 09/03/25 08:46 Pulse 69 09/03/25 08:46 Resp 18 09/03/25 08:46 BP 156/89 H 09/03/25 08:46 Pulse Ox 95 09/03/25 08:46 O2 Del Method Room Air 09/03/25 08:46 Results Labs Labs: Short CBC 09/03/25 Range/Units 05:06 WBC 6.4 (4.0-11.0) 10^3/uL Hgb 11.3 L (14.0-18.0) g/dL Hct 32.2 L (42.0-54.0) % Plt Count 196 (150-450) 10^3/uL BMP 09/03/25 05:06 Sodium 140 Potassium 3.9 Chloride 103 Carbon Dioxide 26.6 BUN 14.0 Creatinine 0.97 Glucose 271 H Calcium 9.1 Assessment and Plan Assessment and Plan (1) Diabetic foot infection: (2) Hyperglycemia: (3) Dehydration: (4) Chronic osteomyelitis of left foot with draining sinus: Plan Patient was seen and evaluated. Patient's occasion provided and all questions answered to his satisfaction. I discussed the case as well with Dr. Hatfield. I reviewed his labs, x-rays, MRI and arterial Dopplers. Patient has evidence of a limb threatening condition and given his poorly controlled diabetes he is at high risk for limb and life loss although he is hemodynamically stable at this point. Specifically I discussed potential risks and benefits of operative debridement and possible amputation during this hospital stay. Although patient is adamant he would like to return home to undergo any surgical intervention and given he is hemodynamically stable I believe this is a reasonable request especially since he has a scheduled appointment with his smoke room operator tomorrow. I recommended he once discharged he obtain a disk of his imaging and vascular studies from medical records and allow his smoke room operator to review. He will be discharged home on p.o. antibiotics per Dr. Hatfield the hospitalist. It was stressed to the patient that if any local or systemic signs of infection occur he is to go to the emergency department immediately. He may weight-bear as tolerated to the left heel Call with any updates or changes in plan
--- NOTE | 2025-09-03 11:42 | CM.NOTE ---
CM spoke with pt regarding diabetic education. Verbal and written information provided on diet, exercise, and medication compliance. Pt is active with bicycle rental clerk in [place] and has PCP that he will follow up with at discharge. Pt also has a medicaid eligibility specialist that he has an appointment with in [place]. Pt's sister has all of the physicians information and will make sure he follows up. Pt's sister will also drive pt back to [place]. Pt denies other questions or concerns.
--- NOTE | 2025-09-03 12:30 | PM.DS1 ---
DS: Providers Provider Date of admission: 09/01/25 04:03 Primary care physician: Non-Staff Physician, Consults: 09/01/25 03:25 Consult to Podiatry Routine Consulting Provider: Terrence Horton Reason for consultation: Foot infection 09/02/25 11:[address] Routine Reason for consultation: DM and Insulin pt ED DS: Diagnosis Discharge Diagnosis (1) Diabetic foot infection: (2) Hyperglycemia: (3) Dehydration: (4) Chronic osteomyelitis of left foot with draining sinus: Plan As listed above, below and others that are not listed DS: Summary Hospital Course Hospital Course: Mr. Dunaway is a 60-year-old gentleman with a known diagnosis of hypertension and diabetes. He came in with left foot swelling, tenderness and nonhealing ulcer. He was found to have the following: Cellulitis of the foot with infected foot ulcer Osteomyelitis of the 4th and 5th metatarsal confirmed on MRI imaging. Likely chronic osteomyelitis as patient reported has been dealing with this for several months and even longer. No clinical evidence of sepsis or septic shock. Patient is afebrile with stable blood pressure. Patient was seen by community theater actor who recommended debridement. Unfortunately the patient lives in [place], [place] [address] and has a follow-up appointment with his community theater actor at his hometown tomorrow. Patient has subtle mental delay. His sister helps him take care of his affairs. I had 25 minutes conversation with his sister on the phone. Patient and his sister opted not to proceed with any surgical intervention here (Bone debridement versus metatarsal amputation ) at [facility] due to expected postoperative care is best to be delivered at his hometown in [place]. Sister promised to pick him up today and drive him home tonight so he can see his community theater actor tomorrow Patient may need to be hospitalized at [facility] for podiatry intervention given his osteomyelitis. I also recommend the patient to have vascular evaluation prior to any foot intervention to be done at [facility]. May need to have angiogram or CTA of the lower extremities. Dr. Horton had the same conversation with the patient and both agreed not to intervene on him at [facility] suspecting extensive postop care [facility] I will discharge patient on oral antibiotic. This antibiotic would need to be changed based on bone biopsy culture report. Peripheral vascular disease. I ordered arterial study which came back positive for tibial stenosis. Patient has strong palpable dorsalis pedis pulse I would recommend patient to have additional vascular evaluation at his hometown by vascular team. This may include but not limited to needing to have angiogram or CTA of the leg. Meanwhile I started patient on aspirin and continuation of statin. Diabetes, poor control. Accu-Chek with sliding scale coverage Added Lantus Diabetes teaching A1c is 12 suggestive of noncompliance. I would recommend patient to follow-up with his primary care doctor or electrical engineering technician at [facility] I would start patient on oral diabetes medication suspecting that he would not be compliant with insulin injection and be able to understand the complexity of insulin dosing Additional diabetes care would need to be addressed at [facility]. Hypertension Continue lisinopril Neuropathy Continue gabapentin DVT prophylaxis Lovenox subcu Anemia, no evidence of acute blood loss. Patient will likely require to have anemia workup to be done in the outpatient setting to be handled by PCP in collaboration with other needed outpatient providers. This may include but not limited to EGD, colonoscopy, referral to see hematology and other needed age-appropriate cancer screening. Chronic, subacute medical conditions not listed above, abnormal labs and imaging. These would need to be addressed. Could be addressed later on or in the outpatient setting by PCP collaboration with other needed outpatient providers when time and condition are appropriate. Patient has multiple complex medical issues as listed above and others that are not listed. All appear to be stable. Patient would like to be discharged today supported by his sister so he can drive back to [place], [address] [place] [address], so he can see his community theater actor tomorrow I do not have any clear or strong clinical justification to extend inpatient hospitalization. Patient however will require close and frequent monitoring as well as additional work-up, investigation and therapeutic intervention that could take place from this point on post discharge. That is to prevent relapse, decompensation, rehospitalization and other medical implications.. Patient may need to be rehospitalized in [place] to proceed with debridement of osteomyelitis or probable metatarsal amputation I instructed patient to ask her primary care doctor to obtain [facility] record entirely to address abnormalities seen on labs and imaging that I have and have not addressed during this hospitalization, follow-up on pending blood work, imaging and pathology is if available and to follow-up on needed medical care in the outpatient setting. Time Spent with Patient Time attestation: Total time spent providing and/or coordinating discharge services: Exam Constitutional Vital Signs, click to edit/add: Last Vital Signs Temp 97.9 F 09/03/25 08:46 Pulse 69 09/03/25 08:46 Resp 18 09/03/25 08:46 BP 156/89 H 09/03/25 08:46 Pulse Ox 95 09/03/25 08:46 O2 Del Method Room Air 09/03/25 08:46 DS: Data Data Completed and Pending Labs on day of discharge: Labs from last 24 hours 09/03/25 09/03/25 09/02/25 11:37 05:06 21:17 WBC 6.4 RBC 3.48 L Hgb 11.3 L Hct 32.2 L MCV 92.5 MCH 32.5 MCHC 35.1 RDW 13.4 Plt Count 196 MPV 10.7 Neut % (Auto) 49.7 Lymph % (Auto) 33.8 [place] % (Auto) 11.3 Eos % (Auto) 4.1 Baso % (Auto) 0.5 Neut # (Auto) 3.2 Lymph # (Auto) 2.2 [place] # (Auto) 0.7 Eos # (Auto) 0.3 Baso # (Auto) 0.0 Abs Immat Gran (auto) 0.04 H Imm/Tot Granulo (auto) 0.6 H Sodium 140 Potassium 3.9 Chloride 103 Carbon Dioxide 26.6 Anion Gap 14.3 BUN 14.0 Creatinine 0.97 Est GFR ( Amer) >60 Est GFR (Non-Af Amer) >60 BUN/Creatinine Ratio 14.4 Glucose 271 H Calcium 9.1 POC Glucose 236 H 286 H 09/02/25 16:56 WBC RBC Hgb Hct MCV MCH MCHC RDW Plt Count MPV Neut % (Auto) Lymph % (Auto) [place] % (Auto) Eos % (Auto) Baso % (Auto) Neut # (Auto) Lymph # (Auto) [place] # (Auto) Eos # (Auto) Baso # (Auto) Abs Immat Gran (auto) Imm/Tot Granulo (auto) Sodium Potassium Chloride Carbon Dioxide Anion Gap BUN Creatinine Est GFR ( Amer) Est GFR (Non-Af Amer) BUN/Creatinine Ratio Glucose Calcium POC Glucose 211 H Discharge Plan Discharge Disposition: Home, Self-Care Condition: Fair Discharge Medications: New glipizide 2.5 mg tablet 2.5 mg PO BID Qty: 60 1RF Rx Instructions: Do not take if your blood sugar is less than 125 metformin 500 mg tablet 500 mg PO BID Qty: 60 1RF doxycycline monohydrate 100 mg tablet 100 mg PO BID 10 Days Qty: 20 0RF amoxicillin-pot clavulanate 875-125 mg tablet 1 tab PO BID Qty: 14 0RF Continued aspirin 81 mg tablet,delayed release (DR/EC) 81 mg PO DAILY atorvastatin 20 mg tablet 20 mg PO HS buspirone 10 mg tablet 10 mg PO BID doxepin 50 mg capsule 100 mg PO .QHS gabapentin 600 mg tablet 600 mg PO TID hydrocodone-acetaminophen 7.5-325 mg tablet 1 tab PO QID PRN (Reason: pain) lisinopril 40 mg tablet 40 mg PO .QD omeprazole 40 mg capsule,delayed release(DR/EC) 40 mg PO .QD Ozempic 1 mg/dose (4 mg/3 mL) pen injector 1 mg SUBCUT Q7D Print Language: Lithuanian Activity Restrictions/Additional Instructions: I may not have addressed or treated all of your medical illnesses or the abnormal blood work or imaging studies during this hospitalization. Please ask your primary care provider to obtain [facility] records entirely to follow up on all of the abnormal physical, laboratory, and imaging findings that I have not addressed. Please return back to the emergency room or seek medical attention if your symptoms worsen or return. Follow-up with your community theater actor foot doctor tomorrow I would recommend that your primary care doctor and community theater actor obtain [facility] record entirely including MRI of the foot, arterial study, blood work and notes to follow-up on needed medical care I would recommend to be readmitted back into the hospital for treatment of osteomyelitis bone infection to be arranged by your foot doctor or primary care doctor. I would recommend that you be seen by vascular circulation specialist due to abnormal arterial study completed here at [facility] to make sure that you do not have significant circulation impairment I would recommend that your antibiotic will be changed based on the bone biopsy culture report. I would recommend you to be seen by an infectious disease specialist at [facility]. I would recommend that you be seen by video production specialist to address your diabetes needed. Check your blood sugar 3 times a day before meals. Document these numbers on a blood glucose log and bring them with you to your follow-up appointment with your primary care doctor. Communicate with your primary care doctor or video production specialist if your blood sugar is under 100 or above 300 on 2 consecutive checks. Communicate with your primary care doctor or video production specialist if you have any questions about your diabetes medications. Signs of a low blood sugar include sweating, racing heart, dizziness and/or weakness. Check your blood sugar if you have any of the symptoms. Discharging you from [facility] does not mean that your medical care ends here and now. You may still need additional monitoring, work up, investigation, and treatment plan to be handled from this point on by out patient providers including your primary care provider and specialists. For any medication question, please contact your retail pharmacist or your primary care provider. Thank you. Forms: Portal Instructions Follow Up Appointments: Keep all previously scheduled appts. with pcp, wound and joiner.
--- NOTE | 2025-09-03 16:50 | NUTR.NU ---
PO intakes of 2200 kcal CCD diet are generally good, averaging 90%. Pt does not appear to follow diabetic diet closely at home; encourage therapeutic diet compliance and adequate dietary PRO intakes to aid wound healing. Continue to follow PRN.
--- NOTE | 2025-09-04 15:13 | CM.DCFOLLOWU ---
Person spoke with: Kirby How are you feeling? Good How is your pain? Doing ok Did you understand your discharge instructions? Yes Do you have any questions about your discharge instructions? No Were you given any prescriptions at discharge? Yes Were you able to get your prescriptions filled? Yes Do you understand how to take your medications as ordered? Yes Do you have any questions about your follow up appointment and do you plan to keep your follow up appointment? No questions. He saw his Internal Medicine Doctor today and will be having surgery soon. Is there anything else that you would like to discuss? No Questions/Comments/Concerns/Other:
== END 2025-09-03 15:08 | disposition home or self-care (01) | DRG 638 ==
LOC: ER 03:18 → MS 04:04
PROVIDERS: Hospitalist; Admitting Provider Internal Medicine; Emergency Provider Emergency Medicine; Visit Provider Internal Medicine
DX: E11.69 Type 2 diabetes mellitus with other specified complication (principal); L03.116 Cellulitis of left lower limb; M86.472 Chronic osteomyelitis with draining sinus, left ankle and foot; E11.65 Type 2 diabetes mellitus with hyperglycemia; Z79.85 Long-term (current) use of injectable non-insulin antidiabetic drugs; E86.0 Dehydration; I10 Essential (primary) hypertension; I25.2 Old myocardial infarction; E11.40 Type 2 diabetes mellitus with diabetic neuropathy, unspecified; Z89.422 Acquired absence of other left toe(s); E66.01 Morbid (severe) obesity due to excess calories; E11.621 Type 2 diabetes mellitus with foot ulcer; L97.529 Non-pressure chronic ulcer of other part of left foot with unspecified severity; E11.628 Type 2 diabetes mellitus with other skin complications; E11.51 Type 2 diabetes mellitus with diabetic peripheral angiopathy without gangrene; D64.9 Anemia, unspecified; Z68.30 Body mass index [BMI] 30.0-30.9, adult
CPT/HCPCS: 36415; 73630; 73718; 80048; 80053; 82948; 83036; 84484; 85025; 85027; 85610; 85652; 85730; 86140; 87040; 87070; 87075; 93005; 93925; 96365; 99285; J1650; J2543; J3373